=== PATIENT | male | born 1960 | race Caucasian/White ===

== ENCOUNTER 2020-01-18 20:30 | Emergency (ER) | payer OTHER, SELFPAY ==
[2020-01-18 20:31] VITALS: BP 186/126; PULSE 82; RESP 18; TEMP 36; O2SAT 97; BMI 47.9
[2020-01-18 20:56] VITALS: BP 196/94
--- NOTE | 2020-01-18 21:00 | EKG12_ITS ---
Test Reason : HTN Blood Pressure : / mmHG Vent. Rate : 091 BPM Atrial Rate : 091 BPM P-R Int : 162 ms QRS Dur : 096 ms QT Int : 368 ms P-R-T Axes : 045 005 029 degrees QTc Int : 452 ms Poor data quality, interpretation may be adversely affected Normal sinus rhythm Normal ECG Confirmed by MAXIMILIAN BURNS, SHADI ([id number]), editor managing director CHRIS OH ([id number]) on 01/24/2020 11:53:31 AM Referred By: Confirmed By:SHADI YAO MD
--- NOTE | 2020-01-18 21:01 | ED.VIS.GEN ---
History of Present Illness Chief Complaint: Hypertension Informant: Patient Narrative: Patient presents the emergency department for evaluation of hypertension left leg swelling. Patient moved from [place] about 2 years ago and due to a lack of health insurance he was not following up with anybody. He is now since got health insurance and was wanting to reestablish with a new primary care physician so he went tonight to see a new doctor. He was noted to have hypertension and left leg swelling. He tells me he has a history of hypertension and was treated for it 3 years ago in [place] but decided that he could watch his salt intake and do without the medication. About 3 years ago was the last time he took his blood pressure but he maintains that his systolic blood pressure normally runs around 140. He was noted at the office to have systolic pressures of 204. Patient also states that in the past he was diagnosed with a extensive DVT in the left leg. Since that time he was taking Eliquis but not for the past year. He does not know why he was on the Eliquis but was basically supposed to be taking it lifelong. Financial burden relieved him of having to take it. He states that the swelling comes and goes. He notes a family history of polycythemia. Past Medical History - Allergies and Home Meds Allergies/Adverse Reactions: Allergies No Known Allergies Allergy (Verified 01/18/20 20:33) Primary Care Physician: David Laurent MD [Primary Care Provider] - As soon as possible Past Medical History: - - DVT and hypertension Surgical History: noncontributory Lives: With Family Smoking Status: Never smoker Drugs: None Review of Systems General: Denies: Chills, Fever, Sweats Eyes: Denies: Visual changes - bilaterally, Diplopia ENT: Denies: Rhinorrhea, Sore throat Cardiovascular: Denies: Chest pain, Palpitations Respiratory: Denies: Dyspnea, Cough, 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 Gastrointestinal: Denies: Abdominal pain, Nausea, Vomiting, Diarrhea, Melena, Hematochezia Genitourinary: Denies: Dysuria, Hematuria, Frequency Musculoskeletal: Reports: Swelling. Denies: Back pain, Extremity Pain Skin: Denies: Rash, Wounds Neurological: Denies: Headache, Weakness, Numbness Physical Exam Vital Signs/Narrative: Vital Signs Temp Pulse Resp BP Pulse Ox 01/18/20 20:56 196/94 H 01/18/20 20:31 96.8 F L 82 18 186/126 H 97 Inital Vital Signs reviewed: Yes General: Well nourished, Well developed, Obese, No Acute Distress Head: Normocephalic, Atraumatic Eyes: Perrl, EOMI ENT: Moist mucous membranes, No rhinorrhea Neck: Supple, Nontender Cardiovascular: Regular rate, Regular rhythm, No murmurs Respiratory: No distress, CTA bilaterally, Chest nontender Abdomen: Soft, Nontender, Nondistended, Normal bowel sounds Back: Nontender, Normal Inspection Extremities: Nontender, Edema - Left leg is swollen when compared to the right. Skin: Normal color, No rash Neurological: Alert, Oriented x3, Cranial nerves II-XII grossly intact, Normal Strength, Normal Sensation Psychological: Normal affect, Normal Mood Diagnostic/Tx/Re-eval Clinical Impression(s) from Imaging Studies Venous Duplex 01/18/20 21:09 IMPRESSION: Deep venous thrombosis of left superficial femoral and popliteal veins. Electronically Signed: Dario Keenan MD at 21:55 EDT , Service support , ADDENDUM: 01/18/201 IMPRESSION: Deep venous thrombosis of left superficial femoral and popliteal veins. N.B. : The above information has been verbally conveyed by Dario Keenan MD to César Reed MD, on 01/18/2020 22:04:30 (ET). Electronically Signed: Dario Keenan MD at 21:55 EDT , Service support , Laboratory Last Values WBC 7.6 K/mm3 (4.4-11.0) 01/18/20 20:47 RBC 4.58 M/mm3 (4.6-6.2) L 01/18/20 20:47 Hgb 16.5 g/dL (13.0-16.5) 01/18/20 20:47 Hct 45.9 % (40-54) 01/18/20 20:47 MCV 100.2 fL (80-94) H 01/18/20 20:47 MCH 36.0 pg (27.0-32.0) H 01/18/20 20:47 MCHC 35.9 g/dL (32-36) 01/18/20 20:47 RDW Std Deviation 46.2 fl (35.1-43.9) H 01/18/20 20:47 RDW Coeff of Ryan 12.5 % (11.6-14.6) 01/18/20 20:47 Plt Count 252 K/mm3 (150-450) 01/18/20 20:47 MPV 10.6 fl (6.2-12.0) 01/18/20 20:47 Immature Gran % (Auto) 0.100 % (0.0-0.9) 01/18/20 20:47 Neut % (Auto) 58.2 % (47-70) 01/18/20 20:47 Lymph % (Auto) 32.8 % (19-41) 01/18/20 20:47 [place] % (Auto) 7.2 % (0-10) 01/18/20 20:47 Eos % (Auto) 1.4 % (0-5) 01/18/20 20:47 Baso % (Auto) 0.3 % (0-1) 01/18/20 20:47 Absolute Neuts (auto) 4.4 X10^3/uL (2.0-7.7) 01/18/20 20:47 Absolute Lymphs (auto) 2.49 X10^3/uL (0.83-4.51) 01/18/20 20:47 Nucleated RBC % 0 % (0-5) 01/18/20 20:47 Sodium 141 mmol/L (136-145) 01/18/20 20:47 Potassium 3.6 mmol/L (3.5-5.1) 01/18/20 20:47 Chloride 107 mmol/L (98-107) 01/18/20 20:47 Carbon Dioxide 28.0 mmol/L (21.0-32.0) 01/18/20 20:47 Anion Gap 6 (5-15) 01/18/20 20:47 BUN 13 mg/dL (7-18) 01/18/20 20:47 Creatinine 1.01 mg/dL (0.70-1.30) 01/18/20 20:47 Estim Creat Clear Calc 76.19 ml/min 01/18/20 20:47 Est GFR (MDRD) Af Amer 97 mL/min (>60) 01/18/20 20:47 Est GFR (MDRD) Non-Af 80 mL/min (>60) 01/18/20 20:47 BUN/Creatinine Ratio 12.9 RATIO (-20) 01/18/20 20:47 Glucose 219 mg/dL (74-106) H 01/18/20 20:47 Hemoglobin A1c 8.8 % (3.8-5.6) H 01/18/20 Unknown Calcium 8.7 mg/dL (8.5-10.1) 01/18/20 20: Total Bilirubin 0.40 mg/dL (0.20-1.00) 01/18/20 20:47 AST 33 U/L (15-37) 01/18/20 20:47 ALT 53 U/L (16-61) 01/18/20 20:47 Alkaline Phosphatase 126 U/L (45-117) H 01/18/20 20:47 Troponin I < 0.015 ng/mL (<0.045) 01/18/20 20:47 Total Protein 7.5 g/dL (6.4-8.2) 01/18/20 20:47 Albumin 3.8 g/dL (3.2-5.0) 01/18/20 20:47 Globulin 3.7 g/dL (2.2-4.2) 01/18/20 20:47 Albumin/Globulin Ratio 1.0 RATIO (0.9-2.4) 01/18/20 20:47 Urine Color Yellow (Yellow) 01/18/20 22:00 Urine Clarity Clear (Clear) 01/18/20 22:00 Urine pH 6.0 (5.0 - 8.0) 01/18/20 22:00 Ur Specific [place] 1.020 (1.002-1.030) 01/18/20 22:00 Urine Protein 15 mg/dl (Negative) H 01/18/20 22:00 Urine Glucose (UA) 1000 mg/dl (Normal) H 01/18/20 22:00 Urine Ketones 5 mg/dl (Negative) H 01/18/20 22:00 Urine Occult Blood Negative /ul (Negative) 01/18/20 22:00 Urine Nitrite Negative (Negative) 01/18/20 22:00 Urine Bilirubin Negative mg/dL (Negative) 01/18/20 22:00 Urine Urobilinogen 4 mg/dl (Normal) H 01/18/20 22:00 Ur Leukocyte Esterase Negative /ul (Negative) 01/18/20 22:00 Urine RBC 0 SEEN /hpf (0-5) 01/18/20 22:00 Urine WBC 0 SEEN /hpf (0-5) 01/18/20 22:00 Ur Squamous Epith Cells 0 SEEN /hpf (0-5) 01/18/20 22:00 Urine Bacteria 0 SEEN /hpf (None Seen) 01/18/20 22:00 Urine Mucus 0 SEEN /hpf (<or=2+) 01/18/20 22:00 - EKG Initial EKG Interpretation: Sinus Rhythm - EKG demonstrates a normal sinus rhythm at a rate of 91 without ectopy or concerning features of ACS - Medical Decision Making A hemoglobin A1c was added on. Start the gentleman back on his Eliquis. Without treating his blood pressure his blood pressure is 175/96. He is to start lisinopril hydrochlorothiazide. Patient is advised to follow-up with primary care. ED Disposition - Plan for ED Patient: Disposition: Home or Assisted Living Diagnosis: Left leg DVT, Hypertension, Elevated blood sugar Instructions: ED DVT, ED Hypertension Established, ED Hyperglycemia New Susp Diabetes Prescriptions: Apixaban [Eliquis] 5 mg PO BID #74 tab Prescription Printed Lisinopril/Hydrochlorothiazide [Lisinopril-Hctz 10-12.5 mg Tab] 1 ea PO DAILY #30 tab Prescription Printed Referrals: David Laurent MD [Primary Care Provider] - As soon as possible Additional Instructions: You need to have your doctor check your hemoglobin A1c level You should talk to your doctor a bout genetic testing for DVT. As discussed should he develop cough, swelling of lips or tongue please talk to your doctor or come to the emergency room
--- NOTE | 2020-01-18 21:09 | US_ITS ---
We are attempting to reach an attending provider to discuss findings. An addendum with communication details will be sent when the communication is complete. STUDY: VENOUS DOPPLER ULTRASOUND - LEFT LOWER EXTREMITY REASON FOR EXAM: Male, 59 years old. LEFT LEG SWELLING TECHNIQUE: Ultrasound evaluation of the deep vein system to include lucio-scale imaging and compression was performed. Lucio-scale imaging and Doppler sonographic evaluation, including duplex spectral analysis and qualitative color flow sonography, was performed. COMPARISON: None. FINDINGS: Common Femoral Vein: Normal compression, spontaneity and augmentation. Normal color Doppler. Common Femoral Vein/Greater Saphenous Junction: Normal compression, spontaneity and augmentation. Normal color Doppler. Deep Femoral Vein: Normal compression, spontaneity and augmentation. Normal color Doppler. There is incomplete compressibility of the left superficial femoral and popliteal veins with internal echoes consistent with deep venous thrombosis. Posterior Tibial Vein: Normal compression, spontaneity and augmentation. Normal color Doppler. Peroneal Vein: Normal compression, spontaneity and augmentation. Normal color Doppler. US/Venous Duplex Imag/Limited/Uni IMPRESSION: Deep venous thrombosis of left superficial femoral and popliteal veins. Electronically Signed: Dario Keenan MD at 21:55 EDT , Service support ,
[2020-01-18 21:27] LABS: AST(SGOT) 33 U/L (15-37); Alanine Aminotransfer ALT/SGPT 53 U/L (16-61); Albumin, Serum 3.8 g/dL (3.2-5.0); Alkaline Phosphatase 126 U/L (45-117); Anion Gap 6 (5-15); BUN 13 mg/dL (7-18); BUN/Creat Ratio 12.9 RATIO (10-20); Calcium,Total 8.7 mg/dL (8.5-10.1); Chloride 107 mmol/L (98-107); Creatinine, Serum 1.01 mg/dL (0.70-1.30); EST Glomerular Filtration Rate 80 mL/min (>60); Est Glom Filt Rate - Afr Amer 97 mL/min (>60); Estimated Creatinine Clearance 76.19 ml/min; Globulin 3.7 g/dL (2.2-4.2); Glucose 219 mg/dL (74-106); Potassium 3.6 mmol/L (3.5-5.1); Protein, Total 7.5 g/dL (6.4-8.2); Sodium Level 141 mmol/L (136-145)
[2020-01-18 21:40] LABS: Absolute Lymphocyte Count 2.49 X10^3/uL (0.83-4.51); Absolute Neutrophil Count 4.4 X10^3/uL (2.0-7.7); Basophil# 0.02 X10^3/uL; Basophil% 0.3 % (0-1); Eosinophil# 0.11 X10^3/uL; Eosinophils% 1.4 % (0-5); Hematocrit 45.9 % (40-54); Hemoglobin 16.5 g/dL (13.0-16.5); Lymphocyte # 2.49 X10^3/ul (4.0); Lymphocyte % 32.8 % (19-41); Mean Corp Hgb Conc 35.9 g/dL (32-36); Mean Corpuscular Volume 100.2 fL (80-94); Mean Platelet Vol. 10.6 fl (6.2-12.0); Monocyte# 0.55 X10^3/uL; Monocyte% 7.2 % (0-10); NRBC Flagged by Analyzer 0 % (0-5); Neutrophil # 4.42 X10^3/uL (2.7-7.7); Neutrophil % 58.2 % (47-70); Platelet Count 252 K/mm3 (150-450); RBC Distribution Width CV 12.5 % (11.6-14.6); RBC Distribution Width SD 46.2 fl (35.1-43.9); Red Blood Count 4.58 M/mm3 (4.6-6.2); White Blood Count 7.6 K/mm3 (4.4-11.0)
[2020-01-18 22:00] VITALS: BP 175/96
[2020-01-18 22:06] LABS: Bacteria 0 SEEN /hpf (None Seen); Mucous, Urine 0 SEEN /hpf (<or=2+); Red Blood Cells-Urine 0 SEEN /hpf (0-5); Squamous Epithelial Cells - UA 0 SEEN /hpf (0-5); White Blood Cells 0 SEEN /hpf (0-5)
[2020-01-18 22:09] LABS: Color, Urine Yellow (Yellow); Glucose, Dipstick 1000 mg/dl (Normal); Ketone-Dipstick 5 mg/dl (Negative); Leukocyte Esterase-Dipstick Negative /ul (Negative); Nitrite-Dipstick Negative (Negative); Occult Blood-Urine Negative /ul (Negative); Protein-Dipstick 15 mg/dl (Negative); Urine Bilirubin Dipstick Negative (Negative); Urine Clarity Clear (Clear); Urine Urobilinogen 4 mg/dl (Normal)
[2020-01-18 22:32] LABS: Hemoglobin A1c 8.8 % (3.8-5.6)
--- NOTE | 2020-01-18 22:43 | ED.RN ---
CALLED LAB FOR URINE RESULTS, THEY WILL INVESTIGATE.
[2020-01-18 23:30] VITALS: BP 186/97; RESP 20; O2SAT 96
[2020-01-18] MEDS: APIXABAN 5 MG TABLET 10 MG PO (23:30)
== END 2020-01-18 23:30 | disposition home or self-care (01) ==
PROVIDERS: Emergency Provider Emergency Medicine; PCP Family Medicine
DX: I82.4Z2 Acute embolism and thrombosis of unspecified deep veins of left distal lower extremity (principal); I10 Essential (primary) hypertension; R73.9 Hyperglycemia, unspecified; E66.9 Obesity, unspecified; Z79.82 Long term (current) use of aspirin
CPT/HCPCS: 80053; 81001; 83036; 84484; 85025; 93005; 93971; 99285; A4216

== ENCOUNTER 2021-03-04 23:02 | Emergency (ER) | payer OTHER, SELFPAY ==
[2021-03-04 23:02] VITALS: BP 160/93; PULSE 100; RESP 28; TEMP 37.2; O2SAT 100; BMI 47.9
--- NOTE | 2021-03-04 23:46 | CT_ITS ---
STUDY: CT ABDOMEN AND PELVIS WITH CONTRAST REASON FOR EXAM: Male, 60 years old. epigastric abd pain RADIATION DOSAGE (If Supplied By Facility): CTDIvol = ( 19.45 ) mGy, DLP = ( 2764.16 ) mGycm TECHNIQUE: Transaxial images were obtained from the dome of the diaphragm to the symphysis pubis without oral contrast. IV 100mL Isovue-300 was administered. Sagittal and coronal images were reconstructed. Individualized dose optimization techniques were used for this CT. COMPARISON: None. FINDINGS: The visualized lung bases are unremarkable. The visualized portions of the heart are within normal limits. There is decreased attenuation of the liver consistent with steatosis. There are multiple gallstones. Normal spleen. There is diffuse atrophy of the pancreas. Normal bilateral adrenal glands. Normal right kidney. Normal left kidney. There is a small hiatal hernia. Normal small intestine. Normal colon. There is non-visualization of the appendix. Normal abdominal aorta. Normal inferior vena cava. Normal retroperitoneum. Normal urinary bladder. Normal visualized prostate gland. Normal abdominal wall. Normal osseous structures. CT/Abdomen/Pelvis W IV Cont ONLY IMPRESSION: Significant fatty steatosis of the liver. Multiple gallstones without evidence of acute cholecystitis. Remainder is within normal limits Electronically Signed: Rojas Mejia DO at 1:51 EST Tel , Service support ,
--- NOTE | 2021-03-04 23:47 | ED.VIS.GI ---
HPI HPI - GI History of Present Illness Chief Complaint: Nausea/Vomiting Detail of Chief Complaint: Epigastric abdominal pain Informant: patient Abdominal Pain/Flank Pain Onset: Today and Hours Context: Gradual Onset Timing: Continuous Quality: Aching Location: Epigastric Current Severity: Moderate Maximum Severity: Moderate Nausea/Vomiting/Emesis GI Symptom: Positive for Nausea and Vomiting Onset: Today Severity: Mild Diarrhea/Melena/Hematochezia GI Symptom: Positive for Diarrhea; Negative for Melena and Hematochezia Onset: Today Stool Quality: Positive for Loose Severity: Mild Associated Symptoms Associated Symptoms: Negative for Dysuria, Frequency, Hematuria and Urgency Narrative Narrative: 60-year-old male past medical history [id number] diabetic. Said around 9 PM the night he had epigastric abdominal pain associated with nausea, vomiting and diarrhea. He thinks it may be associated with the spaghetti ate tonight for dinner but he is unsure. He says never had an episode like this before. He denies any prior gallbladder or appendix surgeries. He denies any back pain. No fever but positive chills. No dysuria. No melena or hematemesis. Prior similar symptoms: No Recent Illness/Hospitalization: No PFSH PFS Medical History DVT (deep venous thrombosis) Hypertension Home Medications apixaban 5 mg PO BID #74 tab 01/18/20 [Rx Last Taken Unknown] aspirin 81 mg PO DAILY@0800 01/18/20 [History Last Taken Unknown] lisinopril-hydrochlorothiazide 1 ea PO DAILY #30 tab 01/18/20 [Rx Last Taken Unknown] Allergy/AdvReac Type Severity Reaction Status Date / Time No Known Allergies Allergy Verified 03/05/21 01:25 Social History Smoking Status: Never smoker ROS ROS ED ROS Narrative Epigastric abdominal pain with nausea, vomiting and diarrhea. Review of Systems ROS Unobtainable: Denies due to encephalopathy Constitutional Constitutional ED: Reports chills; Denies fever(s) ENT ENT ED: Denies ear pain Cardiovascular Cardiovascular: Denies chest pain or palpitations Respiratory/Chest Respiratory/Chest: Denies cough or dyspnea Gastrointestinal Gastrointestinal: Reports abdominal pain, diarrhea, nausea and vomiting; Denies constipation or melena Genitourinary Genitourinary ED: Denies dysuria Musculoskeletal Musculoskeletal: Denies myalgias Integumentary Denies rash Neurologic Neurologic: Denies headache(s) Psychiatric Psychiatric: Denies depression Endocrine Endocrinology: Denies polyuria Hematologic/Lymphatic Hematologic/Lymphatic: Denies easy bruising Allergic/Immunologic Allergic/Immunologic ED: Denies urticaria EXAM Physical Exam Narrative Exam Narrative: 60-year-old male vital signs stable afebrile does not look septic or toxic. HEENT exam unremarkable. Neck nontender. Lungs clear to auscultation bilaterally. Heart regular rhythm no murmur. Abdomen soft nondistended normal bowel sounds no peritoneal signs but tender in both the epigastric region and right upper quadrant. No hernia or mass no obvious obstruction. Right lower quadrant nontender. Moving all 4 extremities no edema. Neurologically is awake and alert with no focal motor deficits. Const Vital Signs: 03/04/21 23:02 03/04/21 23:53 03/05/21 01:55 Temperature 98.9 F Temperature Source Temporal Pulse Rate 100 96 123 H Respiratory Rate 28 H 32 H 20 H Blood Pressure 160/93 H 159/88 H 158/86 H Blood Pressure Mean 115 111 110 Pulse Ox 100 98 96 Oxygen Delivery Method Room Air Positive well nourished, well developed and obese; Negative for cachectic, contractures or unkempt General Appearance ED: well developed and NAD; Negative for unkempt, cachectic, contractures or pallor Nutritional Appearance: obese; Negative for cachectic HEENT Reports dry mucous membranes normocephalic and atraumatic; Negative for trauma or tenderness Mouth ED: Yes dry mucous membranes Mouth: dry mucous membranes Eyes PERRL and EOMs intact bilaterally Neck no lymphadenopathy, supple and no JVD General: Negative for tenderness Resp normal respiratory effort and clear to auscultation bilaterally Auscultation: Negative for rales, rhonchi or wheezes Cardio regular rate, regular rhythm, S1 normal heart sound, S2 normal heart sound and no murmurs GI non-tender, non-distended and no masses Inspection: Negative for abdominal distention Auscultation: normoactive bowel sounds; Negative for hyperactive bowel sounds or hypoactive bowel sounds Palpation: soft and tender; Negative for guarding, rigid, hepatomegaly, splenomegaly or rebound tenderness present Back/Spine no CVA tenderness General Back: Negative for CVA tenderness Extremity full ROM General Extremety ED: Negative for edema or tenderness General Extremity: Negative for edema Neuro moves all extremities Sensorium / Orientation: alert, oriented to person, oriented to place and oriented to time; Negative for orientation impaired, confused, lethargic or stuporous Motor Exam: strength 5/5 throughout Psych mental status grossly normal and thought process normal Appearance: Negative for unkempt Skin no wounds General Skin Exam: Negative for jaundice or pallor Lesions: no lesions Rashes: no rashes MDM MDM MDM Narrative Medical decision making narrative: 60-year-old male with epigastric and right upper quadrant abdominal pain with nausea, vomiting and diarrhea. Be treated with IV fluids morphine and Zofran. Labs and CAT scan are being obtained. Repeat exam patient is doing well at 2:10 AM. Abdomen is completely nontender. No peritoneal signs. Clinically looks and feels well. I discussed with a general surgeon on-call Dr. Micheline Monet at the [facility]. Given the patient has a normal white count, no fever and is pain-free she is comfortable seeing him in her office later today and possibly scheduling him for surgery soon as possible. I discussed all this with the patient he preferred to go home also. Lab Data Attestation: I reviewed the patient's lab results. Lab results narrative: CBC shows a white count 8. Hemoglobin is 16.8. Electrolytes sodium 133 gap 11 normal BUN and creatinine. Liver enzymes are elevated with a total bilirubin 3.2 AST of 388 ALT of 503 and alk phos of 192. Lipase is normal. Abdominal CAT scan shows gallstones but no cholecystitis is read by the radiologist and reviewed by me. Labs: Laboratory Results - last 24 hr 03/04/21 03/04/21 23:30 23:30 WBC 8.0 RBC 4.85 Hgb 16.8 H Hct 47.1 MCV 97.1 H MCH 34.6 H MCHC 35.7 RDW Std Deviation 43.3 RDW Coeff of Ryan 12.0 Plt Count 214 MPV 10.9 Immature Gran % (Auto) 0.300 Neut % (Auto) 64.1 Lymph % (Auto) 28.1 [place] % (Auto) 6.3 Eos % (Auto) 0.9 Baso % (Auto) 0.3 Absolute Neuts (auto) 5.1 Absolute Lymphs (auto) 2.24 Nucleated RBC % 0 Sodium 133 L Potassium 3.5 Chloride 99 Carbon Dioxide 23.0 Anion Gap 11 BUN 17 Creatinine 1.25 Estim Creat Clear Calc 60.80 Est GFR (MDRD) Af Amer 76 Est GFR (MDRD) Non-Af 63 BUN/Creatinine Ratio 13.6 Glucose 307 H Calcium 9.4 Total Bilirubin 3.20 H AST 388 H ALT 503 H Alkaline Phosphatase 192 H Total Protein 7.8 Albumin 3.5 Globulin 4.3 H Albumin/Globulin Ratio 0.8 L Lipase 388 Radiography Diagnostic Testing: Clinical Impression(s) from Imaging Studies Abdomen/Pelvis CT 03/04/21 23:46 IMPRESSION: Significant fatty steatosis of the liver. Multiple gallstones without evidence of acute cholecystitis. Remainder is within normal limits Electronically Signed: Rojas Mejia DO at 1:51 EST Tel , Service support , Discharge Plan Triage Chief Complaint: Nausea/Vomiting ED Provider: Pal Ribera Dx/Rx/DC Orders Clinical Impression: Biliary colic, Multiple gallstones Instructions: ED Gallstones with Biliary Colic Prescriptions: No Action aspirin 81 MG tablet,chewable 81 mg PO DAILY@0800 RF: 0 apixaban 5 MG tablet 5 mg PO BID Qty: 74 RF: 0 lisinopril-hydrochlorothiazide 1 EACH tablet 1 ea PO DAILY Qty: 30 RF: 0 Primary Care Provider: Priyank Quinones Referrals: Micheline Monet MD [STAFF PHYSICIAN] - As soon as possible (Call her office and be seen later today.) Priyank Quinones MD [Primary Care Provider] - Activity Restrictions/Additional Instructions: You have multiple gallstones and most likely will need your gallbladder taken out. I believe that is what caused your pain tonight. Call and follow-up with Dr. Micheline Monet at the [facility] here in [place] later today. Call their office in the morning to get an appointment. I spoke with her tonight. Return emergency department if you are feeling worse, increasing pain, intractable vomiting or fever. Fluids and rest. Tylenol for any discomfort. Ball diet and increase slowly as tolerated. Avoid greasy and fatty foods because that may make this feel a lot worse. Disposition Disposition: Home, Self Care
[2021-03-04 23:53] VITALS: BP 159/88; PULSE 96; RESP 32; O2SAT 98
[2021-03-04] MEDS: 0.9% Normal Saline 1,000 ML 1000 ML IV (23:57)
[2021-03-04] MEDS: Ondansetron 4 MG/2 ML Vial IV (23:59)
[2021-03-04] MEDS: morphine 8 MG/ML Syringe IV (23:59)
[2021-03-05 00:37] LABS: ALB/GLOB Ratio 0.8 RATIO (0.9-2.4); AST(SGOT) 388 U/L (15-37); Alanine Aminotransfer ALT/SGPT 503 U/L (16-61); Albumin, Serum 3.5 g/dL (3.2-5.0); Alkaline Phosphatase 192 U/L (45-117); Anion Gap 11 (5-15); BUN 17 mg/dL (7-18); BUN/Creat Ratio 13.6 RATIO (10-20); Calcium,Total 9.4 mg/dL (8.5-10.1); Chloride 99 mmol/L (98-107); Creatinine, Serum 1.25 mg/dL (0.70-1.30); EST Glomerular Filtration Rate 63 mL/min (>60); Est Glom Filt Rate - Afr Amer 76 mL/min (>60); Globulin 4.3 g/dL (2.2-4.2); Glucose 307 mg/dL (74-106); Lipase 388 U/L (73-393); Potassium 3.5 mmol/L (3.5-5.1); Protein, Total 7.8 g/dL (6.4-8.2); Sodium Level 133 mmol/L (136-145)
[2021-03-05 00:49] LABS: Absolute Lymphocyte Count 2.24 X10^3/uL (0.83-4.51); Absolute Neutrophil Count 5.1 X10^3/uL (2.0-7.7); Basophil# 0.02 X10^3/uL; Basophil% 0.3 % (0-1); Eosinophil# 0.07 X10^3/uL; Eosinophils% 0.9 % (0-5); Hematocrit 47.1 % (40-54); Hemoglobin 16.8 g/dL (13.0-16.5); Lymphocyte # 2.24 X10^3/ul (0.83-4.51); Lymphocyte % 28.1 % (19-41); Mean Corp Hgb Conc 35.7 g/dL (32-36); Mean Corpuscular Hgb 34.6 pg (27.0-32.0); Mean Corpuscular Volume 97.1 fL (80-94); Mean Platelet Vol. 10.9 fl (6.2-12.0); Monocyte% 6.3 % (0-10); NRBC Flagged by Analyzer 0 % (0-5); Neutrophil # 5.11 X10^3/uL (2.7-7.7); Neutrophil % 64.1 % (47-70); Platelet Count 214 K/mm3 (150-450); RBC Distribution Width SD 43.3 fl (35.1-43.9); Red Blood Count 4.85 M/mm3 (4.6-6.2)
[2021-03-05 01:55] VITALS: BP 158/86; PULSE 123; RESP 20; O2SAT 96
[2021-03-05 02:12] VITALS: BP 160/88; PULSE 126; RESP 18; TEMP 36.6; O2SAT 96
== END 2021-03-05 02:29 | disposition home or self-care (01) ==
PROVIDERS: Emergency Provider Emergency Medicine; PCP Family Medicine
DX: K80.62 Calculus of gallbladder and bile duct with acute cholecystitis without obstruction (principal); K76.0 Fatty (change of) liver, not elsewhere classified; E66.9 Obesity, unspecified; I10 Essential (primary) hypertension; E11.9 Type 2 diabetes mellitus without complications; Z86.718 Personal history of other venous thrombosis and embolism; Z79.01 Long term (current) use of anticoagulants; Z79.82 Long term (current) use of aspirin
CPT/HCPCS: 74177; 80053; 83690; 85025; 96361; 96374; 96375; 99285; J7030; Q9967; A4216; J2405

== ENCOUNTER 2025-02-27 14:18 | Inpatient (IN) | payer SELFPAY ==
[2025-02-27] VITALS (35 sets, daily range): BP systolic 140–200; BP diastolic 62–85; PULSE 104–132; RESP 17–53; TEMP 36.9–39.4; O2SAT 88–99; BMI 47.2; BMI 20.9; BMI 46.3
--- NOTE | 2025-02-27 14:57 | RAD_ITS ---
PROCEDURE: CHEST 1 VIEW (PORTABLE) 02/27/2025 REASON FOR EXAM: FEVER COUGH TECHNIQUE: Frontal view of the chest. COMPARISON: None FINDINGS: Diffuse reticular opacities may reflect moderate pulmonary edema versus atypical pneumonia. Right lower lobe opacity may reflect atelectasis and/or pneumonia. No pleural effusion or pneumothorax. Cardiac silhouette is within normal limits. No acute fractures. RAD/Chest 1 View (Portable) IMPRESSION: Diffuse reticular opacities may reflect moderate pulmonary edema versus atypica l pneumonia. Right lower lobe opacity may reflect atelectasis and/or pneumonia. Reading Location: [id number]
--- NOTE | 2025-02-27 14:57 | EKG12_ITS ---
Test Reason : Blood Pressure : */* mmHG Vent. Rate : 112 BPM Atrial Rate : 112 BPM P-R Int : 152 ms QRS Dur : 88 ms QT Int : 370 ms P-R-T Axes : 38 7 117 degrees QTcB Int : 505 ms Sinus tachycardia T wave abnormality, consider lateral ischemia Abnormal ECG Confirmed by Wilfrido Verdin ([id number]), greeting card editor CHRIS OH ([id number]) on 02/28/2025 8:29:11 AM Referred By: Confirmed By: Wilfrido Verdin
[2025-02-27] MEDS: 0.9% Normal Saline (1000mL) 1,000 ML 999 ML IV ×2 (15:08→17:04)
--- OUTSIDE RECORDS SUMMARY | 2025-02-27 15:09 | XMS RPT_ITS | CCD ---
Author Organization [facility] Care Team Providers Care Inspector [employer] Name Role Phone Dashawn Eid MD Primary Care Provider Dashawn Eid MD Primary Care Provider Tannhof FLARER.Chelo CALLAHAN Unavailable Malcom FLARER.Go CALLAHAN Unavailable [phone] Medications Current Medications Medication Drug Class(es) Dates Sig (Normalized) Sig (Original) acetaminophen 325 mg / oxyCODONE hydrochloride 5 mg oral tablet (1 source) Opioid Agonist Start: 07-18-2021 End: 07-23-2021 take 1 tablet by mouth every six hours as needed oxyCODONE-acetamino phen (PERCOCET) 5-325 mg tablet Indications: Calculus of gallbladder and bile duct without cholecystitis, with obstruction Take 1 tablet by mouth every 6 hours as needed for up to 5 days. 20 tablet 0 07/18/2021 07/23/2021 Active Comment on above: Take 1 tablet by chalino th every 6 hours as needed for up to 5 days. amoxicillin 875 mg / clavulanate 125 mg oral tablet (4 sources) Penicillin-class Antibacterial Start: 08-08-2021 End: 08-18-2021 take 1 tablet by mouth twice daily amoxicillin-clavula cindy acid (AUGMENTIN) 875-125 mg per tablet Indications: Acute non-recurrent sinusitis, unspecified location Take 1 tablet by mouth twice daily for 10 days. 20 tablet 0 08/08/2021 08/18/2021 Active Comment on above: Take 1 tablet by chalino th twice daily for 10 days. apixaban 5 mg oral tablet (20 sources) Factor Xa Inhibitor Start: 11-28-2020 End: 10-10-2022 take 1 tablet by mouth twice daily apixaban (ELIQUIS) 5 mg tab(s) Take 1 tablet by mouth twice daily. 180 tablet 3 10/10/2022 Active Comment on above: Take 1 tablet by chalino th twice daily. Take by mouth twice daily. Take 1 tablet by chalino th twice daily. restart med in two days atorvastatin 40 mg oral tablet (20 sources) HMG-CoA Reductase Inhibitor Start: 04-29-2023 End: 04-23-2024 take 1 tablet by mouth once daily at bedtime for hyperlipidemia atorvastatin (LIPITOR) 40 mg tablet Indications: Hyperlipidemia, unspecified hyperlipidemia type Take 1 tablet by mouth daily at bedtime. For cholesterol. 90 tablet 3 04/29/2023 04/23/2024 Active Start: 03-08-2021 End: 03-03-2022 take 1 tablet by mouth once daily at bedtime for hyperlipidemia atorvastatin (LIPITOR) 40 mg tablet Indications: Hyperlipidemia, unspecified hyperlipidemia type Take 1 tablet by mouth daily at bedtime. For cholesterol. 90 tablet 3 03/08/2021 Active Comment on above: Take 1 tablet by chalino th daily at bedtime. For cholesterol. benoxinate hydrochloride 4 mg/ml / fluorescein sodium 3 mg/ml ophthalmic solution (1 source) Diagnostic Dye Start: End: fluorescein-benox inate 0.3-0.4 % 1 Drop (FLURESS) hydroCHLOROthiazide 25 mg / lisinopril 20 mg oral tablet (20 sources) Thiazide Diuretic, Angiotensin Converting Enzyme Inhibitor Start: End: take 1 tablet by mouth once daily in the morning lisinopril-hydroC HLOROthiazide (ZESTORETIC) 20-25 mg per tablet Indications: Hypertension, essential Take 1 tablet by mouth every morning. 90 tablet 3 10/17/2023 Active Comment on above: Take 1 tablet by chalino th every morning. 24 hr metFORMIN hydrochloride 500 mg extended release oral tablet (20 sources) Biguanide Start: take 2 tablets by mouth twice daily at mealtime metFORMIN ER (GLUCOPHAGE XR) 500 mg 24 hr tablet Indications: Controlled type 2 diabetes mellitus without complication, without long-term current use of insulin (HCC) Take 2 tablets by mouth two times a day with meals. 120 tablet 2 04/29/2023 Active Start: 08-08-2020 take 2 tablets by mo [facility] twice daily at mealtime metFORMIN ER (GLUCOPHAGE XR) 500 mg 24 hr tablet Indications: Controlled type 2 diabetes mellitus without complication, without long-term current use of insulin (HCC) Take 2 tablets by mouth twice daily with meals. 120 tablet 2 08/08/2020 Active Comment on above: Take 2 tablets by [facility] twice daily with meals. Take 2 tablets by mo [facility] two times a day with meals. Completed/Discontinued Medications Medication Drug Class(es) Dates Sig (Normalized) Sig (Original) fluticasone propionate 0.05 mg/actuat metered dose nasal spray (13 sources) Corticosteroid Start: 06-23-2020 take 2 spray(s) by mouth once daily fluticasone (FLONASE) 50 mcg/actuation nasal spray Indications: Acute non-recurrent maxillary sinusitis Use 2 Sprays in each nostril once daily. Rinse mouth after use. 1 Bottle 11 06/23/2020 Active Comment on above: Use 2 Sprays in each nostril once daily. Rinse mouth after use. phenylephrine hydrochloride 25 mg/ml ophthalmic solution (1 source) alpha-1 Adrenergic Agonist Start: 05-08-2023 End: 05-08-2023 PHENYLephrine 2.5 % 1 Drop (AK-DILATE, SILVESTRE-SYNEPHRINE) proparacaine hydrochloride 5 mg/ml ophthalmic solution (1 source) Local Anesthetic Start: 05-08-2023 End: 05-08-2023 proparacaine 0.5 % 1 Drop (ALCAINE) tropicamide 10 mg/ml ophthalmic solution (1 source) Anticholinergic Start: 05-08-2023 End: 05-08-2023 tropicamide 1 % 1 Drop (MYDRIACYL) Problems Active Problems Problem Classification Problem Date Documented Da te Episodic/Chronic Blindness and vision defects (4 sources) Refractive amblyopia of right eye; Translations: [Refractive amblyopia, right eye] 05-08-2023 Episodic Cataract (2 sources) Bilateral senile combined form cataracts of eyes; Translations: [Combined forms of age-related cataract, bilateral] 05-08-2023 Chronic Diabetes mellitus without complication (20 sources) Type 2 diabetes mellitus; Translations: [Type 2 diabetes mellitus without complications] Onset: 02-08-2020 02-08-2020 Chronic Disorders of lipid metabolism (20 sources) Hyperlipidemia; Translations: [Hyperlipidemia, unspecified] Onset: 11-28-2020 11-28-2020 Chronic Essential hypertension (20 sources) Essential hypertension; Translations: [Essential (primary) hypertension] Onset: 02-08-2020 02-08-2020 Chronic Glaucoma (2 sources) Preglaucoma, unspecified, bilateral; Translations: [Preglaucoma, unspecified] 05-08-2023 Chronic Inflammation; infection of eye (except that caused by tuberculosis or sexually transmitteddisease) (2 sources) Blepharitis; Translations: [Squamous blepharitis right eye, upper and lower eyelids] 05-08-2023 Episodic Other aftercare (2 sources) Patient encounter status; Translations: [FPC (current) use of antithrombotics/an tiplatelets] Episodic Other hereditary and degenerative nervous system conditions (20 sources) Essential tremor; Translations: [Essential tremor] Onset: 11-28-2020 11-28-2020 Chronic Other liver diseases (4 sources) Increased bilirubin level; Translations: [Unspecified jaundice] Episodic Other lower respiratory disease (1 source) 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; Translations: [Dyspnea, unspecified] Episodic Other nutritional; endocrine; and metabolic disorders (20 sources) Body mass index 40+ - severely obese; Translations: [Morbid (severe) obesity due to excess calories] Onset: 02-08-2020 02-08-2020 Chronic Other screening for suspected conditions (not mental disorders or infectious disease) (4 sources) Other specified abnormal findings of blood chemistry; Translations: [Other abnormal blood chemistry] Episodic Other upper respiratory infections (1 source) Acute sinusitis; Translations: [Acute sinusitis, unspecified] Episodic Phlebitis; thrombophlebitis and thromboembolism (20 sources) Chronic deep venous thrombosis of femoral vein of left lower extremity; Translations: [Chronic embolism and thrombosis of left femoral vein] Onset: 02-08-2020 02-08-2020 Chronic Pulmonary heart disease (20 sources) Saddle embolus of pulmonary artery; Translations: [Saddle embolus of pulmonary artery without acute cor pulmonale] Onset: 03-01-2020 03-01-2020 Chronic Residual codes; unclassified (4 sources) H/O: jaundice; Translations: [Personal history of other specified conditions] Episodic Past or Other Problems Problem Classification Problem Date Documented Date Episodic/Chronic Biliary tract disease (6 sources) Cholelithiasis without obstruction; Translations: [Calculus of gallbladder without cholecystitis without obstruction] Onset: 07-18-2021 Resolved: 07-18-2021 Episodic Other aftercare (20 sources) Long-term current use of anticoagulant; Translations: [FPC (current) use of anticoagulants] Onset: 05-26-2020 05-29-2020 Episodic Results Test Name Value Interpretation Reference Range Facil itute Higginbotham 04-22-2024 CNPN Telephone (4CQ) MITCH IRVIN ([id number]) 1960 M Date Time Provider Department 04/22/24 DASHAWN EID 4CQ During your visit today, we recorded the following information about you: Helen Randle 04/22/2024 11:04 AM Signed Pt called back regarding letter he received in mail. Patient stated that he can not make an appt at this time as he does not have medical insurance. Once he figures this out he will call to schedule . Allergies As of Date: 04/22/2024 (No Known Allergies) Date Reviewed: 05/29/2023 Reviewed by: Saumya Rodney OD - Fully Assessed Reason for Visit: Patient Update [1234] Prescriptions as of 04/22/2024 - lisinopril-hydroCHLORO thiazide (ZESTORETIC) 20-25 mg per tablet Take 1 tablet by mouth every morning. - atorvastatin (LIPITOR) 40 mg tablet Take 1 tablet by mouth daily at bedtime. For cholesterol. - metFORMIN ER (GLUCOPHAGE XR) 500 mg 24 hr tablet Take 2 tablets by mouth two times a day with meals. - apixaban (ELIQUIS) 5 mg tab(s) Take 1 tablet by mouth twice daily. Meds Comments as of 03/08/2021: Will use Advil/Tylenol prn Problem List As Of Date 04/22/2024 Noted Resolved Hypertension, essential [I10] 02/08/2020 Type 2 diabetes (HCC) [E11.9] 02/08/2020 Chronic deep vein thrombosis (DVT) of femoral v*02/08/2020 Obesity, Class III, BMI 40-49.9 (morbid obesity*02/08/2020 Acute saddle pulmonary embolism without acute c*03/01/2020 Anticoagulant long-term use [Z79.01] 05/26/2020 Hyperlipidemia [E78.5] 11/28/2020 Essential tremor [G25.0] 11/28/2020 Calculus of gallbladder and bile duct without c*07/18/2021 07/18/2021 Encounter Status:[facility] (BECKIE) MITCH IRVIN ([id number]) 1960 M Date Time Provider Department 04/13/24 GO COWART During your visit today, we recorded the following information about you: Go Cowart APRN.CNP 04/13/2024 10:12 AM Signed STAMP Please reach out to patient for overdue appointment for chronic disease management with myself. This patient is due for a yearly exam Go Cowart APRN.Katerine Angeles LPN 04/13/2024 10:45 AM Signed Left message to return call Lliliam Chávez MA 04/16/2024 12:54 PM Signed POP[employer] NAVIGATION OUTREACH Action/FYI Message left for pt to call back. Due for appt. Reason for Outreach Care Gap/HCC or Scheduling Wellness Visits Care Gaps due: Follow-up Appointment Patient Contacted: Unable or unnecessary to reach patient: Left message Navigation Signature: Lilliam Chávez MA April 16, 2024 12:52 PM Lilliam Chávez MA 04/19/2024 1:27 PM Signed Letter mailed to pt home to call office to schedule appt. Lilliam Chávez MA Allergies As of Date: 04/13/2024 (No Known Allergies) Date Reviewed: 05/29/2023 Reviewed by: Saumya Rodney OD - Fully Assessed Reason for Visit: Appointment [186] Prescriptions as of 04/19/2024 - lisinopril-hydroCHLORO thiazide (ZESTORETIC) 20-25 mg per tablet Take 1 tablet by mouth every morning. - atorvastatin (LIPITOR) 40 mg tablet Take 1 tablet by mouth daily at bedtime. For cholesterol. - metFORMIN ER (GLUCOPHAGE XR) 500 mg 24 hr tablet Take 2 tablets by mouth two times a day with meals. - apixaban (ELIQUIS) 5 mg tab(s) Take 1 tablet by mouth twice daily. Meds Comments as of 03/08/2021: Will use Advil/Tylenol prn Problem List As Of Date 04/13/2024 Noted Resolved Hypertension, essential [I10] 02/08/2020 Type 2 diabetes (HCC) [E11.9] 02/08/2020 Chronic deep vein thrombosis (DVT) of femoral v*02/08/2020 Obesity, Class III, BMI 40-49.9 (morbid obesity*02/08/2020 Acute saddle pulmonary embolism without acute c*03/01/2020 Anticoagulant long-term use [Z79.01] 05/26/2020 Hyperlipidemia [E78.5] 11/28/2020 Essential tremor [G25.0] 11/28/2020 Calculus of gallbladder and bile duct without c*07/18/2021 07/18/2021 Letter Text Encounter Status:Closed by LILLIAM CHÁVEZ on 04/19/24 Normal [facility] ERCPon 08-30-2021 [facility] GLUCOSE, BLOOD (POC)on 08-30 Glucose [Mass/Vol] 123 mg/dL Abnormal 74 - 99 mg/dL [facility] No Panel Informationon 08-16 [facility] ANES POSTPROC EVALon 022 ANES POSTPROC EVAL HNO ID: [id number] Author: Olamide Amaro MD Service: Anesthesiology Author Type: Anesthesiologist Type: Anesthesia Postprocedure Evaluation Filed: 07/18/2021 11:13 AM Note Text: POST ANESTHESIA EVALUATION NOTE : 1960 Procedure Summary Date: 07/18/21 Room / Location: [place] [address] / [place] Anesthesia Start: 822 Anesthesia Stop: 951 Procedure: LAPAROSCOPIC CHOLECYSTECTOMY (N/A ) Diagnosis: Calculus of gallbladder and bile duct without cholecystitis, with obstruction 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 Encounter for long-term (current) use of antiplatelets/antithro mbotics Surgeons: César Sal MD Responsible Provider: Olamide Amaro MD Anesthesia Type: general ASA Status: 3 Anesthesia Type: general Airway Type: ETT Last Vitals Vitals Value Taken Time BP 165/88 07/18/21 1045 Temp 36.2 ?C (97.2 ?F) 07/18/21 0950 Pulse 73 07/18/21 1052 Resp 18 07/18/21 1052 SpO2 96 % 07/18/21 1052 Vitals shown include unvalidated device data. Post Anesthesia Patient Status Patient Evaluation: PACU. PACU/ICU Patient Condition: stable. Anticipated Disposition: phase 2 then home. Neurological Status: aware and responsive. Pulmonary Status: breathing comfortably on room air Airway Control: returned to baseline unsupported. Cardiovascular Status: stable. Pain Management: clinically adequate - multimodal analgesia pain management approach Postoperative Hydration: acceptable. Intraoperative Events: no significant anesthesia events Post Operative Nausea/Vomiting Status: no significant post operative nausea or vomiting Anesthetic Observations: Recommendation: continue current plan of care. Anesthesia Observations No Documentation SIGNATURE: Olamide Amaro MD PATIENT NAME: Mitch Irvin DATE: July 18, 2021 TIME: 11:13 AM CSN: [id number] [facility] ANES PRE-OPon 07-18-2021 ANES PRE-OP HNO ID: [id number] Author: Olamide Amaro MD Service: Anesthesiology Author Type: Anesthesiologist Type: Anesthesia Preprocedure Evaluation Filed: 07/18/2021 8:00 AM Note Text: ANESTHESIOLOGY DAY OF SURGERY NOTE : 1960 Procedure Information Date/Time: 07/18/2130 Procedure: LAPAROSCOPIC CHOLECYSTECTOMY (N/A ) Location: [address] OR Surgeons: César Sal MD Estimated body mass index is 43.43 kg/m? as calculated from the following: Height as of 07/10/21: 172.7 cm (5' 8). Weight as of 07/10/21: 129.5 kg (285 lb 9.6 oz). Most recent hematocrit and potassium results: Potassium 4.4 11/28/2020 Relevant Problems CARDIO (+) 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) (+) Chronic deep vein thrombosis (DVT) of femoral vein of left lower extremity (HCC) (+) Hypertension, essential ENDO (+) Type 2 diabetes (HCC) I - PHYSICAL EVALUATION AIRWAY Patient intubated: No. Tracheostomy tube not present Mallampati: III. TM distance: >3 FB. Neck ROM: full ROM without neurological symptoms. Mouth opening: adequate. Short neck: no. Thick neck: no Additional comments: Batista present . DENTAL Dental findings: poor dentition and missing tooth/teeth. Additional exam findings: yes. CARDIOVASCULAR Rhythm: regular PULMONARY Breath sounds clear to auscultation. II - ANESTHESIA PLAN ASA Score: 3 Anesthetic Plan: general Airway type: ETT NPO Status: adequate Monitoring plan: Standard ASA. Anesthetic plan additional comments: Elective video laryngoscopy . Postoperative analgesic plan: parenteral or oral opioids and multimodal analgesia. Patient / Surrogate agrees to blood products: yes DNR status not reviewed with patient and/or family prior to surgery. Significant changes in the patient condition since the History and Physical, not otherwise documented in primary service progress note: no. Potential Anesthesia issues that may suggest increased risk of complications or contraindication to planned procedure: none. Vitals Value Taken Time BP 175/96 07/18/21 0752 Pulse Resp 16 07/18/21 0752 Temp 36.5 ?C (97.7 ?F) 07/18/21 0752 SpO2 97 % 07/18/21 0752 Facility-Administered Medications as of 07/18/2021 Medication Dose Route Frequency - lactated ringers iv infusion 5-30 mL/hr INTRAVENOUS CONTINUOUS - ceFAZolin 3 g in D5W 100 mL (ANCEF) 3 g INTRAVENOUS Pre-Op Once - promethazine 12.5 mg tab(s) (PHENERGAN) 12.5 mg ORAL Pre-Op Once - lactated ringers iv infusion 30 mL/hr INTRAVENOUS CONTINUOUS - acetaminophen 1,000 mg tab(s) (TYLENOL) 1,000 mg ORAL Pre-Op Once Outpatient Medications as of 07/18/2021 Medication Sig - atorvastatin (LIPITOR) 40 mg tablet Take 1 tablet by mouth daily at bedtime. For cholesterol. - apixaban (ELIQUIS) 5 mg tab(s) Take by mouth twice daily. (Patient not taking: Reported on 07/10/2021 ) - apixaban (ELIQUIS) 5 mg tab(s) Take 1 tablet by mouth twice daily. - lisinopril-hydroCHLORO thiazide (PRINZIDE, ZESTORETIC) 20-25 mg per tablet Take 1 tablet by mouth every morning. - metFORMIN ER (GLUCOPHAGE XR) 500 mg 24 hr tablet Take 2 tablets by mouth twice daily with meals. - fluticasone (FLONASE) 50 mcg/actuation nasal spray Use 2 Sprays in each nostril once daily. Rinse mouth after use. (Patient taking differently: Use 2 Sprays in each nostril as needed. Rinse mouth after use. ) - Lancets lancets Test blood sugar(s) 1 times daily. Dx: Type 2 DM - Controlled E11.9 Insulin: Yes - blood sugar diagnostic (BLOOD GLUCOSE TEST) test strip Test blood sugar(s) 1 times daily. Dx: Type 2 DM - Controlled E11.9 Insulin: Yes I have interviewed and examined the patient. I have reviewed the medical record and/or the pre-anesthesia evaluation, pertinent labs, and test results. This contains updated information obtained within 48 hours of Surgery/Procedure. SIGNATURE: Olamide Amaro MD PATIENT NAME: Mitch Irvin DATE: July 18, 2021 TIME: 8:00 AM CSN: [id number] Normal [facility] HISTORY PHYSICALon 2 HISTORY PHYSICAL HNO ID: [id number] Author: César Sal MD Service: General Surgery Author Type: Physician Type: HANDP Filed: 07/18/2021 8:05 AM Note Text: HISTORY AND PHYSICAL ? Mitch Irvin 1960 ? REFERRING PHYSICIAN: Micheline Monet MD ? CHIEF COMPLAINT: Consult (eval for cholecystectomy) ? HPI: The patient is a 60 year old male?presents with episodic - RUQ and epigastric abdominal pain. He had nausea/emesis and sharp pain of the epigastric area. He states that the pain is severe and sharp and radiates to the back. He had another episode a few days later. He presented to [facility] ED (03/04/2021) - he was found to have normal WBC with normal left shift of differential, CT revealed multiple gallstones. He denies fevers, he denies jaundice, he denies weight loss. He does have dyspnea on exertion for which he underwent PFTs - which revealed fixed central airway obstruction. ?He had a home sleep apnea test which revealed severe obstructive sleep apnea. He also has a history of PE for which he is on eliquis. ? Mitch underwent an ultrasound. These tests demonstrated ? SIGNIFICANT MEDICAL PROBLEMS: PAST MEDICAL HISTORY PAST MEDICAL HISTORY Diagnosis Date - Anticoagulant long-term use 05/26/2020 - Diabetes mellitus (HCC) ? - DVT (deep venous thrombosis) (HCC) ? ? x2 - Essential hypertension ? - Kidney stones ? - Mixed hyperlipidemia ? - RAHEEM (obstructive sleep apnea) ? - Pulmonary embolism (HCC) ? ? ? OPERATIONS: PAST SURGICAL HISTORY PAST SURGICAL HISTORY Procedure Laterality Date - BACK SURGERY HX ? ? - LITHOTRIPSY / 1 SIDE ? ? - TONSILLECTOMY AND ADENOIDECTOMY ? ? ? CURRENT MEDICATIONS: CURRENT MEDICATIONS Current Outpatient Medications Medication Sig Dispense Refill - atorvastatin (LIPITOR) 40 mg tablet Take 1 tablet by mouth daily at bedtime. For cholesterol. 90 tablet 3 - apixaban (ELIQUIS) 5 mg tab(s) Take 1 tablet by mouth twice daily. 180 tablet 3 - lisinopril-hydroCHLORO thiazide (PRINZIDE, ZESTORETIC) 20-25 mg per tablet Take 1 tablet by mouth every morning. 90 tablet 3 - metFORMIN ER (GLUCOPHAGE XR) 500 mg 24 hr tablet Take 2 tablets by mouth twice daily with meals. 120 tablet 2 - fluticasone (FLONASE) 50 mcg/actuation nasal spray Use 2 Sprays in each nostril once daily. Rinse mouth after use. (Patient taking differently: Use 2 Sprays in each nostril as needed. Rinse mouth after use. ) 1 Bottle 11 - Lancets lancets Test blood sugar(s) 1 times daily. Dx: Type 2 DM - Controlled E11.9 Insulin: Yes 100 Each 11 - blood sugar diagnostic (BLOOD GLUCOSE TEST) test strip Test blood sugar(s) 1 times daily. Dx: Type 2 DM - Controlled E11.9 Insulin: Yes 50 Strip 11 - apixaban (ELIQUIS) 5 mg tab(s) Take by mouth twice daily. (Patient not taking: Reported on 07/10/2021 ) ? ? ? No current facility-administered medications for this visit. ? ? ALLERGIES: Patient has no known allergies. ? PERSONAL HISTORY: SOCIAL HISTORY Social History ? Tobacco Use - Smoking status: Never Smoker - Smokeless tobacco: Never Used Vaping Use - Vaping Use: Never used Substance Use Topics - Alcohol use: Not Currently - Drug use: Not Currently ? FAMILY HISTORY: FAMILY HISTORY FAMILY HISTORY Problem Relation Age of Onset - other ( when patient very young) Mother ? - other (not known) Father ? - other (sepsis) Brother ? ? ? REVIEW OF SYSTEMS: ?General:???The patient denies fatigue, denies weight loss, denies weight gain, denies feeling hot, and denies feelings of cold. ?Eyes: ?The patient denies glaucoma, denies eye injury/surgery, does not wear glasses or contacts. ?Ear/Nose/Throat: ?The patient denies allergies, denies hayfever, denies ear infections, and denies bloody noses. ?Cardiovascular: ?The patient denies chest pain, denies heart disease, NOTES high blood pressure,denies cardiac stent, denies prior heart attack, denies irregular heart beat, NOTES high cholesterol, ?denies poor circulation, denies heart failure, other cardiac issues, denies claudication, denies cold feet, denies peripheral arterial stent. ?Respiratory: ?The patient denies tuberculosis, denies pneumonia, denies frequent cough, NOTES pulmonary embolism, NOTES?shortness of breath, and denies coughing up blood. ?Gastrointestinal: ?The patient denies difficulty swallowing, denies acid reflux, denies ulcers, denies vomiting, denies jaundice/hepatitis, NOTES gallbladder problems, denies black or tarry stools, denies hemorrhoids, denies bleeding from rectum, denies diverticulitis, denies constipation, denies diarrhea, denies loss of stool control, and denies hernias. ?Kidney/Bladder: ?The patient NOTES kidney stones, denies urine infections, and denies bloody urine. ?Skin: ?The patient denies a history of skin cancer, denies bleeding/changing moles, and denies a history of skin caleb (more content not included)... Normal [facility] OPERATIVE NOon 07-18-2021 OPERATIVE NO HNO ID: [id number] Author: César Sal MD Service: General Surgery Author Type: Physician Type: Operative Report Filed: 07/18/2021 9:41 AM Note Text: OPERATIVE/PROCEDURE REPORT LOG ID: [id number] SURGERY/PROCEDURE DATE: 07/18/2021 INCISION/PROCEDURE START TIME: 8:48 AM INCISION CLOSE/PROCEDURE END TIME: SURGEON(S)/PROCEDURALI ST(S) AND FINANCE INSURANCE MANAGER(S): Surgeon(s) and Role: * César Sal MD - Primary Nurse Practitioner: Marcie Owens APRN.[employer] SURGERY/PROCEDURE(S): Laparoscopic cholecystectomy ANESTHESIA: General SURGERY/PROCEDURE DETAILS: Patient brought the operating room. Placed in the supine position. Under excellent general endotracheal intubation the abdomen was sterilely prepped and draped in usual fashion. Local was injected infraumbilically. Dissection was carried down to the fascia. The fascia was grasped with a Yahir. Varies needle was placed inside the abdomen. The abdomen was insufflated to 15 torr. A 10/12 trocar was placed without difficulty. Patient was placed in the head up and rotated to the left position. A subxiphoid #5 trochars placed, inferior to this another #5 trocar was placed, laterally a #5 trocar was placed. All these were placed under direct visualization without injury to underlying structures. I aspirated out yellow bile from the gallbladder and grasped the fundus and retracted in a cephalad direction I dissected out the cystic artery placed hemoclips proximally and distally and ligated the artery identified the cystic duct placed hemoclips proximally and distally and ligated the duct. I deliver the gallbladder from the gallbladder bed. Placed in a specimen bag and delivered through the umbilical port. I placed a Ray-Bruno into the liver bed and held pressure. I used electrocautery for good pneumostasis. I did spray 5 g of Angel into the liver bed excellent hemostasis was noted. All the trochars were removed under direct visualization good pneumostasis was noted. Fascia the umbilical port was closed with a kmbzlx-ag-qxeyp stitch of 0 Vicryl. Skin incisions were closed with a combination of 3-0 Vicryl in the subcu and then deep dermal stitches of 4-0 Monocryl. Steri-Strips were applied sterile dressings were applied and the patient tolerated the procedure well. Marcie Owens was my topographical field assistant. She assisted with retraction, visualization and performed skin closure. No additional surgeons or qualified residents were available. PRE-OP/PRE-PROCEDURE DIAGNOSIS: Symptomatic cholelithiasis POST-OP/POST-PROCEDURE DIAGNOSIS: Same as Preop ESTIMATED BLOOD LOSS: < 25 mls SPECIMENS: Gallbladder IMPLANTABLE DEVICES: None DRAINS: None COMPLICATIONS: None PARTICIPATION IN SURGERY/PROCEDURE: I/primary surgeon/proceduralist performed the procedure with assistance. SIGNATURE: César Sal III, MD PATIENT NAME: Mitch Irvin DATE: July 18, 2021 TIME: 9:37 AM [facility] SURGICAL PATHOLOGYon 022 CASE REPORT [facility] Comment on above: Order Comment: Hao stephens Type: TISSUE SPECIMEN Ordering Facility: [facility] Address: [address] [place], [place] [id number] Result Comment: Surg ica Pathology Report Case: [id number] Authorizing Provider: César Sal MD Collected: 07/18/2021 08:56 AM Ordering Location: [facility] Surgery Received: 07/18/2021 12:15 PM Pathologist: Len Barclay MD Specimen: GALLBLADDER Performed By: #### S #### [facility] CLIA [id number] [address] [place] [address] [facility] FINAL DIAGNOSIS [facility] Comment on above: Order Comment: Speci kat Type: TISSUE SPECIMEN Ordering Facility: [facility] Address: [address] [place], [place] [id number] Result Comment: A. G allbladder, cholecystectomy: -Cholelithiasis with chronic cholecystitis. Performed By: #### S #### [facility] CLIA [id number] [address] [place] [address] [place] FINAL PERFORMING LAB Normal [facility] Comment on above: Order Comment: Speci men Type: TISSUE SPECIMEN Ordering Facility: [facility] Address: [address] [place] [address] Result Comment: Diag nostic interpretation performed at [facility], [address] [place] [address] CLIA# [id number] Python Django Developer: El Pedro M.D. Performed By: #### S #### [facility] CLIA [id number] [address] [place] [address] [place] GROSS DESCRIPTION A. GALLBLADDER. Normal [facility] Comment on above: Order Comment: Speci men Type: TISSUE SPECIMEN Ordering Facility: [facility] Address: [address] [place] [address] Result Comment: Rece ived in formalin labeled gallbladder is an intact gallbladder that measures 6.3 x 3.7 x 2.0 cm. The serosa is pink-dsouza, smooth and glistening with slightly roughened hepatic bed line of resection. The gallbladder wall ranges from 0.2 to 0.3 cm in thickness. The lumen contains a moderate amount of yellow-beebe viscid bile and multiple brown-black multifaceted calculi that aggregates to 4.2 x 3.1 x 0.6 cm. The calculi do not obstruct the cystic bile duct. The mucosa is pink-dsouza, smooth, velvety with a slightly grranular texture. There are no areas of bright yellow stippling grossly present. School Community Relations Coordinator sections of the body, neck, and fundus to include the cystic bile duct resection margin are submitted in formalin in cassette A1. JLEONOR/jackie 07/18/2021 Gross examination performed at [facility], [address] [place] [address] Performed By: #### S #### [facility] CLIA [id number] [address] [place] [address] [place] Abdomen/Pelvis W IV Cont ONL Yon 03-05-2021 Abdomen/Pelvis W IV Cont ONLY [facility] Imaging Services [address] [place] [address] Abdomen/Pelvis W IV Cont ONLY MR#: [id number] Acct: [id number] Name: MITCH IRVIN Rep #: [id number] : 1960 M 60 From: Rojas Mejia DO PCP: Dashawn Eid MD Status: REG ER Study: Abdomen/Pelvis W IV Cont ONLY Date of Exam: Exam# [id number] Ordering Dr: Pal Ribera MD STUDY: CT ABDOMEN AND PELVIS WITH CONTRAST REASON FOR EXAM: Male, 60 years old. epigastric abd pain RADIATION DOSAGE (If Supplied By Facility): CTDIvol = ( 19.45 ) mGy, DLP = ( 2764.16 ) mGycm TECHNIQUE: Transaxial images were obtained from the dome of the diaphragm to the symphysis pubis without oral contrast. IV 100mL Isovue-300 was administered. Sagittal and coronal images were reconstructed. Individualized dose optimization techniques were used for this CT. COMPARISON: None. FINDINGS: The visualized lung bases are unremarkable. The visualized portions of the heart are within normal limits. There is decreased attenuation of the liver consistent with steatosis. There are multiple gallstones. Normal spleen. There is diffuse atrophy of the pancreas. Normal bilateral adrenal glands. Normal right kidney. Normal left kidney. There is a small hiatal hernia. Normal small intestine. Normal colon. There is non-visualization of the appendix. Normal abdominal aorta. Normal inferior vena cava. Normal retroperitoneum. Normal urinary bladder. Normal visualized prostate gland. Normal abdominal wall. Normal osseous structures. CT/Abdomen/Pelvis W IV Cont ONLY IMPRESSION: Significant fatty steatosis of the liver. Multiple gallstones without evidence of acute cholecystitis. Remainder is within normal limits Electronically Signed: Rojas Mejia DO at 1:51 EST Tel , Service support , CC: Dr. Pal Ribera MD; Dashawn Eid MD Intensive Care Unit Registered Nurse: Signed Normal [facility] CBC W/Diff, Automatedon 12-0 -2020 Absolute Lymph 2.24 X10 3/uL Normal 0.83-4.51 [facility] Comment on above: Performed By: #### L 501.2450, L500.4050, L100.0100 #### [facility] Laboratory [address] [place], [address] Absolute Neut 5.1 X10 3/uL Normal 2.0-7.7 [facility] Comment on above: Performed By: #### L 501.2450, L500.4050, L100.0100 #### [facility] [address] [place], [address] Basophils/100 WBC (Bld) 0.3 % Normal 0-1 [facility] Comment on above: Performed By: #### L 501.2450, L500.4050, L100.0100 #### [facility] [address] [place], [address] Eosinophils/100 WBC (Bld) 0.9 % Normal 0-5 [facility] Comment on above: Performed By: #### L 501.2450, L500.4050, L100.0100 #### [facility] [address] [place], [address] Erythrocyte distribution width (RBC) [Ratio] 12.0 % Normal 11.6-14.6 [facility] Comment on above: Performed By: #### L 501.2450, L500.4050, L100.0100 #### [facility] [address] [place], [address] Hematocrit (Bld) [Volume fraction] 47.1 % Normal 40-54 [facility] Comment on above: Performed By: #### L 501.2450, L500.4050, L100.0100 #### [facility] [address] [place], [address] Hemoglobin (Bld) [Mass/Vol] 16.8 g/dL High 13.0-16.5 [facility] Comment on above: Performed By: #### L 501.2450, L500.4050, L100.0100 #### [facility] [address] [place], [address] IG% 0.300 Normal 0.0-0.9 [facility] Comment on above: Result Comment: IG% - Immature Granulocytes (promyelocytes, myelocytes and metamyelocytes) > 1% indicates that a LEFT SHIFT is Present. Performed By: #### L 501.2450, L500.4050, L100.0100 #### [facility] [address] [place], [address] Lymphocytes/100 WBC (Bld) 28.1 % Normal 19-41 [facility] Comment on above: Performed By: #### L 501.2450, L500.4050, L100.0100 #### [facility] [address] [place], [address] MCH (RBC) [Entitic mass] 34.6 pg High 27.0-32.0 [facility] Comment on above: Performed By: #### L 501.2450, L500.4050, L100.0100 #### [facility] [address] [place], [address] MCHC (RBC) [Mass/Vol] 35.7 g/dL Normal 32-36 [facility] Comment on above: Performed By: #### L 501.2450, L500.4050, L100.0100 #### [facility] [address] [place], [address] MCV (RBC) [Entitic vol] 97.1 fL High 80-94 [facility] Comment on above: Performed By: #### L 501.2450, L500.4050, L100.0100 #### [facility] [address] [place], [address] Monocytes/100 WBC (Bld) 6.3 % Normal 0-10 [facility] Comment on above: Performed By: #### L 501.2450, L500.4050, L100.0100 #### [facility] [address] [place], [address] Neutrophils/100 WBC (Bld) 64.1 % Normal 47-70 [facility] Comment on above: Performed By: #### L 501.2450, L500.4050, L100.0100 #### [facility] [address] [place], [address] Nucleated RBC (Bld) [#/Vol] 0 10*3/uL Normal 0-5 [facility] Comment on above: Performed By: #### L 501.2450, L500.4050, L100.0100 #### [facility] [address] [place], [address] Platelet mean volume (Bld) [Entitic vol] 10.9 fL Normal 6.2-12.0 [facility] Comment on above: Performed By: #### L 501.2450, L500.4050, L100.0100 #### [facility] [address] [place], [address] Platelets (Bld) [#/Vol] 214 10*3/uL Normal 150-450 [facility] Comment on above: Performed By: #### L 501.2450, L500.4050, L100.0100 #### [facility] [address] [place], [address] RBC (Bld) [#/Vol] 4.85 10*6/uL Normal 4.6-6.2 [facility] Comment on above: Performed By: #### L 501.2450, L500.4050, L100.0100 #### [facility] [address] [place], [address] RDW SD 43.3 fl Normal 35.1-43.9 [facility] Comment on above: Performed By: #### L 501.2450, L500.4050, L100.0100 #### [facility] [address] [place], [address] WBC (Bld) [#/Vol] 8.0 10*3/uL Normal 4.4-11.0 [facility] Comment on above: Performed By: #### L 501.2450, L500.4050, L100.0100 #### [facility] [address] [place], [address] Comprehensive Metabolic Prof ilon 03-05-2021 Albumin [Mass/Vol] 3.5 g/dL Normal 3.2-5.0 [facility] Comment on above: Performed By: #### L 501.2450, L500.4050, L100.0100 #### [facility] [address] [place], [address] Albumin/Globulin [Mass ratio] 0.8 {ratio} Low 0.9-2.4 [facility] Comment on above: Performed By: #### L 501.2450, L500.4050, L100.0100 #### [facility] [address] [place], [address] ALK P 192 U/L High 45-117 [facility] Comment on above: Performed By: #### L 501.2450, L500.4050, L100.0100 #### [facility] [address] [place], [address] ALT [Catalytic activity/Vol] 503 U/L High 16-61 [facility] Comment on above: Performed By: #### L 501.2450, L500.4050, L100.0100 #### [facility] [address] [place], [address] AST [Catalytic activity/Vol] 388 U/L High 15-37 [facility] Comment on above: Performed By: #### L 501.2450, L500.4050, L100.0100 #### [facility] [address] [place], [address] Bilirubin [Mass/Vol] 3.20 mg/dL High 0.20-1.00 [facility] Comment on above: Result Comment: For patients on eltrombopag therapy, use of Dimension [place] TBIL is not recommended. Performed By: #### L 501.2450, L500.4050, L100.0100 #### [facility] [address] [place], [address] BUN/CRE 13.6 RATIO Normal 10-20 [facility] Comment on above: Performed By: #### L 501.2450, L500.4050, L100.0100 #### [facility] [address] [place], [address] CA,Total 9.4 mg/dL Normal 8.5-10.1 [facility] Comment on above: Performed By: #### L 501.2450, L500.4050, L100.0100 #### [facility] [address] [place], [address] Chloride [Moles/Vol] 99 mmol/L Normal 98-107 [facility] Comment on above: Performed By: #### L 501.2450, L500.4050, L100.0100 #### [facility] [address] [place], [address] CO2 [Moles/Vol] 23.0 mmol/L Normal 21.0-32.0 [facility] Comment on above: Performed By: #### L 501.2450, L500.4050, L100.0100 #### [facility] [address] [place], [address] Creatinine [Mass/Vol] 1.25 mg/dL Normal 0.70-1.30 [facility] Comment on above: Result Comment: The validity of the calculated GFR GFRAA in patients over 70 years has not been determined. Clinical correlation is essential. Performed By: #### L 501.2450, L500.4050, L100.0100 #### [facility] [address] [place], [address] ECRCL 60.80 ml/min Normal [facility] Comment on above: Performed By: #### L 501.2450, L500.4050, L100.0100 #### [facility] [address] [place], [address] EST GFR - AA 76 mL/min Normal >60 [facility] Comment on above: Result Comment: Afri can Sudanese GFR Calc Performed By: #### L 501.2450, L500.4050, L100.0100 #### [facility] [address] [place], [address] GAP 11 Normal 5-15 [facility] Comment on above: Performed By: #### L 501.2450, L500.4050, L100.0100 #### [facility] [address] [place], [address] GFR/1.73 sq M.predicted among non-blacks MDRD (S/P/Bld) [Vol rate/Area] 63 mL/min/{1.73_m2} Normal >60 [facility] Comment on above: Result Comment: Non- GFR Calc Performed By: #### L 501.2450, L500.4050, L100.0100 #### [facility] [address] [place], [address] Globulin (S) [Mass/Vol] 4.3 g/dL High 2.2-4.2 [facility] Comment on above: Performed By: #### L 501.2450, L500.4050, L100.0100 #### [facility] [address] [place], [address] Glucose [Mass/Vol] 307 mg/dL High 74-106 [facility] Comment on above: Result Comment: Gluc ose result greater than or equal to 200 mg/dL suggests DIABETES MELLITUS per A.D.A. criteria. Please note revised GLUCOSE reference range effective 2017. Performed By: #### L 501.2450, L500.4050, L100.0100 #### [facility] [address] [place], [address] Potassium [Moles/Vol] 3.5 mmol/L Normal 3.5-5.1 [facility] Comment on above: Performed By: #### L 501.2450, L500.4050, L100.0100 #### [facility] [address] [place], [address] Sodium [Moles/Vol] 133 mmol/L Low 136-145 [facility] Comment on above: Performed By: #### L 501.2450, L500.4050, L100.0100 #### [facility] [address] [place], [address] T PROT 7.8 g/dL Normal 6.4-8.2 [facility] Comment on above: Performed By: #### L 501.2450, L500.4050, L100.0100 #### [facility] [address] [place], [address] Urea nitrogen [Mass/Vol] 17 mg/dL Normal 7-18 [facility] Comment on above: Performed By: #### L 501.2450, L500.4050, L100.0100 #### [facility] [address] [place], [address] Emergency Department Summary on 03-05-2021 Emergency Department Summary [facility] Records Department [address] [place] [address] Emergency Department Summary 03/04/21 MR#: [id number] Acct: [id number] Name: MITCH IRVIN Rep #: [id number] : 1960 60 From: Pal Ribera MD PCP: Dashawn Eid MD Status:REG ER Location: ED HPI HPI - GI History of Present Illness Chief Complaint: Nausea/Vomiting Detail of Chief Complaint: Epigastric abdominal pain Informant: patient Abdominal Pain/Flank Pain Onset: Today and Hours Context: Gradual Onset Timing: Continuous Quality: Aching Location: Epigastric Current Severity: Moderate Maximum Severity: Moderate Nausea/Vomiting/Emesis GI Symptom: Positive for Nausea and Vomiting Onset: Today Severity: Mild Diarrhea/Melena/Hemato chezia GI Symptom: Positive for Diarrhea; Negative for Melena and Hematochezia Onset: Today Stool Quality: Positive for Loose Severity: Mild Associated Symptoms Associated Symptoms: Negative for Dysuria, Frequency, Hematuria and Urgency Narrative Narrative: 60-year-old male past medical history svd-yfbohve-suuboknxo diabetic. Said around 9 PM the night he had epigastric abdominal pain associated with nausea, vomiting and diarrhea. He thinks it may be associated with the spaghetti ate tonight for dinner but he is unsure. He says never had an episode like this before. He denies any prior gallbladder or appendix surgeries. He denies any back pain. No fever but positive chills. No dysuria. No melena or hematemesis. Prior similar symptoms: No Recent Illness/Hospitalizatio n: No PFSH PFSH Medical History DVT (deep venous thrombosis) Hypertension Home Medications apixaban 5 mg PO BID #74 tab 01/18/20 [Rx Last Taken Unknown] aspirin 81 mg PO DAILY@0800 01/18/20 [History Last Taken Unknown] lisinopril-hydrochloro thiazide 1 ea PO DAILY #30 tab 01/18/20 [Rx Last Taken Unknown] Allergy/AdvReac Type Severity Reaction Status Date / Time No Known Allergies Allergy Verified 03/05/21 01:25 Social History Smoking Status: Never smoker ROS ROS ED ROS Narrative Epigastric abdominal pain with nausea, vomiting and diarrhea. Review of Systems ROS Unobtainable: Denies due to encephalopathy Constitutional Constitutional ED: Reports chills; Denies fever(s) ENT ENT ED: Denies ear pain Cardiovascular Cardiovascular: Denies chest pain or palpitations Respiratory/Chest Respiratory/Chest: Denies cough or dyspnea Gastrointestinal Gastrointestinal: Reports abdominal pain, diarrhea, nausea and vomiting; Denies constipation or melena Genitourinary Genitourinary ED: Denies dysuria Musculoskeletal Musculoskeletal: Denies myalgias Integumentary Denies rash Neurologic Neurologic: Denies headache(s) Psychiatric Psychiatric: Denies depression Endocrine Endocrinology: Denies polyuria Hematologic/Lymphatic Hematologic/Lymphatic: Denies easy bruising Allergic/Immunologic Allergic/Immunologic ED: Denies urticaria EXAM Physical Exam Narrative Exam Narrative: 60-year-old male vital signs stable afebrile does not look septic or toxic. HEENT exam unremarkable. Neck nontender. Lungs clear to auscultation bilaterally. Heart regular rhythm no murmur. Abdomen soft nondistended normal bowel sounds no peritoneal signs but tender in both the epigastric region and right upper quadrant. No hernia or mass no obvious obstruction. Right lower quadrant nontender. Moving all 4 extremities no edema. Neurologically is awake and alert with no focal motor deficits. Const Vital Signs: 03/04/21 23:02 03/04/21 23:53 03/05/21 01:55 Temperature 98.9 F Temperature Source Temporal Pulse Rate 100 96 123 H Respiratory Rate 28 H 32 H 20 H Blood Pressure 160/93 H 159/88 H 158/86 H Blood Pressure Mean 115 111 110 Pulse Ox 100 98 96 Oxygen Delivery Method Room Air Positive well nourished, well developed and obese; Negative for cachectic, contractures or unkempt General Appearance ED: well developed and NAD; Negative for unkempt, cachectic, contractures or pallor Nutritional Appearance: obese; Negative for cachectic HEENT Reports dry mucous membranes normocephalic and atraumatic; Negative for trauma or tenderness Mouth ED: Yes dry mucous membranes Mouth: dry mucous membranes Eyes PERRL and EOMs intact bilaterally Neck no lymphadenopathy, supple and no JVD General: Negative for tenderness Resp normal respiratory effort and clear to auscultation bilaterally Auscultation: Negative for rales, rhonchi or wheezes Cardio regular rate, regular rhythm, S1 normal heart sound, S2 normal heart sound and no murmurs GI non-tender, non-distended and no masses Inspection: Negative for abdominal distention Auscultation: normoa (more content not included)... Normal [facility] Lipaseon 03-05-2021 Lipase [Catalytic activity/Vol] 388 U/L Normal 73-393 [facility] Comment on above: Performed By: #### L 501.2450, L500.4050, L100.0100 #### [facility] [address] [place], [address] No Panel Information [facility] Vital Signs Date Time Vital Sign Value Performing Clinician Jayi ludy 10-21-2022 07:12-0400 Body temperature 98.1 [degF] Go Cowart APRN.CNP Work Phone: [facility] 10-21-2022 07:12-0400 Body weight 135.19 kg Go Cowart APRN.OYSTER BED WORKER Work Phone: [facility] 10-21-2022 07:12-0400 Diastolic blood pressure 108 mm[Hg] Go Cowart APRN.OYSTER BED WORKER Work Phone: [facility] 10-21-2022 07:12-0400 Heart rate 68 /min Go Cowart APRN.OYSTER BED WORKER Work Phone: [facility] 10-21-2022 07:12-0400 Respiratory rate 16 /min Go Cowart APRN.OYSTER BED WORKER Work Phone: [facility] 10-21-2022 07:12-0400 SaO2% (BldA) [Mass fraction] 98 % Go Cowart APRN.OYSTER BED WORKER Work Phone: [facility] 10-21-2022 07:12-0400 Systolic blood pressure 172 mm[Hg] Go Cowart APRN.OYSTER BED WORKER Work Phone: [facility] 08-30-2021 15:10-0400 Diastolic blood pressure 70 mm[Hg] Giacomo Gonzales MD Work Phone: [facility] 08-30-2021 15:10-0400 Heart rate 64 /min Giacomo Gonzales M D Work Phone: [facility] 08-30-2021 15:10-0400 Respiratory rate 16 /min Giacomo Gonzales M D Work Phone: [facility] 08-30-2021 15:10-0400 SaO2% (BldA) [Mass fraction] 98 % Giacomo Gonzales MD Work Phone: [facility] 08-30-2021 15:10-0400 Systolic blood pressure 137 mm[Hg] Giacomo Gonzales MD Work Phone: [facility] 08-30-2021 15:00-0400 Body temperature 96.8 [degF] Giacomo Chapinaka M D Work Phone: [facility] 08-30-2021 13:34-0400 Body height 172.7 cm Giacomo Gonzales M D Work Phone: [facility] 08-30-2021 13:34-0400 Body weight 124.74 kg Giacomo Gonzales M D Work Phone: [facility] 08-15-2021 09:05-0400 Body height 172.7 cm Giacomo Gonzales M D Work Phone: [facility] 08-15-2021 09:05-0400 Body temperature 97.5 [degF] Giacomo Chapinaka M D Work Phone: [facility] 08-15-2021 09:05-0400 Body weight 125.01 kg Giacomo Gonzales M D Work Phone: [facility] 08-15-2021 09:05-0400 Diastolic blood pressure 86 mm[Hg] Giacomo Gonzales MD Work Phone: [facility] 08-15-2021 09:05-0400 Heart rate 83 /min Giacomo Del Angel Work Phone: [facility] 08-15-2021 09:05-0400 SaO2% (BldA) [Mass fraction] 98 % Giacomo Gonzales MD Work Phone: [facility] 08-15-2021 09:05-0400 Systolic blood pressure 146 mm[Hg] Giacomo Gonzales MD Work Phone: [facility] 08-08-2021 11:07-0400 Body temperature 98.4 [degF] Annelise Haagen FLARER.OYSTER BED WORKER Work Phone: [facility] 08-08-2021 11:07-0400 Diastolic blood pressure 88 mm[Hg] Annelise Haagen FLARER.OYSTER BED WORKER Work Phone: [facility] 08-08-2021 11:07-0400 Heart rate 81 /min Annelise Haagen FLARER.OYSTER BED WORKER Work Phone: [facility] 08-08-2021 11:07-0400 Respiratory rate 18 /min Annelise Haagen FLARER.OYSTER BED WORKER Work Phone: [facility] 08-08-2021 11:07-0400 SaO2% (BldA) [Mass fraction] 97 % Annelise Haagen FLARER.OYSTER BED WORKER Work Phone: [facility] 08-08-2021 11:07-0400 Systolic blood pressure 132 mm[Hg] Annelise Haagen FLARER.OYSTER BED WORKER Work Phone: [facility] 07-10-2021 08:02-0400 Body height 172.7 cm César Sal MD Work Phone: [facility] 07-10-2021 08:02-0400 Body temperature 98.1 [degF] César Sal MD Work Phone: [facility] 07-10-2021 08:02-0400 Body weight 129.55 kg César Sal MD Work Phone: [facility] 07-10-2021 08:02-0400 Diastolic blood pressure 82 mm[Hg] César Sal MD Work Phone: [facility] 07-10-2021 08:02-0400 Heart rate 100 /min César Sal MD Work Phone: [facility] 07-10-2021 08:02-0400 SaO2% (BldA) [Mass fraction] 98 % César Sal MD Work Phone: [facility] 07-10-2021 08:02-0400 Systolic blood pressure 144 mm[Hg] César Sal MD Work Phone: [facility] Encounters Encounter Date Encounter Type Care Provider Facility Start: 08-25-2024 End: 09-16-2024 ambulatory Dashawn Eid MD Work Phone: [address] [place] [address] Comment on above: Diabetes Start: 04-22-2024 End: 04-22-2024 Telephone encounter Dashawn Eid MD Work Phone: [address] [place] [address] Comment on above: Patient Update Start: 04-13-2024 End: 04-19-2024 Telephone encounter Go Cowart APRN.OYSTER BED WORKER Work Phone: [facility] Comment on above: Appointment Start: 10-17-2023 Refill Dashawn rfy MD Work Phone: [facility] [place] Comment on above: Refill Request Start: 09-26-2023 Refill Go Cowart APRN.OYSTER BED WORKER Work Phone: [facility] Comment on above: Refill Request Start: 07-11-2023 Telephone encounter Go gonzalez FLARER.OYSTER BED WORKER Work Phone: [facility] Comment on above: Results Start: 05-29-2023 End: 05-29-2023 Patient encounter procedure Saumya Rodney OD Work Phone: Ophthalmology Comment on above: Glaucoma suspect of both eyes (Primary Dx); Type 2 diabetes mellitus without retinopathy (HCC); Refractive amblyopia of right eye; Presbyopia; Combined forms of age-related cataract of both eyes; Squamous blepharitis 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 Start: 05-08-2023 End: 05-08-2023 Patient encounter procedure Saumya Pedro Jenningsr OD Work Phone: Ophthalmology Comment on above: Type 2 diabetes joseline itus without retinopathy (HCC) (Primary Dx); Glaucoma suspect of both eyes; Refractive amblyopia of right eye; Presbyopia; Combined forms of age-related cataract of both eyes; Squamous blepharitis 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 Start: 10-21-2022 End: 10-21-2022 Office outpatient visit 25 minutes Go Cowart APRN.CNP Work Phone: [facility] [place] Comment on above: Hypertension, essent ial (Primary Dx); Type 2 diabetes (HCC); Anticoagulant long-term use; Hyperlipidemia, unspecified hyperlipidemia type; 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); Screening for diabetic retinopathy Start: 10-10-2022 Refill Dashawn fry MD Work Phone: [facility] Comment on above: Refill Request Start: 04-12-2022 Refill Dashawn fry MD Work Phone: [facility] Comment on above: Refill Request Start: 08-30-2021 End: 08-30-2021 Subsequent hospital visit by physician Giacomo Gonzales MD Work Phone: Gastroenterology Comment on above: S/P cholecystectomy [Z90.49] Start: 08-23-2021 Telephone encounter Deepa Florence RNpanel wirer Comment on above: Appointment Confirma tion Start: 08-16-2021 End: 08-16-2021 Subsequent hospital visit by physician [facility] Work Phone: Radiology Comment on above: S/P cholecystectomy [Z90.49] Start: 08-15-2021 End: 08-15-2021 Patient encounter procedure Giacomo Gonzales MD Work Phone: Gastroenterology Comment on above: Elevated LFTs (Prima ry Dx); S/P cholecystectomy; History of jaundice; Elevated bilirubin Start: 08-08-2021 End: 08-08-2021 Office outpatient visit 15 minutes Annelise Robert APRN.OYSTER BED WORKER Work Phone: [facility] [place] Comment on above: Acute non-recurrent sinusitis, unspecified location (Primary Dx) Start: 07-16-2021 ambulatory Go Cowart APRN.OYSTER BED WORKER Work Phone: [facility] [place] Start: 07-12-2021 Telephone encounter César chan MD Work Phone: Pre Anesthesia Comment on above: Pre-op Instructions Start: 07-10-2021 Telephone encounter Brandon (Investment Sales Assistant rd) [facility] Comment on above: Medical Clearance Start: 07-10-2021 End: 07-10-2021 Patient encounter procedure César Sal MD Work Phone: General Surgery Comment on above: Calculus of gallblad beverly without cholecystitis without obstruction (Primary Dx); 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; intermediate designer (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) use of antithrombotics/antiplatelets Procedures Date Procedure Procedure Detail Performing Clinician Start: 05-29-2023 End: 05-29-2023 Cmptr ophthalmic dx img ant segmt w/i&r uni/bi Saumya Rodney OD Work Phone: Start: 05-08-2023 Computerized ophthalmic imaging optic nerve Saumya Rodney OD Work Phone: Start: 04-28-2023 Adult depression screening assessment Go Cowart APRN.OYSTER BED WORKER Work Phone: Start: 08-30-2021 Ercp dx collection specimen brushing/washing Giacomo Gonzales MD Work Phone: Start: 08-30-2021 Gluc bld gluc mntr dev cleared fda spec home use Nano Brooke APRN.CHANNEL DEVELOPMENT MANAGER Work Phone: Start: 08-16-2021 Us abdominal real time w/image limited Giacomo Gonzales MD Work Phone: Start: 11-27-2020 Adult depression screening assessment César Sal MD Work Phone: History of cholecystectomy S/P cholecyste ctomy Giacomo Gonzales MD Work Phone: History of cholecystectomy S/P cholecyste ctomy Us 2 Work Phone: History of cholecystectomy S/P cholecyste ctomy Giacomo Gonzales MD Work Phone: Plan of Treatment Date Care Activity Detail Author Start: 07-02-2026 Screening for malignant neoplasm of colon [facility] Start: 05-26-2025 PROSTATE CANCER SCREENING DISCUSSION PROSTATE CANCER SCREENING DISCUSSION [facility] Start: 05-26-2025 Prostate specific antigen measurement Prostate Cancer Screening Discussion [facility] Start: 11-29-2024 Influenza vaccination Influenz a Vaccine (Season Ended) [facility] Start: 05-31-2024 End: 05-31-2024 Patient encounter procedure 05/31/2024 8:00 AM EST Office Visit [facility] [address] [place], [place] [id number] Saumya Rodney, OD [address] [place], [place] [id number] 1 yr for diabetic eye exam with OCT nerve Ophthalmology Comment on above: 1 yr for diabetic ey e exam with OCT nerve Start: 05-08-2024 Glaucoma screening Dilated Retinal E xam [facility] Start: 04-28-2024 Annual PCP Team Chronic Disease Visit Annual PCP Team Chronic Disease Visit [facility] Start: 04-28-2024 Anxiety Screening Anxiety Screening [facility] Start: 04-28-2024 Covid-19 Vaccine ( season) Covid-19 Vaccine () [facility] Comment on above: Postponed from 11/29 (Declined at this time) Start: 04-28-2024 Depression Screening Depression Scre ening [facility] Start: 04-28-2024 Hepatitis B screening Urine Al bumin:Creatinine Ratio [facility] Start: 04-28-2024 Hepatitis B surface antibody level LDL Cholesterol [facility] Start: 11-30-2023 Covid-19 Vaccine ( season) Covid-19 Vaccine () [facility] Start: 11-30-2023 Influenza vaccination C [facility] Start: 10-22-2023 ANNUAL PCP TEAM CHRONIC DISEASE VISIT ANNUAL PCP TEAM CHRONIC DISEASE VISIT [facility] Start: 10-20-2023 End: 10-20-2023 Patient encounter procedure 10/20/2023 8:20 AM EDT Office Visit [facility] [place] [address] [place] [address] Go Cowart APRN.OYSTER BED WORKER [address] [place] [id number] 6 month follow up [facility] [place] Comment on above: 6 month follow up Start: 09-28-2023 Influenza vaccination Influenza Vacc ine (#1) [facility] Comment on above: Postponed from 11/29 (Declined at this time) Start: 07-28-2023 Hemoglobin A1c measurement HbA1C [facility] Start: 06-26-2023 COLOGUARD (FIT-DNA) COLOGUARD (FIT-D NA) [facility] Start: 06-26-2023 COLORECTAL CANCER SCREENING COLORECTAL CANCER SCREENING [facility] Start: 06-26-2023 Screening for malignant neoplasm of colon [facility] Start: 03-31-2023 Behavioral Health Screening Behavioral Health Screening [facility] Start: 11-29-2022 Influenza vaccination INFLUENZA (#1) [facility] Start: 10-10-2022 End: 12-10-2022 ALBUMIN/CREAT RATIO RND UR ALBUMIN/CREAT RATIO RND UR Lab Routine Hypertension, essential Type 2 diabetes (HCC) Expected: 10/10/2022 (Approximate), Expires: 12/10/2022 [facility] Work Phone: Comment on above: Expected: 10/10/2022 (Approximate), Expires: 12/10/2022 Start: 10-10-2022 End: 12-10-2022 CBC panel - Blood by Automated count CBC Lab Routine Anticoagulant long-term use Hypertension, essential Expected: 10/10/2022 (Approximate), Expires: 12/10/2022 [facility] Work Phone: Comment on above: Expected: 10/10/2022 (Approximate), Expires: 12/10/2022 Start: 10-10-2022 End: 12-10-2022 Comprehensive metabolic 2000 panel - Serum or Plasma COMP METABOLIC PANEL Lab Routine Type 2 diabetes (HCC) Hyperlipidemia, unspecified hyperlipidemia type Expected: 10/10/2022 (Approximate), Expires: 12/10/2022 [facility] Work Phone: Comment on above: Expected: 10/10/2022 (Approximate), Expires: 12/10/2022 Start: 10-10-2022 End: 12-10-2022 Hemoglobin A1c in Blood HGB A1C Lab Routine Type 2 diabetes (HCC) Expected: 10/10/2022 (Approximate), Expires: 12/10/2022 [facility] Work Phone: Comment on above: Expected: 10/10/2022 (Approximate), Expires: 12/10/2022 Start: 10-10-2022 End: 12-10-2022 Lipid 1996 panel - Serum or Plasma LIPID PANEL BASIC Lab Routine Type 2 diabetes (HCC) Hyperlipidemia, unspecified hyperlipidemia type Expected: 10/10/2022 (Approximate), Expires: 12/10/2022 [facility] Work Phone: Comment on above: Expected: 10/10/2022 (Approximate), Expires: 12/10/2022 Start: 08-08-2022 ANNUAL PCP TEAM CHRONIC DISEASE VISIT ANNUAL PCP TEAM CHRONIC DISEASE VISIT [facility] Start: 03-31-2022 DEPRESSION ASSESSMENT DEPRESSION ASS ESSMENT [facility] Start: 03-08-2022 ANNUAL PCP TEAM CHRONIC DISEASE VISIT ANNUAL PCP TEAM CHRONIC DISEASE VISIT [facility] Start: 11-29-2021 Influenza vaccination C [facility] Start: 11-28-2021 Hepatitis B surface antibody level LDL CHOLESTEROL [facility] Start: 11-27-2021 Adult depression screening assessment DEPRESSION SCREENING [facility] Start: 08-15-2021 End: 10-15-2021 HEPATIC FUNCTION PNL [facility] Work Phone: Comment on above: Expected: 08/15/2021 , Expires: 10/15/2021 Start: 07-16-2021 End: 09-15-2021 ALBUMIN/CREAT RATIO RND UR ALBUMIN/CREAT RATIO RND UR Lab Routine Controlled type 2 diabetes mellitus without complication, without long-term current use of insulin (HCC) Expected: 07/16/2021, Expires: 09/15/2021 [facility] Work Phone: Comment on above: Expected: 07/16/2021 , Expires: 09/15/2021 Start: 05-29-2021 3 comp foot exam completed DIABETIC FOOT EXAM [facility] Start: 05-29-2021 Diabetic foot examination Diabetic Foot Exam [facility] Start: 05-26-2021 Hepatitis B screening URINE AL BUMIN:CREATININE RATIO [facility] Start: 04-30-2021 COVID-19 VACCINE (3 - Booster for Pfizer series) COVID-19 VACCINE (3 - Booster for Pfizer series) [facility] Start: 02-27-2021 Hemoglobin A1c/Hemoglobin.total in Blood HBA1C [facility] Start: 01-23-2021 COVID-19 VACCINE (3 - Booster for Pfizer series) COVID-19 VACCINE (3 - Booster for Pfizer series) [facility] Start: 01-23-2021 COVID-19 VACCINE (3 - Pfizer series) COVID-19 VACCINE (3 - Pfizer series) [facility] Start: 2020 RSV Vaccine (1 - 1-dose 60+ series) RSV Vaccine (1 - 1-dose 60+ series) [facility] Start: 2020 RSV Vaccine (1 - Ris k 60-74 years 1-dose series) RSV Vaccine (1 - Risk 60-74 years 1-dose series) [facility] Start: 2010 SHINGRIX VACCINE (1 of 2) SHINGRIX VACCINE (1 of 2) [facility] Start: 2005 Colonoscopy COLONOSCOPY [facility] Start: [address] COLONOGRAPHY [facility] Start: 2005 FECAL OCCULT BLOOD FECAL OCCULT BLOO D [facility] Start: 2005 Screening for malignant neoplasm of colon [facility] Start: 2005 SIGMOIDOSCOPY SIGMOIDOSCOPY [facility] Start: 12-13-1979 Pneumococcal Vaccine : 50+ (1 of 2 - PCV) Pneumococcal Vaccine: 50+ (1 of 2 - PCV) [facility] Start: 12-13-1979 Urine microalbumin profile [facility] Start: 1978 Anxiety Screening Anxiety Screening [facility] Start: 1978 BP CONTROLLED (<130/80) BP CONTROLLED (<130/80) [facility] Start: 1978 Depression Screening Depression Scre ening [facility] Start: 1976 ONE PNEUMOVAX PRIOR TO AGE 65 ONE PNEUMOVAX PRIOR TO AGE 65 [facility] Start: 1970 Hepatitis C antibody , confirmatory test DILATED RETINAL EXAM [facility] Start: 1966 PNEUMOCOCCAL (1 - PCV) PNEUMOCOCCAL (1 - PCV) [facility] Start: 1966 Pneumococcal vaccination Pneumococcal Vaccine (1 of 2 - PCV) [facility] End: 08-15-2022 ERCP ERCP Endoscopy Routine S/P cholecystectomy History of jaundice Elevated bilirubin Elevated LFTs 1 Occurrences starting 08/15/2021 until 08/15/2022 [facility] Work Phone: Comment on above: 1 Occurrences starti ng 08/15/2021 until 08/15/2022 End: 09-14-2022 Us abdominal real time w/image limited US ABD RT UPPER QUADRANT Radiology Routine S/P cholecystectomy History of jaundice Elevated bilirubin Elevated LFTs 1 Occurrences starting 08/15/2021 until 09/14/2022 [facility] Work Phone: Comment on above: 1 Occurrences starti ng 08/15/2021 until 09/14/2022 [facility] Immunizations Immunization Date Immunization Notes [facility] COVID-19 vaccine, ag e 12+ yr ([employer] - PURPLE TOP) César aSl MD Work Phone: [facility] Payers Date Payer Category Payer Medicaid [employer] Member [place] bscriber Plan / Payer (Effective 2022-2024) Name: Mitch Irvin Relation to Subscriber: Self Name: Mitch Irvin Payer ID: [id number] (NAIC) Group ID: Not on file Type: Medicaid Address: [place] [address] [id number] 2019 Private Health Insurance [employer] PPO [id number] 2019-Present [phone] [address] [address] [place] [address] PPO [id number] 2019 Private Health Insurance [id number] Social History Date Type Detail Facility Start: 01-18-2020 End: 10-21-2022 Tobacco smoking status NHIS Never smoked tobacco [facility] Start: 01-18-2020 End: 10-21-2022 Tobacco use and exposure Smokeless tobacco non-user [facility] Start: 07-10-2021 End: 05-29-2023 Alcohol intake Ex-drinker (finding) [facility] Start: 11-27-2020 History SDOH Physica l Activity DPW 0 [facility] Start: 11-27-2020 History SDOH Stress 1 [facility] Start: 03-08-2021 History SDOH Housing Unable to Pay 3 [facility] Start: 1960 Sex Assigned At Not on file [facility] Start: 06-29-2021 End: 08-15-2021 Exposure to SARS-CoV-2 (event) Not sure [facility] Work Phone: Start: 11-27-2020 End: 10-21-2022 Gender identity Not on file [facility] Start: 11-27-2020 End: 10-21-2022 History of Social function [facility] In a typical week, h ow many times do you talk on the telephone with family, friends, or neighbors? Patient refused [facility] Are you now , , , , never or living with a partner? Refused [facility] Do you feel stress - tense, restless, nervous, or anxious, or unable to sleep at night because your mind is troubled all the time - these days [OSQ] Not at all [facility] (I/We) worried willie er (my/our) food would run out before (I/we) got money to buy more. DK or Refused [facility] Medical Equipment Procedure Code Equipment Code Equipment Origin al Text Equipment Identifier Dates Test blood sugar(s) 1 times daily. Dx: Type 2 DM - Controlled E11.9 Insulin: Yes Start: 05-29-2020 Comment on above: Test blood sugar(s) 1 times daily. Dx: Type 2 DM - Controlled E11.9 Insulin: Yes Clinical Notes 07-10-2021 to 08-25-2024 Harinder Clemente Rsoalva - 08/25/2024 8:46 AM EDTTelephone Encounter - [facility] - 04/22/2024 11:03 AM ESTTelephone Encounter - [facility] - 04/22/2024 11:03 AM ESTPatient Instructions Note Date & Type Note Facility 08-25-2024 Note HNO ID: [id number] Author: ?, ?, ? Service: ? Author Type: ? Type: Progress Notes Filed: 09/16/2024 13:13 Note Text: Diabetes Outreach Mitch Irvin has been identified for clinical review due to having diabetes without a Hemoglobin A1c in the past 1 year. PSS Team - Please contact the patient with the following script: Dashawn Eid MD has identified that you are in need of ongoing care of your diabetes and have not had blood work for your diabetes (hemoglobin A1c) in the past year. We would like to assist you in making an appointment to ensure that we control your diabetes and keep you as healthy as possible. Outreach Outcome/Action: Unable to reach patient: Left message Note - if they see another provider, please update their chart. [facility] 08-25-2024 History of Presen t illness Narrative Diabetes Outreach Mitch Irvin has been identified for clinical review due to having diabetes without a Hemoglobin A1c in the past 1 year. PSS Team - Please contact the patient with the following script: Dashawn Eid MD has identified that you are in need of ongoing care of your diabetes and have not had blood work for your diabetes (hemoglobin A1c) in the past year. We would like to assist you in making an appointment to ensure that we control your diabetes and keep you as healthy as possible. Outreach Outcome/Action: Unable to reach patient: Left message Note - if they see another provider, please update their chart. documented in this encounter [facility] 08-25-2024 Note Patient Outreach (4C Q) MITCH IRVIN ([id number]) 1960 M Date Time Provider Department 08/25/24 DASHAWN EID 4CQ During your visit today, we recorded the following information about you: Rosalva Cameron 09/16/2024 1:13 PM Signed Diabetes Outreach Mitch Irvin has been identified for clinical review due to having diabetes without a Hemoglobin A1c in the past 1 year. PSS Team - Please contact the patient with the following script: Dashawn Eid MD has identified that you are in need of ongoing care of your diabetes and have not had blood work for your diabetes (hemoglobin A1c) in the past year. We would like to assist you in making an appointment to ensure that we control your diabetes and keep you as healthy as possible. Outreach Outcome/Action: Unable to reach patient: Left message Note - if they see another provider, please update their chart. Allergies As of Date: 08/25/2024 (No Known Allergies) Date Reviewed: 05/29/2023 Reviewed by: Saumya Rodney OD - Fully Assessed Reason for Visit: Diabetes [34] Prescriptions as of 09/16/2024 - lisinopril-hydroCHLOROthiazide (ZESTORETIC) 20-25 mg per tablet Take 1 tablet by mouth every morning. - atorvastatin (LIPITOR) 40 mg tablet Take 1 tablet by mouth daily at bedtime. For cholesterol. - metFORMIN ER (GLUCOPHAGE XR) 500 mg 24 hr tablet Take 2 tablets by mouth two times a day with meals. - apixaban (ELIQUIS) 5 mg tab(s) Take 1 tablet by mouth twice daily. Meds Comments as of 03/08/2021: Will use Advil/Tylenol prn Problem List As Of Date 08/25/2024 Noted Resolved Hypertension, essential [I10] 02/08/2020 Type 2 diabetes (HCC) [E11.9] 02/08/2020 Chronic deep vein thrombosis (DVT) of femoral v*02/08/2020 Obesity, Class III, BMI 40-49.9 (morbid obesity*02/08/2020 Acute saddle pulmonary embolism without acute c*03/01/2020 Anticoagulant long-term use [Z79.01] 05/26/2020 Hyperlipidemia [E78.5] 11/28/2020 Essential tremor [G25.0] 11/28/2020 Calculus of gallbladder and bile duct without c*07/18/2021 07/18/2021 Encounter Status:Closed by ROSALVA CAMERON on 09/16/24 [facility] 04-22-2024 Telephone encounter Note Pt called back regarding letter he received in mail. Patient stated that he can not make an appt at this time as he does not have medical insurance. Once he figures this out he will call to schedule . [facility] 04-22-2024 Miscellaneous Notes Pt called back regarding letter he received in mail. Patient stated that he can not make an appt at this time as he does not have medical insurance. Once he figures this out he will call to schedule . documented in this encounter [facility] 04-19-2024 Telephone encounter Note Letter mailed to pt home to call office to schedule appt. Lilliam Chávez MA [facility] 04-19-2024 Miscellaneous Notes Letter mailed to pt home to call office to schedule appt. Lilliam Chávez MA POPULATION HEALTH NAVIGATION OUTREACH Action/FYI Message left for pt to call back. Due for appt. Reason for Outreach Care Gap/HCC or Scheduling Wellness Visits Care Gaps due: Follow-up Appointment Patient Contacted: Unable or unnecessary to reach patient: Left message Navigation Signature: Lilliam Chávez MA April 16, 2024 12:52 PM Left message to return call STAMP Please reach out to patient for overdue appointment for chronic disease management with myself. This patient is due for a yearly exam Go Cowart APRN.CNP documented in this encounter [facility] 04-16-2024 Telephone encounter Note POPULATION HEALTH NAVIGATION OUTREACH Action/FYI Message left for pt to call back. Due for appt. Reason for Outreach Care Gap/HCC or Scheduling Wellness Visits Care Gaps due: Follow-up Appointment Patient Contacted: Unable or unnecessary to reach patient: Left message Navigation Signature: Lilliam Chávez MA April 16, 2024 12:52 PM [facility] 04-13-2024 Telephone encounter Note Left message to return call [facility] 04-13-2024 Telephone encounter Note STAMP Please reach out to patient for overdue appointment for chronic disease management with myself. This patient is due for a yearly exam Go Cowart APRN.OYSTER BED WORKER [facility] 10-17-2023 Telephone encounter Note The following approved medication requests have been transmitted electronically. Requested Prescriptions Pending Prescriptions Disp Refills lisinopril-hydroCHLOROthiazide (ZESTORETIC) 20-25 mg per tablet 90 tablet 3 Sig: Take 1 tablet by mouth every morning. Go Cowart APRN.CNP [facility] 10-17-2023 Miscellaneous Notes The following approved medication requests have been transmitted electronically. Requested Prescriptions Pending Prescriptions Disp Refills lisinopril-hydroCHLOROthiazide (ZESTORETIC) 20-25 mg per tablet 90 tablet 3 Sig: Take 1 tablet by mouth every morning. Go Cowart APRN.CNP Prescription Refill Information The patient has been identified by name and date of : Yes Caregiver verified no other encounters exist for this prescription request: Yes Caregiver confirmed with patient/requestor that no other refills are due, in the near future, with this provider at this time: Yes The last office visit in the department: 04/28/23 Does the patient have a future office visit with this provider/department: No Requested Prescriptions Pending Prescriptions Disp Refills lisinopril-hydroCHLOROthiazide (ZESTORETIC) 20-25 mg per tablet 90 tablet 3 Sig: Take 1 tablet by mouth every morning. Sherie Clemente October 17, 2023 2:07 PM documented in this encounter [facility] 10-17-2023 Telephone encounter Note Prescription Refill Information The patient has been identified by name and date of : Yes Caregiver verified no other encounters exist for this prescription request: Yes Caregiver confirmed with patient/requestor that no other refills are due, in the near future, with this provider at this time: Yes The last office visit in the department: 04/28/23 Does the patient have a future office visit with this provider/department: No Requested Prescriptions Pending Prescriptions Disp Refills lisinopril-hydroCHLOROthiazide (ZESTORETIC) 20-25 mg per tablet 90 tablet 3 Sig: Take 1 tablet by mouth every morning. Sherie Clemente October 17, 2023 2:07 PM [facility] 07-11-2023 Miscellaneous Notes Letter mailed to pt home of results. Lilliam Chávez MA Please let the patient know that his cologuard was normal. It does not appear that he uses or checks his mychart. Go Cowart APRN.SINDY documented in this encounter [facility] 05-29-2023 History of Presen t illness Narrative 1. Glaucoma suspect of both eyes IOP: 19/17 Optic cupping both eyes OCT nerve 05/08/23: sup loss both eyes, inferior loss right eye GCA loss borderline 24-2 left eye 05/29/23: normal (-) fam hx +low risk- will monitor 2. Type 2 diabetes mellitus without retinopathy (HCC) Monitor 3. Refractive amblyopia of right eye 4. Presbyopia Spec rx finalized at last visit 5. Combined forms of age-related cataract of both eyes Mild- monitor 6. Squamous blepharitis 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 Use warm compresses as needed Follow-up in 1 year for SHANICE and OCT nerve Saumya Rodney, OD May 29, 2023 9:47 AM documented in this encounter [facility] 05-08-2023 History of Presen t illness Narrative 1. Type 2 diabetes mellitus without retinopathy (HCC) Risk of diabetic changes and vision loss can be minimized by tight control of blood sugar, blood pressure, and cholesterol levels. Educated patient to continue care with primary care doctor and/or farm supervisor to maintain optimum levels as they are important to avoid ocular complications. Encouraged patient to call the office immediately with any changes to vision or visual concerns. Advised to not wait until the next scheduled exam. 2. Glaucoma suspect of both eyes IOP: 21/21 Optic cupping both eyes OCT nerve 05/08/23: sup loss both eyes, inferior loss right eye GCA loss borderline (-) fam hx 3. Refractive amblyopia of right eye 4. Presbyopia Finalized spec rx with balance right eye 5. Combined forms of age-related cataract of both eyes Mild- Monitor 6. Squamous blepharitis 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 Recommend daily warm compresses Follow-up in 3 weeks for 24-2/iop/pachs/gonio (30 Min) Saumya Rodney, OD May 08, 2023 9:51 AM documented in this encounter [facility] 10-21-2022 Instructions Go Cowart APRN.SINDY - 10/21/2022 7:42 AM EDT Get blood work Schedule eye appointment Take meds routinely and follow up in 1 month. Go Cowart APRN.OYSTER BED WORKER documented in this encounter [facility] 10-21-2022 History of Presen t illness Narrative Chief Complaint Patient presents with: Medication Follow-up: & need routine labs HPI Mitch Irvin is a 61 year old male who presents here today for Chronic Medical Conditions. follow up for DM, HLD, HTN. Admits to not taking his medications routinely for the past few days due to moving son and being busy. DM: Reports overall feeling well. Medication side effects: No. Home sugar checks: Not routinely Hypoglycemic spells: No. Watching diet: Yes. Trying to turn around diet. Unexpected weight loss: No. Polyuria, polydipsia: No. Vision Changes: No. Foot lesions or numbness or pain: No. HTN: Patient is compliant with meds somewhat, has not taken his lisinopril for a few days Monitors bp at home: No. Denies side effects: Yes. Chest pain: No. Dyspnea: No. Edema: No. Palpitations: No. Syncope: No. Headache: No. Dizziness: No. HYPERLIPIDEMIA: Patient is taking medications: Yes. Patient is watching diet: No. Patient denies myalgias: No. Patient denies gi upset: No He is on penitentiary anti-coag for history of PE. Depression Screening 11/27/2020 10/21/2022 PHQ-2 Score 0 0 Depression screening tool completed and reviewed. Based on score and interview, patient is not at risk for depression. Screening tool discussed with patient, and I recommended no further intervention at this time. Past medical history, appointments, medications, allergies reviewed. EXAM: BP 172/108 Pulse 68 Temp 36.7 C (98.1 F) (Oral) Resp 16 Wt 135.2 kg (298 lb 0.6 oz) SpO2 98% BMI 45.32 kg/m General Appearance: Well appearing, alert, in no acute distress, well-hydrated, well nourished.. Lungs: Lungs clear to auscultation. No wheezing, rhonchi, rales.. Heart: RRR without murmur, gallop, or rubs. No ectopy. Abdomen: Normal abdominal exam, Abdomen soft, non-tender. Bowel sounds normal. No masses, organomegaly. ASSESSMENT/PLAN: 1. Hypertension, essential - ICD9: 401.9, ICD10: I10 (primary diagnosis) - Factors affecting control: not taking medications recently. Recheck in 1 month. 2. Type 2 diabetes (HCC) - ICD9: 250.00, ICD10: E11.9 - Control undetermined, due for labs - Continue current medications - CONSULT TO OPHTHALMOLOGY 3. Anticoagulant long-term use - ICD9: V58.61, ICD10: Z79.01 - continue with Eliquis 4. Hyperlipidemia, unspecified hyperlipidemia type - ICD9: 272.4, ICD10: E78.5 - Control undetermined, due for labs - Continue current medications - Counseled on healthy diet and regular exercise 5. 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) - ICD9: 415.13, ICD10: I26.92 - Continue with Elquis 6. Screening for diabetic retinopathy - ICD9: V80.2, ICD10: Z13.5 - CONSULT TO OPHTHALMOLOGY Go Cowart APRN.CNP RTO in 1 months, sooner if needed. This note was partly generated using [employer] voice recognition dictation and may contain some misspelled or inaccurate words missed on review. documented in this encounter [facility] 10-10-2022 Miscellaneous Notes Pt notified. He is scheduled with Go Cowart on 10/21/22 at 7:20 AM. Will get fasting labs and urine test done before. Lilliam Chávez Ma OK to refill as ordered Needs labs done as ordered, and follow up appt Dashawn Eid MD Last office visit: 08/08/21 F/u scheduled: none Lilliam Chávez Ma Patient has been identified by name and date of : Yes Last office visit in this department: 08/08/2021 RX INSTRUCTIONS: Patient aware RX will be sent to pharmacy. No need to notify patient. Patient phones requesting refills as follows: Requested Prescriptions Pending Prescriptions Disp Refills apixaban (ELIQUIS) 5 mg tab(s) 180 tablet 3 Sig: Take 1 tablet by mouth twice daily. Please review and advise. Barby Spicer documented in this encounter [facility] 04-12-2022 Miscellaneous Notes The following approved medication requests have been transmitted electronically. Requested Prescriptions Pending Prescriptions Disp Refills lisinopril-hydroCHLOROthiazide (PRINZIDE, ZESTORETIC) 20-25 mg per tablet 90 tablet 3 Sig: Take 1 tablet by mouth every morning. apixaban (ELIQUIS) 5 mg tab(s) 180 tablet 3 Sig: Take 1 tablet by mouth twice daily. Go Cowart APRN.SINDY Mitch is asking for a 90 day script for all meds. Pharmacy verified in Epic Patient has been identified by name and date of : Yes Patient aware RX will be sent to pharmacy. No need to notify patient. Patient phones for refill(s): Requested Prescriptions Pending Prescriptions Disp Refills lisinopril-hydroCHLOROthiazide (PRINZIDE, ZESTORETIC) 20-25 mg per tablet 90 tablet 3 Sig: Take 1 tablet by mouth every morning. apixaban (ELIQUIS) 5 mg tab(s) 2 tablet 0 Sig: Take 1 tablet by mouth twice daily. restart med in two days Date of last office visit : 03/08/21 Labs-08/03/21 Date of next office visit : Visit date not found Last 2 Encounter Wt Readings: Date: Wt: 08/30/2021 124.7 kg (275 lb) 08/15/2021 125 kg (275 lb 9.6 oz) Please advise. Blanka Ramirez Pss documented in this encounter [facility] 08-30-2021 Nurse Note AMBULATORY PATIENT EDUCATION NOTE TOPIC: GI PROCEDURES: Endoscopic Retrograde CholangioPancreatography(ERCP) with or without biopsy,stenting,dilation and/or treatment READINESS TO LEARN INSTRUCTION PROVIDED TO: Patient, readness to learn accessed prior to procedure COGNITIVE ABILITY: Alert and oriented PTED MOTIVATION TO LEARN: Eager FAMILY SUPPORT: High - Very involved in pt care IPATIENT LEARNS BEST BY: Individual Instruction FACTORS AFFECTING LEARNING: None PHYSICAL LIMITATIONS AFFECTING LEARNING: None LEARNING RESPONSE METHOD OF INSTRUCTION: Individual instruction PATIENT / FAMILY RESPONSE: Verbalizes understanding of: WORSENING CONDITION-Signs and symptoms of a worsening condition that warrant a call to the physician FOLLOW-UP PLAN: Complete - No need for follow-up SUPPLEMENTAL MATERIAL: Procedure Discharge Instructions REFERRAL (RECOMMENDATION): None documented in this encounter [facility] 08-23-2021 Miscellaneous Notes GI Pre-Procedure Spoke with patient: Yes Confirmed date scheduled and patient report time: Yes Procedure Planned:Endoscopic Retrograde CholangioPancreatography(ERCP) with or without biopsy,stenting,dilation and/or treatment Is the patient on blood thinners?no Procedure Instructions given to patient: Yes, and they verbalized their understanding of instructions given Patient instructed to take prescribed preparation prior to procedure:Yes, and they verbalized their understanding of instructions given Patient instructed to have family/friend present for procedure transport home:Patient/patient inventory representative was told that if they do not have a responsible adult accompany them to their procedure; and remain in the endoscopy area until they are discharged; that their procedure cannot be done with sedation or anesthesia and may be cancelled. and They verbalized their understanding and agree to have a responsible adult accompany the patient to their procedure and remain in the endoscopy area. Any barriers to Patient learning: Patient/Patient School Community Relations Coordinator responded appropriately on phone. Type of instruction given: Verbal by telephone contact. Deepa Florence RN documented in this encounter [facility] 08-16-2021 History of Presen t illness Narrative Radiology Service Progress Note PATIENT NAME: Mitch Irvin DATE OF SERVICE: August 16, 2021 TIME: 10:25 AM PATIENT IDENTITY VERIFICATION COMPLETED USING TWO (2) IDENTIFIERS: Name and Date of confirmed by patient verbally. FALL SCREENING: Has the patient had 2 falls in the last year or 1 fall with injury or currently using an Ambulatory Assistive Device (Walker, Cane, Wheelchair, Crutches, etc.)? No PATIENT GENDER DATA: Male PATIENT RELEVANT IMPLANT DATA REVIEWED: Not Applicable RADIOLOGY DEPARTMENT: Ultrasound PERIPHERAL IV DATA: Not applicable SIGNED BY: Nichol Pemberton RDMS RVT August 16, 2021 10:25 AM documented in this encounter [facility] 08-15-2021 History of Presen t illness Narrative New Patient/Consult REASON FOR VISIT Mitch Irvin is a 60 year old male who is scheduled for a consult at the request of Starr Hernandez pa-c. CHIEF COMPLAINT Patient presents with: Cholecystectomy-3 My final recommendations will be communicated back to the requesting physician by the way of the shared medical record, fax, or via US Mail. HISTORY OF PRESENT ILLNESS referral from General Surgery --- Starr Hernandez-- S/P Cholecystectomy The patient was then referred to Dr. Sal to have the laparoscopic cholecystectomy performed at [facility]. IMPRESSION: status post laparoscopic cholecystectomy. Cholecystitis with cholelithiasis. History of jaundice, concern for CBD obstruction Symptoms started in February - Friday evening had in the evening upper right abdomen Intense - drove to ED. He had been throwing up, denies any fevers or chills during this time. Had not had attack like this prior to February. Pain would last for about an hour. Did note some jaundice March2021 Weight - dropped -324 to 275 since February Maintaining - 275 Appetite- is ok - two meal a day - a lot of soup chicken, - has had meat loaf Denies any pain with eating Large pills -- will get stuck Denies any GERD or heartburn currently--- years ago he did have issues Bowels - smaller movements- some occasional diarrhea - Denies any blood in stones Denies any ETOH or tobacco LFTS have been elevated 5/6 Labs---- Alk phos 414 alt 167 ast 189 MEDICATIONS Current Outpatient Medications Medication Sig Dispense Refill amoxicillin-clavulanic acid (AUGMENTIN) 875-125 mg per tablet Take 1 tablet by mouth twice daily for 10 days. 20 tablet 0 apixaban (ELIQUIS) 5 mg tab(s) Take 1 tablet by mouth twice daily. restart med in two days 2 tablet 0 atorvastatin (LIPITOR) 40 mg tablet Take 1 tablet by mouth daily at bedtime. For cholesterol. 90 tablet 3 lisinopril-hydroCHLOROthiazide (PRINZIDE, ZESTORETIC) 20-25 mg per tablet Take 1 tablet by mouth every morning. 90 tablet 3 metFORMIN ER (GLUCOPHAGE XR) 500 mg 24 hr tablet Take 2 tablets by mouth twice daily with meals. 120 tablet 2 fluticasone (FLONASE) 50 mcg/actuation nasal spray Use 2 Sprays in each nostril once daily. Rinse mouth after use. (Patient taking differently: Use 2 Sprays in each nostril as needed. Rinse mouth after use. ) 1 Bottle 11 Lancets lancets Test blood sugar(s) 1 times daily. Dx: Type 2 DM - Controlled E11.9 Insulin: Yes 100 Each 11 blood sugar diagnostic (BLOOD GLUCOSE TEST) test strip Test blood sugar(s) 1 times daily. Dx: Type 2 DM - Controlled E11.9 Insulin: Yes 50 Strip 11 No current facility-administered medications for this visit. ALLERGIES ALLERGIES No Known Allergies PAST MEDICAL HISTORY PAST MEDICAL HISTORY Diagnosis Date Anticoagulant long-term use 05/26/2020 Diabetes mellitus (HCC) DVT (deep venous thrombosis) (HCC) x2 Essential hypertension Kidney stones Mixed hyperlipidemia RAHEEM (obstructive sleep apnea) Pulmonary embolism (HCC) PAST SURGICAL HISTORY PAST SURGICAL HISTORY Procedure Laterality Date BACK SURGERY HX L'SCOPE CHOLECYSTECTOMY 07/18/2021 LITHOTRIPSY / 1 SIDE TONSILLECTOMY & ADENOIDECTOMY <AGE 12 SOCIAL HISTORY Social History Tobacco Use Smoking status: Never Smoker Smokeless tobacco: Never Used Vaping Use Vaping Use: Never used Substance Use Topics Alcohol use: Not Currently Drug use: Not Currently FAMILY HISTORY FAMILY HISTORY Problem Relation Age of Onset other ( when patient very young) Mother other (not known) Father other (sepsis) Brother GASTROINTESTINAL REVIEW OF SYSTEMS Difficulty swallowing / foods sticking in throat: No Heartburn: No Chest Pain: No Filling up quickly at meals: Yes Loss of appetite: Yes Nausea: No Vomiting: No Abdominal pain: Yes Bloody or black, bowel movements: No Constipation: No Diarrhea: Yes Vomiting blood: No Recent change in weight: No REVIEW OF OTHER SYSTEMS GENERAL: Weight loss RESPIRATORY: Negative for cough, hemoptysis, wheezing, COPD, dyspnea or shortness of breath CARDIOVASCULAR: Negative for chest pain, leg swelling, hypertension, CHF or palpitations MUSCULOSKELETAL: Negative for joint pain or swelling, back pain or muscle pain SKIN: JAUNDICE HX PSYCH: Negative for sleep disturbance, mood disorder and recent psychosocial stressors NEURO: No history of headaches, syncope, paralysis, seizures or tremors PHYSICAL EXAMINATION There were no vitals taken for this visit. General appearance: cooperative, in no acute distress Neurological: alert and oriented x3, exam grossly non-focal, No Asterixis Eyes: conjunctivae/corneas clear Oropharynx: Lips, tongue and oral mucosa normal Lungs: Lungs clear to auscultation. No wheezing or ronchi. Heart: S1, S2 Normal Abdomen: Abdomen soft, non-tender, Bowel sounds normal, No masses, No organomegaly and no tenderness on palpation or percussion. Extremities: Extremities normal. No deformities, edema, or skin discoloration Skin:no rashes, lesions, or jaundice Lymph:No abnormal adenopathy Assessment IMPRESSION AND PLAN February of last year C/O right upper quadrant pain Nausea and vomiting S/P Lap Choley 06/2021 WITH RESOLUTION OF SYMPTOMS -Alk phos, - ALT, ASTelevated. LIKELY CHOLEDOCHOLITHIASIS, asymptomatic. Will get LFT, RUQ ULTRASOUND, - Schedule ERCP after above - HOLD ELIQIUS 2-3 DAYS PRIOR TO PROCEDURE RTC in 3 months I agree with the Chief Complaint, ROS, and Past Histories independently gathered by the clinical web support engineer and the remaining scribed note accurately describes my personal service to the patient. Giacomo Gonzales MD August 15, 2021 8:37 AM documented in this encounter [facility] 08-08-2021 Instructions Annelise Robert APRN.CNP - 08/08/2021 11:36 AM EDT 1. Start the augmentin 2. Hold the lipitor (atorvastatin) until liver enzymes improved. 3. Start mucinex. 4. Get us a status update after the ERCP. documented in this encounter [facility] 08-08-2021 History of Presen t illness Narrative 60 year old male with c/o URI sx over the last 1 1/2 weeks - 2 weeks. Sore throat: Yes. Runny/stuffy nose: Yes. Postnasal drip: No. Throat clearing: Yes. Sinus pain/ pressure: No. Teeth pain: No. Headache No. Body aches Yes -- body feeling tired/fatigue. Ear pain: No. Cough: Yes. Expectorated some yellow-green mucus this morning. Production: Not often. Fever: 98.4 -- refers that he normally runs in the 97s. Hx asthma No. Hx pneumonia No. Smoker: No. OTC meds tried: none ACTIVE PROBLEM LIST Hypertension, Essential Type 2 Diabetes (Hcc) Chronic Deep Vein Thrombosis (Dvt) of Femoral Vein of Left Lower Extremity (Hcc) Obesity, Class Iii, Bmi 40-49.9 (Morbid Obesity) (Hcc) Acute Saddle Pulmonary Embolism Without Acute Cor Pulmonale (Hcc) Anticoagulant Long-Term Use Hyperlipidemia Essential Tremor Current Outpatient Medications Medication Sig Dispense Refill apixaban (ELIQUIS) 5 mg tab(s) Take 1 tablet by mouth twice daily. restart med in two days 2 tablet 0 atorvastatin (LIPITOR) 40 mg tablet Take 1 tablet by mouth daily at bedtime. For cholesterol. 90 tablet 3 lisinopril-hydroCHLOROthiazide (PRINZIDE, ZESTORETIC) 20-25 mg per tablet Take 1 tablet by mouth every morning. 90 tablet 3 metFORMIN ER (GLUCOPHAGE XR) 500 mg 24 hr tablet Take 2 tablets by mouth twice daily with meals. 120 tablet 2 fluticasone (FLONASE) 50 mcg/actuation nasal spray Use 2 Sprays in each nostril once daily. Rinse mouth after use. (Patient taking differently: Use 2 Sprays in each nostril as needed. Rinse mouth after use. ) 1 Bottle 11 Lancets lancets Test blood sugar(s) 1 times daily. Dx: Type 2 DM - Controlled E11.9 Insulin: Yes 100 Each 11 blood sugar diagnostic (BLOOD GLUCOSE TEST) test strip Test blood sugar(s) 1 times daily. Dx: Type 2 DM - Controlled E11.9 Insulin: Yes 50 Strip 11 No current facility-administered medications for this visit. OBJECTIVE: BP 132/88 Pulse 81 Temp 36.9 C (98.4 F) Resp 18 SpO2 97% General Appearance: Well appearing, alert, in no acute distress, well-hydrated, well nourished.. Skin: Skin color, texture, turgor normal, no suspicious rashes or lesions. Head: Normocephalic, no masses, lesions, tenderness or abnormalities. Eyes: Anicteric sclera. Pupils are equally round and reactive to light. Extraocular movements are intact. . Ears: External ears normal, canals clear. Nose/Sinuses: Nares normal, septum midline, mucosa normal, no drainage or sinus tenderness. Oropharynx: Lips, mucosa, and tongue normal, teeth and gums normal, oropharynx normal. Neck: Supple, no adenopathy Lungs: Lungs clear to auscultation. No wheezing, rhonchi, rales.. Heart: RRR without murmur, gallop, or rubs. No ectopy. Neurologic: Gait normal. ASSESSMENT/PLAN: 1. Acute non-recurrent sinusitis, unspecified location - ICD9: 461.9, ICD10: J01.90 - Will begin treatment with Augmentin 875 mg PO BID for 10 days - The patient should also be given OTC decongestants prn, OTC cough and cold meds as needed and warm salt water gargles, throat lozenges and/or OTC throat spray as needed for the first 5-7 days of treatment. - Supportive care with plenty of fluids, rest, and analgesia prn. - Follow up in one week if symptoms persist or worsen. - AMOXICILLIN 875 MG-POTASSIUM CLAVULANATE 125 MG TABLET Discussed treatment plan and patient voices understanding. Patient's questions answered appropriately. Medications and potential side effects were discussed and patient voices understanding. Return to the office as scheduled or as needed for worsening/no improvement. Annelise Robert APRN.SINDY This note was partially generated using [employer] voice recognition system. Note was reviewed for accuracy. There may be minor misspellings or grammar miscues with [employer] voice recognition. documented in this encounter [facility] 07-18-2021 History of Past i llness Narrative Problem Noted Date Resolved Date Calculus of gallbladder and bile duct without cholecystitis, with obstruction 07/18/2021 07/18/2021 documented as of this encounter (statuses as of 07/20/2021) [facility]04-20-2022 History of Past illness Narrative* Problem Noted Date Resolved Date Calculus of gallbladder and bile duct without cholecystitis, with obstruction 07/18/2021 07/18/2021 documented as of this encounter (statuses as of 08/08/2021) [address]20-2022 History of Past illness Narrative* Problem Noted Date Resolved Date Calculus of gallbladder and bile duct without cholecystitis, with obstruction 07/18/2021 07/18/2021 documented as of this encounter (statuses as of 08/15/2021) [address]20-2022 History of Past illness Narrative* Problem Noted Date Resolved Date Calculus of gallbladder and bile duct without cholecystitis, with obstruction 07/18/2021 07/18/2021 documented as of this encounter (statuses as of 08/17/2021) [address]20-2022 History of Past illness Narrative* Problem Noted Date Resolved Date Calculus of gallbladder and bile duct without cholecystitis, with obstruction 07/18/2021 07/18/2021 documented as of this encounter (statuses as of 08/23/2021) [address]20-2022 History of Past illness Narrative* Problem Noted Date Resolved Date Calculus of gallbladder and bile duct without cholecystitis, with obstruction 07/18/2021 07/18/2021 documented as of this encounter (statuses as of 08/31/2021) [facility]04-20-2022 History of Past illness Narrative* Problem Noted Date Resolved Date Calculus of gallbladder and bile duct without cholecystitis, with obstruction 07/18/2021 07/18/2021 documented as of this encounter (statuses as of 04/12/2022) [address]20-2022 History of Past illness Narrative* Problem Noted Date Diagnosed Date Resolved Date Calculus of gallbladder and bile duct without cholecystitis, with obstruction 07/18/2021 07/19/19 documented as of this encounter (statuses as of 10/11/2022) [address]20-2022 History of Past illness Narrative* Problem Noted Date Diagnosed Date Resolved Date Calculus of gallbladder and bile duct without cholecystitis, with obstruction 07/18/2021 07/19/19 documented as of this encounter (statuses as of 10/21/2022) [address]20-2022 History of Past illness Narrative* Problem Noted Date Diagnosed Date Resolved Date Calculus of gallbladder and bile duct without cholecystitis, with obstruction 07/18/2021 07/19/19 documented as of this encounter (statuses as of 05/08/2023) [facility]-20-2022 History of Past illness Narrative* Problem Noted Date Diagnosed Date Resolved Date Calculus of gallbladder and bile duct without cholecystitis, with obstruction 07/18/2021 07/19/19 documented as of this encounter (statuses as of 05/29/2023) [facility]20[facility] History of Past illness Narrative* Problem Noted Date Diagnosed Date Resolved Date Calculus of gallbladder and bile duct without cholecystitis, with obstruction 07/18/2021 07/19/19 documented as of this encounter (statuses as of 07/11/2023) [facility]04-20-2022 NoteHNO ID: [id number] Author: Jacqueline Garza APRN.CRNA Service: Anesthesiology Author Type: Nurse Rides Attendant Type: Anesthesia Procedure Notes Filed: 07/18/2021 8:47 AM Note Text: ANESTHESIOLOGY PROCEDURE NOTE Airway General Information Procedure Start Time/Medication Administration: 07/18/2021 8:31 AM Patient location during procedure: OR Timeout Performed Pre-procedure: timeout performed Consent Obtained: Yes 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 Staffing CHANNEL DEVELOPMENT MANAGER: Jacqueline Garza APRN.CHANNEL DEVELOPMENT MANAGER Performed by: MILAN Indications and Patient Condition Preoxygenated: yes Patient position: sniffing Indications for airway management: anesthesia anesthesia circuit Method: asleep Final Airway Details Final airway type: endotracheal airway Final Endotracheal Airway: ETT Cuffed: yes Successful intubation technique: direct laryngoscopy Devices used: intubating stylet Endotracheal tube insertion site: oral Blade: Key Blade size: #4 ETT size (mm): 8.0 Measured from: lips Measurement (cm): 23 Placement verified by: chest auscultation Cormack-Lehane Classification: grade I - full view of glottis Number of attempts at approach: 1 SIGNATURE: Jacqueline Garza APRN.CHANNEL DEVELOPMENT MANAGER PATIENT NAME: Mitch Irvin DATE: July 18, 2021 TIME: 8:46 AM CSN: [id number] History of Present illness Narrative* Yamileth Leavitt LPN - 07/16/2021 1:53 PM EDT TC to Pt. Pt has a gallbladder surgery set for this month. Scheduled a yearly in September. Yamileth Leavitt LPN * Go Cowart APRN.CNP - 07/16/2021 11:42 AM EDT STAMP Please reach out to patient for overdue appointment for chronic disease management with myself, , or Chelo Salazar. Labs are ordered. If he/she is no longer following with Dr. Eid, please remove name from PCP field. Go Cowart APRN.SINDY [facility] Miscellaneous Notes* Telephone Encounter - Radha Marx RN - 07/12/2021 12:34 PM EDT Pre-op instructions and Eliquis instructions were given to patient and sent in my chart. Radha Marx RN documented [facility] Miscellaneous Notes* Telephone Encounter - Radha Marx RN - 07/12/2021 12:33 PM EDT Patient was called and given pre-op instructions as well as his Eliquis instructions and sent in mychart as well. Radha Marx RN PACC Resource RN * Telephone Encounter - Brandon Aragon - 07/12/2021 11:56 AM EDT Images from the original note were not included. MD Brandon Santos John is medically cleared to have a Lap Alison as planned. Since he is on Eliquis he only needs to hold this for 2 days prior to his surgery, and restart it 2 days after surgery. Thanks. Dashawn Eid MD Previous Messages ----- Message ----- From: Brandon Aragon Sent: 07/10/2021 8:38 AM EDT To: Dashawn Eid MD Subject: Surgery -Lap Alison Good morning Dr Eid, Patient Mitch Irvin is scheduled to have a Lap Alison on Fri07-18-2021. Can you please confirm the patient is optimally cleared to have this procedure and that he can be off his anticoagulant 5 days prior to the procedure? Thank you, Stephany * Telephone Encounter - Brandon Aragon - 07/10/2021 8:38 AM EDT Medical clearance and permission to hold blood thinners sent to PCP Brandon Aragon documented [facility] History of Present illness Narrative* César Sal MD - 07/10/2021 8:24 AM EDT HISTORY AND PHYSICAL Mitch Irvin 1960 REFERRING PHYSICIAN: Micheline Monet MD CHIEF COMPLAINT: Consult (eval for cholecystectomy) HPI: The patient is a 60 year old male presents with episodic - RUQ and epigastric abdominal pain. He had nausea/emesis and sharp pain of the epigastric area. He states that the pain is severe and sharp and radiates to the back. He had another episode a few days later. He presented to [facility] ED (03/04/2021) - he was found to have normal WBC with normal left shift of differential, CT revealed multiple gallstones. He denies fevers, he denies jaundice, he denies weight loss. He does have dyspnea on exertion for which he underwent PFTs - which revealed fixed central airway obstruction. He had a home sleep apnea test which revealed severe obstructive sleep apnea. He also has a history of PE for which he is on eliquis. Mitch underwent an ultrasound. These tests demonstrated SIGNIFICANT MEDICAL PROBLEMS: PAST MEDICAL HISTORY Diagnosis Date Anticoagulant long-term use 05/26/2020 Diabetes mellitus (HCC) DVT (deep venous thrombosis) (HCC) x2 Essential hypertension Kidney stones Mixed hyperlipidemia RAHEEM (obstructive sleep apnea) Pulmonary embolism (HCC) OPERATIONS: PAST SURGICAL HISTORY Procedure Laterality Date BACK SURGERY HX LITHOTRIPSY / 1 SIDE TONSILLECTOMY & ADENOIDECTOMY <AGE 12 CURRENT MEDICATIONS: Current Outpatient Medications Medication Sig Dispense Refill atorvastatin (LIPITOR) 40 mg tablet Take 1 tablet by mouth daily at bedtime. For cholesterol. 90 tablet 3 apixaban (ELIQUIS) 5 mg tab(s) Take 1 tablet by mouth twice daily. 180 tablet 3 lisinopril-hydroCHLOROthiazide (PRINZIDE, ZESTORETIC) 20-25 mg per tablet Take 1 tablet by mouth every morning. 90 tablet 3 metFORMIN ER (GLUCOPHAGE XR) 500 mg 24 hr tablet Take 2 tablets by mouth twice daily with meals. 120 tablet 2 fluticasone (FLONASE) 50 mcg/actuation nasal spray Use 2 Sprays in each nostril once daily. Rinse mouth after use. (Patient taking differently: Use 2 Sprays in each nostril as needed. Rinse mouth after use. ) 1 Bottle 11 Lancets lancets Test blood sugar(s) 1 times daily. Dx: Type 2 DM - Controlled E11.9 Insulin: Yes 100 Each 11 blood sugar diagnostic (BLOOD GLUCOSE TEST) test strip Test blood sugar(s) 1 times daily. Dx: Type 2 DM - Controlled E11.9 Insulin: Yes 50 Strip 11 apixaban (ELIQUIS) 5 mg tab(s) Take by mouth twice daily. (Patient not taking: Reported on 07/10/2021 ) No current facility-administered medications for this visit. ALLERGIES: Patient has no known allergies. PERSONAL HISTORY: Social History Tobacco Use Smoking status: Never Smoker Smokeless tobacco: Never Used Vaping Use Vaping Use: Never used Substance Use Topics Alcohol use: Not Currently Drug use: Not Currently FAMILY HISTORY: FAMILY HISTORY Problem Relation Age of Onset other ( when patient very young) Mother other (not known) Father other (sepsis) Brother REVIEW OF SYSTEMS: General: The patient denies fatigue, denies weight loss, denies weight gain, denies feeling hot, and denies feelings of cold. Eyes: The patient denies glaucoma, denies eye injury/surgery, does not wear glasses or contacts. Ear/Nose/Throat: The patient denies allergies, denies hayfever, denies ear infections, and denies bloody noses. Cardiovascular: The patient denies chest pain, denies heart disease, NOTES high blood pressure,denies cardiac stent, denies prior heart attack, denies irregular heart beat, NOTES high cholesterol, denies poor circulation, denies heart failure, other cardiac issues, denies claudication, denies cold feet, denies peripheral arterial stent. Respiratory: The patient denies tuberculosis, denies pneumonia, denies frequent cough, NOTES pulmonary embolism, NOTES shortness of breath, and denies coughing up blood. Gastrointestinal: The patient denies difficulty swallowing, denies acid reflux, denies ulcers, denies vomiting, denies jaundice/hepatitis, NOTES gallbladder problems, denies black or tarry stools, denies hemorrhoids, denies bleeding from rectum, denies diverticulitis, denies constipation, denies diarrhea, denies loss of stool control, and denies hernias. Kidney/Bladder: The patient NOTES kidney stones, denies urine infections, and denies bloody urine. Skin: The patient denies a history of skin cancer, denies bleeding/changing moles, and denies a history of skin rash. Neurologic: The patient denies a history of epilepsy/convulsions, denies headaches, denies head/spinal injuries, and denies stroke/TIA. Psychiatric: The patient denies psychiatric medications, denies depression, and denies voices, denies substance abuse. Endocrine: The patient denies thyroid disorders, NOTES diabetes, and denies hormonal problems. Hematologic: The patient denies a history of bruising, denies bleeding, and denies anemia, NOTES blood clots. Infections: The patient denies a history of measles and mumps, denies rheumatic fever, and denies sexually transmitted diseases. Musculoskeletal: The patient denies back pain/injury, denies back problems, denies sciatica, deniesknee/foot trouble, denies arthritis, or denies gout. When was patient's last Mammogram screening? None Last Colonoscopy: Unknown PHYSICAL EXAMINATION: General: The patient is 60 year old male, well nourished, well hydrated in no acute distress. The patient is oriented to time, place, and person. VITALS: Blood pressure 144/82, pulse 100, temperature 36.7 C (98.1 F), height 172.7 cm (5' 8), weight 129.5 kg (285 lb 9.6 oz), SpO2 98 %. Body mass index is 43.43 kg/m . HEENT: Normal cephalic, ataumatic, pupils are equally round, sclera are anicteric, mucous membranesare moist, oropharynx is clear. Neck has no masses, asymmetry or lymphadenopathy. Thyroid is unremarkable. Respiratory: Clear to auscultation and percussion. Normal respiratory excursion and pattern. Cardiac: Examination is regular rate and rhythm. Abdominal exam: Normoactive bowel sounds, Soft, non tender in the right upper quadrant negative Whitley's sign, with no palpable masses. No hepatosplenomegaly. No palpable hernias. Rectal exam: exam deferred Extremities: no clubbing, cyanosis or edema. No adenopathy. 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 The planned surgical procedure was discussed extensively with the patient. The risks, benefits, anticipated outcomes and possible complications were mentioned. My staff has also explained the procedure in understandable terms and the patient was given the option to take printed material concerning the planned procedure. The patient had the opportunity to ask questions concerning the planned procedure.The patient freely consents to the planned procedure. Planned Procedure: LAPAROSCOPIC CHOLECYSTECTOMY WITHOUT INTRAOPERATIVE CHOLEANGIOGRAM - [id number] Planned antibiotic: Ancef 3gm IVPB needle control cheniller to OR SCDs needed - Yes Assistant Warehouse Manager Needed - Yes Diagnoses: (K80.20) Calculus of gallbladder without cholecystitis without obstruction (primary encounter diagnosis) (R06.00) 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 (Z79.02) FPC (current) use of antithrombotics/antiplatelets COVID (Procedure Consent) Procedure Criteria Procedure Criteria: Yes Elective The surgeon/proceduralist and patient have discussed in detail therisk of exposure to and/or potential harm posed by the COVID-19 virus with having a surgery/procedure at this time versus the risk of delaying the surgery/procedure. It is not possible to know eitherthe risk of delaying the surgery or procedure or chance of getting an infection with perfect accuracy, but a joint decision was made between the patient and the surgeon/proceduralist to proceed at this time with the scheduled surgery/procedure as indicated on the consent form. César Sal III, MD documented in [facility] Nurse Note* Adriana Casanova RN - 07/10/2021 8:05 AM EDT REVIEW OF SYSTEMS: General: The patient denies fatigue, denies weight loss, denies weight gain, denies feeling hot, and denies feelings of cold. Eyes: The patient denies glaucoma, denies eye injury/surgery, does not wear glasses or contacts. Ear/Nose/Throat: The patient denies allergies, denies hayfever, denies ear infections, and denies bloody noses. Cardiovascular: The patient denies chest pain, denies heart disease, NOTES high blood pressure, denies cardiac stent, denies prior heart attack, denies irregular heart beat, NOTES high cholesterol, denies poor circulation, denies heart failure, other cardiac issues, denies claudication, denies coldfeet, denies peripheral arterial stent. Respiratory: The patient denies tuberculosis, denies pneumonia, denies frequent cough, NOTES pulmonary embolism, NOTES shortness of breath, and denies coughing up blood. Gastrointestinal: The patient denies difficulty swallowing, denies acid reflux, denies ulcers, denies vomiting, denies jaundice/hepatitis, NOTES gallbladder problems, denies black or tarry stools, denies hemorrhoids, denies bleeding from rectum, denies diverticulitis, denies constipation, denies diarrhea, denies loss of stool control, and denies hernias. Kidney/Bladder: The patient NOTES kidney stones, denies urine infections, and denies bloody urine. Skin: The patient denies a history of skin cancer, denies bleeding/changing moles, and denies a history of skin rash. Neurologic: The patient denies a history of epilepsy/convulsions, denies headaches, denies head/spinal injuries, and denies stroke/TIA. Psychiatric: The patient denies psychiatric medications, denies depression, and denies voices, denies substance abuse. Endocrine: The patient denies thyroid disorders, NOTES diabetes, and denies hormonal problems. Hematologic: The patient denies a history of bruising, denies bleeding, and denies anemia, NOTES blood clots. Infections: The patient denies a history of measles and mumps, denies rheumatic fever, and denies sexually transmitted diseases. Musculoskeletal: The patient denies back pain/injury, denies back problems, denies sciatica, deniesknee/foot trouble, denies arthritis, or denies gout. When was patient's last Mammogram screening? None Last Colonoscopy: Unknown Adriana Casanova RN [facility] Diagnosis Calculus of gallbladder without cholecystitis without obstruction- Primary Calculus of gallbladder without mention of cholecystitis or obstruction 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 Other dyspnea and respiratory abnormality FPC (current) use of antithrombotics/antiplatelets Calculus of gallbladder and bile duct without cholecystitis, with obstruction 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 Other dyspnea and respiratory abnormality Encounter for long-term (current) use of antiplatelets/antithrombotics [facility]* Diagnosis Controlled type 2 diabetes mellitus without complication, without long-term current use of insulin (HCC)- Primary [facility]* Diagnosis Acute non-recurrent sinusitis, unspecified location- Primary documented in this encounter [facility]* Diagnosis Elevated LFTs- Primary Other abnormal blood chemistry S/P cholecystectomy Other acquired absence of organ History of jaundice Personal history of other endocrine, metabolic, and immunity disorders Elevated bilirubin Jaundice, unspecified, not of documented in this encounter [facility]* Diagnosis S/P cholecystectomy Other acquired absence of organ History of jaundice Personal history of other endocrine, metabolic, and immunity disorders Elevated bilirubin Jaundice, unspecified, not of Elevated LFTs Other abnormal blood chemistry documented [facility] this encounter [facility]* Diagnosis S/P cholecystectomy Other acquired absence of organ History of jaundice Personal history of other endocrine, metabolic, and immunity disorders Elevated bilirubin Jaundice, unspecified, not of Elevated LFTs Other abnormal blood chemistry documented in this [facility]* Diagnosis Hypertension, essential Unspecified essential hypertension documented in this encounter [facility]* Diagnosis Anticoagulant long-term use- Primary Long-term (current) use of anticoagulants Hypertension, essential Unspecified essential hypertension Type 2 diabetes (HCC) Hyperlipidemia, unspecified hyperlipidemia type documented in this encounter [facility]* Diagnosis Hypertension, essential- Primary Unspecified essential hypertension Type 2 diabetes (HCC) Anticoagulant long-term use Long-term (current) use of anticoagulants Hyperlipidemia, unspecified hyperlipidemia type 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) Screening for diabetic retinopathy Screening for other eye conditions documented in this encounter [facility]* Diagnosis Type 2 diabetes mellitus without retinopathy (HCC)- Primary Type II or unspecified type diabetes mellitus without mention of complication, not stated as uncontrolled Glaucoma suspect of both eyes Preglaucoma, unspecified Refractive amblyopia of right eye Refractive amblyopia Presbyopia Combined forms of age-related cataract of both eyes Other and combined forms of senile cataract Squamous blepharitis 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 documented in this encounter [facility]* Diagnosis Glaucoma suspect of both eyes- Primary Preglaucoma, unspecified Type 2 diabetes mellitus without retinopathy (HCC) Type II or unspecified type diabetes mellitus without mention of complication, not stated as uncontrolled Refractive amblyopia of right eye Refractive amblyopia Presbyopia Combined forms of age-related cataract of both eyes Other and combined forms of senile cataract Squamous blepharitis 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 documented in this [facility]* Diagnosis Hypertension, essential Unspecified essential hypertension documented in this encounter [facility]* Diagnosis Hypertension, essential Unspecified essential hypertension documented in this [facility] for [facility] (narrative)* Outpatient Procedure (Routine) - Authorized Specialty Diagnoses / Procedures Referred By Contac t Referred To Contact [facility] [place] Diagnoses S/P cholecystectomy History of jaundice Elevated bilirubin Elevated LFTs Procedures ERCP ERCP DX COLLECTION SPECIMEN BRUSHING/WASHING Giacomo Gonzales MD [address] [place] [address] [facility] Disease [place] [address] [place] [id number] Referral ID Status Reason Start Date Expiration Date Visits Requested Visits Authorized [id number] Authorized Auto-Generat ed Referral 08/15/2021 08/15/2022 1 1 * Diagnostic Procedure Only (Routine) - Authorized Specialty Diagnoses / Procedures Referred By Elda t Referred To Contact [facility] Diagnoses S/P cholecystectomy History of jaundice Elevated bilirubin Elevated LFTs Procedures US ABD RT UPPER QUADRANT US ABDOMINAL REAL TIME W/IMAGE LIMITED Giacomo Gonzales MD [address] [place] [address] Us Imaging Referral ID Status Reason Start Date Expiration Date Visits Requested Visits Authorized [id number] Authorized Auto-Generat ed Referral 08/15/2021 09/14/2022 1 1 [facility] for referral (narrative)* Diagnostic Procedure Only (Routine) - Closed Specialty Diagnoses / Procedures Referred By Elda duenas Referred To Contact [facility] IMAG[facility] Diagnoses S/P cholecystectomy History of jaundice Elevated bilirubin Elevated LFTs Procedures US ABD RT UPPER QUADRANT US ABDOMINAL REAL TIME W/IMAGE LIMITED Giacomo Gonzales MD [address] [place] [address] Us Imaging Referral ID Status Reason Start Date Expiration Date V isits Requested Visits Authorized [id number] Closed Auto-Generate d Referral 08/15/2021 09/14/2022 1 1 [facility] for referral (narrative)* Outpatient Procedure (Routine) - Closed Specialty Diagnoses / Procedures Referred By Contac t Referred To Contact [facility] Diagnoses S/P cholecystectomy History of jaundice Elevated bilirubin Elevated LFTs Procedures ERCP ERCP DX COLLECTION SPECIMEN BRUSHING/WASHING Giacomo Gonzales MD [address] [place] [address] [facility] [place] [address] [place] [address] Referral ID Status Reason Start Date Expiration Date V isits Requested Visits Authorized [id number] Closed Auto-Generate d Referral 08/15/2021 08/15/2022 1 1 [facility] for visit Narrative* Outpatient Procedure (Routine) - Closed Specialty Diagnoses / Procedures Referred By Elda duenas Referred To Contact [facility] [place] Diagnoses S/P cholecystectomy History of jaundice Elevated bilirubin Elevated LFTs Procedures ERCP ERCP DX COLLECTION SPECIMEN BRUSHING/WASHING Giacomo Gonzales MD [address] [place] [address] [facility] Disease [place] [address] [place] [address] Referral ID Status Reason Start Date Expiration Date V isits Requested Visits Authorized [id number] Closed Auto-Generate d Referral 08/15/2021 08/15/2022 1 1 [facility] Summary Purpose Family History No Family History Records FoundNo Family History Records FoundNo Family History Records Found Advance Directives No Advanced Directives Records FoundDocuments on File Type Date Recorded 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 Advance Directive(s) 07/18/2021 7:35 AM Advance Directive(s) 07/14/2021 5:14 PM Documents on File Type Date Recorded 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 Advance Directive(s) 07/18/2021 7:35 AM Advance Directive(s) 07/14/2021 5:14 PM Medications Administered Section Inactive Administered Medications - up to 3 most recent administrations Medication Order MAR Action Action Date Dose Rate Site lactated ringers iv infusion 30 mL/hr, INTRAVENOUS, CONTINUOUS, Starting on Fri08/30/21 at 1330, Until Fri08/31/21 at 0420, Preprocedure Restarted 08/30/2021 1:56 PM EDT New Bag/Syringe/Bottle 08/30/2021 1:43 PM EDT 30 mL/hr 3 0 mL/hr Reason for Referral Specialty Diagnoses / Procedures Referred By Elda duenas Referred To Contact Ophthalmology Diagnoses Type 2 diabetes (HCC) Screening for diabetic retinopathy Procedures CONSULT TO OPHTHALMOLOGY OFFICE/OUTPATIENT NEW HIGH MDM 60-74 MINUTES Go Cowart, FLARER.[employer] [address] [place] [address] Referral ID Status Reason Start Date Expiration Date Visits Requested Visits Authorized [id number] Authorized PCP Requested Referral 10/21/2022 10/21/2023 1 1 Additional Source Comments (unrecognized sect ion and content) No Status Records FoundNo Status Records FoundNo Status Records Found INFORMATION SOURCE (unrecogn ized section and content) DATE CREATED AUTHOR 05/15/2021 [facility] DATE CREATED AUTHOR AUTHOR'S ORGANIZ ATION 07/21/2021 [facility] DATE CREATED AUTHOR AUTHOR'S ORGANIZ ATION 09/19/2024 [facility] Source Comments (unrecognize d section and content) In the event this informatio n is protected by the Federal Confidentiality of Alcohol and Drug Abuse Patient Records regulations: The Federal rules restrict any use of the information to criminally investigate or prosecute any alcohol or drug abuse patient.[facility] the event this information is protected by the Federal Confidentiality of Alcohol and Drug Abuse Patient Records regulations: The Federal rules restrict any use of the information to criminally investigate or prosecute any alcohol or drug abuse patient.[facility] DaytonIn the event this information is protected by the Federal Confidentiality of Alcohol and Drug Abuse Patient Records regulations: The Federal rules restrict any use of the information to criminally investigate or prosecute any alcohol or drug abuse patient.[facility] DaytonIn the event this information is protected by the Federal Confidentiality of Alcohol and Drug Abuse Patient Records regulations: The Federal rules restrict any use of the information to criminally investigate or prosecute any alcohol or drug abuse patient.[facility] DaytonIn the event this information is protected by the Federal Confidentiality of Alcohol and Drug Abuse Patient Records regulations: The Federal rules restrict any use of the information to criminally investigate or prosecute any alcohol or drug abuse patient.[facility] DaytonIn the event this information is protected by the Federal Confidentiality of Alcohol and Drug Abuse Patient Records regulations: The Federal rules restrict any use of the information to criminally investigate or prosecute any alcohol or drug abuse patient.[facility] DaytonIn the event this information is protected by the Federal Confidentiality of Alcohol and Drug Abuse Patient Records regulations: The Federal rules restrict any use of the information to criminally investigate or prosecute any alcohol or drug abuse patient.[facility] DaytonIn the event this information is protected by the Federal Confidentiality of Alcohol and Drug Abuse Patient Records regulations: The Federal rules restrict any use of the information to criminally investigate or prosecute any alcohol or drug abuse patient.[facility] DaytonIn the event this information is protected by the Federal Confidentiality of Alcohol and Drug Abuse Patient Records regulations: The Federal rules restrict any use of the information to criminally investigate or prosecute any alcohol or drug abuse patient.[facility] DaytonIn the event this information is protected by the Federal Confidentiality of Alcohol and Drug Abuse Patient Records regulations: The Federal rules restrict any use of the information to criminally investigate or prosecute any alcohol or drug abuse patient.[facility] DaytonIn the event this information is protected by the Federal Confidentiality of Alcohol and Drug Abuse Patient Records regulations: The Federal rules restrict any use of the information to criminally investigate or prosecute any alcohol or drug abuse patient.[facility] DaytonIn the event this information is protected by the Federal Confidentiality of Alcohol and Drug Abuse Patient Records regulations: The Federal rules restrict any use of the information to criminally investigate or prosecute any alcohol or drug abuse patient.[facility] DaytonIn the event this information is protected by the Federal Confidentiality of Alcohol and Drug Abuse Patient Records regulations: The Federal rules restrict any use of the information to criminally investigate or prosecute any alcohol or drug abuse patient.[facility] DaytonIn the event this information is protected by the Federal Confidentiality of Alcohol and Drug Abuse Patient Records regulations: The Federal rules restrict any use of the information to criminally investigate or prosecute any alcohol or drug abuse patient.[facility] DaytonIn the event this information is protected by the Federal Confidentiality of Alcohol and Drug Abuse Patient Records regulations: The Federal rules restrict any use of the information to criminally investigate or prosecute any alcohol or drug abuse patient.[facility] DaytonIn the event this information is protected by the Federal Confidentiality of Alcohol and Drug Abuse Patient Records regulations: The Federal rules restrict any use of the information to criminally investigate or prosecute any alcohol or drug abuse patient.[facility] DaytonIn the event this information is protected by the Federal Confidentiality of Alcohol and Drug Abuse Patient Records regulations: The Federal rules restrict any use of the information to criminally investigate or prosecute any alcohol or drug abuse patient.[facility] DaytonIn the event this information is protected by the Federal Confidentiality of Alcohol and Drug Abuse Patient Records regulations: The Federal rules restrict any use of the information to criminally investigate or prosecute any alcohol or drug abuse patient.[facility] DaytonIn the event this information is protected by the Federal Confidentiality of Alcohol and Drug Abuse Patient Records regulations: The Federal rules restrict any use of the information to criminally investigate or prosecute any alcohol or drug abuse patient.[facility] DaytonIn the event this information is protected by the Federal Confidentiality of Alcohol and Drug Abuse Patient Records regulations: The Federal rules restrict any use of the information to criminally investigate or prosecute any alcohol or drug abuse patient.[facility] DaytonIn the event this information is protected by the Federal Confidentiality of Alcohol and Drug Abuse Patient Records regulations: The Federal rules restrict any use of the information to criminally investigate or prosecute any alcohol or drug abuse patient.[facility] Reason for Visit (unrecogniz ed section and content) Reason Comments Consult eval for cholecystec laurel Reason Comments Medical Clearance Reason Comments Pre-op Instructions Reason Comments Sore Throat x2 weeks Cough productive with yell owish/green sputum Reason Comments Cholecystectomy-3 Specialty Diagnoses / Procedures Referred By Conttawanna t Referred To Contact Gastroenterology Diagnoses S/P cholecystectomy History of jaundice Elevated bilirubin Procedures CONSULT TO GASTROENTEROLOGY OFFICE/OUTPATIENT NEW HIGH MDM 60-74 MINUTES Starr Hernandez PA-C [address] [place] [address] Referral ID Status Reason Start Date Expiration Date V isits Requested Visits Authorized [id number] Closed PCP Requested Referral 08/17/2021 08/03/2022 1 1 Reason Comments Radiology US Specialty Diagnoses / Procedures Referred By Contac t Referred To Contact US IMAGING Diagnoses S/P cholecystectomy History of jaundice Elevated bilirubin Elevated LFTs Procedures US ABD RT UPPER QUADRANT US ABDOMINAL REAL TIME W/IMAGE LIMITED Giacomo Gonzales MD [address] [place] [address] Us Imaging Referral ID Status Reason Start Date Expiration Date V isits Requested Visits Authorized [id number] Closed Auto-Generate d Referral 08/15/2021 09/14/2022 1 1 Reason Comments Appointment Confirmation Reason Onset Date Comments Refill Request 04/12/2022 Reason Onset Date Comments Refill Request 10/10/2022 Reason Comments Medication Follow-up & need routine labs Reason Comments Diabetic Eye Exam Type 2 NIDDM Specialty Diagnoses / Procedures Referred By Contac t Referred To Contact Ophthalmology Diagnoses Screening for diabetic retinopathy Procedures CONSULT TO OPHTHALMOLOGY OFFICE/OUTPATIENT [facility] [place] 60 MINUTES Go Cowart APRN.[employer] WORKER [address] [place] [address] Referral ID Status Reason Start Date Expiration Date V isits Requested Visits Authorized [id number] Closed PCP Requested Referral 04/28/2023 04/27/2024 1 1 Reason Comments Glaucoma Suspect Follow Up Reason Comments Results Reason Comments Refill Request Reason Onset Date Comments Refill Request 10/17/2023 Reason Comments Appointment Reason Comments Patient Update Reason Onset Date Comments Diabetes 08/25/2024 Care Teams (unrecognized sec tion and content) Inspector Agricultural Commodities Relationship Specialty Start Date End Date Dashawn Eid MD [address] [place] [address] PCP - General Family Practice 11/28/20 Inspector Agricultural Commodities Relationship Specialty Start Date End Date Dashawn Eid MD [address] [place] [address] PCP - General Family Practice 11/28/20 Inspector Agricultural Commodities Relationship Specialty Start Date End Date Dashawn Eid MD [address] [place] [address] PCP - General Family Practice 11/28/20 Inspector Agricultural Commodities Relationship Specialty Start Date End Date Dashawn Eid MD [address] [place] [address] PCP - General Family Practice 11/28/20 Inspector Agricultural Commodities Relationship Specialty Start Date End Date Dashawn Eid MD [address] [place] [address] PCP - General Family Practice 11/28/20 Inspector Agricultural Commodities Relationship Specialty Start Date End Date Dashawn Eid MD [address] [place] [address] PCP - General Family Practice 11/28/20 Inspector Agricultural Commodities Relationship Specialty Start Date End Date Dashawn Eid MD [address] [place] [address] PCP - General Family Practice 11/28/20 Inspector Agricultural Commodities Relationship Specialty Start Date End Date Dashawn Eid MD [address] [place] [address] PCP - General Family Practice 11/28/20 Inspector Agricultural Commodities Relationship Specialty Start Date End Date Dashawn Eid MD [address] [place] [address] PCP - General Family Medicine 11/28/20 Inspector Agricultural Commodities Relationship Specialty Start Date End Date Dashawn Eid MD [address] [place] [address] PCP - General Family Medicine 11/28/20 Inspector Agricultural Commodities Relationship Specialty Start Date End Date Dashawn Eid MD [address] [place] [address] PCP - General Family Medicine 11/28/20 Inspector Agricultural Commodities Relationship Specialty Start Date End Date Dashawn Eid MD [address] [place] [address] PCP - General Family Medicine 11/28/20 Inspector Agricultural Commodities Relationship Specialty Start Date End Date Dashawn Eid MD [address] [place] [address] PCP - General Family Medicine 11/28/20 Inspector Agricultural Commodities Relationship Specialty Start Date End Date Dashawn Eid MD [address] [place] [address] PCP - General Family Medicine 11/28/20 Inspector Agricultural Commodities Relationship Specialty Start Date End Date Dashawn Eid MD [address] [place] [address] PCP - General Family Medicine 11/28/20 Inspector Agricultural Commodities Relationship Specialty Start Date End Date Dashawn Eid MD [address] [place] [address] PCP - General Family Medicine 11/28/20 Chelo Salazar, FLARER.[employer] WORKER [address] [place] [address] Auto Det[employer]er Family Medicine 03/07/24 Go Cowart APRN.[employer] WORK[employer] [address] [place] [address] [employer] Family Medicine 03/16/24 Inspector Agricultural Commodities Relationship Specialty Start Date End Date Dashawn Eid MD [address] [place], [place] [address] PCP - General Family Medicine 11/28/20 Chelo Salazar APRN.[employer] WORK[employer] [address] [place], [place] [id number] Auto Detailer [facility] 03/07/24 Go Cowart APRN.[employer]STER B[employer] WORKER [address] [place], [place] [id number] [facility] Inspector Agricultural Commodities Relationship Specialty Start Date End Date Dashawn Eid MD [address] [place], [place] [id number] PCP - General Family Medicine 11/28/20 Go Cowart APRN.[employer] WORKER [address] [place], [place] [address] [facility] 03/16/24 Inactive Administered Medications - up to 3 most recent administrations Administered Medications (un recognized section and content) Medication Order MAR Action Action Date Dose Rate Site PHENYLephrine 2.5 % 1 Drop (AK-DILATE, SILVESTRE-SYNEPHRINE) 1 Drop, BOTH EYES, ONCE, 1 dose, On Ann Marie 05/08/23 at 0930, FOR OPHTHALMIC USE ONLY PROTECT FROM LIGHT Given 05/08/2023 9:30 AM EST 1 Drop proparacaine 0.5 % 1 Drop (ALCAINE) 1 Drop, BOTH EYES, ONCE, 1 dose, On Ann Marie 05/08/23 at 0930, FOR THE EYE Given 05/08/2023 9:30 AM EST 1 Drop tropicamide 1 % 1 Drop (MYDRIACYL) 1 Drop, BOTH EYES, ONCE, 1 dose, On Ann Marie 05/08/23 at 0930, FOR THE EYE Given 05/08/2023 9:30 AM EST 1 Drop FOR RECORDS PERTAINING TO PATIENTS WHO ARE OR HAVE BEEN ENROLLED IN A CHEMICAL DEPENDENCY/SUBSTANCEABUSE PROGRAM, SOME INFORMATION MAY BE OMITTED. This clinical summary was aggregated from multiple sources. Caution should be exercised in using it in the provision of clinical care. This summary normalizes information from multiple sources, and as a consequence, information in this document may materially change the coding, format and clinical context of patient data. In addition, data may be omitted in some cases. CLINICAL DECISIONS SHOULD BE BASED ON THE PRIMARY CLINICAL RECORDS. [facility] [employer] [facility]. provides no warranty or guarantee of the accuracy or completeness of information in this document.
--- NOTE | 2025-02-27 15:27 | EDS_ITS ---
HPI <Dr. César Reed DO - Last Filed: 02/28/25 09:22> History of Present Illness Chief Complaint: Dizziness Informant: patient, family and EMS Narrative Narrative: 64-year-old male presenting to the emergency room with vomiting confusion. Family states that he was diagnosed with DVT about 6 months ago started on Eliquis. Due to the cost of Eliquis he has been rationing it and not taking it daily. They note today he has been having yellow vomiting and having some diarrhea. They note worsening shortness of breath over the past 6 months. Patient notes a cough. They states he is seems extremely confused today and globally weak. They note that he has progressively been appearing more beebe/pale. He denies any black or bloody stools. Family reports that he is been told he is a diabetic but not currently on any medicines for it. [facility] <Dr. César Reed DO - Last Filed: 02/28/25 09:22> [facility] Medical History RAHEEM (obstructive sleep apnea) Morbid obesity Diabetes mellitus, type 2 DVT (deep venous thrombosis) Hypertension Home Medications ?Medication ?Instructions ?Recorded ?Last Taken ?Type apixaban 5 mg tablet 5 mg PO BID #74 tabs 2 0 02/26/25 15:00 Rx 10 mg aspirin 81 mg chewable tablet 81 mg PO DAILY@0800 bloo d thinner 01/18/20 Unknown History lisinopril 10 1 ea PO DAILY #30 tabs 01/17 Unknown Rx mg-hydrochlorothiazide 12.5 mg tablet Allergy/AdvReac Type Severity Reaction Status Date / Time No Known Allergies Allergy Verified 02/27/25 15:13 Family History (Updated 02/27/25 @ 18:[address] Noemy Griggs MD) Mother , in her 30s secondary to trauma/MVA. No medical history. MVA (motor vehicle accident) Surgical History (Updated 02/27/25 @ 18:[address] Noemy Griggs MD) Status post cholecystectomy History of tonsillectomy and adenoidectomy History of back surgery Social History (Updated 02/27/25 @ 18:[address] Noemy Griggs MD) household members: family Smoking Status: Never smoker alcohol intake: never substance use type: does not use ROS <Dr. César Reed, DO - Last Filed: 02/28/25 09:22> ROS ED Constitutional Constitutional ED: Reports chills; Denies weight loss Eyes Eyes: Denies change in vision or diplopia ENT ENT ED: Denies ear pain, rhinorrhea or sore throat Cardiovascular Cardiovascular: Denies chest pain, orthopnea, palpitations or racing heartbeat Respiratory/Chest Respiratory/Chest: Reports cough, dyspnea and dyspnea on exertion; Denies orthopnea Gastrointestinal Gastrointestinal: Reports diarrhea, nausea and vomiting; Denies abdominal pain Genitourinary Genitourinary ED: Denies dysuria, hematuria or urinary frequency Musculoskeletal Musculoskeletal: Reports other Details: Bilateral leg swelling ; Denies arthralgias or myalgias Integumentary Denies abscess or rash Neurologic Neurologic: Reports headache(s); Denies paresthesias or weakness Psychiatric Psychiatric: Denies anxiety, depression, suicidal ideation or suicidal thoughts Endocrine Endocrinology: Denies polydipsia, polyphagia or polyuria Allergic/Immunologic Allergic/Immunologic ED: Denies mouth swelling, tongue swelling or urticaria EXAM <Dr. César Reed, DO - Last Filed: 02/28/25 09:22> Physical Exam Const Vital Signs: 02/27/25 14:19 02/27/25 14:23 02/27/25 14:29 Temperature 100.3 F H 100.3 F H Temperature Source Oral Oral Pulse Rate 113 H 112 H Respiratory Rate 25 H 28 H Blood Pressure 197/83 H 197/83 H Blood Pressure Mean 121 121 Pulse Ox 88 94 Oxygen Delivery Method Room Air Room Air Nasal Cannula Oxygen Flow Rate (L/min) 2 02/27/25 14:31 02/27/25 14:45 02/27/25 15:00 Temperature Temperature Source Pulse Rate 112 H 121 H Respiratory Rate 17 19 H Blood Pressure 189/80 H Blood Pressure Mean 108 Pulse Ox 97 96 97 Oxygen Delivery Method Oxygen Flow Rate (L/min) 02/27/25 15:09 02/27/25 15:11 02/27/25 15:15 Temperature Temperature Source Pulse Rate Respiratory Rate Blood Pressure 200/85 H Blood Pressure Mean 117 Pulse Ox 98 98 96 Oxygen Delivery Method Nasal Cannula Oxygen Flow Rate (L/min) 2 02/27/25 15:30 02/27/25 15:30 02/27/25 15:45 Temperature 103 F H Temperature Source Oral Pulse Rate 122 H 125 H 132 H Respiratory Rate 26 H 26 H 19 H Blood Pressure 200/83 H Blood Pressure Mean 122 Pulse Ox 99 98 93 Oxygen Delivery Method Nasal Cannula Oxygen Flow Rate (L/min) 2 02/27/25 16:00 02/27/25 16:15 02/27/25 16:30 Temperature 102.2 F H Temperature Source Oral Pulse Rate 119 H 128 H Respiratory Rate 28 H 53 H Blood Pressure Blood Pressure Mean Pulse Ox 95 95 Oxygen Delivery Method Oxygen Flow Rate (L/min) 02/27/25 16:30 02/27/25 16:45 02/27/25 17:00 Temperature Temperature Source Pulse Rate 119 H 121 H Respiratory Rate 30 H 43 H Blood Pressure 169/76 H 169/76 H 170/76 H Blood Pressure Mean 100 102 102 Pulse Ox 97 95 Oxygen Delivery Method Oxygen Flow Rate (L/min) 02/27/25 17:15 02/27/25 17:30 02/27/25 17:39 Temperature 100.6 F H Temperature Source Oral Pulse Rate 120 H Respiratory Rate 38 H Blood Pressure 179/77 H 155/71 H Blood Pressure Mean 106 95 Pulse Ox 97 Oxygen Delivery Method Oxygen Flow Rate (L/min) 02/27/25 17:45 02/27/25 18:00 Temperature Temperature Source Pulse Rate 120 H Respiratory Rate 42 H Blood Pressure 160/84 H 155/78 H Blood Pressure Mean 101 97 Pulse Ox 95 Oxygen Delivery Method Oxygen Flow Rate (L/min) Positive well nourished, well developed and obese General Appearance ED: well developed, NAD and pallor Nutritional Appearance: obese HEENT Reports normocephalic, head/scalp atraumatic and moist mucous membranes HEENT Narrative: Bilious emesis on turner Eyes PERRL and EOMs intact bilaterally Neck no lymphadenopathy, supple and no JVD Resp clear to auscultation bilaterally Auscultation: rhonchi lower bilaterally Cardio regular rate, regular rhythm and no murmurs Rate: tachycardic GI normal to inspection, nondistended, normoactive bowel sounds and non-tender Palpation: soft Back/Spine no CVA tenderness and normal ROM Extremity General Extremety ED: Yes edema General Extremity: edema bilateral lower extremity (2+) Details: moderate Neuro oriented x3 and CN's II-XII intact bilaterally Neuro Narrative: Patient seems very slow to respond but is orientated x 3 he appears globally weak Sensorium / Orientation: alert Motor Exam: strength 5/5 throughout Psych mental status grossly normal Mood & Affect: Negative for depressed or tearful Skin no rashes or lesions noted and no wounds Skin Narrative: Pale palms and nailbeds General Skin Exam: pallor <Dr. Dm Gonzalez, DO - Last Filed: 02/27/25 18:28> Physical Exam Const Vital Signs: 02/27/25 14:19 02/27/25 14:23 02/27/25 14:29 Temperature 100.3 F H 100.3 F H Temperature Source Oral Oral Pulse Rate 113 H 112 H Respiratory Rate 25 H 28 H Blood Pressure 197/83 H 197/83 H Blood Pressure Mean 121 121 Pulse Ox 88 94 Oxygen Delivery Method Room Air Room Air Nasal Cannula Oxygen Flow Rate (L/min) 2 02/27/25 14:31 02/27/25 14:45 02/27/25 15:00 Temperature Temperature Source Pulse Rate 112 H 121 H Respiratory Rate 17 19 H Blood Pressure 189/80 H Blood Pressure Mean 108 Pulse Ox 97 96 97 Oxygen Delivery Method Oxygen Flow Rate (L/min) 02/27/25 15:09 02/27/25 15:11 02/27/25 15:15 Temperature Temperature Source Pulse Rate Respiratory Rate Blood Pressure 200/85 H Blood Pressure Mean 117 Pulse Ox 98 98 96 Oxygen Delivery Method Nasal Cannula Oxygen Flow Rate (L/min) 2 02/27/25 15:30 02/27/25 15:30 02/27/25 15:45 Temperature 103 F H Temperature Source Oral Pulse Rate 122 H 125 H 132 H Respiratory Rate 26 H 26 H 19 H Blood Pressure 200/83 H Blood Pressure Mean 122 Pulse Ox 99 98 93 Oxygen Delivery Method Nasal Cannula Oxygen Flow Rate (L/min) 2 02/27/25 16:00 02/27/25 16:15 02/27/25 16:30 Temperature 102.2 F H Temperature Source Oral Pulse Rate 119 H 128 H Respiratory Rate 28 H 53 H Blood Pressure Blood Pressure Mean Pulse Ox 95 95 Oxygen Delivery Method Oxygen Flow Rate (L/min) 02/27/25 16:30 02/27/25 16:45 02/27/25 17:00 Temperature Temperature Source Pulse Rate 119 H 121 H Respiratory Rate 30 H 43 H Blood Pressure 169/76 H 169/76 H 170/76 H Blood Pressure Mean 100 102 102 Pulse Ox 97 95 Oxygen Delivery Method Oxygen Flow Rate (L/min) 02/27/25 17:15 02/27/25 17:30 02/27/25 17:39 Temperature 100.6 F H Temperature Source Oral Pulse Rate 120 H Respiratory Rate 38 H Blood Pressure 179/77 H 155/71 H Blood Pressure Mean 106 95 Pulse Ox 97 Oxygen Delivery Method Oxygen Flow Rate (L/min) 02/27/25 17:45 02/27/25 18:00 Temperature Temperature Source Pulse Rate 120 H Respiratory Rate 42 H Blood Pressure 160/84 H 155/78 H Blood Pressure Mean 101 97 Pulse Ox 95 Oxygen Delivery Method Oxygen Flow Rate (L/min) [facility] <Dr. César Reed, DO - Last Filed: 02/28/25 09:22> [facility] Narrative Medical decision making narrative: Differential diagnosis includes but not limited to pneumonia hypoxia pulmonary embolism dehydration electrolyte abnormalities sepsis acute coronary syndrome UTI gastroenteritis aspiration Blood cultures were obtained. Normal coags. Lactic acid is elevated 3.2. He is not hypotensive he does not appear volume depleted. This may be in part due to hypoxia but is undifferentiated at this point. Urinalysis does demonstrate ketones glucose protein but no overt infection there is noted 3+ bacteria and culture was sent. Blood cultures obtained. Troponin is 8. AST of 151 ALT of 51 total bilirubin of 2.18 glucose 281 alk phos 78. The elevated LFTs were not ed in 2020. EKG sinus tachycardia at 112. My independent interpretation the single view chest x-ray is no any obvious infiltrate/consolidation or pneumothorax. COVID influenza RSV swab was negative. Viral panel will be added. Patient's white count was 5.5 with 86.5 neutrophils hemoglobin of 7.2 platelet count is 86. On rectal exam there is yellow diarrhea. No gross blood. No formed stool. Patient received IV fluids. I did not order 30 cc per cubic gram bolus according to the sepsis protocol at this would be over 4 L of IV fluids. Given that his legs already 2+ pitting edema and not knowing his cardiac status I did not wish to volume overload him. He is not hypotensive. He is possible that the elevated lactic acid is related to the hypoxia and not sepsis. I do not have a clear bacterial source for his infection and this may be viral in nature. There is delay in getting his CBC back and had to be redrawn. CTA of the chest and CT with IV contrast of the abdomen/pelvis was obtained. CT of the abdomen pelvis did not show acute findings. CTA chest demonstrates right pulmonary embolism. I will speak with the hospitalist regarding admission and choice of anticoagulant. History & Record Review Discussion w/independent historian: Patient and Family Lab Data Attestation: I reviewed the patient's lab results. Labs: Laboratory Results - last 24 hr 02/27/25 02/27/25 02/27/25 15:16 15:55 17:22 WBC 5.5 RBC 1.59 L Hgb 7.2 L Hct 19.3 L MCV 121.4 H MCH 45.3 H MCHC 37.3 H RDW Std Deviation 70.1 H RDW Coeff of Ryan 18.2 H Plt Count 86 L MPV 9.7 Immature Gran % (Auto) 1.300 H Neut % (Auto) 86.5 H Lymph % (Auto) 9.2 L [place] % (Auto) 2.4 Eos % (Auto) 0.4 Baso % (Auto) 0.2 Absolute Neuts (auto) 4.7 Absolute Lymphs (auto) 0.50 L Nucleated RBC % 0.4 Platelet Estimate MOD DEC Hypochromasia 1+ Anisocytosis 1+ Schistocytes 1+ PT 14.5 INR 1.1 APTT < 24.0 L Sodium 137 Potassium 4.1 Chloride 102 Carbon Dioxide 19.5 L Anion Gap 16 H BUN 19 Creatinine 0.86 Estim Creat Clear Calc 119.65 Est GFR (MDRD) Non-Af 97 BUN/Creatinine Ratio 22.3 H Glucose 281 H Lactic Acid 3.2 H* Calcium 8.9 Phosphorus 2.0 L Magnesium 1.7 Iron 21 L TIBC 207 L Iron Saturation 10.1 Unsaturated IBC 186 L Ferritin 1124 H Total Bilirubin 2.18 H AST 151 H ALT 51 H Alkaline Phosphatase 78 Troponin T High Sens 8 Troponin T Hi Sens 2 Hr 14 NT pro BNP II 245 Total Protein 7.2 Albumin 4.3 Globulin 2.9 Albumin/Globulin Ratio 1.5 b-Hydroxybutyric mmol/L 0.3 Urine Color Yellow Urine Clarity Clear Urine pH 6.0 Ur Specific [place] 1.020 Urine Protein 30 H Urine Glucose (UA) 1000 H Urine Ketones 15 H Urine Occult Blood 50 H Urine Nitrite Negative Urine Bilirubin Negative Urine Urobilinogen 4 H Ur Leukocyte Esterase Negative Urine RBC 0-5 SEEN Urine WBC 0-5 SEEN Ur Squamous Epith Cells 0-5 SEEN Urine Bacteria 3+ Coarse Granular Casts 0-5 SEEN Urine Mucus 0 SEEN Blood Type B POSITIVE Antibody Screen NEGATIVE Crossmatch See Detail Radiography Diagnostic Testing: Clinical Impression(s) from Imaging Studies Chest X-Ray 02/27/25 14:57 IMPRESSION: Diffuse reticular opacities may reflect moderate pulmonary edema versus atypical pneumonia. Right lower lobe opacity may reflect atelectasis and/or pneumonia. Reading Location: [facility] Abdomen/Pelvis CT 02/27/25 16:05 IMPRESSION: No acute abnormality Reading Location: [facility] Chest CTA 02/27/25 16:05 IMPRESSION: Pulmonary embolus on the right without elevation of the RV to LV ratio. A reading will be called. Reading Location: [facility] EKG Initial EKG: Attestation: I personally reviewed and interpreted this EKG as follows: Comments: Sinus tachycardia ventricular rate of 112 bpm Management Discussion w/another healthcare provider: Hospitalist <Dr. mD Gonzalez, DO - Last Filed: 02/27/25 18:28> [facility] Lab Data Labs: Laboratory Results - last 24 hr 02/27/25 02/27/25 02/27/25 15:16 15:55 17:22 WBC 5.5 RBC 1.59 L Hgb 7.2 L Hct 19.3 L MCV 121.4 H MCH 45.3 H MCHC 37.3 H RDW Std Deviation 70.1 H RDW Coeff of [place] 18.2 H Plt Count 86 L MPV 9.7 Immature Gran % (Auto) 1.300 H Neut % (Auto) 86.5 H Lymph % (Auto) 9.2 L [place] % (Auto) 2.4 Eos % (Auto) 0.4 Baso % (Auto) 0.2 Absolute Neuts (auto) 4.7 Absolute Lymphs (auto) 0.50 L Nucleated RBC % 0.4 Platelet Estimate MOD DEC Hypochromasia 1+ Anisocytosis 1+ Schistocytes 1+ PT 14.5 INR 1.1 APTT < 24.0 L Sodium 137 Potassium 4.1 Chloride 102 Carbon Dioxide 19.5 L Anion Gap 16 H BUN 19 Creatinine 0.86 Estim Creat Clear Calc 119.65 Est GFR (MDRD) Non-Af 97 BUN/Creatinine Ratio 22.3 H Glucose 281 H Lactic Acid 3.2 H* Calcium 8.9 Phosphorus 2.0 L Magnesium 1.7 Iron 21 L TIBC 207 L Iron Saturation 10.1 Unsaturated IBC 186 L Ferritin 1124 H Total Bilirubin 2.18 H AST 151 H ALT 51 H Alkaline Phosphatase 78 Troponin T High Sens 8 Troponin T Hi Sens 2 Hr 14 NT pro BNP II 245 Total Protein 7.2 Albumin 4.3 Globulin 2.9 Albumin/Globulin Ratio 1.5 b-Hydroxybutyric mmol/L 0.3 Urine Color Yellow Urine Clarity Clear Urine pH 6.0 Ur Specific [place] 1.020 Urine Protein 30 H Urine Glucose (UA) 1000 H Urine Ketones 15 H Urine Occult Blood 50 H Urine Nitrite Negative Urine Bilirubin Negative Urine Urobilinogen 4 H Ur Leukocyte Esterase Negative Urine RBC 0-5 SEEN Urine WBC 0-5 SEEN Ur Squamous Epith Cells 0-5 SEEN Urine Bacteria 3+ Coarse Granular Casts 0-5 SEEN Urine Mucus 0 SEEN Blood Type B POSITIVE Antibody Screen NEGATIVE Crossmatch See Detail Radiography Diagnostic Testing: Clinical Impression(s) from Imaging Studies Chest X-Ray 02/27/25 14:57 IMPRESSION: Diffuse reticular opacities may reflect moderate pulmonary edema versus atypical pneumonia. Right lower lobe opacity may reflect atelectasis and/or pneumonia. Reading Location: [facility] Abdomen/Pelvis CT 02/27/25 16:05 IMPRESSION: No acute abnormality Reading Location: [facility] Chest CTA 02/27/25 16:05 IMPRESSION: Pulmonary embolus on the right without elevation of the RV to LV ratio. A r eading will be called. Reading Location: [facility] Management Discussion w/another healthcare provider: Radiologist Treatment and Re-Evaluation :: Care of the patient was turned over to me pending CTA of the chest. There is pulmonary embolism on the right. There is no elevation of the RV to LV ratio. This was interpreted by the radiologist. I also reviewed the images and noted the pulmonary embolism on the right. CT scan of the abdomen and pelvis was obtained. There is no acute abnormality. This was interpreted by the ra diologist. I also independently reviewed the images and did not see any evidence of bowel obstruction or perforation. Case was discussed with the hospitalist. She will admit the patient to PCU. Patient understood and was agreeable with the plan. All questions were answered. Discharge Plan Dx/Rx/DC Orders Clinical Impression: Hypoxia, Acute febrile illness, Elevated lactic acid level, Bilious emesis, Anemia requiring transfusions, Thrombocytopenia, Pulmonary embolism Disposition Disposition: Acute Care Hospital [facility] Discharge Date/Time: 02/27/25 19:32
[2025-02-27 15:52] LABS: AST(SGOT) 151 U/L (<=37); Alanine Aminotransfer ALT/SGPT 51 U/L (<=46); Albumin, Serum 4.3 g/dL (3.4-4.8); Alkaline Phosphatase 78 U/L (40-129); Anion Gap 16 (5-15); BUN 19 mg/dL (4-19); BUN/Creat Ratio 22.3 RATIO (10-20); Calcium,Total 8.9 mg/dL (7.6-11.0); Carbon Dioxide 19.5 mmol/L (21.0-32.0); Chloride 102 mmol/L (98-108); Estimated Creatinine Clearance 119.65 ml/min (50-250); Globulin 2.9 g/dL (2.2-4.2); Glucose 281 mg/dL (70-99); Potassium 4.1 mmol/L (3.3-5.1)
[2025-02-27 15:53] LABS: Prothrombin Time (Protime)PT. 14.5 SECONDS (11.7-14.9)
[2025-02-27 15:54] LABS: Partial Thromboplast Time < 24.0 Seconds (24.1-36.2)
[2025-02-27 16:00] LABS: Mucous, Urine 0 SEEN /hpf (<or=2+)
[2025-02-27 16:04] LABS: Color, Urine Yellow (Yellow); Glucose, Dipstick 1000 mg/dl (Normal); Ketone-Dipstick 15 mg/dl (Negative); Leukocyte Esterase-Dipstick Negative /ul (Negative); Nitrite-Dipstick Negative (Negative); Occult Blood-Urine 50 /ul (Negative); Protein-Dipstick 30 mg/dl (Negative); Specific Gravity, Urine 1.020 (1.002-1.030); Urine Bilirubin Dipstick Negative (Negative)
--- NOTE | 2025-02-27 16:05 | CT_ITS ---
PROCEDURE: CTA CHEST W/WO CONTRAST 02/27/2025 REASON FOR EXAM: DYSPNEA HYPOXIA TECHNIQUE: Procedure Code: [id number] Modality: CT Procedure: CTA CHEST W/WO CONTRAST Multiplanar Sagittal and Coronal images were obtained. 3D reconstructions CONTRAST: VOLUME: 80 mL One or more dose reduction techniques were used (e.g., Automated exposure control, adjustment of the mA and/or kV according to patient size, use of iterative reconstruction technique). RADIATION DOSE SUMMARY: CTDlvol: 47 mGy DLP: 3165 mGycm FINDINGS: Inspection of the lung parenchyma demonstrates no fibrosis. No mass. No edema. No consolidation. Normal thoracic vertebral body height and alignment. No thoracic aneurysm or dissection. No significant coronary calcification. The pulmonary arterial contrast bolus appears adequate. Nonobstructing pulmonary embolus noted in the 2nd order branches on the right. Definite additional emboli not definitively seen but could be present. The RV to LV ratio is not elevated. CT/CTA Chest W/WO Contrast IMPRESSION: Pulmonary embolus on the right without elevation of the RV to LV ratio. A read ing will be called. Reading [facility]
--- NOTE | 2025-02-27 16:05 | CT_ITS ---
PROCEDURE: ABDOMEN/PELVIS W IV CONT ONLY 02/27/2025 REASON FOR EXAM: VOMITING AND DIARRHEA TECHNIQUE: Procedure Code: [id number] Modality: CT Procedure: ABDOMEN/PELVIS W IV CONT ONLY Coronal and Sagittal reconstruction series were provided. CONTRAST: Isovue 370 VOLUME: 80 mL One or more dose reduction techniques were used (e.g., Automated exposure control, adjustment of the mA and/or kV according to patient size, use of iterative reconstruction technique. RADIATION DOSE SUMMARY: CTDlvol: 47 mGy DLP: 3165 mGycm COMPARISON: 03/05/2021 FINDINGS: The lung bases are clear. Normal lumbar vertebral body height and alignment. No liver masses. Gallbladder presumed surgically absent. Normal spleen. Normal pancreas. No renal calculus or hydronephrosis. No gastric dilatation. Negative for small bowel or large bowel obstruction. No findings of diverticulitis, appendicitis, colitis or abscess. CT/Abdomen/Pelvis W IV Cont ONLY IMPRESSION: No acute abnormality Reading [facility]
[2025-02-27 16:06] LABS: Troponin T High Sensitivity 8 ng/L (<=22)
[2025-02-27 16:25] LABS: Hematocrit 19.3 % (40-54); Hemoglobin 7.2 g/dL (13.0-16.5); Immature Granulocytes Count 0.070 X10^3/uL (0.0-0.0); Mean Corp Hgb Conc 37.3 g/dL (32-36); Mean Corpuscular Volume 121.4 fL (80-94); Mean Platelet Vol. 9.7 fl (6.2-12.0); NRBC Flagged by Analyzer 0.4 % (0-5); POSITIVE COUNT YES; POSITIVE DIFFERENTIAL YES; POSITIVE MORPHOLOGY YES; Platelet Count 86 K/mm3 (150-450); RBC Distribution Width CV 18.2 % (11.6-14.6); RBC Distribution Width SD 70.1 fl (35.1-43.9); Red Blood Count 1.59 M/mm3 (4.6-6.2); White Blood Count 5.5 K/mm3 (4.4-11.0)
[2025-02-27 16:38] LABS: Red Blood Cells-Urine 0-5 SEEN /hpf (0-5); Squamous Epithelial Cells - UA 0-5 SEEN /hpf (0-5)
[2025-02-27 16:56] LABS: Differential Indicated SCAN CRITERIA MET
[2025-02-27 16:57] LABS: Anisocytosis 1+; Hypochromasia 1+
[2025-02-27 16:58] LABS: Schistocytes 1+
[2025-02-27] MEDS: Piperacil/Tazobactam 4.5 GM in 0.9% Normal Saline (100mL MB+) 100 ML IV (17:00)
--- NOTE | 2025-02-27 17:33 | ED.RN ---
Per susana Ball to have water
[2025-02-27 18:07] LABS: Troponin T High Sens 2 HR 14 ng/L (<=22)
--- NOTE | 2025-02-27 18:09 | PCM.HP.STD ---
HPI - General General Date of Admission: 02/27/25 Date of Service: 02/27/25 Chief Complaint: Debility, weakness, N/V/D. HPI Narrative The patient is a 64 y/o M w/ PMHx: RAHEEM unable to previously tolerate PAP therapy, Diabetes mellitus type II not on medication, Hx DVT unfortunately not taking his anticoagulant therapy correctly secondary to cost prohibition taking it at a reduced dose to make it last longer, HTN who presents to [facility] ED on 02/27/2025 with history of nausea, emesis noted to be bilious with significant confusion progressively worsening diagnosed approximately 6 months previous as noted with a DVT however incorrectly taking his Eliquis secondary to cost prohibition with onset over the last 24 hours GI symptoms including also mildly loose stools with dyspnea that has been ongoing for several months but worsening more recently in addition to a cough reportedly appearing ashen and pale per his family prompting ED evaluation be cautious. Workup in the ED included T100.3, heart rate 113, BP 197/83, respiratory rate 25 noted initially to be 88% on room air with improvement to 94% on 2 L nasal cannula with most recent repeat vitals T102.2 oral, heart rate 121, BP 169/76, respiratory rate 43, 95% on 2 L nasal cannula, CBC with WC 5.5, hemoglobin 7.2, MCV 121.4, platelet 86 with increased immature granulocytes and lymphopenia, coags with PT less than 24 otherwise unremarkable, CMP with Comvax at 19.5, anion gap 16, BUN/creatinine 19/0.86, GFR 97, glucose 281, lactic acid 3.2, T. bili 2.18, AST/LT 151/51, lactic acid 3.2, initial troponin 8, urinalysis with specific gravity 1.020, protein 30, glucose of thousand, ketone 15, occult blood 50, nitrate negative, leukocyte esterase negative, no marked urine WBCs or RBCs with however 3+ urine bacteria noted, blood culture x 2 pending per ED, urine culture pending per ED, rapid SARS COVID/M blood/RSV PCR negative, chest x-ray with diffuse reticular opacities possibly credit and collections representative of moderate pulmonary edema versus atypical pneumonia, right lower lobe opacity possibly atelectasis versus pneumonia, chest CTA with pulmonary embolus on the right without any elevation of RV to LV ratio, CT abdomen and pelvis with no acute abnormality, EKG with sinus tachycardia with no acute evidence of ischemia. In the ED patient ministered 2 L normal saline as well as transition to maintenance IV fluids, Tylenol 1000 Guillaume p.o. x 1, Zofran 4 mg IV x 1, Zosyn 4.5 g IV x 1. ED physician also of note ordered 1 unit PRBC to be administered, being started in the ED but did talk with ED nurse and requested iron study labs be obtained prior to this being started. [facility] Medical History RAHEEM (obstructive sleep apnea) Morbid obesity Diabetes mellitus, type 2 DVT (deep venous thrombosis) Hypertension Home Medications ?Medication ?Instructions ?Recorded ?Last Taken ?Type apixaban 5 mg tablet 5 mg PO BID #74 tabs 01/18/20 Unknown Rx aspirin 81 mg chewable tablet 81 mg PO DAILY@0800 01/18/20 Unknown History lisinopril 10 1 ea PO DAILY #30 tabs 01/18/20 Unknown Rx mg-hydrochlorothiazide 12.5 mg tablet Allergy/AdvReac Type Severity Reaction Status Date / Time No Known Allergies Allergy Verified 02/27/25 15:13 Family History (Updated 02/27/25 @ 18:[address] Noemy Griggs MD) Mother , in her 30s secondary to trauma/MVA. No medical history. MVA (motor vehicle accident) other (Patient does not know his father or his maternal family history.) Surgical History (Updated 02/27/25 @ 18:[address] Noemy Griggs MD) Status post cholecystectomy History of tonsillectomy and adenoidectomy History of back surgery Social History (Updated 02/27/25 @ 18:[address] Noemy Griggs MD) household members: family Smoking Status: Never smoker alcohol intake: never substance use type: does not use ROS ROS Narrative Admission Review of Systems: CONSTITUTIONAL: No weight loss, + fever, chills, weakness or fatigue. HEENT: + Headache. Eyes: No visual loss, blurred vision, double vision or yellow sclerae. Ears, Nose, Throat: No hearing loss, sneezing, congestion, runny nose or sore throat. SKIN: No rash or itching, lesions, wounds. CARDIOVASCULAR: + Bilateral lower extremity edema. No chest pain, chest pressure or chest discomfort, palpitations, orthopnea, syncopal events. RESPIRATORY:+ Dyspnea, not markedly productive cough, worsening recently. No wheezing, hemoptysis. GASTROINTESTINAL:+ Anorexia, nausea, vomiting, loose stools. No abdominal pain, melena, BRBPR. GENITOURINARY: No dysuria, frequency, urgency or retention. NEUROLOGICAL: + Headach, confusion. No dizziness, syncope, paralysis, ataxia, numbness or tingling in the extremities, focal weakness, change in bowel or bladder control, seizure. MUSCULOSKELETAL: + muscle, back pain, joint pain or stiffness. HEMATOLOGIC: + Current evidence of acute anemia, no specific reported history of easy bleeding/bruising. LYMPHATICS: No enlarged nodes. No history of splenectomy. PSYCHIATRIC: No history of depression or anxiety. ENDOCRINOLOGIC: No reports of sweating, cold or heat intolerance. No polyuria or polydipsia. ALLERGIES: No history of asthma, hives, eczema or rhinitis. Vital Signs Vital Signs Vital Signs: 02/27/25 14:19 02/27/25 14:23 02/27/25 14:29 Temperature 100.3 F H 100.3 F H Temperature Source Oral Oral Pulse Rate 113 H 112 H Respiratory Rate 25 H 28 H Blood Pressure 197/83 H 197/83 H Blood Pressure Mean 121 121 Pulse Ox 88 94 Oxygen Delivery Method Room Air Room Air Nasal Cannula Oxygen Flow Rate (L/min) 2 02/27/25 14:31 02/27/25 14:45 02/27/25 15:00 Temperature Temperature Source Pulse Rate 112 H 121 H Respiratory Rate 17 19 H Blood Pressure 189/80 H Blood Pressure Mean 108 Pulse Ox 97 96 97 Oxygen Delivery Method Oxygen Flow Rate (L/min) 02/27/25 15:09 02/27/25 15:11 02/27/25 15:15 Temperature Temperature Source Pulse Rate Respiratory Rate Blood Pressure 200/85 H Blood Pressure Mean 117 Pulse Ox 98 98 96 Oxygen Delivery Method Nasal Cannula Oxygen Flow Rate (L/min) 2 02/27/25 15:30 02/27/25 15:30 02/27/25 15:45 Temperature 103 F H Temperature Source Oral Pulse Rate 122 H 125 H 132 H Respiratory Rate 26 H 26 H 19 H Blood Pressure 200/83 H Blood Pressure Mean 122 Pulse Ox 99 98 93 Oxygen Delivery Method Nasal Cannula Oxygen Flow Rate (L/min) 2 02/27/25 16:00 02/27/25 16:15 02/27/25 16:30 Temperature 102.2 F H Temperature Source Oral Pulse Rate 119 H 128 H Respiratory Rate 28 H 53 H Blood Pressure Blood Pressure Mean Pulse Ox 95 95 Oxygen Delivery Method Oxygen Flow Rate (L/min) 02/27/25 16:30 02/27/25 16:45 02/27/25 17:00 Temperature Temperature Source Pulse Rate 119 H 121 H Respiratory Rate 30 H 43 H Blood Pressure 169/76 H 169/76 H 170/76 H Blood Pressure Mean 100 102 102 Pulse Ox 97 95 Oxygen Delivery Method Oxygen Flow Rate (L/min) 02/27/25 17:15 02/27/25 17:30 02/27/25 17:39 Temperature 100.6 F H Temperature Source Oral Pulse Rate 120 H Respiratory Rate 38 H Blood Pressure 179/77 H 155/71 H Blood Pressure Mean 106 95 Pulse Ox 97 Oxygen Delivery Method Oxygen Flow Rate (L/min) Weight Weight: 311 lb 1.156 oz Body Mass Index (BMI) 47.2 Physical Exam Narrative Physical Examination: General: Awake, alert, oriented x 3 and cooperative, seated upright in the ED bed, fatigued but no acute distress, no evidence of respiratory distress. Skin: Normal color, normal turgor, no icterus, no cyanosis except occasional stage ecchymoses, abrasions as well as bilateral lower extremity mild venous stasis skin changes. HEENT: AT/NC, EOMI, PERRLA, dry MM, no carotid bruits, difficult to discern JVD given thick neck. Lungs: Diminished, greater bases, distant likely secondary to habitus, mildly increased respiratory rate with some accessory muscle usage but speaking in full sentences and no evidence of any distress, no marked rales, rhonchi or wheezing. Abdomen: Soft, morbidly obese, NTTP, mildly hyperactive BS, difficult to discern distention and HSM given habitus. Extremities: No cyanosis, no clubbing, mild ankle nonpitting edema. Neurological: Patient awake, alert, oriented as noted, cognitive function intact; pupils equally reactive to light and accommodation, cranial nerves grossly normal, moving all 4 extremities, no focal deficits, strength moderately to severely globally decreased secondary to acute presentation. Psychiatric: Affect appears mildly flat, fatigued, no acute evidence of depressive or anxiety feelings. Results Lab / Micro Data 02/27/25 15:55 02/27/25 15:16 Labs: Laboratory Results - last 24 hr 02/27/25 15:16: PT 14.5, INR 1.1, APTT < 24.0 L, Sodium 137, Potassium 4.1, Chloride 102, Carbon Dioxide 19.5 L, Anion Gap 16 H, BUN 19, Creatinine 0.86, Estim Creat Clear Calc 119.65, Est GFR (MDRD) Non-Af 97, BUN/Creatinine Ratio 22.3 H, Glucose 281 H, Lactic Acid 3.2 H*, Calcium 8.9, Total Bilirubin 2.18 H, AST 151 H, ALT 51 H, Alkaline Phosphatase 78, Troponin T High Sens 8, Total Protein 7.2, Albumin 4.3, Globulin 2.9, Albumin/Globulin Ratio 1.5 02/27/25 15:55: WBC 5.5, RBC 1.59 L, Hgb 7.2 L, Hct 19.3 L, MCV 121.4 H, MCH 45.3 H, MCHC 37.3 H, RDW Std Deviation 70.1 H, RDW Coeff of Ryan 18.2 H, Plt Count 86 L, MPV 9.7, Immature Gran % (Auto) 1.300 H, Neut % (Auto) 86.5 H, Lymph % (Auto) 9.2 L, [place] % (Auto) 2.4, Eos % (Auto) 0.4, Baso % (Auto) 0.2, Absolute Neuts (auto) 4.7, Absolute Lymphs (auto) 0.50 L, Nucleated RBC % 0.4, Platelet Estimate MOD DEC, Hypochromasia 1+, Anisocytosis 1+, Schistocytes 1+, Urine Color Yellow, Urine Clarity Clear, Urine pH 6.0, Ur Specific [place] 1.020, Urine Protein 30 H, Urine Glucose (UA) 1000 H, Urine Ketones 15 H, Urine Occult Blood 50 H, Urine Nitrite Negative, Urine Bilirubin Negative, Urine Urobilinogen 4 H, Ur Leukocyte Esterase Negative, Urine RBC 0-5 SEEN, Urine WBC 0-5 SEEN, Ur Squamous Epith Cells 0-5 SEEN, Urine Bacteria 3+, Coarse Granular Casts 0-5 SEEN, Urine Mucus 0 SEEN 02/27/25 17:22: Troponin T Hi Sens 2 Hr 14, Blood Type B POSITIVE, Crossmatch See Detail Micro: Microbiology 02/27/25 15:30 Mucosa - Nose SARS-CoV-2, Influenza & RSV (PCR) - Final Imaging Radiology Impression Chest X-Ray 02/27/25 14:57 IMPRESSION: Diffuse reticular opacities may reflect moderate pulmonary edema versus atypical pneumonia. Right lower lobe opacity may reflect atelectasis and/or pneumonia. Reading Location: [facility] Abdomen/Pelvis CT 02/27/25 16:05 IMPRESSION: No acute abnormality Reading Location: [facility] Chest CTA 02/27/25 16:05 IMPRESSION: Pulmonary embolus on the right without elevation of the RV to LV ratio. A reading will be called. Reading Location: [facility] Assessment & Plan Assessment/Plan (1) Acute febrile illness: (2) Hypoxia: PLAN: Plan The patient is a 64 y/o M w/ PMHx: RAHEEM unable to previously tolerate PAP therapy, Diabetes mellitus type II not on medication, Hx DVT unfortunately not taking his anticoagulant therapy correctly secondary to cost prohibition taking it at a reduced dose to make it last longer, HTN who presents to [facility] ED on 02/27/2025 with history of nausea, emesis noted to be bilious with significant confusion progressively worsening diagnosed approximately 6 months previous as noted with a DVT however incorrectly taking his Eliquis secondary to cost prohibition with onset over the last 24 hours GI symptoms including also mildly loose stools with dyspnea that has been ongoing for several months but worsening more recently in addition to a cough reportedly appearing ashen and pale per his family prompting ED evaluation be cautious. #1. Acute febrile illness versus acute gastroenteritis with intractable nausea, emesis, loose stool and lactic acidosis possibly secondary to dehydration/GI losses: Will admit to PCU given #2 concurrently, will continue hydration given no obvious significant overload findings or effusions on CTA of the chest, will obtain full viral panel, will obtain stool enteric and C. difficile to be cautious concurrently, maintain n.p.o. given intractable nausea and emesis but advance to clears once improving, beta-hydroxybutyrate acid level requested to assure no evidence of DKA as certainly this could be a combination of things, will maintain on IV PPI in the interim, will continue evaluation of anemia as noted, will initiate on heparin drip and continue cautiously monitor hemoglobin level as noted, blood culture x 2 pending per ED, urine with 3+ bacteria however no marked nitrite, leukocyte esterase or urine WBCs with urine culture pending. Patient has been dose x 1 with Zosyn therapy given concern initially for intra-abdominal process, procalcitonin requested and if this is elevated we will continue broad-spectrum coverage until is sure this is purely viral. PT/OT/case management consulted for discharge planning. Talked at length with patient and family and they are interested in setting up care at discharge at [facility] to be able to more readily afford care and have assistance with medications. #2. Acute Hypoxia, possible contribution from #1 however in addition secondary to Acute pulmonary Embolism with recent history of DVT, incorrectly taking NOAC therapy secondary to cost: EKG without acute findings with sinus tachycardia, troponin 8. Will admit to PCU, maintain on cardiac telemetry, will obtain ABG, will obtain BNP, will obtain ECHO, given significant anemia as noted will place on heparin drip and continue to monitor with case management/social worker assistant consult for investigation of cost of NOAC versus Coumadin if clinically becomes appropriate pending further evaluation of #3. #3. Acute macrocytic anemia of unclear etiology: Admission hemoglobin 7.2, MCV 121.4, last noted 16.8 in 2020, will obtain guaiac, iron panel, ferritin and continue to trend H&H to be cautious, type and screen initiated per ED and possibly contributing to current presentation, complicates presentation given VTE history with DVT, PE, will closely monitor on heparin drip as noted. Vitamin B12 and folic acid requested also. As noted patient being ministered 1 unit PRBC however iron study labs were discussed with nursing staff in the ED and these were obtained prior to PRBC being initiated. Depending on evaluation and results may need to consider consultation with gastroenterology. #4. Hyperglycemia with patient/family reported diabetes mellitus type II but not on any medication possibly secondary to compliance/[place] prohibition: Admission glucose 281, similarly elevated in the past, no HgbA1c in the system, will obtain HgBA1c, maintain NPO status and Accu-Cheks with insulin sliding scale, given elevated anion gap although mild with urine with a low amount of ketones to be cautious will obtain beta hydroxybutyrate level to assure not in DKA, pending beta hydroxybutyrate level will initiate on low-dose twice daily long-acting insulin with hold parameters as needed, nutrition will be consulted for education and teaching and will need aggressive outpatient early follow-up. Mag, Phos pending. #5. Acute thrombocytopenia, possibly reactive secondary to current presentation, normal range in the past: Admission platelets 86, previously 210-250 range, suspect related with acute presentation, continue to closely trend, cautiously maintaining on a heparin drip. #6. Acute hyperbilirubinemia, transaminitis of unclear etiology: Potentially related with acute viral syndrome presentation, potentially chronic as not a significant out of comparison labs, CT abdomen and pelvis with no acute findings, will repeat CMP in the a.m. and if further elevated may need to consider further evaluation. #7. Hypertension: Given presentation will temporally hold hydrochlorothiazide combination regimen, add back once appropriate, in the interim we will have PRN hydralazine. #8. RAHEEM: Patient notes he has been unable to tolerate PAP therapy, given underlying history as noted above encourage strongly that patient reattempt usage which will need to be set up outpatient. If amenable we will initiate inpatient. #9. DVT prophylaxis: Will continue heparin drip while closely monitoring hemoglobin as noted. #10. CODE status: Patient health-care power of prosecuting attorney and living will not in place but he notes his son and [id number] who are present would be his medical decision makers if necessary. He currently lives with them. Discussed CODE status at length including difference between FULL code, DNR-CCA and DNR-CC status. Following discussions about the differences in these status, requested Full Code status. Advanced Care Planning Face to Face Time: 16 minutes. Charges/Coding Visit Charges Inpatient E&M: 86864 Init Hosp L3 Procedures Hospitalists Procedures: 46225 Advncd Care Plan 30 Min
[2025-02-27] MEDS: 0.9% Normal Saline (1000mL) 1,000 ML 150 ML IV (18:15)
--- OUTSIDE RECORDS SUMMARY | 2025-02-27 18:47 | XMS RPT_ITS | CCD ---
Author Organization [facility] Care Team Providers Care Screen Printing Machine Operator Name Role Phone Dashawn Eid MD Primary Care Provider Dashawn Eid MD Primary Care Provider Tannhof CONSTRUCTION PROJECT ENGINEER.Chelo CALLAHAN Unavailable Malcom CONSTRUCTION PROJECT ENGINEER.Go CALLAHAN Unavailable [phone] Medications Current Medications Medication Drug Class(es) Dates [...] Start: 08-08-2020 take 2 tablets by mo [facility] twice daily at mealtime metFORMIN ER (GLUCOPHAGE XR) 500 mg 24 hr tablet Indications: Controlled type 2 diabetes mellitus without complication, without long-term current use of insulin (HCC) Take 2 tablets by mouth twice daily with meals. 120 tablet 2 08/08/2020 Active Comment on above: Take 2 tablets by [facility] twice daily with meals. Take 2 tablets by mo [facility] two times a day with meals. Completed/Discontinued [...] aftercare (2 sources) Patient encounter status; Translations: [senior living (current) use of antithrombotics/an tiplatelets] Episodic Other [...] sources) Long-term current use of anticoagulant; Translations: [senior living (current) use of anticoagulants] Onset: 05-26-2020 05-29-2020 Episodic Results Test Name Value Interpretation Reference Range Facil itute Higginbotham 04-22-2024 CNPN Telephone (4CQ) MITCH IRVIN ([id number]) 1960 M Date Time Provider Department 04/22/24 DASHAWN EID 4CQ During your visit today, we recorded the following information about you: Helen aRndle 04/22/2024 11:04 AM Signed Pt called back [...] Encounter Status:Closed by GO COWART [facility] PAOLA Telephone (BECKIE) MITCH IRVIN ([id number]) 1960 M Date Time Provider Department 04/13/24 [...] AM Signed Left message to return call Lilliam Chávez MA 04/16/2024 12:54 PM Signed POPULATION [...] LILLIAM CHÁVEZ on 04/19/24 Normal [facility] ERCPon 08-30-2021 [facility] GLUCOSE, BLOOD (POC)on 08-30 Glucose [Mass/Vol] 123 mg/dL Abnormal 74 - 99 mg/dL [facility] No Panel Informationon 08-16 [facility] ANES POSTPROC EVALon 022 ANES POSTPROC EVAL HNO ID: [id number] Author: Olamide Amaro MD Service: Anesthesiology Author Type: Anesthesiologist Type: Anesthesia Postprocedure Evaluation Filed: 07/18/2021 11:13 AM Note Text: POST ANESTHESIA EVALUATION NOTE : 1960 Procedure Summary Date: 07/18/21 Room / Location: [place] [address] / [place] OR Anesthesia Start: 822 Anesthesia Stop: 951 [...] July 18, 2021 TIME: 11:13 AM CSN: [id number] [facility] ANES PRE-OPon 07-18-2021 ANES PRE-OP HNO ID: [id number] Author: Olamide Amaro MD Service: Anesthesiology Author Type: Anesthesiologist Type: Anesthesia Preprocedure Evaluation Filed: 07/18/2021 8:00 AM Note Text: ANESTHESIOLOGY DAY OF SURGERY NOTE : 1960 Procedure Information Date/Time: 07/18/2130 Procedure: LAPAROSCOPIC CHOLECYSTECTOMY (N/A ) Location: [address] OR Surgeons: César Sal MD Estimated [...] July 18, 2021 TIME: 8:00 AM CSN: [id number] Normal [facility] HISTORY PHYSICALon 2 HISTORY PHYSICAL HNO ID: [id number] Author: César Sal MD Service: General Surgery [...] a few days later. He presented to [facility] ED (03/04/2021) - he was found [...] skin caleb (more content not included)... Normal [facility] OPERATIVE NOon 07-18-2021 OPERATIVE NO HNO ID: [id number] Author: César Sal MD Service: General Surgery Author Type: Physician Type: Operative Report Filed: 07/18/2021 9:41 AM Note Text: OPERATIVE/PROCEDURE REPORT LOG ID: [id number] SURGERY/PROCEDURE DATE: 07/18/2021 INCISION/PROCEDURE START TIME: 8:48 AM INCISION CLOSE/PROCEDURE END TIME: SURGEON(S)/PROCEDURALI ST(S) AND BANQUET COOK(S): Surgeon(s) and Role: * César Sal MD - Primary Nurse Practitioner: Marcie Owens APRN.WARDROBE TECHNICIAN SURGERY/PROCEDURE(S): Laparoscopic cholecystectomy ANESTHESIA: General SURGERY/PROCEDURE DETAILS: [...] the umbilical port was closed with a lophhu-ic-jmsly stitch of 0 Vicryl. Skin incisions were closed with a combination of 3-0 Vicryl in the subcu and then deep dermal stitches of 4-0 Monocryl. Steri-Strips were applied sterile dressings were applied and the patient tolerated the procedure well. Marcie Owens was my assistant housekeeping manager. She assisted with retraction, visualization and performed [...] DATE: July 18, 2021 TIME: 9:37 AM [facility] SURGICAL PATHOLOGYon 022 CASE REPORT [facility] Comment on above: Order Comment: Hao stephens Type: TISSUE SPECIMEN Ordering Facility: [facility] Address: [address] [place], [place] [id number] Result Comment: Surg ica Pathology Report Case: [id number] Authorizing Provider: César Sal MD Collected: 07/18/2021 08:56 AM Ordering Location: [facility] Received: 07/18/2021 12:15 PM Pathologist: Len Barclay MD Specimen: GALLBLADDER Performed By: #### S #### [facility] CLIA [id number] [address] [place] [address] OF [facility] FINAL DIAGNOSIS [facility] Comment on above: Order Comment: Speci kat Type: TISSUE SPECIMEN Ordering Facility: [facility] Address: [address] [place], [place] [id number] Result Comment: A. G allbladder, cholecystectomy: -Cholelithiasis with chronic cholecystitis. Performed By: #### S #### [facility] CLIA [id number] [address] [place] [address] [place] FINAL PERFORMING LAB Normal [facility] Comment on above: Order Comment: Speci men Type: TISSUE SPECIMEN Ordering Facility: [facility] Address: [address] [place] [address] Result Comment: Diag nostic interpretation performed at [facility], [address] [place] [address] CLIA# [id number] Caustic Strength Inspector: El Pedro M.D. Performed By: #### S #### [facility] CLIA [id number] [address] [place] [address] [place] GROSS DESCRIPTION A. GALLBLADDER. Normal [facility] Comment on above: Order Comment: Speci men Type: TISSUE SPECIMEN Ordering Facility: [facility] Address: [address] [place] [address] Result Comment: Rece ived in formalin labeled [...] areas of bright yellow stippling grossly present. 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 sections of the body, neck, and fundus to include the cystic bile duct resection margin are submitted in formalin in cassette A1. JLEONOR/jackie 07/18/2021 Gross examination performed at [facility], [address] [place] [address] Performed By: #### S #### [facility] CLIA [id number] [address] [place] [address] [place] Abdomen/Pelvis W IV Cont ONL Yon 03-05-2021 Abdomen/Pelvis W IV Cont ONLY [facility] Imaging Services [address] [place] [address] Abdomen/Pelvis W IV Cont ONLY MR#: [id number] Acct: [id number] Name: MITCH IRVIN Rep #: [id number] : 1960 M 60 From: Rojas Mejia DO PCP: Dashawn Eid MD Status: REG ER Study: Abdomen/Pelvis W IV Cont ONLY Date of Exam: Exam# [id number] Ordering Dr: Pal Ribera MD STUDY: CT [...] Dr. Pal Ribera MD; Dashawn Eid MD [employer]: Signed Normal [facility] CBC W/Diff, Automatedon 12-0 -2020 Absolute Lymph 2.24 X10 3/uL Normal 0.83-4.51 [facility] Comment on above: Performed By: #### L 501.2450, L500.4050, L100.0100 #### [facility] Laboratory [address] [place], [address] Absolute Neut 5.1 X10 3/uL Normal 2.0-7.7 [facility] Comment on above: Performed By: #### L 501.2450, L500.4050, L100.0100 #### [facility] Laboratory [address] [place], [address] Basophils/100 WBC (Bld) 0.3 % Normal 0-1 [facility] Comment on above: Performed By: #### L 501.2450, L500.4050, L100.0100 #### [facility] Laboratory [address] [place], [address] Eosinophils/100 WBC (Bld) 0.9 % Normal 0-5 [facility] Comment on above: Performed By: #### L 501.2450, L500.4050, L100.0100 #### [facility] Laboratory [address] [place], [address] Erythrocyte distribution width (RBC) [Ratio] 12.0 % Normal 11.6-14.6 [facility] Comment on above: Performed By: #### L 501.2450, L500.4050, L100.0100 #### [facility] Laboratory [address] [place], [address] Hematocrit (Bld) [Volume fraction] 47.1 % Normal 40-54 [facility] Comment on above: Performed By: #### L 501.2450, L500.4050, L100.0100 #### [facility] Laboratory [address] [place], [address] Hemoglobin (Bld) [Mass/Vol] 16.8 g/dL High 13.0-16.5 [facility] Comment on above: Performed By: #### L 501.2450, L500.4050, L100.0100 #### [facility] Laboratory [address] [place], [address] IG% 0.300 Normal 0.0-0.9 [facility] Comment on above: Result Comment: IG% - Immature Granulocytes (promyelocytes, myelocytes and metamyelocytes) > 1% indicates that a LEFT SHIFT is Present. Performed By: #### L 501.2450, L500.4050, L100.0100 #### [facility] [address] [place], [address] Lymphocytes/100 WBC (Bld) 28.1 % Normal 19-41 [facility] Comment on above: Performed By: #### L 501.2450, L500.4050, L100.0100 #### [facility] [address] [place], [address] MCH (RBC) [Entitic mass] 34.6 pg High 27.0-32.0 [facility] Comment on above: Performed By: #### L 501.2450, L500.4050, L100.0100 #### [facility] [address] [place], [address] MCHC (RBC) [Mass/Vol] 35.7 g/dL Normal 32-36 [facility] Comment on above: Performed By: #### L 501.2450, L500.4050, L100.0100 #### [facility] [address] [place], [address] MCV (RBC) [Entitic vol] 97.1 fL High 80-94 [facility] Comment on above: Performed By: #### L 501.2450, L500.4050, L100.0100 #### [facility] [address] [place], [address] Monocytes/100 WBC (Bld) 6.3 % Normal 0-10 [facility] Comment on above: Performed By: #### L 501.2450, L500.4050, L100.0100 #### [facility] [address] [place], [address] Neutrophils/100 WBC (Bld) 64.1 % Normal 47-70 [facility] Comment on above: Performed By: #### L 501.2450, L500.4050, L100.0100 #### [facility] [address] [place], [address] Nucleated RBC (Bld) [#/Vol] 0 10*3/uL Normal 0-5 [facility] Comment on above: Performed By: #### L 501.2450, L500.4050, L100.0100 #### [facility] [address] [place], [address] Platelet mean volume (Bld) [Entitic vol] 10.9 fL Normal 6.2-12.0 [facility] Comment on above: Performed By: #### L 501.2450, L500.4050, L100.0100 #### [facility] [address] [place], [address] Platelets (Bld) [#/Vol] 214 10*3/uL Normal 150-450 [facility] Comment on above: Performed By: #### L 501.2450, L500.4050, L100.0100 #### [facility] [address] [place], [address] RBC (Bld) [#/Vol] 4.85 10*6/uL Normal 4.6-6.2 [facility] Comment on above: Performed By: #### L 501.2450, L500.4050, L100.0100 #### [facility] [address] [place], [address] RDW SD 43.3 fl Normal 35.1-43.9 [facility] Comment on above: Performed By: #### L 501.2450, L500.4050, L100.0100 #### [facility] [address] [place], [address] WBC (Bld) [#/Vol] 8.0 10*3/uL Normal 4.4-11.[address] [facility] Comment on above: Performed By: #### L 501.2450, L500.4050, L100.0100 #### [facility] [address] [place], [address] Comprehensive Metabolic Prof ilon 03-05-2021 Albumin [Mass/Vol] 3.5 g/dL Normal 3.2-5.[address] [facility] Comment on above: Performed By: #### L 501.2450, L500.4050, L100.0100 #### [facility] [address] [place], [address] Albumin/Globulin [Mass ratio] 0.8 {ratio} Low 0.9-2.4 [facility] Comment on above: Performed By: #### L 501.2450, L500.4050, L100.0100 #### [facility] [address] [place], [address] ALK P 192 U/L High 45-117 [facility] Comment on above: Performed By: #### L 501.2450, L500.4050, L100.0100 #### [facility] [address] [place], [address] ALT [Catalytic activity/Vol] 503 U/L High 16-61 [facility] Comment on above: Performed By: #### L 501.2450, L500.4050, L100.0100 #### [facility] [address] [place], [address] AST [Catalytic activity/Vol] 388 U/L High 15-37 [facility] Comment on above: Performed By: #### L 501.2450, L500.4050, L100.0100 #### [facility] [address] [place], [address] Bilirubin [Mass/Vol] 3.20 mg/dL High 0.20-1.00 [facility] Comment on above: Result Comment: For patients on eltrombopag therapy, use of Dimension [place] TBIL is not recommended. Performed By: #### L 501.2450, L500.4050, L100.0100 #### [facility] [address] [place], [address] BUN/CRE 13.6 RATIO Normal 10-20 [facility] Comment on above: Performed By: #### L 501.2450, L500.4050, L100.0100 #### [facility] [address] [place], [address] CA,Total 9.4 mg/dL Normal 8.5-10.1 [facility] Comment on above: Performed By: #### L 501.2450, L500.4050, L100.0100 #### [facility] [address] [place], [address] Chloride [Moles/Vol] 99 mmol/L Normal 98-107 [facility] Comment on above: Performed By: #### L 501.2450, L500.4050, L100.0100 #### [facility] [address] [place], [address] CO2 [Moles/Vol] 23.0 mmol/L Normal 21.0-32.0 [facility] Comment on above: Performed By: #### L 501.2450, L500.4050, L100.0100 #### [facility] [address] [place], [address] Creatinine [Mass/Vol] 1.25 mg/dL Normal 0.70-1.30 [facility] Comment on above: Result Comment: The validity of the calculated GFR GFRAA in patients over 70 years has not been determined. Clinical correlation is essential. Performed By: #### L 501.2450, L500.4050, L100.0100 #### [facility] [address] [place], [address] ECRCL 60.80 ml/min Normal [facility] Comment on above: Performed By: #### L 501.2450, L500.4050, L100.0100 #### [facility] [address] [place], [address] EST GFR - AA 76 mL/min Normal >60 [facility] Comment on above: Result Comment: Afri can Haitian GFR Calc Performed By: #### L 501.2450, L500.4050, L100.0100 #### [facility] [address] [place], [address] GAP 11 Normal 5-15 [facility] Comment on above: Performed By: #### L 501.2450, L500.4050, L100.0100 #### [facility] [address] [place], [address] GFR/1.73 sq M.predicted among non-blacks MDRD (S/P/Bld) [Vol rate/Area] 63 mL/min/{1.73_m2} Normal >60 [facility] Comment on above: Result Comment: Non- GFR Calc Performed By: #### L 501.2450, L500.4050, L100.0100 #### [facility] [address] [place], [address] Globulin (S) [Mass/Vol] 4.3 g/dL High 2.2-4.2 [facility] Comment on above: Performed By: #### L 501.2450, L500.4050, L100.0100 #### [facility] [address] [place], [address] Glucose [Mass/Vol] 307 mg/dL High 74-[address] [facility] Comment on above: Result Comment: Gluc ose result greater than or equal to 200 mg/dL suggests DIABETES MELLITUS per A.D.A. criteria. Please note revised GLUCOSE reference range effective 2017. Performed By: #### L 501.2450, L500.4050, L100.0100 #### [facility] [address] [place], [address] Potassium [Moles/Vol] 3.5 mmol/L Normal 3.5-5.1 [facility] Comment on above: Performed By: #### L 501.2450, L500.4050, L100.0100 #### [facility] [address] [place], [address] Sodium [Moles/Vol] 133 mmol/L Low 136-[address] [facility] Comment on above: Performed By: #### L 501.2450, L500.4050, L100.0100 #### [facility] [address] [place], [address] T PROT 7.8 g/dL Normal 6.4-8.2 [facility] Comment on above: Performed By: #### L 501.2450, L500.4050, L100.0100 #### [facility] [address] [place], [address] Urea nitrogen [Mass/Vol] 17 mg/dL Normal 7-18 [facility] Comment on above: Performed By: #### L 501.2450, L500.4050, L100.0100 #### [facility] [address] [place], [address] Emergency Department Summary on 03-05-2021 Emergency Department Summary [facility] Medical Records Department [address] [place] [address] Emergency Department Summary 03/04/21 MR#: [id number] Acct: [id number] Name: MITCH IRVIN Rep #: [id number] : 1960 60 From: Pal Ribera MD [...] Narrative Narrative: 60-year-old male past medical history vzq-gfrlzrs-udprxeexa diabetic. Said around 9 PM the night [...] included)... Normal [facility] Lipaseon 03-05-2021 Lipase [Catalytic activity/Vol] 388 U/L Normal 73-393 [facility] Comment on above: Performed By: #### L 501.2450, L500.4050, L100.0100 #### [facility] [address] [place], [address] No Panel Information [facility] Vital Signs Date Time Vital Sign Value Performing Clinician Jayi ludy 10-21-2022 07:12-0400 Body temperature 98.1 [degF] Go Cowart APRN.CNP Work Phone: [facility] 10-21-2022 07:12-0400 Body weight 135.19 kg Go Cowart APRN.WARDROBE TECHNICIAN Work Phone: [facility] 10-21-2022 07:12-0400 Diastolic blood pressure 108 mm[Hg] Go Cowart APRN.WARDROBE TECHNICIAN Work Phone: [facility] 10-21-2022 07:12-0400 Heart rate 68 /min Go Cowart APRN.WARDROBE TECHNICIAN Work Phone: [facility] 10-21-2022 07:12-0400 Respiratory rate 16 /min Go Cowart APRN.WARDROBE TECHNICIAN Work Phone: [facility] 10-21-2022 07:12-0400 SaO2% (BldA) [Mass fraction] 98 % Go Cowart APRN.WARDROBE TECHNICIAN Work Phone: [facility] 10-21-2022 07:12-0400 Systolic blood pressure 172 mm[Hg] Go Cowart APRN.WARDROBE TECHNICIAN Work Phone: [facility] 08-30-2021 15:10-0400 Diastolic blood pressure 70 mm[Hg] Giacomo Gonzales MD Work Phone: [facility] 08-30-2021 15:10-0400 Heart rate 64 /min Giacomo Gonzales M D Work Phone: [facility] 08-30-2021 15:10-0400 Respiratory rate 16 /min Giacomo Gonzales M D Work Phone: [facility] 08-30-2021 15:10-0400 SaO2% (BldA) [Mass fraction] 98 % Giacomo Gonzales MD Work Phone: [facility] 08-30-2021 15:10-0400 Systolic blood pressure 137 mm[Hg] Giacomo Gonzales MD Work Phone: [facility] 08-30-2021 15:00-0400 Body temperature 96.8 [degF] Giacomo Chapinaka M D Work Phone: [facility] 08-30-2021 13:34-0400 Body height 172.7 cm Giacomo Gonzales M D Work Phone: [facility] 08-30-2021 13:34-0400 Body weight 124.74 kg Giacomo Gonzales M D Work Phone: [facility] 08-15-2021 09:05-0400 Body height 172.7 cm Giacomo Gonzales M D Work Phone: [facility] 08-15-2021 09:05-0400 Body temperature 97.5 [degF] Giacomo Chapinaka M D Work Phone: [facility] 08-15-2021 09:05-0400 Body weight 125.01 kg Giacomo Gonzales M D Work Phone: [facility] 08-15-2021 09:05-0400 Diastolic blood pressure 86 mm[Hg] Giacomo Gonzales MD Work Phone: [facility] 08-15-2021 09:05-0400 Heart rate 83 /min Giacomo Del Angel Work Phone: [facility] 08-15-2021 09:05-0400 SaO2% (BldA) [Mass fraction] 98 % Giacomo Gonzales MD Work Phone: [facility] 08-15-2021 09:05-0400 Systolic blood pressure 146 mm[Hg] Giacomo Gonzales MD Work Phone: [facility] 08-08-2021 11:07-0400 Body temperature 98.4 [degF] Annelise Haagen CONSTRUCTION PROJECT ENGINEER.WARDROBE TECHNICIAN Work Phone: [facility] 08-08-2021 11:07-0400 Diastolic blood pressure 88 mm[Hg] Annelise Haagen CONSTRUCTION PROJECT ENGINEER.WARDROBE TECHNICIAN Work Phone: [facility] 08-08-2021 11:07-0400 Heart rate 81 /min Annelise Haagen CONSTRUCTION PROJECT ENGINEER.WARDROBE TECHNICIAN Work Phone: [facility] 08-08-2021 11:07-0400 Respiratory rate 18 /min Annelise Haagen CONSTRUCTION PROJECT ENGINEER.WARDROBE TECHNICIAN Work Phone: [facility] 08-08-2021 11:07-0400 SaO2% (BldA) [Mass fraction] 97 % Annelise Haagen CONSTRUCTION PROJECT ENGINEER.WARDROBE TECHNICIAN Work Phone: [facility] 08-08-2021 11:07-0400 Systolic blood pressure 132 mm[Hg] Annelise Haagen CONSTRUCTION PROJECT ENGINEER.WARDROBE TECHNICIAN Work Phone: [facility] 07-10-2021 08:02-0400 Body height 172.7 cm César Sal MD Work Phone: [facility] 07-10-2021 08:02-0400 Body temperature 98.1 [degF] César Sal MD Work Phone: [facility] 07-10-2021 08:02-0400 Body weight 129.55 kg César Sal MD Work Phone: [facility] 07-10-2021 08:02-0400 Diastolic blood pressure 82 mm[Hg] César Sal MD Work Phone: [facility] 07-10-2021 08:02-0400 Heart rate 100 /min César Sal MD Work Phone: [facility] 07-10-2021 08:02-0400 SaO2% (BldA) [Mass fraction] 98 % César Sal MD Work Phone: [facility] 07-10-2021 08:02-0400 Systolic blood pressure 144 mm[Hg] César Sal MD Work Phone: [facility] Encounters Encounter Date Encounter Type Care Provider Facility Start: 08-25-2024 End: 09-16-2024 ambulatory Dashawn Eid MD Work Phone: [address] [place] [address] Comment on above: Diabetes Start: 04-22-2024 End: 04-22-2024 Telephone encounter Dashawn Eid MD Work Phone: [address] [place] [address] Comment on above: Patient Update Start: 04-13-2024 End: 04-19-2024 Telephone encounter Go Cowart APRN.WARDROBE TECHNICIAN Work Phone: [facility] Comment on above: Appointment Start: 10-17-2023 Refill Dashawn fry MD Work Phone: [facility] [place] Comment on above: Refill Request Start: 09-26-2023 Refill Go Cowart APRN.WARDROBE TECHNICIAN Work Phone: [facility] Comment on above: Refill Request Start: 07-11-2023 Telephone encounter Go gonzalez CONSTRUCTION PROJECT ENGINEER.WARDROBE TECHNICIAN Work Phone: [facility] Comment on above: Results Start: 05-29-2023 End: [...] 25 minutes Go Cowart APRN.CNP Work Phone: [facility] [place] Comment on above: Hypertension, essent ial (Primary Dx); Type 2 diabetes (HCC); Anticoagulant long-term use; Hyperlipidemia, unspecified hyperlipidemia type; 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); Screening for diabetic retinopathy Start: 10-10-2022 Refill Dashawn fry MD Work Phone: [facility] Comment on above: Refill Request Start: 04-12-2022 Refill Dashawn fry MD Work Phone: [facility] Comment on above: Refill Request Start: 08-30-2021 End: 08-30-2021 Subsequent hospital visit by physician Giacomo Gonzales MD Work Phone: Gastroenterology Comment on above: S/P cholecystectomy [Z90.49] Start: 08-23-2021 Telephone encounter Deepa Florence RNtrain brake operator Comment on above: Appointment Confirma tion Start: 08-16-2021 End: 08-16-2021 Subsequent hospital visit by [place] [facility] Work Phone: Radiology Comment on above: S/P cholecystectomy [Z90.49] Start: 08-15-2021 End: 08-15-2021 Patient encounter procedure Giacomo Gonzales MD Work Phone: Gastroenterology Comment on above: Elevated LFTs (Prima ry Dx); S/P cholecystectomy; History of jaundice; Elevated bilirubin Start: 08-08-2021 End: 08-08-2021 Office outpatient visit 15 minutes Annelise Robert APRN.WARDROBE TECHNICIAN Work Phone: [facility] [place] Comment on above: Acute non-recurrent sinusitis, unspecified location (Primary Dx) Start: 07-16-2021 ambulatory Go Cowart APRN.WARDROBE TECHNICIAN Work Phone: [facility] [place] Start: 07-12-2021 Telephone encounter César chan MD Work Phone: Pre Anesthesia Comment on above: Pre-op Instructions Start: 07-10-2021 Telephone encounter Brandon (Universal Grinder Set Up Operator rd) [facility] Comment on above: Medical Clearance Start: 07-10-2021 End: 07-10-2021 Patient encounter procedure César Sal MD Work Phone: General Surgery Comment on above: Calculus of gallblad beverly without cholecystitis without obstruction (Primary Dx); 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; watermaster (current) use of antithrombotics/antiplatelets Procedures Date Procedure Procedure Detail Performing Clinician Start: 05-29-2023 End: 05-29-2023 Cmptr ophthalmic dx img ant segmt w/i&r uni/bi Saumya Rodney OD Work Phone: Start: 05-08-2023 Computerized ophthalmic imaging optic nerve Saumya Rodney OD Work Phone: Start: 04-28-2023 Adult depression screening assessment Go Cowart APRN.WARDROBE TECHNICIAN Work Phone: Start: 08-30-2021 Ercp dx collection specimen brushing/washing Giacomo Gonzales MD Work Phone: Start: 08-30-2021 Gluc bld gluc mntr dev cleared fda spec home use Nano Brooke APRN.PROFESSIONAL PROGRAMMER ANALYST Work Phone: Start: 08-16-2021 Us abdominal real [...] 07-02-2026 Screening for malignant neoplasm of colon [facility] Start: 05-26-2025 PROSTATE CANCER SCREENING DISCUSSION PROSTATE CANCER SCREENING DISCUSSION [facility] Start: 05-26-2025 Prostate specific antigen measurement Prostate Cancer Screening Discussion [facility] Start: 11-29-2024 Influenza vaccination Influenz a Vaccine (Season Ended) [facility] Start: 05-31-2024 End: 05-31-2024 Patient encounter procedure 05/31/2024 8:00 AM EST Office Visit [facility] [address] [place], [place] [id number] Saumya Rodney, OD [address] [place], [place] [id number] 1 yr for diabetic eye exam with OCT nerve Ophthalmology Comment on above: 1 yr for diabetic ey e exam with OCT nerve Start: 05-08-2024 Glaucoma screening Dilated Retinal E xam [facility] Start: 04-28-2024 Annual PCP Team Chronic Disease Visit Annual PCP Team Chronic Disease Visit [facility] Start: 04-28-2024 Anxiety Screening Anxiety Screening [facility] Start: 04-28-2024 Covid-19 Vaccine ( season) Covid-19 Vaccine () [facility] Comment on above: Postponed from 11/29 (Declined at this time) Start: 04-28-2024 Depression Screening Depression Scre ening [facility] Start: 04-28-2024 Hepatitis B screening Urine Al bumin:Creatinine Ratio [facility] Start: 04-28-2024 Hepatitis B surface antibody level LDL Cholesterol [facility] Start: 11-30-2023 Covid-19 Vaccine ( season) Covid-19 Vaccine () [facility] Start: 11-30-2023 Influenza vaccination [facility] Start: 10-22-2023 ANNUAL PCP TEAM CHRONIC DISEASE VISIT ANNUAL PCP TEAM CHRONIC DISEASE VISIT [facility] Start: 10-20-2023 End: 10-20-2023 Patient encounter procedure 10/20/2023 8:20 AM EDT Office Visit [facility] [place] [address] [place] [address] Go Cowart APRN.WARDROBE TECHNICIAN [address] [place] [address] 6 month follow up [facility] [place] Comment on above: 6 month follow up Start: 09-28-2023 Influenza vaccination Influenza Vacc ine (#1) [facility] Comment on above: Postponed from 11/29 (Declined at this time) Start: 07-28-2023 Hemoglobin A1c measurement HbA1C [facility] Start: 06-26-2023 COLOGUARD (FIT-DNA) COLOGUARD (FIT-D NA) [facility] Start: 06-26-2023 COLORECTAL CANCER SCREENING COLORECTAL CANCER SCREENING [facility] Start: 06-26-2023 Screening for malignant neoplasm of colon [facility] Start: 03-31-2023 Behavioral Health Screening Behavioral Health Screening [facility] Start: 11-29-2022 Influenza vaccination INFLUENZA (#1) [facility] Start: 10-10-2022 End: 12-10-2022 ALBUMIN/CREAT RATIO RND UR ALBUMIN/CREAT RATIO RND UR Lab Routine Hypertension, essential Type 2 diabetes (HCC) Expected: 10/10/2022 (Approximate), Expires: 12/10/2022 [facility] Work Phone: Comment on above: Expected: 10/10/2022 (Approximate), Expires: 12/10/2022 Start: 10-10-2022 End: 12-10-2022 CBC panel - Blood by Automated count CBC Lab Routine Anticoagulant long-term use Hypertension, essential Expected: 10/10/2022 (Approximate), Expires: 12/10/2022 [facility] Work Phone: Comment on above: Expected: 10/10/2022 (Approximate), Expires: 12/10/2022 Start: 10-10-2022 End: 12-10-2022 Comprehensive metabolic 2000 panel - Serum or Plasma COMP METABOLIC PANEL Lab Routine Type 2 diabetes (HCC) Hyperlipidemia, unspecified hyperlipidemia type Expected: 10/10/2022 (Approximate), Expires: 12/10/2022 [facility] Work Phone: Comment on above: Expected: 10/10/2022 (Approximate), Expires: 12/10/2022 Start: 10-10-2022 End: 12-10-2022 Hemoglobin A1c in Blood HGB A1C Lab Routine Type 2 diabetes (HCC) Expected: 10/10/2022 (Approximate), Expires: 12/10/2022 [facility] Work Phone: Comment on above: Expected: 10/10/2022 (Approximate), Expires: 12/10/2022 Start: 10-10-2022 End: 12-10-2022 Lipid 1996 panel - Serum or Plasma LIPID PANEL BASIC Lab Routine Type 2 diabetes (HCC) Hyperlipidemia, unspecified hyperlipidemia type Expected: 10/10/2022 (Approximate), Expires: 12/10/2022 [facility] Work Phone: Comment on above: Expected: 10/10/2022 (Approximate), Expires: 12/10/2022 Start: 08-08-2022 ANNUAL PCP TEAM CHRONIC DISEASE VISIT ANNUAL PCP TEAM CHRONIC DISEASE VISIT [facility] Start: 03-31-2022 DEPRESSION ASSESSMENT DEPRESSION ASS ESSMENT [facility] Start: 03-08-2022 ANNUAL PCP TEAM CHRONIC DISEASE VISIT ANNUAL PCP TEAM CHRONIC DISEASE VISIT [facility] Start: 11-29-2021 Influenza vaccination [facility] Start: 11-28-2021 Hepatitis B surface antibody level LDL CHOLESTEROL [facility] Start: 11-27-2021 Adult depression screening assessment DEPRESSION SCREENING [facility] Start: 08-15-2021 End: 10-15-2021 HEPATIC FUNCTION PNL [facility] Work Phone: Comment on above: Expected: 08/15/2021 , Expires: 10/15/2021 Start: 07-16-2021 End: 09-15-2021 ALBUMIN/CREAT RATIO RND UR ALBUMIN/CREAT RATIO RND UR Lab Routine Controlled type 2 diabetes mellitus without complication, without long-term current use of insulin (HCC) Expected: 07/16/2021, Expires: 09/15/2021 [facility] Work Phone: Comment on above: Expected: 07/16/2021 , Expires: 09/15/2021 Start: 05-29-2021 3 comp foot exam completed DIABETIC FOOT EXAM [facility] Start: 05-29-2021 Diabetic foot examination Diabetic Foot Exam [facility] Start: 05-26-2021 Hepatitis B screening URINE AL BUMIN:CREATININE RATIO [facility] Start: 04-30-2021 COVID-19 VACCINE (3 - Booster for Pfizer series) COVID-19 VACCINE (3 - Booster for Pfizer series) [facility] Start: 02-27-2021 Hemoglobin A1c/Hemoglobin.total in Blood HBA1C [facility] Start: 01-23-2021 COVID-19 VACCINE (3 - Booster for Pfizer series) COVID-19 VACCINE (3 - Booster for Pfizer series) [facility] Start: 01-23-2021 COVID-19 VACCINE (3 - Pfizer series) COVID-19 VACCINE (3 - Pfizer series) [facility] Start: 2020 RSV Vaccine (1 - 1-dose 60+ series) RSV Vaccine (1 - 1-dose 60+ series) [facility] Start: 2020 RSV Vaccine (1 - Ris k 60-74 years 1-dose series) RSV Vaccine (1 - Risk 60-74 years 1-dose series) [facility] Start: 2010 SHINGRIX VACCINE (1 of 2) SHINGRIX VACCINE (1 of 2) [facility] Start: 2005 Colonoscopy COLONOSCOPY [facility] Start: [address] COLONOGRAPHY [facility] Start: 2005 FECAL OCCULT BLOOD FECAL OCCULT BLOO D [facility] Start: 2005 Screening for malignant neoplasm of colon [facility] Start: 2005 SIGMOIDOSCOPY SIGMOIDOSCOPY [facility] Start: 12-13-1979 Pneumococcal Vaccine : 50+ (1 of 2 - PCV) Pneumococcal Vaccine: 50+ (1 of 2 - PCV) [facility] Start: 12-13-1979 Urine microalbumin profile [facility] Start: 1978 Anxiety Screening Anxiety Screening [facility] Start: 1978 BP CONTROLLED (<130/80) BP CONTROLLED (<130/80) [facility] Start: 1978 Depression Screening Depression Scre ening [facility] Start: 1976 ONE PNEUMOVAX PRIOR TO AGE 65 ONE PNEUMOVAX PRIOR TO AGE 65 [facility] Start: 1970 Hepatitis C antibody , confirmatory test DILATED RETINAL EXAM [facility] Start: 1966 PNEUMOCOCCAL (1 - PCV) PNEUMOCOCCAL (1 - PCV) [facility] Start: 1966 Pneumococcal vaccination Pneumococcal Vaccine (1 of 2 - PCV) [facility] End: 08-15-2022 ERCP ERCP Endoscopy Routine S/P cholecystectomy History of jaundice Elevated bilirubin Elevated LFTs 1 Occurrences starting 08/15/2021 until 08/15/2022 [facility] Work Phone: Comment on above: 1 Occurrences starti ng 08/15/2021 until 08/15/2022 End: 09-14-2022 Us abdominal real time w/image limited US ABD RT UPPER QUADRANT Radiology Routine S/P cholecystectomy History of jaundice Elevated bilirubin Elevated LFTs 1 Occurrences starting 08/15/2021 until 09/14/2022 [facility] Work Phone: Comment on above: 1 Occurrences starti ng 08/15/2021 until 09/14/2022 [facility] Immunizations Immunization Date Immunization Notes [facility]2020 COVID-19 vaccine, ag e 12+ yr (KONUX-BIONTLiterably - PURPLE TOP) César Sal MD Work Phone: [facility] Payers Date Payer Category Payer Medicaid [employer] Member [place] bscriber Plan / Payer (Effective 2022-2024) Name: Mitch Irvin Relation to Subscriber: Self Name: Mitch Irvin Payer ID: [id number] (NAIC) Group ID: Not on file Type: Medicaid Address: [place] [address] [id number] 2019 Private Health Insurance [employer] PPO [id number] 2019-Present [phone] [address] [address] [place] [address] PPO [id number] 2019 Private Health Insurance [id number] Social History Date Type Detail Facility Start: 01-18-2020 End: 10-21-2022 Tobacco smoking status NHIS Never smoked tobacco [facility] Start: 01-18-2020 End: 10-21-2022 Tobacco use and exposure Smokeless tobacco non-user [facility] Start: 07-10-2021 End: 05-29-2023 Alcohol intake Ex-drinker (finding) [facility] Start: 11-27-2020 History SDOH Physica l Activity DPW 0 [facility] Start: 11-27-2020 History SDOH Stress 1 [facility] Start: 03-08-2021 History SDOH Housing Unable to Pay 3 [facility] Start: 1960 Sex Assigned At Not on file [facility] Start: 06-29-2021 End: 08-15-2021 Exposure to SARS-CoV-2 (event) Not sure [facility] Work Phone: Start: 11-27-2020 End: 10-21-2022 Gender identity Not on file [facility] Start: 11-27-2020 End: 10-21-2022 History of Social function [facility] In a typical week, h ow many times do you talk on the telephone with family, friends, or neighbors? Patient refused [facility] Are you now , , , , never or living with a partner? Refused [facility] Do you feel stress - tense, restless, nervous, or anxious, or unable to sleep at night because your mind is troubled all the time - these days [OSQ] Not at all [facility] (I/We) worried willie er (my/our) food would run out before (I/we) got money to buy more. DK or Refused [facility] Medical Equipment Procedure Code Equipment Code Equipment Origin al Text Equipment Identifier Dates Test blood sugar(s) 1 times daily. Dx: Type 2 DM - Controlled E11.9 Insulin: Yes Start: 05-29-2020 Comment on above: Test blood sugar(s) 1 times daily. Dx: Type 2 DM - Controlled E11.9 Insulin: Yes Clinical Notes 07-10-2021 to 08-25-2024 Harinder Clemente Rosalva - 08/25/2024 8:46 AM EDTTelephone Encounter - [facility] - 04/22/2024 11:03 AM ESTTelephone Encounter - [facility] - 04/22/2024 11:03 AM ESTPatient Instructions Note Date & Type Note Facility 08-25-2024 Note HNO ID: [id number] Author: ?, ?, ? Service: ? Author [...] provider, please update their chart. [facility] 08-25-2024 History of Presen t illness [...] update their chart. documented in this encounter [facility] 08-25-2024 Note Patient Outreach (4C Q) MITCH IRVIN ([id number]) 1960 M Date Time Provider Department 08/25/24 DASHAWN EID 4CQ During your visit today, we recorded the following information about you: Rosalva Cameron 09/16/2024 1:13 PM Signed Diabetes Outreach Mitch Irvin has been identified for clinical review due to having diabetes without a Hemoglobin A1c in the past 1 year. PSS Team - Please contact the patient with the following script: Dashawn iEd MD has identified that you are in [...] by ROSALVA CAMERON on 09/16/24 [facility] 04-22-2024 Telephone encounter Note Pt called back regarding letter he received in mail. Patient stated that he can not make an appt at this time as he does not have medical insurance. Once he figures this out he will call to schedule . [facility] 04-22-2024 Miscellaneous Notes Pt called back regarding letter he received in mail. Patient stated that he can not make an appt at this time as he does not have medical insurance. Once he figures this out he will call to schedule . documented in this encounter [facility] 04-19-2024 Telephone encounter Note Letter mailed to pt home to call office to schedule appt. Lilliam Chávez MA [facility] 04-19-2024 Miscellaneous Notes Letter mailed to pt [...] Go Cowart APRN.CNP documented in this encounter [facility] 04-16-2024 Telephone encounter Note POPULATION HEALTH NAVIGATION OUTREACH Action/FYI Message left for pt to call back. Due for appt. Reason for Outreach Care Gap/HCC or Scheduling Wellness Visits Care Gaps due: Follow-up Appointment Patient Contacted: Unable or unnecessary to reach patient: Left message Navigation Signature: Lilliam Chávez MA April 16, 2024 12:52 PM [facility] 04-13-2024 Telephone encounter Note Left message to return call [facility] 04-13-2024 Telephone encounter Note STAMP Please reach out to patient for overdue appointment for chronic disease management with myself. This patient is due for a yearly exam Go Cowart APRN.WARDROBE TECHNICIAN [facility] 10-17-2023 Telephone encounter Note The following approved medication requests have been transmitted electronically. Requested Prescriptions Pending Prescriptions Disp Refills lisinopril-hydroCHLOROthiazide (ZESTORETIC) 20-25 mg per tablet 90 tablet 3 Sig: Take 1 tablet by mouth every morning. Go Cowart APRN.CNP [facility] 10-17-2023 Miscellaneous Notes The following approved medication [...] 2023 2:07 PM documented in this encounter [facility] 10-17-2023 Telephone encounter Note Prescription Refill Information [...] Sherie Clemente October 17, 2023 2:07 PM [facility] 07-11-2023 Miscellaneous Notes Letter mailed to pt home of results. Lilliam Chávez MA Please let the patient know that his cologuard was normal. It does not appear that he uses or checks his mychart. Go Cowart APRN.SINDY documented in this encounter [facility] 05-29-2023 History of Presen t illness Narrative [...] 2023 9:47 AM documented in this encounter [facility] 05-08-2023 History of Presen t illness Narrative 1. Type 2 diabetes mellitus without retinopathy (HCC) Risk of diabetic changes and vision loss can be minimized by tight control of blood sugar, blood pressure, and cholesterol levels. Educated patient to continue care with primary care doctor and/or hvac tech to maintain optimum levels as they are [...] 2023 9:51 AM documented in this encounter [facility] 10-21-2022 Instructions Go Cowart APRN.SINDY - 10/21/2022 7:42 AM EDT Get blood work Schedule eye appointment Take meds routinely and follow up in 1 month. Go Cowart APRN.WARDROBE TECHNICIAN documented in this encounter [facility] 10-21-2022 History of Presen t illness Narrative [...] denies gi upset: No He is on senior care anti-coag for history of PE. Depression Screening [...] needed. This note was partly generated using Mixers voice recognition dictation and may contain some misspelled or inaccurate words missed on review. documented in this encounter [facility] 10-10-2022 Miscellaneous Notes Pt notified. He is [...] advise. Barby Spicer documented in this encounter [facility] 04-12-2022 Miscellaneous Notes The following approved medication [...] Blanka Ramirez Pss documented in this encounter [facility] 08-30-2021 Nurse Note AMBULATORY PATIENT EDUCATION NOTE [...] REFERRAL (RECOMMENDATION): None documented in this encounter [facility] 08-23-2021 Miscellaneous Notes GI Pre-Procedure Spoke with [...] have family/friend present for procedure transport home:Patient/patient outbound telemarketing representative was told that if they do [...] area. Any barriers to Patient learning: Patient/Patient 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 responded appropriately on phone. Type of instruction given: Verbal by telephone contact. Deepa Florence RN documented in this encounter [facility] 08-16-2021 History of Presen t illness Narrative [...] 2021 10:25 AM documented in this encounter [facility] 08-15-2021 History of Presen t illness Narrative [...] to have the laparoscopic cholecystectomy performed at [facility]. IMPRESSION: status post laparoscopic cholecystectomy. Cholecystitis with [...] Past Histories independently gathered by the clinical director of operations support and the remaining scribed note accurately describes my personal service to the patient. Giacomo Gonzales MD August 15, 2021 8:37 AM documented in this encounter [facility] 08-08-2021 Instructions Annelise Robert APRN.CNP - 08/08/2021 11:36 AM EDT 1. Start the augmentin 2. Hold the lipitor (atorvastatin) until liver enzymes improved. 3. Start mucinex. 4. Get us a status update after the ERCP. documented in this encounter [facility] 08-08-2021 History of Presen t illness Narrative [...] APRN.SINDY This note was partially generated using Mixers voice recognition system. Note was reviewed for accuracy. There may be minor misspellings or grammar miscues with Mixers voice recognition. documented in this encounter [facility] 07-18-2021 History of Past i llness Narrative Problem Noted Date Resolved Date Calculus of gallbladder and bile duct without cholecystitis, with obstruction 07/18/2021 07/18/2021 documented as of this encounter (statuses as of 07/20/2021) [facility]04-20-2022 History of Past illness Narrative* Problem Noted Date Resolved Date Calculus of gallbladder and bile duct without cholecystitis, with obstruction 07/18/2021 07/18/2021 documented as of this encounter (statuses as of 08/08/2021) [address]20-2022 History of Past illness Narrative* Problem Noted Date Resolved Date Calculus of gallbladder and bile duct without cholecystitis, with obstruction 07/18/2021 07/18/2021 documented as of this encounter (statuses as of 08/15/2021) [address]20-2022 History of Past illness Narrative* Problem Noted Date Resolved Date Calculus of gallbladder and bile duct without cholecystitis, with obstruction 07/18/2021 07/18/2021 documented as of this encounter (statuses as of 08/17/2021) [address]20-2022 History of Past illness Narrative* Problem Noted Date Resolved Date Calculus of gallbladder and bile duct without cholecystitis, with obstruction 07/18/2021 07/18/2021 documented as of this encounter (statuses as of 08/23/2021) [address]20-2022 History of Past illness Narrative* Problem Noted Date Resolved Date Calculus of gallbladder and bile duct without cholecystitis, with obstruction 07/18/2021 07/18/2021 documented as of this encounter (statuses as of 08/31/2021) [facility]04-20-2022 History of Past illness Narrative* Problem Noted Date Resolved Date Calculus of gallbladder and bile duct without cholecystitis, with obstruction 07/18/2021 07/18/2021 documented as of this encounter (statuses as of 04/12/2022) [address]20-2022 History of Past illness Narrative* Problem Noted Date Diagnosed Date Resolved Date Calculus of gallbladder and bile duct without cholecystitis, with obstruction 07/18/2021 07/19/19 documented as of this encounter (statuses as of 10/11/2022) [address]20-2022 History of Past illness Narrative* Problem Noted Date Diagnosed Date Resolved Date Calculus of gallbladder and bile duct without cholecystitis, with obstruction 07/18/2021 07/19/19 documented as of this encounter (statuses as of 10/21/2022) [address]20-2022 History of Past illness Narrative* Problem Noted Date Diagnosed Date Resolved Date Calculus of gallbladder and bile duct without cholecystitis, with obstruction 07/18/2021 07/19/19 documented as of this encounter (statuses as of 05/08/2023) [facility]04-20-20[facility] History of Past illness Narrative* Problem Noted Date Diagnosed Date Resolved Date Calculus of gallbladder and bile duct without cholecystitis, with obstruction 07/18/2021 07/19/19 documented as of this encounter (statuses as of 05/29/2023) [facility]04-20-2022 History of Past illness Narrative* Problem Noted Date Diagnosed Date Resolved Date Calculus of gallbladder and bile duct without cholecystitis, with obstruction 07/18/2021 07/19/19 documented as of this encounter (statuses as of 07/11/2023) [facility]04-20-2022 NoteHNO ID: [id number] Author: Jacqueline Garza APRN.CRNA Service: Anesthesiology Author Type: Nurse Pastry Cook Type: Anesthesia Procedure Notes Filed: 07/18/2021 8:47 AM Note Text: ANESTHESIOLOGY PROCEDURE NOTE Airway General Information Procedure Start Time/Medication Administration: 07/18/2021 8:31 AM Patient location during procedure: OR Timeout Performed Pre-procedure: timeout performed Consent Obtained: Yes 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 Go Cowart APRN.SINDY [facility] Miscellaneous Notes* Telephone Encounter - Radha Marx RN - 07/12/2021 12:34 PM EDT Pre-op instructions and Eliquis instructions were given to patient and sent in my chart. Radha Marx RN [facility] Miscellaneous Notes* Telephone Encounter - Radha Marx [...] to PCP Brandon Aragon [facility] History of Present illness Narrative* César Sal [...] a few days later. He presented to 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 Calculus of gallbladder without cholecystitis without obstruction- Primary Calculus of gallbladder without mention of cholecystitis or obstruction 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 Other dyspnea and respiratory abnormality senior living (current) use of antithrombotics/antiplatelets Calculus of gallbladder and bile duct without cholecystitis, with obstruction 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 Other dyspnea and respiratory abnormality Encounter for long-term (current) use of antiplatelets/antithrombotics [facility] Diagnosis Controlled type 2 diabetes mellitus without complication, without long-term current use of insulin (HCC)- Primary [facility]* Diagnosis Acute non-recurrent sinusitis, unspecified location- Primary documented [facility]* Diagnosis Elevated LFTs- Primary Other abnormal blood chemistry S/P cholecystectomy Other acquired absence of organ History of jaundice Personal history of other endocrine, metabolic, and immunity disorders Elevated bilirubin Jaundice, unspecified, not of [facility]* Diagnosis S/P cholecystectomy Other acquired absence of organ History of jaundice Personal history of other endocrine, metabolic, and immunity disorders Elevated bilirubin Jaundice, unspecified, not of Elevated LFTs Other abnormal blood chemistry [facility]* Diagnosis S/P cholecystectomy Other acquired absence of organ History of jaundice Personal history of other endocrine, metabolic, and immunity disorders Elevated bilirubin Jaundice, unspecified, not of Elevated LFTs Other abnormal blood chemistry documented [facility]* Diagnosis Hypertension, essential Unspecified essential hypertension documented [facility]* Diagnosis Anticoagulant long-term use- Primary Long-term (current) use of anticoagulants Hypertension, essential Unspecified essential hypertension Type 2 diabetes (HCC) Hyperlipidemia, unspecified hyperlipidemia type documented [facility] this 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* Diagnosis Type 2 diabetes mellitus [...] of both eyes documented [facility]* Diagnosis Glaucoma suspect of both [...] of both eyes documented [facility] this [facility]* Diagnosis Hypertension, essential Unspecified essential hypertension documented [facility]* Diagnosis Hypertension, essential Unspecified essential hypertension documented in this encounter [facility] for referral (narrative)* Outpatient Procedure (Routine) - Authorized Specialty Diagnoses / Procedures Referred By Contac t Referred To Contact [facility] Diagnoses S/P cholecystectomy History of jaundice Elevated bilirubin Elevated LFTs Procedures ERCP ERCP DX COLLECTION SPECIMEN BRUSHING/WASHING Giacomo Gonzales MD [address] [place] [address] [facility] [address] [place] [address] Referral ID Status Reason Start Date Expiration Date Visits Requested Visits Authorized [id number] Authorized Auto-Generat ed Referral 08/15/2021 08/15/2022 1 1 * Diagnostic Procedure Only (Routine) - Authorized Specialty Diagnoses / Procedures Referred By Elda t Referred To Contact US IMAGING Diagnoses S/P cholecystectomy History of jaundice Elevated bilirubin Elevated LFTs Procedures US ABD RT UPPER QUADRANT US ABDOMINAL REAL TIME W/IMAGE LIMITED Giacomo Gonzales MD [address] [place] [address] Us Imaging Referral ID Status Reason Start Date Expiration Date Visits Requested Visits Authorized [id number] Authorized Auto-Generat ed Referral 08/15/2021 09/14/2022 1 1 [facility] for referral (narrative)* Diagnostic Procedure Only (Routine) - Closed Specialty Diagnoses / Procedures Referred By Elda duenas Referred To Contact US IMAGING Diagnoses S/P cholecystectomy History of jaundice Elevated bilirubin Elevated LFTs Procedures US ABD RT UPPER QUADRANT US ABDOMINAL REAL TIME W/IMAGE LIMITED Giacomo Gonzales MD [address] [place] [address] Us Imaging Referral ID Status Reason Start Date Expiration Date V isits Requested Visits Authorized [id number] Closed Auto-Generate d Referral 08/15/2021 09/14/2022 1 1 [facility] for referral (narrative)* Outpatient Procedure (Routine) - Closed Specialty Diagnoses / Procedures Referred By Contac t Referred To Contact [facility] Diagnoses S/P cholecystectomy History of jaundice Elevated bilirubin Elevated LFTs Procedures ERCP ERCP DX COLLECTION SPECIMEN BRUSHING/WASHING Giacomo Gonzales MD [address] [place] [address] [facility] [address] [place] [address] Referral ID Status Reason Start Date Expiration Date V isits Requested Visits Authorized [id number] Closed Auto-Generate d Referral 08/15/2021 08/15/2022 1 1 [facility] for visit Narrative* Outpatient Procedure (Routine) - Closed Specialty Diagnoses / Procedures Referred By Elda duenas Referred To Contact [facility] [place] Diagnoses S/P cholecystectomy History of jaundice Elevated bilirubin Elevated LFTs Procedures ERCP ERCP DX COLLECTION SPECIMEN BRUSHING/WASHING Giacomo Gonzales MD [address] [place] [address] [facility] Disease [place] [address] [place] [address] Referral ID Status Reason Start Date Expiration Date V isits Requested Visits Authorized [id number] Closed Auto-Generate d Referral 08/15/2021 08/15/2022 1 1 [facility] Summary Purpose Family History No Family History Records FoundNo Family History Records FoundNo Family History Records Found Advance Directives No Advanced Directives Records FoundDocuments on File Type Date Recorded Patient 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 Expl anation Advance Directive(s) 07/18/2021 7:35 AM Advance Directive(s) 07/14/2021 5:14 PM Documents on File Type Date Recorded Patient 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 Expl anation Advance Directive(s) 07/18/2021 7:35 AM [...] NEW HIGH MDM 60-74 MINUTES Go Cowart, CONSTRUCTION PROJECT ENGINEER.WARDROBE TECHNICIAN [address] [place] [address] Referral ID Status Reason Start Date Expiration Date Visits Requested Visits Authorized [id number] Authorized PCP Requested Referral 10/21/2022 10/21/2023 1 1 Additional Source Comments (unrecognized sect ion and content) No Status Records FoundNo Status Records FoundNo Status Records Found INFORMATION SOURCE (unrecogn ized section and content) DATE CREATED AUTHOR 05/15/[address] [facility] DATE CREATED AUTHOR AUTHOR'S ORGANIZ ATION 07/21/2021 [facility] DATE CREATED AUTHOR AUTHOR'S ORGANIZ ATION 09/19/2024 [facility] Source Comments (unrecognize d section and content) In the event this informatio n is protected by the Federal Confidentiality of Alcohol and Drug Abuse Patient Records regulations: The Federal rules restrict any use of the information to criminally investigate or prosecute any alcohol or drug abuse patient.[facility] the event this information is protected by the Federal Confidentiality of Alcohol and Drug Abuse Patient Records regulations: The Federal rules restrict any use of the information to criminally investigate or prosecute any alcohol or drug abuse patient.[facility] the event this information is protected by the Federal Confidentiality of Alcohol and Drug Abuse Patient Records regulations: The Federal rules restrict any use of the information to criminally investigate or prosecute any alcohol or drug abuse patient.[facility] the event this information is protected by the Federal Confidentiality of Alcohol and Drug Abuse Patient Records regulations: The Federal rules restrict any use of the information to criminally investigate or prosecute any alcohol or drug abuse patient.[facility] the event this information is protected by the Federal Confidentiality of Alcohol and Drug Abuse Patient Records regulations: The Federal rules restrict any use of the information to criminally investigate or prosecute any alcohol or drug abuse patient.[facility] the event this information is protected by the Federal Confidentiality of Alcohol and Drug Abuse Patient Records regulations: The Federal rules restrict any use of the information to criminally investigate or prosecute any alcohol or drug abuse patient.[facility] the event this information is protected by the Federal Confidentiality of Alcohol and Drug Abuse Patient Records regulations: The Federal rules restrict any use of the information to criminally investigate or prosecute any alcohol or drug abuse patient.[facility] the event this information is protected by the Federal Confidentiality of Alcohol and Drug Abuse Patient Records regulations: The Federal rules restrict any use of the information to criminally investigate or prosecute any alcohol or drug abuse patient.[facility] the event this information is protected by the Federal Confidentiality of Alcohol and Drug Abuse Patient Records regulations: The Federal rules restrict any use of the information to criminally investigate or prosecute any alcohol or drug abuse patient.[facility] the event this information is protected by the Federal Confidentiality of Alcohol and Drug Abuse Patient Records regulations: The Federal rules restrict any use of the information to criminally investigate or prosecute any alcohol or drug abuse patient.[facility] the event this information is protected by the Federal Confidentiality of Alcohol and Drug Abuse Patient Records regulations: The Federal rules restrict any use of the information to criminally investigate or prosecute any alcohol or drug abuse patient.[facility] the event this information is protected by the Federal Confidentiality of Alcohol and Drug Abuse Patient Records regulations: The Federal rules restrict any use of the information to criminally investigate or prosecute any alcohol or drug abuse patient.[facility]In the event this information is protected by the Federal Confidentiality of Alcohol and Drug Abuse Patient Records regulations: The Federal rules restrict any use of the information to criminally investigate or prosecute any alcohol or drug abuse patient.[facility] NorthIn the event this information is protected by the Federal Confidentiality of Alcohol and Drug Abuse Patient Records regulations: The Federal rules restrict any use of the information to criminally investigate or prosecute any alcohol or drug abuse patient.[facility] the event this information is protected by the Federal Confidentiality of Alcohol and Drug Abuse Patient Records regulations: The Federal rules restrict any use of the information to criminally investigate or prosecute any alcohol or drug abuse patient.[facility] the event this information is protected by the Federal Confidentiality of Alcohol and Drug Abuse Patient Records regulations: The Federal rules restrict any use of the information to criminally investigate or prosecute any alcohol or drug abuse patient.[facility] NorthIn the event this information is protected by the Federal Confidentiality of Alcohol and Drug Abuse Patient Records regulations: The Federal rules restrict any use of the information to criminally investigate or prosecute any alcohol or drug abuse patient.[facility] NorthIn the event this information is protected by the Federal Confidentiality of Alcohol and Drug Abuse Patient Records regulations: The Federal rules restrict any use of the information to criminally investigate or prosecute any alcohol or drug abuse patient.[facility] NorthIn the event this information is protected by the Federal Confidentiality of Alcohol and Drug Abuse Patient Records regulations: The Federal rules restrict any use of the information to criminally investigate or prosecute any alcohol or drug abuse patient.[facility] NorthIn the event this information is protected by the Federal Confidentiality of Alcohol and Drug Abuse Patient Records regulations: The Federal rules restrict any use of the information to criminally investigate or prosecute any alcohol or drug abuse patient.[facility] NorthIn the event this information is protected by the Federal Confidentiality of Alcohol and Drug Abuse Patient Records regulations: The Federal rules restrict any use of the information to criminally investigate or prosecute any alcohol or drug abuse patient.[facility] Reason for Visit (unrecogniz ed section and [...] MDM 60-74 MINUTES Starr Hernandez PA-C [address] [place] [address] Referral ID Status Reason Start Date Expiration Date V isits Requested Visits Authorized [id number] Closed PCP Requested Referral 08/17/2021 08/03/2022 1 1 Reason Comments Radiology US Specialty Diagnoses / Procedures Referred By Contac t Referred To Contact US IMAGING Diagnoses S/P cholecystectomy History of jaundice Elevated bilirubin Elevated LFTs Procedures US ABD RT UPPER QUADRANT US ABDOMINAL REAL TIME W/IMAGE LIMITED Giacomo Gonzales MD [address] [place] [address] Us Imaging Referral ID Status Reason Start Date Expiration Date V isits Requested Visits Authorized [id number] Closed Auto-Generate d Referral 08/15/2021 09/14/2022 1 [...] diabetic retinopathy Procedures CONSULT TO OPHTHALMOLOGY OFFICE/OUTPATIENT [facility] 60 MINUTES Go Cowart APRN.WARDROBE TECHNICIAN [address] [place] [address] Referral ID Status Reason Start Date Expiration Date V isits Requested Visits Authorized [id number] Closed PCP Requested Referral 04/28/2023 04/27/2024 1 1 Reason Comments Glaucoma Suspect Follow Up Reason Comments Results Reason Comments Refill Request Reason Onset Date Comments Refill Request 10/17/2023 Reason Comments Appointment Reason Comments Patient Update Reason Onset Date Comments Diabetes 08/25/2024 Care Teams (unrecognized sec tion and content) Screen Printing Machine Operator Relationship Specialty Start Date End Date Dashawn Eid MD [address] [place] [address] PCP - General Family Practice 11/28/20 Screen Printing Machine Operator Relationship Specialty Start Date End Date Dashawn Eid MD [address] [place] [address] PCP - General Family Practice 11/28/20 Screen Printing Machine Operator Relationship Specialty Start Date End Date Dashawn Eid MD [address] [place] [address] PCP - General Family Practice 11/28/20 Screen Printing Machine Operator Relationship Specialty Start Date End Date Dashawn Eid MD [address] [place] [address] PCP - General Family Practice 11/28/20 Screen Printing Machine Operator Relationship Specialty Start Date End Date Dashawn Eid MD [address] [place] [address] PCP - General Family Practice 11/28/20 Screen Printing Machine Operator Relationship Specialty Start Date End Date Dashawn Eid MD [address] [place] [address] PCP - General Family Practice 11/28/20 Screen Printing Machine Operator Relationship Specialty Start Date End Date Dashawn Eid MD [address] [place] [address] PCP - General Family Practice 11/28/20 Screen Printing Machine Operator Relationship Specialty Start Date End Date Dashawn Eid MD [address] [place] [address] PCP - General Family Practice 11/28/20 Screen Printing Machine Operator Relationship Specialty Start Date End Date Dashawn Eid MD [address] [place] [address] PCP - General Family Medicine 11/28/20 Screen Printing Machine Operator Relationship Specialty Start Date End Date Dashawn Eid MD [address] [place] [address] PCP - General Family Medicine 11/28/20 Screen Printing Machine Operator Relationship Specialty Start Date End Date Dashawn Eid MD [address] [place] [address] PCP - General Family Medicine 11/28/20 Screen Printing Machine Operator Relationship Specialty Start Date End Date Dashawn Eid MD [address] [place] [address] PCP - General Family Medicine 11/28/20 Screen Printing Machine Operator Relationship Specialty Start Date End Date Dashawn Eid MD [address] [place] [address] PCP - General Family Medicine 11/28/20 Screen Printing Machine Operator Relationship Specialty Start Date End Date Dashawn Eid MD [address] [place] [address] PCP - General Family Medicine 11/28/20 Screen Printing Machine Operator Relationship Specialty Start Date End Date Dashawn Eid MD [address] [place] [address] PCP - General Family Medicine 11/28/20 Screen Printing Machine Operator Relationship Specialty Start Date End Date Dashawn Eid MD [address] [place] [address] PCP - General Family Medicine 11/28/20 Chelo Salazar, CONSTRUCTION PROJECT ENGINEER.WARDROBE TECHNICIAN [address] [place] [address] Septic Tank Setter Family Medicine 03/07/24 Go Cowart APRN.WARDROBE TECHNICIAN [address] [place] [address] Septic Tank Setter Family Medicine 03/16/24 Screen Printing Machine Operator Relationship Specialty Start Date End Date Dashawn Eid MD [address] [place], [place] [address] PCP - General Family Medicine 11/28/20 Chelo Salazar APRN.WARDROBE TECHNICIAN [address] [place], [place] [address] Septic Tank Setter [facility] 03/07/24 Go Cowart APRN.WARDROBE TECHNICIAN [address] [place], [place] [address] [facility] Screen Printing Machine Operator Relationship Specialty Start Date End Date Dashawn Eid MD [address] [place], [place] [id number] PCP - General Family Medicine 11/28/20 Go Cowart APRN.WARDROBE TECHNICIAN [address] [place], [place] [id number] Formerly [facility] 03/16/24 Inactive Administered Medications - up to [...] BE BASED ON THE PRIMARY CLINICAL RECORDS. [facility]. provides no warranty or guarantee of the accuracy or completeness of information in this document.
[2025-02-27 18:55] LABS: Ferritin 1124 ng/mL (37-417); Iron 21 ug/dL (65-175); Iron Binding Capacity,Unsat 186 ug/dL (228-428); Magnesium 1.7 mg/dL (1.5-2.2); Pro- Brain NATRIURETIC PEPTIDE 245 pg/mL (<=900)
[2025-02-27 19:03] LABS: Allen Test Positive; Base Excess -3 mmol/L (-2 to +2); FI02 2.0; PO2 80 mmHG (75-100); SITE L Radial; SO2 96 % (94-98)
[2025-02-27 19:12] LABS: Reflex Lactate? Y
--- NOTE | 2025-02-27 19:15 | ED.RN ---
This RN spoke to Dr. Gonzalez regarding pt increase in temperature after 15 minutes of blood transfusion. Dr. Gonzalez states ok to resume transfusion. Blood restarted at 150ml/hr
[2025-02-27 19:23] LABS: BETA-HYDROXYBUTYRATE 0.3 mmol/L (0.0-0.3)
--- OUTSIDE RECORDS SUMMARY | 2025-02-27 19:30 | XMS RPT_ITS | CCD ---
Author Organization [facility] Care Team Providers Care Consular Officer Name Role Phone Dashawn Eid MD Primary Care Provider Dashawn Eid MD Primary Care Provider Tannhof CLINICAL SCIENCE CONSULTANT.Chelo CALLAHAN Unavailable Malcom CLINICAL SCIENCE CONSULTANT.Go CALLAHAN Unavailable [phone] Medications Current Medications Medication Drug Class(es) Dates [...] Start: 08-08-2020 take 2 tablets by mo [facility] twice daily at mealtime metFORMIN ER (GLUCOPHAGE XR) 500 mg 24 hr tablet Indications: Controlled type 2 diabetes mellitus without complication, without long-term current use of insulin (HCC) Take 2 tablets by mouth twice daily with meals. 120 tablet 2 08/08/2020 Active Comment on above: Take 2 tablets by [facility] twice daily with meals. Take 2 tablets by mo [facility] two times a day with meals. [...] aftercare (2 sources) Patient encounter status; Translations: [nursing home (current) use of antithrombotics/an tiplatelets] Episodic Other [...] sources) Long-term current use of anticoagulant; Translations: [nursing home (current) use of anticoagulants] Onset: 05-26-2020 05-29-2020 Episodic Results Test Name Value Interpretation Reference Range Facil itute Higginbotham 04-22-2024 CNPN Telephone (4CQ) MITCH IRVIN ([id number]) 1960 M Date Time Provider Department 04/22/24 [...] Encounter Status:Closed by GO COWART [facility] [place] Telephone (BECKIE) MITCH IRVIN ([id number]) 1960 M Date Time Provider Department 04/13/24 [...] Status:Closed by LILLIAM CHÁVEZ on 04/19/24 Normal [facility] ERCPon 08-30-2021 [facility] GLUCOSE, BLOOD (POC)on 08-30 Glucose [Mass/Vol] 123 mg/dL Abnormal 74 - 99 mg/dL [facility] No Panel Informationon 08-16 [facility] ANES POSTPROC EVALon 022 ANES POSTPROC EVAL HNO ID: [id number] Author: Olamide Amaro MD Service: Anesthesiology Author Type: Anesthesiologist Type: Anesthesia Postprocedure Evaluation Filed: 07/18/2021 11:13 AM Note Text: POST ANESTHESIA EVALUATION NOTE : 1960 Procedure Summary Date: 07/18/21 Room / Location: [place] [address] / [place] OR Anesthesia Start: 822 Anesthesia Stop: 951 [...] July 18, 2021 TIME: 11:13 AM CSN: [id number] [facility] ANES PRE-OPon 07-18-2021 ANES PRE-OP HNO ID: [id number] Author: Olamide Amaro MD Service: Anesthesiology Author Type: Anesthesiologist Type: Anesthesia Preprocedure Evaluation Filed: 07/18/2021 8:00 AM Note Text: ANESTHESIOLOGY DAY OF SURGERY NOTE : 1960 Procedure Information Date/Time: 07/18/2130 Procedure: LAPAROSCOPIC CHOLECYSTECTOMY (N/A ) Location: [address] OR Surgeons: César Sal MD Estimated [...] July 18, 2021 TIME: 8:00 AM CSN: [id number] [facility] HISTORY PHYSICALon 2 HISTORY PHYSICAL HNO ID: [id number] Author: César Sal MD Service: General Surgery [...] a few days later. He presented to [facility] ED (03/04/2021) - he was found [...] skin caleb (more content not included)... [facility] OPERATIVE NOon 07-18-2021 OPERATIVE NO HNO ID: [id number] Author: César Sal MD Service: General Surgery Author Type: Physician Type: Operative Report Filed: 07/18/2021 9:41 AM Note Text: OPERATIVE/PROCEDURE REPORT LOG ID: [id number] SURGERY/PROCEDURE DATE: 07/18/2021 INCISION/PROCEDURE START TIME: 8:48 AM INCISION CLOSE/PROCEDURE END TIME: SURGEON(S)/PROCEDURALI ST(S) AND FERRYBOAT OPERATOR(S): Surgeon(s) and Role: * César Sal MD - Primary Nurse Practitioner: Marcie Owens APRN.WASTE DISPOSAL ATTENDANT SURGERY/PROCEDURE(S): Laparoscopic cholecystectomy ANESTHESIA: General SURGERY/PROCEDURE DETAILS: [...] the umbilical port was closed with a jmbmfu-na-dagqj stitch of 0 Vicryl. Skin incisions were closed with a combination of 3-0 Vicryl in the subcu and then deep dermal stitches of 4-0 Monocryl. Steri-Strips were applied sterile dressings were applied and the patient tolerated the procedure well. Marcie Owens was my engineer second assistant. She assisted with retraction, visualization and [...] DATE: July 18, 2021 TIME: 9:37 AM [facility] SURGICAL PATHOLOGYon 022 CASE REPORT [facility] Comment on above: Order Comment: Hao stephens Type: TISSUE SPECIMEN Ordering Facility: [facility] Address: [address] [place], [place] [id number] Result Comment: Surg ica Pathology Report Case: [id number] Authorizing Provider: César Sal MD Collected: 07/18/2021 08:56 AM Ordering Location: [facility] Surgery Received: 07/18/2021 12:15 PM Pathologist: Len Barclay MD Specimen: GALLBLADDER Performed By: #### S #### [facility] CLIA [id number] [address] [place] [address] OF [facility] FINAL DIAGNOSIS [facility] Comment on above: Order Comment: Speci kat Type: TISSUE SPECIMEN Ordering Facility: [facility] Address: [address] [place], [place] [id number] Result Comment: A. G allbladder, cholecystectomy: -Cholelithiasis with chronic cholecystitis. Performed By: #### S #### [facility] CLIA [id number] [address] [place] [address] [place] FINAL PERFORMING LAB [facility] Comment on above: Order Comment: Speci men Type: TISSUE SPECIMEN Ordering Facility: [facility] Address: [address] [place] [address] Result Comment: Diag nostic interpretation performed at [facility], [address] [place] [address] CLIA# [id number] Hammer Setter: El Pedro M.D. Performed By: #### S #### [facility] CLIA [id number] [address] [place] [address] [place] GROSS DESCRIPTION A. GALLBLADDER. Normal [facility] Comment on above: Order Comment: Speci men Type: TISSUE SPECIMEN Ordering Facility: [facility] Address: [address] [place] [address] Result Comment: Rece ived in formalin labeled [...] areas of bright yellow stippling grossly present. Senior Manager [employer] sections of the body, neck, and fundus to include the cystic bile duct resection margin are submitted in formalin in cassette A1. JLEONOR/jackie 07/18/2021 Gross examination performed at [facility], [address] [place] [address] Performed By: #### S #### [facility] CLIA [id number] [address] [place] [address] [place] Abdomen/Pelvis W IV Cont ONL Yon 03-05-2021 Abdomen/Pelvis W IV Cont ONLY [facility] Imaging Services [address] [place] [address] Abdomen/Pelvis W IV Cont ONLY MR#: [id number] Acct: [id number] Name: MITCH IRVIN Rep #: [id number] : 1960 M 60 From: Rojas Mejia DO PCP: Dashawn Eid MD Status: REG ER Study: Abdomen/Pelvis W IV Cont ONLY Date of Exam: Exam# [id number] Ordering Dr: Pal Ribera MD STUDY: CT [...] Dr. Pal Ribera MD; Dashawn Eid MD Lead Shop Operator: Signed Normal [facility] CBC W/Diff, Automatedon 12-0 -2020 Absolute Lymph 2.24 X10 3/uL Normal 0.83-4.51 [facility] Comment on above: Performed By: #### L 501.2450, L500.4050, L100.0100 #### [facility] [address] [place], [address] Absolute Neut 5.1 X10 3/uL Normal 2.0-7.7 [facility] Comment on above: Performed By: #### L 501.2450, L500.4050, L100.0100 #### [facility] [address] [place], [address] Basophils/100 WBC (Bld) 0.3 % Normal 0-1 [facility] Comment on above: Performed By: #### L 501.2450, L500.4050, L100.0100 #### [facility] [address] [place], [address] Eosinophils/100 WBC (Bld) 0.9 % Normal 0-5 [facility] Comment on above: Performed By: #### L 501.2450, L500.4050, L100.0100 #### [facility] [address] [place], [address] Erythrocyte distribution width (RBC) [Ratio] 12.0 % Normal 11.6-14.6 [facility] Comment on above: Performed By: #### L 501.2450, L500.4050, L100.0100 #### [facility] [address] [place], [address] Hematocrit (Bld) [Volume fraction] 47.1 % Normal 40-54 [facility] Comment on above: Performed By: #### L 501.2450, L500.4050, L100.0100 #### [facility] [address] [place], [address] Hemoglobin (Bld) [Mass/Vol] 16.8 g/dL High 13.0-16.5 [facility] Comment on above: Performed By: #### L 501.2450, L500.4050, L100.0100 #### [facility] [address] [place], [address] IG% 0.300 Normal 0.0-0.9 [facility] Comment on above: Result Comment: IG% - Immature Granulocytes (promyelocytes, myelocytes and metamyelocytes) > 1% indicates that a LEFT SHIFT is Present. Performed By: #### L 501.2450, L500.4050, L100.0100 #### [facility] [address] [place], [address] Lymphocytes/100 WBC (Bld) 28.1 % Normal 19-41 [facility] Comment on above: Performed By: #### L 501.2450, L500.4050, L100.0100 #### [facility] [address] [place], [address] MCH (RBC) [Entitic mass] 34.6 pg High 27.0-32.0 [facility] Comment on above: Performed By: #### L 501.2450, L500.4050, L100.0100 #### [facility] [address] [place], [address] MCHC (RBC) [Mass/Vol] 35.7 g/dL Normal 32-36 [facility] Comment on above: Performed By: #### L 501.2450, L500.4050, L100.0100 #### [facility] [address] [place], [address] MCV (RBC) [Entitic vol] 97.1 fL High 80-94 [facility] Comment on above: Performed By: #### L 501.2450, L500.4050, L100.0100 #### [facility] [address] [place], [address] Monocytes/100 WBC (Bld) 6.3 % Normal 0-10 [facility] Comment on above: Performed By: #### L 501.2450, L500.4050, L100.0100 #### [facility] [address] [place], [address] Neutrophils/100 WBC (Bld) 64.1 % Normal 47-70 [facility] Comment on above: Performed By: #### L 501.2450, L500.4050, L100.0100 #### [facility] [address] [place], [address] Nucleated RBC (Bld) [#/Vol] 0 10*3/uL Normal 0-5 [facility] Comment on above: Performed By: #### L 501.2450, L500.4050, L100.0100 #### [facility] [address] [place], [address] Platelet mean volume (Bld) [Entitic vol] 10.9 fL Normal 6.2-12.0 [facility] Comment on above: Performed By: #### L 501.2450, L500.4050, L100.0100 #### [facility] [address] [place], [address] Platelets (Bld) [#/Vol] 214 10*3/uL Normal 150-450 [facility] Comment on above: Performed By: #### L 501.2450, L500.4050, L100.0100 #### [facility] [address] [place], [address] RBC (Bld) [#/Vol] 4.85 10*6/uL Normal 4.6-6.2 [facility] Comment on above: Performed By: #### L 501.2450, L500.4050, L100.0100 #### [facility] [address] [place], [address] RDW SD 43.3 fl Normal 35.1-43.9 [facility] Comment on above: Performed By: #### L 501.2450, L500.4050, L100.0100 #### [facility] [address] [place], [address] WBC (Bld) [#/Vol] 8.0 10*3/uL Normal 4.4-11.0 [facility] Comment on above: Performed By: #### L 501.2450, L500.4050, L100.0100 #### [facility] [address] [place], [address] Comprehensive Metabolic Prof ilon 03-05-2021 Albumin [Mass/Vol] 3.5 g/dL Normal 3.2-5.0 [facility] Comment on above: Performed By: #### L 501.2450, L500.4050, L100.0100 #### [facility] [address] [place], [address] Albumin/Globulin [Mass ratio] 0.8 {ratio} Low 0.9-2.4 [facility] Comment on above: Performed By: #### L 501.2450, L500.4050, L100.0100 #### [facility] [address] [place], [address] ALK P 192 U/L High 45-117 [facility] Comment on above: Performed By: #### L 501.2450, L500.4050, L100.0100 #### [facility] [address] [place], [address] ALT [Catalytic activity/Vol] 503 U/L High 16-61 [facility] Comment on above: Performed By: #### L 501.2450, L500.4050, L100.0100 #### [facility] [address] [place], [address] AST [Catalytic activity/Vol] 388 U/L High 15-37 [facility] Comment on above: Performed By: #### L 501.2450, L500.4050, L100.0100 #### [facility] [address] [place], [address] Bilirubin [Mass/Vol] 3.20 mg/dL High 0.20-1.00 [facility] Comment on above: Result Comment: For patients on eltrombopag therapy, use of Dimension [place] TBIL is not recommended. Performed By: #### L 501.2450, L500.4050, L100.0100 #### [facility] [address] [place], [address] BUN/CRE 13.6 RATIO Normal 10-20 [facility] Comment on above: Performed By: #### L 501.2450, L500.4050, L100.0100 #### [facility] [address] [place], [address] CA,Total 9.4 mg/dL Normal 8.5-10.1 [facility] Comment on above: Performed By: #### L 501.2450, L500.4050, L100.0100 #### [facility] [address] [place], [address] Chloride [Moles/Vol] 99 mmol/L Normal 98-107 [facility] Comment on above: Performed By: #### L 501.2450, L500.4050, L100.0100 #### [facility] [address] [place], [address] CO2 [Moles/Vol] 23.0 mmol/L Normal 21.0-32.0 [facility] Comment on above: Performed By: #### L 501.2450, L500.4050, L100.0100 #### [facility] [address] [place], [address] Creatinine [Mass/Vol] 1.25 mg/dL Normal 0.70-1.30 [facility] Comment on above: Result Comment: The validity of the calculated GFR GFRAA in patients over 70 years has not been determined. Clinical correlation is essential. Performed By: #### L 501.2450, L500.4050, L100.0100 #### [facility] [address] [place], [address] ECRCL 60.80 ml/min Normal [facility] Comment on above: Performed By: #### L 501.2450, L500.4050, L100.0100 #### [facility] [address] [place], [address] EST GFR - AA 76 mL/min Normal >60 [facility] Comment on above: Result Comment: Afri can Latvian GFR Calc Performed By: #### L 501.2450, L500.4050, L100.0100 #### [facility] [address] [place], [address] GAP 11 Normal 5-15 [facility] Comment on above: Performed By: #### L 501.2450, L500.4050, L100.0100 #### [facility] [address] [place], [address] GFR/1.73 sq M.predicted among non-blacks MDRD (S/P/Bld) [Vol rate/Area] 63 mL/min/{1.73_m2} Normal >60 [facility] Comment on above: Result Comment: Non- GFR Calc Performed By: #### L 501.2450, L500.4050, L100.0100 #### [facility] [address] [place], [address] Globulin (S) [Mass/Vol] 4.3 g/dL High 2.2-4.2 [facility] Comment on above: Performed By: #### L 501.2450, L500.4050, L100.0100 #### [facility] [address] [place], [address] Glucose [Mass/Vol] 307 mg/dL High 74-106 [facility] Comment on above: Result Comment: Gluc ose result greater than or equal to 200 mg/dL suggests DIABETES MELLITUS per A.D.A. criteria. Please note revised GLUCOSE reference range effective 2017. Performed By: #### L 501.2450, L500.4050, L100.0100 #### [facility] [address] [place], [address] Potassium [Moles/Vol] 3.5 mmol/L Normal 3.5-5.1 [facility] Comment on above: Performed By: #### L 501.2450, L500.4050, L100.0100 #### [facility] [address] [place], [address] Sodium [Moles/Vol] 133 mmol/L Low 136-145 [facility] Comment on above: Performed By: #### L 501.2450, L500.4050, L100.0100 #### [facility] [address] [place], [address] T PROT 7.8 g/dL Normal 6.4-8.2 [facility] Comment on above: Performed By: #### L 501.2450, L500.4050, L100.0100 #### [facility] [address] [place], [address] Urea nitrogen [Mass/Vol] 17 mg/dL Normal 7-18 [facility] Comment on above: Performed By: #### L 501.2450, L500.4050, L100.0100 #### [facility] [address] [place], [address] Emergency Department Summary on 03-05-2021 Emergency Department Summary [facility] Medical Records Department [address] [place] [address] Emergency Department Summary 03/04/21 MR#: [id number] Acct: [id number] Name: MITCH IRVIN Rep #: [id number] : 1960 60 From: Pal Ribera MD [...] Narrative Narrative: 60-year-old male past medical history uig-ndyztsm-voumziyyb diabetic. Said around 9 PM the night [...] Auscultation: normoa (more content not included)... Normal [facility] Lipaseon 03-05-2021 Lipase [Catalytic activity/Vol] 388 U/L Normal 73-393 [facility] Comment on above: Performed By: #### L 501.2450, L500.4050, L100.0100 #### [facility] [address] [place], [address] [facility] Vital Signs Date Time Vital Sign Value Performing Clinician Jayi ludy 10-21-2022 07:12-0400 Body temperature 98.1 [degF] Go Cowart APRN.CNP Work Phone: [facility] 10-21-2022 07:12-0400 Body weight 135.19 kg Go Cowart APRN.WASTE DISPOSAL ATTENDANT Work Phone: [facility] 10-21-2022 07:12-0400 Diastolic blood pressure 108 mm[Hg] Go Cowart APRN.WASTE DISPOSAL ATTENDANT Work Phone: [facility] 10-21-2022 07:12-0400 Heart rate 68 /min Go Cowart APRN.WASTE DISPOSAL ATTENDANT Work Phone: [facility] 10-21-2022 07:12-0400 Respiratory rate 16 /min Go Cowart APRN.WASTE DISPOSAL ATTENDANT Work Phone: [facility] 10-21-2022 07:12-0400 SaO2% (BldA) [Mass fraction] 98 % Go Cowart APRN.WASTE DISPOSAL ATTENDANT Work Phone: [facility] 10-21-2022 07:12-0400 Systolic blood pressure 172 mm[Hg] Go Cowart APRN.WASTE DISPOSAL ATTENDANT Work Phone: [facility] 08-30-2021 15:10-0400 Diastolic blood pressure 70 mm[Hg] Giacomo Gonzales MD Work Phone: [facility] 08-30-2021 15:10-0400 Heart rate 64 /min Giacomo Gonzales M D Work Phone: [facility] 08-30-2021 15:10-0400 Respiratory rate 16 /min Giacomo Gonzales M D Work Phone: [facility] 08-30-2021 15:10-0400 SaO2% (BldA) [Mass fraction] 98 % Giacomo Gonzales MD Work Phone: [facility] 08-30-2021 15:10-0400 Systolic blood pressure 137 mm[Hg] Giacomo Gonzales MD Work Phone: [facility] 08-30-2021 15:00-0400 Body temperature 96.8 [degF] Giacomo Chapinaka M D Work Phone: [facility] 08-30-2021 13:34-0400 Body height 172.7 cm Giacomo Gonzales M D Work Phone: [facility] 08-30-2021 13:34-0400 Body weight 124.74 kg Giacomo Gonzales M D Work Phone: [facility] 08-15-2021 09:05-0400 Body height 172.7 cm Giacomo Gonzales M D Work Phone: [facility] 08-15-2021 09:05-0400 Body temperature 97.5 [degF] Giacomo Chapinaka M D Work Phone: [facility] 08-15-2021 09:05-0400 Body weight 125.01 kg Giacomo Gonzales M D Work Phone: [facility] 08-15-2021 09:05-0400 Diastolic blood pressure 86 mm[Hg] Giacomo Gonzales MD Work Phone: [facility] 08-15-2021 09:05-0400 Heart rate 83 /min Giacomo Del Angel Work Phone: [facility] 08-15-2021 09:05-0400 SaO2% (BldA) [Mass fraction] 98 % Giacomo Gonzales MD Work Phone: [facility] 08-15-2021 09:05-0400 Systolic blood pressure 146 mm[Hg] Giacomo Gonzales MD Work Phone: [facility] 08-08-2021 11:07-0400 Body temperature 98.4 [degF] Annelise Haagen CLINICAL SCIENCE CONSULTANT.WASTE DISPOSAL ATTENDANT Work Phone: [facility] 08-08-2021 11:07-0400 Diastolic blood pressure 88 mm[Hg] Annelise Haagen CLINICAL SCIENCE CONSULTANT.WASTE DISPOSAL ATTENDANT Work Phone: [facility] 08-08-2021 11:07-0400 Heart rate 81 /min Annelise Haagen CLINICAL SCIENCE CONSULTANT.WASTE DISPOSAL ATTENDANT Work Phone: [facility] 08-08-2021 11:07-0400 Respiratory rate 18 /min Annelise Haagen CLINICAL SCIENCE CONSULTANT.WASTE DISPOSAL ATTENDANT Work Phone: [facility] 08-08-2021 11:07-0400 SaO2% (BldA) [Mass fraction] 97 % Annelise Haagen CLINICAL SCIENCE CONSULTANT.WASTE DISPOSAL ATTENDANT Work Phone: [facility] 08-08-2021 11:07-0400 Systolic blood pressure 132 mm[Hg] Annelise Haagen CLINICAL SCIENCE CONSULTANT.WASTE DISPOSAL ATTENDANT Work Phone: [facility] 07-10-2021 08:02-0400 Body height 172.7 cm César Sal MD Work Phone: [facility] 07-10-2021 08:02-0400 Body temperature 98.1 [degF] César Sal MD Work Phone: [facility] 07-10-2021 08:02-0400 Body weight 129.55 kg César Sal MD Work Phone: [facility] 07-10-2021 08:02-0400 Diastolic blood pressure 82 mm[Hg] César Sal MD Work Phone: [facility] 07-10-2021 08:02-0400 Heart rate 100 /min César Sal MD Work Phone: [facility] 07-10-2021 08:02-0400 SaO2% (BldA) [Mass fraction] 98 % César Sal MD Work Phone: [facility] 07-10-2021 08:02-0400 Systolic blood pressure 144 mm[Hg] César Sal MD Work Phone: [facility] Encounters Encounter Date Encounter Type Care Provider Facility Start: 08-25-2024 End: 09-16-2024 ambulatory Dashawn Eid MD Work Phone: [address] [place] [address] Comment on above: Diabetes Start: 04-22-2024 End: 04-22-2024 Telephone encounter Dashawn Eid MD Work Phone: [address] [place] [address] Comment on above: Patient Update Start: 04-13-2024 End: 04-19-2024 Telephone encounter Go Cowart APRN.WASTE DISPOSAL ATTENDANT Work Phone: [facility] Comment on above: Appointment Start: 10-17-2023 Refill Dashawn fry MD Work Phone: [facility] [place] Comment on above: Refill Request Start: 09-26-2023 Refill Go Cowart APRN.WASTE DISPOSAL ATTENDANT Work Phone: [facility] Comment on above: Refill Request Start: 07-11-2023 Telephone encounter Go gonzalez CLINICAL SCIENCE CONSULTANT.WASTE DISPOSAL ATTENDANT Work Phone: [facility] [...] 25 minutes Go Cowart APRN.CNP Work Phone: [facility] [place] Comment on above: Hypertension, essent ial [...] [Z90.49] Start: 08-23-2021 Telephone encounter Deepa Florence RNsolar sales representative and assessor Comment on above: Appointment Confirma tion Start: 08-16-2021 End: 08-16-2021 Subsequent hospital visit by physician [facility] Work Phone: Radiology Comment on above: S/P cholecystectomy [Z90.49] Start: 08-15-2021 End: 08-15-2021 Patient encounter procedure Giacomo Gonzales MD Work Phone: Gastroenterology Comment on above: Elevated LFTs (Prima ry Dx); S/P cholecystectomy; History of jaundice; Elevated bilirubin Start: 08-08-2021 End: 08-08-2021 Office outpatient visit 15 minutes Annelise Robert APRN.WASTE DISPOSAL ATTENDANT Work Phone: [facility] [place] Comment on above: Acute non-recurrent sinusitis, unspecified location (Primary Dx) Start: 07-16-2021 ambulatory Go Cowart APRN.WASTE DISPOSAL ATTENDANT Work Phone: [facility] [place] Start: 07-12-2021 Telephone encounter César chan MD Work Phone: Pre Anesthesia Comment on above: Pre-op Instructions Start: 07-10-2021 Telephone encounter Brandon ([address] [facility] Comment on above: Medical Clearance Start: 07-10-2021 End: 07-10-2021 Patient encounter procedure César Sal MD Work Phone: General Surgery Comment on above: Calculus of gallblad beverly without cholecystitis without obstruction (Primary Dx); 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; terminal carman (current) use of antithrombotics/antiplatelets Procedures Date Procedure Procedure Detail Performing Clinician Start: 05-29-2023 End: 05-29-2023 Cmptr ophthalmic dx img ant segmt w/i&r uni/bi Saumya Rodney OD Work Phone: Start: 05-08-2023 Computerized ophthalmic imaging optic nerve Saumya Rodney OD Work Phone: Start: 04-28-2023 Adult depression screening assessment Go Cowart APRN.WASTE DISPOSAL ATTENDANT Work Phone: Start: 08-30-2021 Ercp dx collection specimen brushing/washing Giacomo Gonzales MD Work Phone: Start: 08-30-2021 Gluc bld gluc mntr dev cleared fda spec home use Nano [place] APRN.ACCOUNT SUPPORT REP Work Phone: Start: 08-16-2021 Us abdominal real [...] 07-02-2026 Screening for malignant neoplasm of colon [facility] Start: 05-26-2025 PROSTATE CANCER SCREENING DISCUSSION PROSTATE CANCER SCREENING DISCUSSION [facility] Start: 05-26-2025 Prostate specific antigen measurement Prostate Cancer Screening Discussion [facility] Start: 11-29-2024 Influenza vaccination Influenz a Vaccine (Season Ended) [facility] Start: 05-31-2024 End: 05-31-2024 Patient encounter procedure 05/31/2024 8:00 AM EST Office Visit [facility] [address] [place], [place] [id number] Saumya Rodney, OD [address] [place], [place] [id number] 1 yr for diabetic eye exam with OCT nerve Ophthalmology Comment on above: 1 yr for diabetic ey e exam with OCT nerve Start: 05-08-2024 Glaucoma screening Dilated Retinal E xam [facility] Start: 04-28-2024 Annual PCP Team Chronic Disease Visit Annual PCP Team Chronic Disease Visit [facility] Start: 04-28-2024 Anxiety Screening Anxiety Screening [facility] Start: 04-28-2024 Covid-19 Vaccine ( season) Covid-19 Vaccine () [facility] Comment on above: Postponed from 11/29 (Declined at this time) Start: 04-28-2024 Depression Screening Depression Scre ening [facility] Start: 04-28-2024 Hepatitis B screening Urine Al bumin:Creatinine Ratio [facility] Start: 04-28-2024 Hepatitis B surface antibody level LDL Cholesterol [facility] Start: 11-30-2023 Covid-19 Vaccine ( season) Covid-19 Vaccine () [facility] Start: 11-30-2023 Influenza vaccination C [facility] Start: 10-22-2023 ANNUAL PCP TEAM CHRONIC DISEASE VISIT ANNUAL PCP TEAM CHRONIC DISEASE VISIT [facility] Start: 10-20-2023 End: 10-20-2023 Patient encounter procedure 10/20/2023 8:20 AM EDT Office Visit Family [facility] [place] [address] [place] [address] Go Cowart APRN.WASTE DISPOSAL ATTENDANT [address] [place] [address] 6 month follow up [facility] Comment on above: 6 month follow up Start: 09-28-2023 Influenza vaccination Influenza Vacc ine (#1) [facility] Comment on above: Postponed from 11/29 (Declined at this time) Start: 07-28-2023 Hemoglobin A1c measurement HbA1C [facility] Start: 06-26-2023 COLOGUARD (FIT-DNA) COLOGUARD (FIT-D NA) [facility] Start: 06-26-2023 COLORECTAL CANCER SCREENING COLORECTAL CANCER SCREENING [facility] Start: 06-26-2023 Screening for malignant neoplasm of colon [facility] Start: 03-31-2023 Behavioral Health Screening Behavioral Health Screening [facility] Start: 11-29-2022 Influenza vaccination INFLUENZA (#1) [facility] Start: 10-10-2022 End: 12-10-2022 ALBUMIN/CREAT RATIO RND UR ALBUMIN/CREAT RATIO RND UR Lab Routine Hypertension, essential Type 2 diabetes (HCC) Expected: 10/10/2022 (Approximate), Expires: 12/10/2022 [facility] Work Phone: Comment on above: Expected: 10/10/2022 (Approximate), Expires: 12/10/2022 Start: 10-10-2022 End: 12-10-2022 CBC panel - Blood by Automated count CBC Lab Routine Anticoagulant long-term use Hypertension, essential Expected: 10/10/2022 (Approximate), Expires: 12/10/2022 [facility] Work Phone: Comment on above: Expected: 10/10/2022 (Approximate), Expires: 12/10/2022 Start: 10-10-2022 End: 12-10-2022 Comprehensive metabolic 2000 panel - Serum or Plasma COMP METABOLIC PANEL Lab Routine Type 2 diabetes (HCC) Hyperlipidemia, unspecified hyperlipidemia type Expected: 10/10/2022 (Approximate), Expires: 12/10/2022 [facility] Work Phone: Comment on above: Expected: 10/10/2022 (Approximate), Expires: 12/10/2022 Start: 10-10-2022 End: 12-10-2022 Hemoglobin A1c in Blood HGB A1C Lab Routine Type 2 diabetes (HCC) Expected: 10/10/2022 (Approximate), Expires: 12/10/2022 [facility] Work Phone: Comment on above: Expected: 10/10/2022 (Approximate), Expires: 12/10/2022 Start: 10-10-2022 End: 12-10-2022 Lipid 1996 panel - Serum or Plasma LIPID PANEL BASIC Lab Routine Type 2 diabetes (HCC) Hyperlipidemia, unspecified hyperlipidemia type Expected: 10/10/2022 (Approximate), Expires: 12/10/2022 [facility] Work Phone: Comment on above: Expected: 10/10/2022 (Approximate), Expires: 12/10/2022 Start: 08-08-2022 ANNUAL PCP TEAM CHRONIC DISEASE VISIT ANNUAL PCP TEAM CHRONIC DISEASE VISIT [facility] Start: 03-31-2022 DEPRESSION ASSESSMENT DEPRESSION ASS ESSMENT [facility] Start: 03-08-2022 ANNUAL PCP TEAM CHRONIC DISEASE VISIT ANNUAL PCP TEAM CHRONIC DISEASE VISIT [facility] Start: 11-29-2021 Influenza vaccination C [facility] Start: 11-28-2021 Hepatitis B surface antibody level LDL CHOLESTEROL [facility] Start: 11-27-2021 Adult depression screening assessment DEPRESSION SCREENING [facility] Start: 08-15-2021 End: 10-15-2021 HEPATIC FUNCTION PNL [facility] Work Phone: Comment on above: Expected: 08/15/2021 , Expires: 10/15/2021 Start: 07-16-2021 End: 09-15-2021 ALBUMIN/CREAT RATIO RND UR ALBUMIN/CREAT RATIO RND UR Lab Routine Controlled type 2 diabetes mellitus without complication, without long-term current use of insulin (HCC) Expected: 07/16/2021, Expires: 09/15/2021 [facility] Work Phone: Comment on above: Expected: 07/16/2021 , Expires: 09/15/2021 Start: 05-29-2021 3 comp foot exam completed DIABETIC FOOT EXAM [facility] Start: 05-29-2021 Diabetic foot examination Diabetic Foot Exam [facility] Start: 05-26-2021 Hepatitis B screening URINE AL BUMIN:CREATININE RATIO [facility] Start: 04-30-2021 COVID-19 VACCINE (3 - Booster for Pfizer series) COVID-19 VACCINE (3 - Booster for Pfizer series) [facility] Start: 02-27-2021 Hemoglobin A1c/Hemoglobin.total in Blood HBA1C [facility] Start: 01-23-2021 COVID-19 VACCINE (3 - Booster for Pfizer series) COVID-19 VACCINE (3 - Booster for Pfizer series) [facility] Start: 01-23-2021 COVID-19 VACCINE (3 - Pfizer series) COVID-19 VACCINE (3 - Pfizer series) [facility] Start: 2020 RSV Vaccine (1 - 1-dose 60+ series) RSV Vaccine (1 - 1-dose 60+ series) [facility] Start: 2020 RSV Vaccine (1 - Ris k 60-74 years 1-dose series) RSV Vaccine (1 - Risk 60-74 years 1-dose series) [facility] Start: 2010 SHINGRIX VACCINE (1 of 2) SHINGRIX VACCINE (1 of 2) [facility] Start: [address] [facility] Start: [address] COLONOGRAPHY [facility] Start: 2005 FECAL OCCULT BLOOD FECAL OCCULT BLOO D [facility] Start: 2005 Screening for malignant neoplasm of colon [facility] Start: 2005 SIGMOIDOSCOPY SIGMOIDOSCOPY [facility] Start: 12-13-1979 Pneumococcal Vaccine : 50+ (1 of 2 - PCV) Pneumococcal Vaccine: 50+ (1 of 2 - PCV) [facility] Start: 12-13-[address] [facility] Start: 1978 Anxiety Screening Anxiety Screening [facility] Start: 1978 BP CONTROLLED (<130/80) BP CONTROLLED (<130/80) [facility] Start: 1978 Depression Screening Depression Scre ening [facility] Start: 1976 ONE PNEUMOVAX PRIOR TO AGE 65 ONE PNEUMOVAX PRIOR TO AGE 65 [facility] Start: 1970 Hepatitis C antibody , confirmatory test DILATED RETINAL EXAM [facility] Start: 1966 PNEUMOCOCCAL (1 - PCV) PNEUMOCOCCAL (1 - PCV) [facility] Start: 1966 Pneumococcal vaccination Pneumococcal Vaccine (1 of 2 - PCV) [facility] End: 08-15-2022 ERCP ERCP Endoscopy Routine S/P cholecystectomy History of jaundice Elevated bilirubin Elevated LFTs 1 Occurrences starting 08/15/2021 until 08/15/2022 [facility] Work Phone: Comment on above: 1 Occurrences starti ng 08/15/2021 until 08/15/2022 End: 09-14-2022 Us abdominal real time w/image limited US ABD RT UPPER QUADRANT Radiology Routine S/P cholecystectomy History of jaundice Elevated bilirubin Elevated LFTs 1 Occurrences starting 08/15/2021 until 09/14/2022 [facility] Work Phone: Comment on above: 1 Occurrences starti ng 08/15/2021 until 09/14/[address] [facility] Immunizations Immunization Date Immunization Notes [facility] COVID-19 vaccine, ag e 12+ yr (DearJane-BIONTBiomeasure - PURPLE TOP) César Sal MD Work Phone: [facility] Payers Date Payer Category Payer Medicaid [employer] Member [employer] bscriber Plan / Payer (Effective 2022-2024) Name: Mitch Irvin Relation to Subscriber: Self Name: Mitch Irvin Payer ID: [id number] (NAIC) Group ID: Not on file Type: Medicaid Address: [place] [address] [id number] 2019 Private Health Insurance [employer] PPO [id number] 2019-Present [phone] [address] [address] [place] [address] PPO [id number] 2019 Private Health Insurance [id number] Social History Date Type Detail Facility Start: 01-18-2020 End: 10-21-2022 Tobacco smoking status NHIS Never smoked tobacco [facility] Start: 01-18-2020 End: 10-21-2022 Tobacco use and exposure Smokeless tobacco non-user [facility] Start: 07-10-2021 End: 05-29-2023 Alcohol intake Ex-drinker (finding) [facility] Start: 11-27-2020 History SDOH Physica l Activity DPW [address] [facility] Start: 11-27-2020 History SDOH Stress [address] [facility] Start: 03-08-2021 History SDOH Housing Unable to Pay [address] [facility] Start: 1960 Sex Assigned At Not on file [facility] Start: 06-29-2021 End: 08-15-2021 Exposure to SARS-CoV-2 (event) Not sure [facility] Work Phone: Start: 11-27-2020 End: 10-21-2022 Gender identity Not on file [facility] Start: 11-27-2020 End: 10-21-[address] [facility] In a typical week, h ow many times do you talk on the telephone with family, friends, or neighbors? Patient refused [facility] Are you now , , , , never or living with a partner? Refused [facility] Do you feel stress - tense, restless, nervous, or anxious, or unable to sleep at night because your mind is troubled all the time - these days [OSQ] Not at all [facility] (I/We) worried willie er (my/our) food would run out before (I/we) got money to buy more. DK or Refused [facility] Medical Equipment Procedure Code Equipment Code Equipment Origin al Text Equipment Identifier Dates Test blood sugar(s) 1 times daily. Dx: Type 2 DM - Controlled E11.9 Insulin: Yes Start: 05-29-2020 Comment on above: Test blood sugar(s) 1 times daily. Dx: Type 2 DM - Controlled E11.9 Insulin: Yes Clinical Notes 07-10-2021 to 08-25-2024 Harinder Clemente Rosalva - 08/25/2024 8:46 AM EDTTelephone Encounter - [facility] - 04/22/2024 11:03 AM ESTTelephone Encounter - [facility] - 04/22/2024 11:03 AM ESTPatient Instructions Note Date & Type Note Facility 08-25-2024 Note HNO ID: [id number] Author: ?, ?, ? Service: ? Author [...] see another provider, please update their chart. [facility] 08-25-2024 History of Presen t illness [...] update their chart. documented in this encounter [facility] 08-25-2024 Note Patient Outreach (4C Q) MITCH IRVIN ([id number]) 1960 M Date Time Provider Department 08/25/24 [...] Encounter Status:Closed by ROSALVA CAMERON on 09/16/24 [facility] 04-22-2024 Telephone encounter Note Pt called back regarding letter he received in mail. Patient stated that he can not make an appt at this time as he does not have medical insurance. Once he figures this out he will call to schedule . [facility] 04-22-2024 Miscellaneous Notes Pt called back regarding letter he received in mail. Patient stated that he can not make an appt at this time as he does not have medical insurance. Once he figures this out he will call to schedule . documented in this encounter [facility] 04-19-2024 Telephone encounter Note Letter mailed to pt home to call office to schedule appt. Lilliam Chávez MA [facility] 04-19-2024 Miscellaneous Notes Letter mailed to pt [...] Go Cowart APRN.CNP documented in this encounter [facility] 04-16-2024 Telephone encounter Note POPULATION HEALTH NAVIGATION OUTREACH Action/FYI Message left for pt to call back. Due for appt. Reason for Outreach Care Gap/HCC or Scheduling Wellness Visits Care Gaps due: Follow-up Appointment Patient Contacted: Unable or unnecessary to reach patient: Left message Navigation Signature: Lilliam Chávez MA April 16, 2024 12:[address] [facility] 04-13-2024 Telephone encounter Note Left message to return call [facility] 04-13-2024 Telephone encounter Note STAMP Please reach out to patient for overdue appointment for chronic disease management with myself. This patient is due for a yearly exam Go Cowart APRN.WASTE DISPOSAL ATTENDANT [facility] 10-17-2023 Telephone encounter Note The following approved medication requests have been transmitted electronically. Requested Prescriptions Pending Prescriptions Disp Refills lisinopril-hydroCHLOROthiazide (ZESTORETIC) 20-25 mg per tablet 90 tablet 3 Sig: Take 1 tablet by mouth every morning. Go Cowart APRN.CNP [facility] 10-17-2023 Miscellaneous Notes The following approved medication [...] 2023 2:07 PM documented in this encounter [facility] 10-17-2023 Telephone encounter Note Prescription Refill Information [...] Sherie Clemente October 17, 2023 2:[address] [facility] 07-11-2023 Miscellaneous Notes Letter mailed to pt home of results. Lilliam Chávez MA Please let the patient know that his cologuard was normal. It does not appear that he uses or checks his mychart. Go Cowart APRN.SINDY documented in this encounter [facility] 05-29-2023 History of Presen t illness Narrative [...] 2023 9:47 AM documented in this encounter [facility] 05-08-2023 History of Presen t illness Narrative 1. Type 2 diabetes mellitus without retinopathy (HCC) Risk of diabetic changes and vision loss can be minimized by tight control of blood sugar, blood pressure, and cholesterol levels. Educated patient to continue care with primary care doctor and/or customs compliance analyst to maintain optimum levels as they are [...] 2023 9:51 AM documented in this encounter [facility] 10-21-2022 Instructions Go Cowart APRN.SINDY - 10/21/2022 7:42 AM EDT Get blood work Schedule eye appointment Take meds routinely and follow up in 1 month. Go Cowart APRN.WASTE DISPOSAL ATTENDANT documented in this encounter 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 Depression Screening [...] needed. This note was partly generated using Unire[employer]istry voice recognition dictation and may contain some misspelled or inaccurate words missed on review. documented in this encounter [facility] 10-10-2022 Miscellaneous Notes Pt notified. He is [...] advise. Barby Spicer documented in this encounter [facility] 04-12-2022 Miscellaneous Notes The following approved medication [...] Blanka Ramirez Pss documented in this encounter [facility] 08-30-2021 Nurse Note AMBULATORY PATIENT EDUCATION NOTE [...] REFERRAL (RECOMMENDATION): None documented in this encounter [facility] 08-23-2021 Miscellaneous Notes GI Pre-Procedure Spoke with [...] have family/friend present for procedure transport home:Patient/patient sales representative publications was told that if they do not [...] area. 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 Type of instruction given: Verbal by telephone contact. Deepa Florence RN documented in this encounter [facility] 08-16-2021 History of Presen t illness Narrative [...] 2021 10:25 AM documented in this encounter [facility] 08-15-2021 History of Presen t illness Narrative [...] to have the laparoscopic cholecystectomy performed at [facility]. IMPRESSION: status post laparoscopic cholecystectomy. Cholecystitis [...] Past Histories independently gathered by the clinical academic support center director and the remaining scribed note accurately describes my personal service to the patient. Giacomo Gonzales MD August 15, 2021 8:37 AM documented in this encounter [facility] 08-08-2021 Instructions Annelise Robert APRN.CNP - 08/08/2021 11:36 AM EDT 1. Start the augmentin 2. Hold the lipitor (atorvastatin) until liver enzymes improved. 3. Start mucinex. 4. Get us a status update after the ERCP. documented in this encounter [facility] 08-08-2021 History of Presen t illness Narrative [...] APRN.SINDY This note was partially generated using Uniregistry voice recognition system. Note was reviewed for accuracy. There may be minor misspellings or grammar miscues with Un[employer] voice recognition. documented in this encounter [facility] 07-18-2021 History of Past i llness Narrative Problem Noted Date Resolved Date Calculus of gallbladder and bile duct without cholecystitis, with obstruction 07/18/2021 07/18/2021 documented as of this encounter (statuses as of 07/20/2021) [facility] History of Past illness Narrative* Problem Noted Date Resolved Date Calculus of gallbladder and bile duct without cholecystitis, with obstruction 07/18/2021 07/18/2021 documented as of this encounter (statuses as of 08/08/2021) [address]20-2022 History of Past illness Narrative* Problem Noted Date Resolved Date Calculus of gallbladder and bile duct without cholecystitis, with obstruction 07/18/2021 07/18/2021 documented as of this encounter (statuses as of 08/15/2021) [address]20-2022 History of Past illness Narrative* Problem Noted Date Resolved Date Calculus of gallbladder and bile duct without cholecystitis, with obstruction 07/18/2021 07/18/2021 documented as of this encounter (statuses as of 08/17/2021) [address]20-2022 History of Past illness Narrative* Problem Noted Date Resolved Date Calculus of gallbladder and bile duct without cholecystitis, with obstruction 07/18/2021 07/18/2021 documented as of this encounter (statuses as of 08/23/2021) [address]20-2022 History of Past illness Narrative* Problem Noted Date Resolved Date Calculus of gallbladder and bile duct without cholecystitis, with obstruction 07/18/2021 07/18/2021 documented as of this encounter (statuses as of 08/31/2021) [facility] History of Past illness Narrative* Problem Noted Date Resolved Date Calculus of gallbladder and bile duct without cholecystitis, with obstruction 07/18/2021 07/18/2021 documented as of this encounter (statuses as of 04/12/2022) [address]20-2022 History of Past illness Narrative* Problem Noted Date Diagnosed Date Resolved Date Calculus of gallbladder and bile duct without cholecystitis, with obstruction 07/18/2021 07/19/19 documented as of this encounter (statuses as of 10/11/2022) [address]20-2022 History of Past illness Narrative* Problem Noted Date Diagnosed Date Resolved Date Calculus of gallbladder and bile duct without cholecystitis, with obstruction 07/18/2021 07/19/19 documented as of this encounter (statuses as of 10/21/2022) [address]20-[address]22 History of Past illness Narrative* Problem Noted Date Diagnosed Date Resolved Date Calculus of gallbladder and bile duct without cholecystitis, with obstruction 07/18/2021 07/19/19 documented as of this encounter (statuses as of 05/08/2023) [facility] History of Past illness Narrative* Problem Noted Date Diagnosed Date Resolved Date Calculus of gallbladder and bile duct without cholecystitis, with obstruction 07/18/2021 07/19/19 documented as of this encounter (statuses as of 05/29/2023) [facility] History of Past illness Narrative* Problem Noted Date Diagnosed Date Resolved Date Calculus of gallbladder and bile duct without cholecystitis, with obstruction 07/18/2021 07/19/19 documented as of this encounter (statuses as of 07/11/2023) 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 oG Cowart APRN.SINDY [facility] Miscellaneous Notes* Telephone Encounter - Radha Marx RN - 07/12/2021 12:34 PM EDT Pre-op instructions and Eliquis instructions were given to patient and sent in my chart. Radha Marx RN [facility] Miscellaneous Notes* Telephone Encounter - Radha Marx [...] to PCP Brandon Aragon [facility] History of Present illness Narrative* César Sal [...] a few days later. He presented to [facility] ED (03/04/2021) - he was found [...] obstruction (primary encounter diagnosis) 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 terminal carman (current) use of antithrombotics/antiplatelets PLAN: My plan [...] Procedure: LAPAROSCOPIC CHOLECYSTECTOMY WITHOUT INTRAOPERATIVE CHOLEANGIOGRAM - [id number] Planned antibiotic: Ancef 3gm IVPB senior sales operations analyst to OR SCDs needed - Yes [employer]isher [employer] Needed - Yes Diagnoses: (K80.20) Calculus of gallbladder without cholecystitis without obstruction (primary encounter diagnosis) (R06.00) 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 (Z79.02) nursing home (current) use of antithrombotics/antiplatelets COVID (Procedure Consent) [...] César Sal III, MD [facility] Nurse Note* Adriana Casanova RN - 07/10/2021 [...] Unknown [facility]ana Casanova [facility] Diagnosis Calculus of gallbladder without cholecystitis without obstruction- Primary Calculus of gallbladder without mention of cholecystitis or obstruction 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 Other dyspnea and respiratory abnormality nursing home (current) use of antithrombotics/antiplatelets Calculus of gallbladder and bile duct without cholecystitis, with obstruction 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 Other dyspnea and respiratory abnormality Encounter for long-term (current) use of antiplatelets/antithrombotics [facility] Diagnosis Controlled type 2 diabetes mellitus without complication, without long-term current use of insulin (HCC)- Primary [facility] Diagnosis Acute non-recurrent sinusitis, unspecified location- Primary documented in this encounter [facility]* Diagnosis Elevated LFTs- Primary Other abnormal blood chemistry S/P cholecystectomy Other acquired absence of organ History of jaundice Personal history of other endocrine, metabolic, and immunity disorders Elevated bilirubin Jaundice, unspecified, not of [facility] Diagnosis S/P cholecystectomy Other acquired absence of organ History of jaundice Personal history of other endocrine, metabolic, and immunity disorders Elevated bilirubin Jaundice, unspecified, not of Elevated LFTs Other abnormal blood chemistry [facility] Diagnosis S/P cholecystectomy Other acquired absence of organ History of jaundice Personal history of other endocrine, metabolic, and immunity disorders Elevated bilirubin Jaundice, unspecified, not of Elevated LFTs Other abnormal blood chemistry documented in this encounter [facility]* Diagnosis Hypertension, essential Unspecified essential hypertension documented in this encounter [facility] note* Diagnosis Anticoagulant long-term use- Primary Long-term (current) use of anticoagulants Hypertension, essential Unspecified essential hypertension Type 2 diabetes (HCC) Hyperlipidemia, unspecified hyperlipidemia type documented in this encounter [facility] note* Diagnosis Hypertension, essential- Primary Unspecified essential hypertension Type 2 diabetes (HCC) Anticoagulant long-term use Long-term (current) use of anticoagulants Hyperlipidemia, unspecified hyperlipidemia type 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) Screening for diabetic retinopathy Screening for other eye conditions documented in this encounter [facility] note* Diagnosis Type 2 diabetes mellitus [...] of both eyes documented in this encounter [facility] note* Diagnosis Glaucoma suspect of both [...] of both eyes documented in this encounter [facility] note* Diagnosis Hypertension, essential Unspecified essential hypertension documented in this encounter [facility] note* Diagnosis Hypertension, essential Unspecified essential hypertension documented in this encounter [facility] for referral (narrative)* Outpatient Procedure (Routine) - Authorized Specialty Diagnoses / Procedures Referred By Contac t Referred To Contact [facility] Diagnoses S/P cholecystectomy History of jaundice Elevated bilirubin Elevated LFTs Procedures ERCP ERCP DX COLLECTION SPECIMEN BRUSHING/WASHING Giacomo Gonzales MD [address] [place] [address] [facility] Disease [place] [address] [place] [address] Referral ID Status Reason Start Date Expiration Date Visits Requested Visits Authorized [id number] Authorized Auto-Generat ed Referral 08/15/2021 08/15/2022 1 1 * Diagnostic Procedure Only (Routine) - Authorized Specialty Diagnoses / Procedures Referred By Elda t Referred To Contact US IMAGING Diagnoses S/P cholecystectomy History of jaundice Elevated bilirubin Elevated LFTs Procedures US ABD RT UPPER QUADRANT US ABDOMINAL REAL TIME W/IMAGE LIMITED Giacomo Gonzales MD [address] [place] [address] Us Imaging Referral ID Status Reason Start Date Expiration Date Visits Requested Visits Authorized [id number] Authorized Auto-Generat ed Referral 08/15/2021 09/14/2022 1 1 [facility] for referral (narrative)* Diagnostic Procedure Only (Routine) - Closed Specialty Diagnoses / Procedures Referred By Elda duenas Referred To Contact US IMAGING Diagnoses S/P cholecystectomy History of jaundice Elevated bilirubin Elevated LFTs Procedures US ABD RT UPPER QUADRANT US ABDOMINAL REAL TIME W/IMAGE LIMITED Giacomo Gonzales MD [address] [place] [address] Us Imaging Referral ID Status Reason Start Date Expiration Date V isits Requested Visits Authorized [id number] Closed Auto-Generate d Referral 08/15/2021 09/14/2022 1 1 [facility] for referral (narrative)* Outpatient Procedure (Routine) - Closed Specialty Diagnoses / Procedures Referred By Contac t Referred To Contact [facility] Diagnoses S/P cholecystectomy History of jaundice Elevated bilirubin Elevated LFTs Procedures ERCP ERCP DX COLLECTION SPECIMEN BRUSHING/WASHING Giacomo Gonzales MD [address] [place] [address] [facility] [place] [address] [place] [address] Referral ID Status Reason Start Date Expiration Date V isits Requested Visits Authorized [id number] Closed Auto-Generate d Referral 08/15/2021 08/15/2022 1 1 [facility] for visit Narrative* Outpatient Procedure (Routine) - Closed Specialty Diagnoses / Procedures Referred By Elda duenas Referred To Contact [facility] Diagnoses S/P cholecystectomy History of jaundice Elevated bilirubin Elevated LFTs Procedures ERCP ERCP DX COLLECTION SPECIMEN BRUSHING/WASHING Giacomo Gonzales MD [address] [place] [address] [facility] Disease [place] [address] [place] [address] Referral ID Status Reason Start Date Expiration Date V isits Requested Visits Authorized [id number] Closed Auto-Generate d Referral 08/15/2021 08/15/[address] 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 DATE CREATED AUTHOR AUTHOR'S ORGANIZ ATION 07/21/2021 [facility] DATE CREATED AUTHOR AUTHOR'S ORGANIZ ATION 09/19/2024 [facility] Source Comments (unrecognize d section and content) In the event this informatio n is protected by the Federal Confidentiality of Alcohol and Drug Abuse Patient Records regulations: The Federal rules restrict any use of the information to criminally investigate or prosecute any alcohol or drug abuse patient.[facility] event this information is protected by the Federal Confidentiality of Alcohol and Drug Abuse Patient Records regulations: The Federal rules restrict any use of the information to criminally investigate or prosecute any alcohol or drug abuse patient.[facility] the event this information is protected by the Federal Confidentiality of Alcohol and Drug Abuse Patient Records regulations: The Federal rules restrict any use of the information to criminally investigate or prosecute any alcohol or drug abuse patient.[facility] the event this information is protected by the Federal Confidentiality of Alcohol and Drug Abuse Patient Records regulations: The Federal rules restrict any use of the information to criminally investigate or prosecute any alcohol or drug abuse patient.[facility] the event this information is protected by the Federal Confidentiality of Alcohol and Drug Abuse Patient Records regulations: The Federal rules restrict any use of the information to criminally investigate or prosecute any alcohol or drug abuse patient.[facility] the event this information is protected by the Federal Confidentiality of Alcohol and Drug Abuse Patient Records regulations: The Federal rules restrict any use of the information to criminally investigate or prosecute any alcohol or drug abuse patient.[facility] the event this information is protected by the Federal Confidentiality of Alcohol and Drug Abuse Patient Records regulations: The Federal rules restrict any use of the information to criminally investigate or prosecute any alcohol or drug abuse patient.[facility] the event this information is protected by the Federal Confidentiality of Alcohol and Drug Abuse Patient Records regulations: The Federal rules restrict any use of the information to criminally investigate or prosecute any alcohol or drug abuse patient.[facility] the event this information is protected by the Federal Confidentiality of Alcohol and Drug Abuse Patient Records regulations: The Federal rules restrict any use of the information to criminally investigate or prosecute any alcohol or drug abuse patient.[facility] the event this information is protected by the Federal Confidentiality of Alcohol and Drug Abuse Patient Records regulations: The Federal rules restrict any use of the information to criminally investigate or prosecute any alcohol or drug abuse patient.[facility] the event this information is protected by the Federal Confidentiality of Alcohol and Drug Abuse Patient Records regulations: The Federal rules restrict any use of the information to criminally investigate or prosecute any alcohol or drug abuse patient.[facility] the event this information is protected by the Federal Confidentiality of Alcohol and Drug Abuse Patient Records regulations: The Federal rules restrict any use of the information to criminally investigate or prosecute any alcohol or drug abuse patient.[facility] the event this information is protected by the Federal Confidentiality of Alcohol and Drug Abuse Patient Records regulations: The Federal rules restrict any use of the information to criminally investigate or prosecute any alcohol or drug abuse patient.[facility] the event this information is protected by the Federal Confidentiality of Alcohol and Drug Abuse Patient Records regulations: The Federal rules restrict any use of the information to criminally investigate or prosecute any alcohol or drug abuse patient.[facility] the event this information is protected by the Federal Confidentiality of Alcohol and Drug Abuse Patient Records regulations: The Federal rules restrict any use of the information to criminally investigate or prosecute any alcohol or drug abuse patient.[facility] the event this information is protected by the Federal Confidentiality of Alcohol and Drug Abuse Patient Records regulations: The Federal rules restrict any use of the information to criminally investigate or prosecute any alcohol or drug abuse patient.[facility] the event this information is protected by the Federal Confidentiality of Alcohol and Drug Abuse Patient Records regulations: The Federal rules restrict any use of the information to criminally investigate or prosecute any alcohol or drug abuse patient.[facility] the event this information is protected by the Federal Confidentiality of Alcohol and Drug Abuse Patient Records regulations: The Federal rules restrict any use of the information to criminally investigate or prosecute any alcohol or drug abuse patient.[facility] the event this information is protected by the Federal Confidentiality of Alcohol and Drug Abuse Patient Records regulations: The Federal rules restrict any use of the information to criminally investigate or prosecute any alcohol or drug abuse patient.[facility] the event this information is protected by the Federal Confidentiality of Alcohol and Drug Abuse Patient Records regulations: The Federal rules restrict any use of the information to criminally investigate or prosecute any alcohol or drug abuse patient.[facility] the event this information is protected by the Federal Confidentiality of Alcohol and Drug Abuse Patient Records regulations: The Federal rules restrict any use of the information to criminally investigate or prosecute any alcohol or drug abuse patient.[facility] Reason for Visit (unrecogniz ed section and [...] MDM 60-74 MINUTES Starr Hernandez PA-C [address] [place] [address] Referral ID Status Reason Start Date Expiration Date V isits Requested Visits Authorized [id number] Closed PCP Requested Referral 08/17/2021 08/03/2022 1 1 Reason Comments Radiology US Specialty Diagnoses / Procedures Referred By Contac t Referred To Contact US IMAGING Diagnoses S/P cholecystectomy History of jaundice Elevated bilirubin Elevated LFTs Procedures US ABD RT UPPER QUADRANT US ABDOMINAL REAL TIME W/IMAGE LIMITED Giacomo Gonzales MD [address] [place] [address] Us Imaging Referral ID Status Reason Start Date Expiration Date V isits Requested Visits Authorized [id number] Closed Auto-Generate d Referral 08/15/2021 09/14/2022 1 [...] diabetic retinopathy Procedures CONSULT TO OPHTHALMOLOGY OFFICE/OUTPATIENT [facility] 60 MINUTES Go Cowart APRN.WASTE DISPOSAL ATTENDANT [address] [place] [address] Referral ID Status Reason Start Date Expiration Date V isits Requested Visits Authorized [id number] Closed PCP Requested Referral 04/28/2023 04/27/2024 1 1 Reason Comments Glaucoma Suspect Follow Up Reason Comments Results Reason Comments Refill Request Reason Onset Date Comments Refill Request 10/17/2023 Reason Comments Appointment Reason Comments Patient Update Reason Onset Date Comments Diabetes 08/25/2024 Care Teams (unrecognized sec tion and content) Consular Officer Relationship Specialty Start Date End Date Dashawn Eid MD [address] [place] [address] PCP - General Family Practice 11/28/20 Consular Officer Relationship Specialty Start Date End Date Dashawn Eid MD [address] [place] [address] PCP - General Family Practice 11/28/20 Consular Officer Relationship Specialty Start Date End Date Dashawn Eid MD [address] [facility] [place] [address] PCP - General Family Practice 11/28/20 Consular Officer Relationship Specialty Start Date End Date Dashawn Eid MD [address] [facility] [place] [address] PCP - General Family Practice 11/28/20 Consular Officer Relationship Specialty Start Date End Date Dashawn Eid MD [address] [facility] [place] [address] PCP - General Family Practice 11/28/20 Consular Officer Relationship Specialty Start Date End Date Dashawn Eid MD [address] [facility] [place] [address] PCP - General Family Practice 11/28/20 Consular Officer Relationship Specialty Start Date End Date Dashawn Eid MD [address] [facility] [place] [address] PCP - General Family Practice 11/28/20 Consular Officer Relationship Specialty Start Date End Date Dashawn Eid MD [address] [facility] [place] [address] PCP - General Family Practice 11/28/20 Consular Officer Relationship Specialty Start Date End Date Dashawn Eid MD [address] [facility] [place] [address] PCP - General Family Medicine 11/28/20 Consular Officer Relationship Specialty Start Date End Date Dashawn Eid MD [address] [facility] [place] [address] PCP - General Family Medicine 11/28/20 Consular Officer Relationship Specialty Start Date End Date Dashawn Eid MD [address] [facility] [place] [address] PCP - General Family Medicine 11/28/20 Consular Officer Relationship Specialty Start Date End Date Dashawn Eid MD [address] [facility] [place] [address] PCP - General Family Medicine 11/28/20 Consular Officer Relationship Specialty Start Date End Date Dashawn Eid MD [address] [facility] [place] [address] PCP - General Family Medicine 11/28/20 Consular Officer Relationship Specialty Start Date End Date Dashawn Eid MD [address] [place] [address] PCP - General Family Medicine 11/28/20 Consular Officer Relationship Specialty Start Date End Date Dashawn Eid MD [address] [facility] [place] [address] PCP - General Family Medicine 11/28/20 Consular Officer Relationship Specialty Start Date End Date Dashawn Eid MD [address] [facility] [place] [address] PCP - General Family Medicine 11/28/20 Chelo Salazar, CLINICAL SCIENCE CONSULTANT.WASTE DISPOSAL ATTENDANT [address] [facility] [place] [address] Slitter Scorer Cut Off Operator Family Medicine 03/07/24 Go Cowart APRN.WASTE DISPOSAL ATTENDANT [address] [facility] [place] [address] Slitter Scorer Cut Off Operator [facility] 03/16/24 Consular Officer Relationship Specialty Start Date End Date Dashawn Eid MD [address] [place], [place] [address] PCP - General Family Medicine 11/28/20 Chelo Salazar APRN.WASTE DISPOSAL ATTENDANT [address] [place], [place] [address] Slitter Scorer Cut Off Operator [facility] 03/07/24 Go Cowart APRN.WASTE DISPOSAL ATTENDANT [address] [place], [place] [address] Slitter Scorer [facility] 03/16/24 Consular Officer Relationship Specialty Start Date End Date Dashawn Eid MD [address] [place], [place] [id number] PCP - General Family Medicine 11/28/20 Go Cowart APRN.WASTE DISPOSAL ATTENDANT [address] [place], [place] [address] [facility] 03/16/24 Inactive Administered Medications - [...] BE BASED ON THE PRIMARY CLINICAL RECORDS. [facility] [employer] [facility]. provides no warranty or guarantee of the accuracy or completeness of information in this document.
[2025-02-27 19:32] LABS: Iron Binding Capacity,Total 207 ug/dL (250-450)
--- NOTE | 2025-02-27 19:56 | ECHOCS_ITS ---
Reason For Study Reason For Study: Dyspnea/SOB Procedure This was a 2D Doppler, Color Flow transthoracic echocardiogram. The study was technically difficult. Contrast injection was performed. Technically difficult study due to patient body habitus and positioning. Patient scanned sitting upright due to SOB and Pressure. Exam performed portable in patient room. Left Ventricle Normal LV size. Mild concentric left ventricular hypertrophy. The left ventricular ejection fraction is 65 %. Stage 1 diastolic dysfunction. Right Ventricle Normal right ventricle. Atria The left and right atria are normal. Mitral Valve Normal mitral valve. Tricuspid Valve Normal tricuspid valve. Aortic Valve Trisinus/trileaflet aortic valve. Pulmonic Valve Trivial pulmonic valve insufficiency. Great Vessels Normal sized aortic root. Pericardium/Pleural No pericardial effusion. Medication Diluted definity 1.5ml given slow IV push to enhance endocardial definition. MMode/2D Measurements & Calculations LVIDd: 4.8 cm IVSd: 1.4 cm Ao root diam: 3.7 cm LVIDs: 3.3 cm LVPWd: 1.2 cm FS: 30.2 % LAV(MOD-sp4): 39.8 ml LVAd ap4: 32.4 cm2 SV(MOD-sp4): 51.4 ml LVLd ap4: 9.0 cm SI(MOD-sp4): 23.4 ml/m2 EDV(MOD-sp4): 94.7 ml EDV(sp4-el): 99.5 ml LVAs ap4: 20.2 cm2 LVLs ap4: 7.6 cm ESV(MOD-sp4): 43.3 ml ESV(sp4-el): 45.7 ml EF(MOD-sp4): 54.3 % EF(sp4-el): 54.0 % SV(sp4-el): 53.8 ml LA A4 area: 15.3 cm2 LA dimension(2D): 3.5 cm TAPSE: 2.5 cm Time Measurements MV dec time: 0.26 sec Doppler Measurements & Calculations MV E max angel: 106.6 cm/sec Lat Peak E' Angel: 15.8 cm/sec Med Peak E' Angel: 10.5 cm/sec MV A max angel: 107.5 cm/sec E/E' lat: 6.7 E/E' med: 10.1 MV E/A: 0.99 MV V2 max: 153.6 cm/sec MV P1/2t max angel: 153.6 cm/sec Ao V2 max: 178.8 cm/sec MV max P.4 mmHg MV P1/2t: 70.6 msec Ao max P.8 mmHg MV V2 mean: 99.4 cm/sec MV mean P.5 mmHg MV dec slope: 637.5 cm/sec2 MV V2 VTI: 31.8 cm MVA(P1/2t): 3.1 cm2 LV V1 max: 126.8 cm/sec PA V2 max: 117.3 cm/sec LV V1 max P.4 mmHg ECHO/Echo Complete W/ Contrast Interpretation Summary Mild concentric left ventricular hypertrophy. The left ventricular ejection fraction is 65 %. Stage 1 diastolic dysfunction. The study was technically difficult. Ordering Physician: Noemy Griggs Performed By: German Mojica RCS
[2025-02-27] MEDS: Heparin Injection (Vial) 5,000 UNIT/ML VIAL 5000 UNIT IV (20:48)
[2025-02-27 20:54] LABS: Troponin T High Sens 4 HR 14 ng/L (<=22)
[2025-02-27 21:08] LABS: FOLATES,SERUM (FOLIC ACID) 15.90 ng/mL (4.60-34.80)
[2025-02-27 21:09] LABS: Procalcitonin 11.50 ng/mL (<=0.10)
[2025-02-27] MEDS: HEPARIN/D5w 25,000 UNITS 25,000 UNITS/250 ML IV.SOLN. 20.7 UNITS CONT INF (21:40)
[2025-02-27 21:48] LABS: Vitamin B12 < 150 pg/mL (180-914)
[2025-02-27] MEDS: Pantoprazole Sodium 40 MG in 0.9% Normal Saline (100mL MB+) 100 ML 330 MG IV (21:53)
[2025-02-27] MEDS: 0.9% Normal Saline (1000mL) 1,000 ML 100 ML IV (21:53)
[2025-02-27] MEDS: 0.9% Saline Lock 10 ML Syringe IV (21:54)
[2025-02-27] MEDS: Sodium Phosphate/Na Biphos 21 MMOL in 0.9% Normal Saline (250mL Bag) 250 ML 84 MMOL IV (22:44)
[2025-02-27 23:08] LABS: Hematocrit 20.8 % (40-54); Hemoglobin 7.6 g/dL (13.0-16.5)
[2025-02-28] VITALS (7 sets, daily range): BP systolic 144–164; BP diastolic 65–84; PULSE 90–109; RESP 20–29; TEMP 36.8–37.2; O2SAT 97–100; BMI 46.3
[2025-02-28 03:16] LABS: Hematocrit 20.4 % (40-54); Hemoglobin 7.2 g/dL (13.0-16.5); Immature Granulocytes Count 0.060 X10^3/uL (0.0-0.0); Mean Corp Hgb Conc 35.3 g/dL (32-36); Mean Corpuscular Volume 114.6 fL (80-94); Mean Platelet Vol. 11.9 fl (6.2-12.0); NRBC Flagged by Analyzer 0.5 % (0-5); POSITIVE COUNT YES; POSITIVE DIFFERENTIAL YES; POSITIVE MORPHOLOGY YES; Platelet Count 72 K/mm3 (150-450); Red Blood Count 1.78 M/mm3 (4.6-6.2); White Blood Count 5.9 K/mm3 (4.4-11.0)
[2025-02-28 04:30] LABS: Differential Indicated SCAN CRITERIA MET
[2025-02-28 04:33] LABS: AST(SGOT) 87 U/L (<=37); Alanine Aminotransfer ALT/SGPT 36 U/L (<=46); Albumin, Serum 3.8 g/dL (3.4-4.8); Alkaline Phosphatase 56 U/L (40-129); Anion Gap 11 (5-15); BUN 19 mg/dL (4-19); BUN/Creat Ratio 22.4 RATIO (10-20); Calcium,Total 8.1 mg/dL (7.6-11.0); Carbon Dioxide 21.8 mmol/L (21.0-32.0); Chloride 108 mmol/L (98-108); Estimated Creatinine Clearance 118.22 ml/min (50-250); Globulin 2.5 g/dL (2.2-4.2); Glucose 159 mg/dL (70-99); Partial Thromboplast Time 218.7 Seconds (24.1-36.2); Potassium 3.8 mmol/L (3.3-5.1)
[2025-02-28 05:15] LABS: Differential Comment SCANNED
[2025-02-28 05:16] LABS: Anisocytosis 2+; Macrocytosis 1+; Polychromasia RARE
[2025-02-28] MEDS: 0.9% Saline Lock 10 ML Syringe IV ×2 (06:30→19:39)
[2025-02-28 07:39] LABS: Hematocrit 21.4 % (40-54); Hemoglobin 7.5 g/dL (13.0-16.5)
[2025-02-28] MEDS: HEPARIN/D5w 25,000 UNITS 25,000 UNITS/250 ML IV.SOLN. 17.7 UNITS CONT INF (12:01)
[2025-02-28] MEDS: Pantoprazole Sodium 40 MG in 0.9% Normal Saline (100mL MB+) 100 ML 330 MG IV ×2 (12:03→19:41)
[2025-02-28] MEDS: 0.9% Normal Saline (1000mL) 1,000 ML 100 ML IV (12:07)
--- NOTE | 2025-02-28 12:30 | CASEMGMT ---
JAVED DUGAN Face to Face with patient for initial transition planning/care coordination assessment. RN CM introduced self and role at [facility]. Patient lying in bed, alert and oriented, son at bedside. Patient willing to participate in assessment and is able to answer all questions appropriately. Care providers, pharmacy, and demographics verified. Strata: 2 PCP: Stacie Specialists: none Preferred Pharmacy: [facility] Insurance: selfpay Prescription Benefit: none Living Will/HPOA: none, patient would like to complete, SW notified LNOK: sons Living Arrangements: Patient lives with son in a 2 story home. Patient is able to slowly ambulate stairs and is independent at home. Transportation: son DME/HHC: Patient has grab bars and walking staff at home. No previous HHC or SNF. Will monitor for home oxygen, prefers [employer]. Patient wishes to discharge home, denies need for home health at this time. Patient states he has no further needs or concerns at this time. CM to follow for discharge planning needs that may arise. Disposition Plan: Patient to discharge home with family support and follow-up plans in place. Will monitor for home oxygen at discharge. Mima FORD, RN, CM
--- NOTE | 2025-02-28 13:14 | CASEMGMT ---
Social Work SW spoke with the patient and provided resources such as- [facility], [employer], [facility] financial assistance, prescription assistance resources, and [employer]. RAMSES Bhatia
[2025-02-28 13:32] LABS: Partial Thromboplast Time 143.0 Seconds (24.1-36.2)
--- NOTE | 2025-02-28 13:56 | PN_ITS ---
Subjective Subjective Patient seen and examined with his nurse by his bedside. He had no active complaints. He was admitted with a complaint of shortness of breath and is now being treated for acute PE. He also has acute anemia and received a unit of packed red blood cells. He also has UTI and is on antibiotics. Review of systems otherwise negative. Objective Data Objective Data Vital Signs: Vital Signs Temp Pulse Resp BP Pulse Ox O2 Del Method O2 Flow Rate 98.3 F 96 28 H 164/84 H 100 Nasal Cannula 2 02/28/25 04:35 02/28/25 08:00 02/28/25 08:00 02/28/25 08:00 02/28/25 08:02 02/28/25 09:48 02/28/25 12:55 Oxygen Flow Rate (L/min) 2 Oxygen Delivery Method Nasal Cannula Weight: 304 lb 10.861 oz Body Mass Index (BMI) 46.3 Intake & Output: Intake and Output for Last 24 Hours 02/26/25 02/27/25 02/28/25 23:59 23:59 23:59 Intake Total 3100 / 3100 1623.79 / 1623.79 Output Total 300 / 300 375 / 375 Balance 2800 / 2800 1248.79 / 1248.79 Lab / Micro Data 02/28/25 07:27 02/28/25 03:42 Labs: Laboratory Results - last 24 hr 02/27/25 15:16: PT 14.5, INR 1.1, APTT < 24.0 L, Sodium 137, Potassium 4.1, Chloride 102, Carbon Dioxide 19.5 L, Anion Gap 16 H, BUN 19, Creatinine 0.86, Estim Creat Clear Calc 119.65, Est GFR (MDRD) Non-Af 97, BUN/Creatinine Ratio 22.3 H, Glucose 281 H, Lactic Acid 3.2 H*, Calcium 8.9, Total Bilirubin 2.18 H, AST 151 H, ALT 51 H, Alkaline Phosphatase 78, Troponin T High Sens 8, Total Protein 7.2, Albumin 4.3, Globulin 2.9, Albumin/Globulin Ratio 1.5 02/27/25 15:55: WBC 5.5, RBC 1.59 L, Hgb 7.2 L, Hct 19.3 L, MCV 121.4 H, MCH 45.3 H, MCHC 37.3 H, RDW Std Deviation 70.1 H, RDW Coeff of Ryan 18.2 H, Plt Count 86 L, MPV 9.7, Immature Gran % (Auto) 1.300 H, Neut % (Auto) 86.5 H, Lymph % (Auto) 9.2 L, Cannon % (Auto) 2.4, Eos % (Auto) 0.4, Baso % (Auto) 0.2, Absolute Neuts (auto) 4.7, Absolute Lymphs (auto) 0.50 L, Nucleated RBC % 0.4, Platelet Estimate MOD DEC, Hypochromasia 1+, Anisocytosis 1+, Schistocytes 1+, Urine Color Yellow, Urine Clarity Clear, Urine pH 6.0, Ur Specific Wentworth 1.020, U rine Protein 30 H, Urine Glucose (UA) 1000 H, Urine Ketones 15 H, Urine Occult Blood 50 H, Urine Nitrite Negative, Urine Bilirubin Negative, Urine Urobilinogen 4 H, Ur Leukocyte Esterase Negative, Urine RBC 0-5 SEEN, Urine WBC 0-5 SEEN, Ur Squamous Epith Cells 0-5 SEEN, Urine Bacteria 3+, Coarse Granular Casts 0-5 SEEN, Urine Mucus 0 SEEN 02/27/25 17:22: Phosphorus 2.0 L, Magnesium 1.7, Iron 21 L, TIBC 207 L, Iron Saturation 10.1, Unsaturated IBC 186 L, Ferritin 1124 H, Troponin T Hi Sens 2 Hr 14, NT pro BNP II 245, b-Hydroxybutyric mmol/L 0.3, Blood Type B POSITIVE, Antibody Screen NEGATIVE, Crossmatch See Detail 02/27/25 20:09: POC Glucose 226 H 02/27/25 20:11: Lactic Acid 2.6 H*, Troponin T Hi Sens 4Hr 14, Vitamin B12 < 150 L, Serum Folate 15.90, Procalcitonin 11.50 H 02/27/25 22:57: Hgb 7.6 L, Hct 20.8 L 02/28/25 02:06: POC Glucose 160 H 02/28/25 02:58: WBC 5.9, RBC 1.78 L, Hgb 7.2 L, Hct 20.4 L, MCV 114.6 H D, MCH 40.4 H, MCHC 35.3 D, RDW Std Deviation TNP, RDW Coeff of Ryan TNP, Plt Count 72 L, MPV 11.9, Immature Gran % (Auto) 1.000 H, Neut % (Auto) 88.9 H, Lymph % (Auto) 8.2 L, Cannon % (Auto) 1.7, Eos % (Auto) 0.0, Baso % (Auto) 0.2, Absolute Neuts (auto) 5.2, Absolute Lymphs (auto) 0.48 L, Nucleated RBC % 0.5, Differential Comment SCANNED, Polychromasia RARE, Anisocytosis 2+, Macrocytosis 1+ 02/28/25 03:42: APTT 218.7 H*, Sodium 140, Potassium 3.8, Chloride 108, Carbon Dioxide 21.8, Anion Gap 11, BUN 19, Creatinine 0.86, Estim Creat Clear Calc 118.22, Est GFR (MDRD) Non-Af 97, BUN/Creatinine Ratio 22.4 H, Glucose 159 H, H emoglobin A1c 7.5 H, Calcium 8.1, Phosphorus 4.0, Total Bilirubin 1.96 H, AST 87 H, ALT 36, Alkaline Phosphatase 56, Total Protein 6.3, Albumin 3.8, Globulin 2.5, Albumin/Globulin Ratio 1.5 02/28/25 07:27: Hgb 7.5 L, Hct 21.4 L 02/28/25 07:56: POC Glucose 124 H 02/28/25 13:07: APTT 143.0 H* Micro: Microbiology 02/28/25 07:20 Sputum, Expectorated/Coughed Gram Stain - Final 02/28/25 07:20 Sputum, Expectorated/Coughed Respiratory Culture - Final 02/28/25 07:44 Stool Clostridioides difficile (PCR) - Final 02/28/25 07:44 Stool Stool Occult Blood (MARYBEL) - Final Occult Blood Positive 02/27/25 20:45 Nasal Secretion MRSA (PCR) - Final 02/27/25 20:15 Mucosa - Nasopharyngeal Respiratory Panel (PCR) - Final 02/27/25 15:55 Urine, Clean Catch Legionella Antigen - Final 02/27/25 15:55 Urine, Clean Catch Streptococcus pneumoniae Antigen (M - Final 02/27/25 15:30 Mucosa - Nose SARS-CoV-2, Influenza & RSV (PCR) - Final ABG Data ABG results: ABG 02/27/25 19:00 Specimen Type ART Sample Site L Radial pH 7.43 Bicarbonate Actual 21.5 L Total CO2 23 Base Excess -3 L O2 Saturation 96 O2 % 2.0 ABG pCO2 32.2 L ABG pO2 80 Casey Test Positive O2 Delivery Device Cannula Vent Mode Not entered Radiography Diagnostic Testing: Radiology Impression Chest X-Ray 02/27/25 14:57 IMPRESSION: Diffuse reticular opacities may reflect moderate pulmonary edema versus atypical pneumonia. Right lower lobe opacity may reflect atelectasis and/or pneumonia. Reading Location: [id number] Abdomen/Pelvis CT 02/27/25 16:05 IMPRESSION: No acute abnormality Reading [facility] Chest CTA 02/27/25 16:05 IMPRESSION: Pulmonary embolus on the right without elevation of the RV to LV ratio. A reading will be called. Reading [facility] Physical Exam Const alert, oriented x3 and no apparent distress Constitutional Narrative: Class III obesity General Appearance: cooperative HEENT normocephalic, moist oral mucous membranes and oropharynx normal Eyes EOMs intact bilaterally Neck supple and no JVD Lymph Lymphatic: no lymphedema noted Resp Resp Narrative: Mildly diminished breath sounds bibasilarly. No wheezes or crackles. On 2L of oxygen by nasal canula Cardio regular rate, regular rhythm, S1 normal heart sound, S2 normal heart sound and no murmurs Palpation: normal PMI GI normal to inspection, nondistended, normoactive bowel sounds and soft to palpation Extremity normal capillary refill, no clubbing, cyanosis or edema and no calf tenderness General Extremity: no tenderness to palpation of joints or extremities Skin General Skin Exam: no breakdown Neuro no focal motor deficits Motor Exam: general weakness Psych thought process normal and cooperative Appearance: appropriate Assessment & Plan Assessment/Plan (1) Pulmonary embolism: (2) Anemia requiring transfusions: (3) UTI (urinary tract infection): PLAN: Plan #Acute gastroenteritis * Admitted with a complaint of intractable nausea and vomiting * Procalcitonin was elevated. Urine also showed 3+ bacteria. Urine cultures pending. Currently on IV Zosyn. * Stool panel also pending. Hydrate gently with IV fluids. #Acute hypoxia due to acute pulmonary embolism * Patient has a history of recent DVT and at that been taking his anticoagulants as he showed. * He is on Eliquis and due to the self-pay cost of $1500 a month he had been rationing it to extend the duration. * found to have PE on admission * on heparin drip. * Will need discharge on Coumadin to the course prohibitive nurse of the direct oral anticoagulants * #Acute anemia: * Hemoglobin is 7.2. He did receive 1 unit of packed red blood cells. Iron panel showed iron deficiency anemia but ferritin was markedly elevated making it more of an anemia of chronic disease picture. The ferritin may also be an acute phase reactant. Stool for occult blood is positive so we will consult gastroenterology. * In Light of the PE will continue the heparin drip for now and hold it about 8 to 12 hours prior to him having EGD or colonoscopy. * Keep NPO past midnight * * #UTI: Urine cultures pending. On IV Zosyn. #Hyperglycemia * Patient reported to be diabetic but not on any medication. A1c is 7.5. Will monitor. Started On Lantus 10 units twice daily. * #Thrombocytopenia: * Platelets are 72 today. Platelets were 86 1 day ago. * Previous numbers are from 2020 and was normal then. Also on blood thinners now so at a higher risk of bleeding. Will monitor closely * * DVT prophylaxis: Not indicated as patient currently on heparin drip. Charges/Coding Visit Charges Inpatient E&M: 10986 [facility] Hosp L3
[2025-02-28] MEDS: Piperacil/Tazobactam 3.375 GM in 0.9% Normal Saline (50mL MB+) 50 ML IV ×2 (14:06→20:21)
--- NOTE | 2025-02-28 14:21 | CASEMGMT ---
Social Work SW assisted the patient in completing a POA and LW. A copy was put in the patients chart. RAMSES Bhatia
--- NOTE | 2025-02-28 15:56 | CHAPLAIN ---
Type of Pastoral Visit _x__ Initial Visit ___ Follow-up Visit ___ On-call Visit ___ General Patient Visit ___ Spiritual Assessment ___ Family Conference ___ Bereavement ___ Rapid Response ___ Code Blue ___ Other (describe below) Pastoral Care Referral From _x__ Patient ___ Family ___ Nurse ___ Physician ___ Freight Elevator Operator ___ District Manager Primary Care Sales ___ Other (describe below) Sacrament/Intervention _x__ Active listening ___ Anointing ___ Buddhism ___ Bereavement ___ Communion _x__ Quiana exploration ___ _x__ Life review _x__ Prayer ___ Reconciliation ___ Sacrament of Sick _x__ Supportive presence ___ Wedding ___ Other (describe below) Pastoral Comments patient is welcoming and talkative; pt asks questions of the transport rn; pt gives some life review, his perspective on being 'there for the grandchildren' and his personal spiritual beliefs; pt welcomes prayer and presence; pt expresses appreciation for the time given and spiritual care support
--- NOTE | 2025-02-28 18:05 | EX.PCM.CON.G ---
HPI Consult Data Date of Consult: 02/28/25 HPI Narrative Reason for Consultation: Anemia HPI Narrative: MITCH OLMOS, is a 64-year-old male with PMHx of RAHEEM (PAP intolerant), DM II (not on meds), Hx DVT/PE (non-compliant with Eliquis due to cost, taking reduced dose), HTN, presents to [facility] ED on 02/27/2025 with 24-hour onset of nausea, bilious emesis, mildly loose stools, and progressively worsening confusion. Reports dyspnea for months, acutely worse, and a cough. Family reports patient appeared ashen and pale, prompting ED visit. Lactic acidosis noted. Sinus tachycardia on EKG. Troponin 8. Admission Hemoglobin 7.2, MCV 121.4 (last Hgb 16.8 in 2020). Urine 3+ bacteria (no nitrites/LE/WBCs). Labs/Diagnostics: Labs ordered: Full viral panel, stool enteric/C. diff, beta-hydroxybutyrate, procalcitonin, iron panel, ferritin, Vitamin B12, folic acid, PT/INR/aPTT (implied with heparin initiation). Imaging/Procedures: CTA chest (no significant overload/effusions), blood cultures x 2 pending, urine culture pending, type and screen initiated, 1 unit PRBC administered. Medications/Therapies Initiated:?IV hydration, NPO (advance to clears when stable), IV PPI, Zosyn (dose x1 pending procalcitonin), Heparin drip, 1 unit PRBC. [facility] Medical History RAHEEM (obstructive sleep apnea) Morbid obesity Diabetes mellitus, type 2 DVT (deep venous thrombosis) Hypertension Home Medications ?Medication ?Instructions ?Recorded ?Last Taken ?Type apixaban 5 mg tablet 5 mg PO BID #74 tabs 01/18/20 02/26/25 15:00 Rx 10 mg aspirin 81 mg chewable tablet 81 mg PO DAILY@0800 blood thinner 01/18/20 Unknown History lisinopril 10 1 ea PO DAILY #30 tabs 01/18/20 Unknown Rx mg-hydrochlorothiazide 12.5 mg tablet Allergy/AdvReac Type Severity Reaction Status Date / Time No Known Allergies Allergy Verified 02/27/25 15:13 Family History Mother , in her 30s secondary to trauma/MVA. No medical history. MVA (motor vehicle accident) Family History other Surgical History Status post cholecystectomy History of tonsillectomy and adenoidectomy History of back surgery Social History household members: family Smoking Status: Never smoker alcohol intake: never substance use type: does not use ROS Constitutional Constitutional: Denies fatigue, fever(s), poor appetite, weight gain or weight loss Gastrointestinal Gastrointestinal: Denies belching, bloating, change in bowel habits, change in stool character, chewing difficulty, coffee ground emesis, constipation, cramping, diarrhea, dyspepsia, dysphagia, early satiety, excessive flatus, fecal incontinence, heartburn, hematemesis, hematochezia, hemorrhoids, loose stools, melena, nausea, odynophagia, rectal bleeding, tenesmus, vomiting or weight changes Physical Exam Const alert, oriented x3, no apparent distress and healthy appearing General Appearance: cooperative GI normal to inspection, nondistended, normoactive bowel sounds, soft to palpation, non-tender and non-distended Percussion: normal to percussion Rectal Exam: deferred Lab / Micro Data 02/28/25 07:27 02/28/25 03:42 Labs: Laboratory Results - last 24 hr 02/27/25 17:22: Phosphorus 2.0 L, Magnesium 1.7, Iron 21 L, TIBC 207 L, Iron Saturation 10.1, Unsaturated IBC 186 L, Ferritin 1124 H, Troponin T Hi Sens 2 Hr 14, NT pro BNP II 245, b-Hydroxybutyric mmol/L 0.3, Blood Type B POSITIVE, Antibody Screen NEGATIVE, Crossmatch See Detail 02/27/25 20:09: POC Glucose 226 H 02/27/25 20:11: Lactic Acid 2.6 H*, Troponin T Hi Sens 4Hr 14, Vitamin B12 < 150 L, Serum Folate 15.90, Procalcitonin 11.50 H 02/27/25 22:57: Hgb 7.6 L, Hct 20.8 L 02/28/25 02:06: POC Glucose 160 H 12/01/25 02:58: WBC 5.9, RBC 1.78 L, Hgb 7.2 L, Hct 20.4 L, MCV 114.6 H D, MCH 40.4 H, MCHC 35.3 D, RDW Std Deviation TNP, RDW Coeff of Ryan TNP, Plt Count 72 L, MPV 11.9, Immature Gran % (Auto) 1.000 H, Neut % (Auto) 88.9 H, Lymph % (Auto) 8.2 L, [place] % (Auto) 1.7, Eos % (Auto) 0.0, Baso % (Auto) 0.2, Absolute Neuts (auto) 5.2, Absolute Lymphs (auto) 0.48 L, Nucleated RBC % 0.5, Differential Comment SCANNED, Polychromasia RARE, Anisocytosis 2+, Macrocytosis 1+ 02/28/25 03:42: APTT 218.7 H*, Sodium 140, Potassium 3.8, Chloride 108, Carbon Dioxide 21.8, Anion Gap 11, BUN 19, Creatinine 0.86, Estim Creat Clear Calc 118.22, Est GFR (MDRD) Non-Af 97, BUN/Creatinine Ratio 22.4 H, Glucose 159 H, Hemoglobin A1c 7.5 H, Calcium 8.1, Phosphorus 4.0, Total Bilirubin 1.96 H, AST 87 H, ALT 36, Alkaline Phosphatase 56, Total Protein 6.3, Albumin 3.8, Globulin 2.5, Albumin/Globulin Ratio 1.5 02/28/25 07:27: Hgb 7.5 L, Hct 21.4 L 02/28/25 07:56: POC Glucose 124 H 02/28/25 13:07: APTT 143.0 H* 02/28/25 13:51: POC Glucose 158 H Micro: Microbiology 02/28/25 07:20 Sputum, Expectorated/Coughed Gram Stain - Final 02/28/25 07:20 Sputum, Expectorated/Coughed Respiratory Culture - Final 02/28/25 07:44 Stool Clostridioides difficile (PCR) - Final 02/28/25 07:44 Stool Stool Occult Blood (MARYBEL) - Final Occult Blood Positive 02/27/25 20:45 Nasal Secretion MRSA (PCR) - Final 02/27/25 20:15 Mucosa - Nasopharyngeal Respiratory Panel (PCR) - Final 02/27/25 15:55 Urine, Clean Catch Legionella Antigen - Final 02/27/25 15:55 Urine, Clean Catch Streptococcus pneumoniae Antigen (M - Final 02/27/25 15:30 Mucosa - Nose SARS-CoV-2, Influenza & RSV (PCR) - Final ABG Data ABG results: ABG 02/27/25 19:00 Specimen Type ART Sample Site L Radial pH 7.43 Bicarbonate Actual 21.5 L Total CO2 23 Base Excess -3 L O2 Saturation 96 O2 % 2.0 ABG pCO2 32.2 L ABG pO2 80 Casey Test Positive O2 Delivery Device Cannula Vent Mode Not entered Imaging Radiology Impression Echocardiogram 02/27/25 19:56 Interpretation Summary Mild concentric left ventricular hypertrophy. The left ventricular ejection fraction is 65 %. Stage 1 diastolic dysfunction. The study was technically difficult. Ordering Physician: Noemy Griggs Performed By: German Mojica RCS Assessment & Plan Assessment/Plan (1) Vomiting and diarrhea: (2) UTI (urinary tract infection): (3) Pulmonary embolism: (4) Thrombocytopenia: (5) Anemia requiring transfusions: PLAN: Acute febrile illness vs. acute gastroenteritis?with intractable nausea, emesis, loose stool, and lactic acidosis (likely secondary to dehydration/GI losses): Etiology unclear (infectious vs. other). Acute Hypoxia secondary to acute pulmonary embolism (PE)?(highly suspected given Hx DVT, non-compliance with Eliquis, worsening dyspnea, elevated troponin, and anemia contributing): PE not yet confirmed but strongly suspected. Acute macrocytic anemia of unclear etiology (Hgb 7.2, MCV 121.4):?Likely multifactorial (GI bleed suspected, nutritional deficiency possible). Complicates VTE management. Plan: GI/Infection (Dx/Tx): Continue IV hydration; maintain NPO status for now, advance as tolerated. Obtain full viral panel, stool enteric/C. difficile cultures. Continue Zosyn if procalcitonin is elevated; otherwise, hold pending further results. Continue IV PPI. Plan is for upper endoscopy tomorrow Cardio/Pulm/VTE (Dx/Tx): Consider initiate/continue heparin drip cautiously due to significant anemia (Hgb 7.2); closely monitor H&H. Anemia (Dx/Tx): Continue PRBC transfusion (1 unit initiated). Obtain guaiac, iron panel, ferritin, B12, folic acid levels. Trend H&H ( for monitoring during heparin/transfusion). Plan is for upper endoscopy tomorrow Portions of this note were generated using voice recognition software ([email or web address]). I have reviewed the contents and every effort has been made to ensure accuracy; however, inadvertent errors in grammar, spelling, punctuation, or word choice may occur, that were not noted before signing the document and should not alter the intended clinical meaning. Charges/Coding Visit Charges Inpatient E&M: 41313 Init Hosp L3
[2025-02-28] MEDS: Insulin Glargine-YFGN 100 UNIT/ML Pen 10 UNIT SC (20:20)
[2025-02-28 22:00] LABS: Partial Thromboplast Time 113.7 Seconds (24.1-36.2)
[2025-03-01] VITALS (15 sets, daily range): BP systolic 120–164; BP diastolic 63–83; PULSE 89–102; RESP 16–34; TEMP 36.1–37.1; O2SAT 93–100; BMI 46.9
[2025-03-01] MEDS: Piperacil/Tazobactam 3.375 GM in 0.9% Normal Saline (50mL MB+) 50 ML IV ×3 (05:19→20:50)
[2025-03-01 06:17] LABS: Hematocrit 17.7 % (40-54); Hemoglobin 6.2 g/dL (13.0-16.5); Immature Granulocytes Count 0.070 X10^3/uL (0.0-0.0); Mean Corp Hgb Conc 35.0 g/dL (32-36); Mean Corpuscular Volume 114.2 fL (80-94); Mean Platelet Vol. 10.1 fl (6.2-12.0); NRBC Flagged by Analyzer 0.6 % (0-5); POSITIVE COUNT YES; POSITIVE MORPHOLOGY YES; Platelet Count 71 K/mm3 (150-450); Red Blood Count 1.55 M/mm3 (4.6-6.2); White Blood Count 4.6 K/mm3 (4.4-11.0)
[2025-03-01 06:27] LABS: Partial Thromboplast Time 84.6 Seconds (24.1-36.2)
[2025-03-01 06:35] LABS: Prothrombin Time (Protime)PT. 15.6 SECONDS (11.7-14.9)
[2025-03-01 06:37] LABS: Anion Gap 9 (5-15); BUN 19 mg/dL (4-19); BUN/Creat Ratio 22.9 RATIO (10-20); Calcium,Total 8.2 mg/dL (7.6-11.0); Carbon Dioxide 22.8 mmol/L (21.0-32.0); Chloride 106 mmol/L (98-108); Estimated Creatinine Clearance 123.41 ml/min (50-250); Glucose 142 mg/dL (70-99); Potassium 3.5 mmol/L (3.3-5.1)
[2025-03-01 06:59] LABS: Differential Indicated SCAN CRITERIA MET
[2025-03-01 07:05] LABS: Anisocytosis 1+
[2025-03-01 07:06] LABS: Hypochromasia RARE
[2025-03-01] MEDS: Pantoprazole Sodium 40 MG in 0.9% Normal Saline (100mL MB+) 100 ML 330 MG IV ×2 (10:10→20:06)
--- NOTE | 2025-03-01 12:50 | PN_ITS ---
Subjective Subjective Patient seen and examined with his nurse by his bedside. He had no active complaints this morning. He is hemoglobin has dropped to 6.2 today. Stool for occult blood is positive. He has been transfused units of packed red blood cells this morning and heparin drip is on hold. He has been hemodynamically stable. Gastroenterology on board and for EGD today. Objective Data Objective Data Vital Signs: Vital Signs Temp Pulse Resp BP Pulse Ox O2 Del Method O2 Flow Rate 98.7 F 94 25 H 144/81 H 99 Nasal Cannula 2 03/01/25 11:35 03/01/25 11:35 03/01/25 11:35 03/01/25 11:35 03/01/25 11:35 03/01/25 11:35 03/01/25 11:35 Oxygen Flow Rate (L/min) 2 Oxygen Delivery Method Nasal Cannula Weight: 308 lb 10.354 oz Body Mass Index (BMI) 46.9 Intake & Output: Intake and Output for Last 24 Hours 02/27/25 02/28/25 03/01/25 23:59 23:59 23:59 Intake Total 3100 / 3100 3003.36 / 3003.36 288.88 / 288.88 Output Total 300 / 300 875 / 875 Balance 2800 / 2800 2128.36 / 2128.36 288.88 / 288.88 Lab / Micro Data 03/01/25 06:04 03/01/25 06:04 Labs: Laboratory Results - last 24 hr 02/27/25 17:22: Crossmatch See Detail 02/28/25 13:07: APTT 143.0 H* 02/28/25 13:51: POC Glucose 158 H 02/28/25 20:18: POC Glucose 152 H 02/28/25 21:25: APTT 113.7 H* 03/01/25 01:56: POC Glucose 142 H 03/01/25 06:04: WBC 4.6, RBC 1.55 L, Hgb 6.2 L, Hct 17.7 L, MCV 114.2 H, MCH 40.0 H, MCHC 35.0, RDW Std Deviation TNP, RDW Coeff of Ryan TNP, Plt Count 71 L, MPV 10.1, Immature Gran % (Auto) 1.500 H, Neut % (Auto) 78.2 H, Lymph % (Auto) 17.5 L, [place] % (Auto) 1.7, Eos % (Auto) 0.9, Baso % (Auto) 0.2, Absolute Neuts (auto) 3.6, Absolute Lymphs (auto) 0.81 L, Nucleated RBC % 0.6, Platelet Estimate MOD DEC, Hypochromasia RARE, Anisocytosis 1+, PT 15.6 H, INR 1.2, APTT 84.6 H, Sodium 138, Potassium 3.5, Chloride 106, Carbon Dioxide 22.8, Anion Gap 9, BUN 19, Creatinine 0.83, Estim Creat Clear Calc 123.41, Est GFR (MDRD) Non-Af 98, BUN/Creatinine Ratio 22.9 H, Glucose 142 H, Calcium 8.2 03/01/25 06:38: POC Glucose 134 H Micro: Microbiology 02/27/25 15:55 Urine, Clean Catch Urine Culture - Preliminary Culture exhibits no growth. 02/28/25 07:44 Stool Enteric Bacteriology - Final 02/28/25 07:44 Stool Stool Occult Blood (MARYBEL) - Final Occult Blood Positive 02/28/25 07:20 Sputum, Expectorated/Coughed Gram Stain - Final 02/28/25 07:20 Sputum, Expectorated/Coughed Respiratory Culture - Final 02/28/25 07:44 Stool Clostridioides difficile (PCR) - Final 02/27/25 20:45 Nasal Secretion MRSA (PCR) - Final 02/27/25 20:15 Mucosa - Nasopharyngeal Respiratory Panel (PCR) - Final 02/27/25 15:55 Urine, Clean Catch Legionella Antigen - Final 02/27/25 15:55 Urine, Clean Catch Streptococcus pneumoniae Antigen (M - Final 02/27/25 15:30 Mucosa - Nose SARS-CoV-2, Influenza & RSV (PCR) - Final Radiography Diagnostic Testing: Radiology Impression Echocardiogram 02/27/25 19:56 Interpretation Summary Mild concentric left ventricular hypertrophy. The left ventricular ejection fraction is 65 %. Stage 1 diastolic dysfunction. The study was technically difficult. Ordering Physician: Noemy Griggs Performed By: German Mojica RCS Physical Exam Const alert, oriented x3 and no apparent distress Constitutional Narrative: Class III obesity General Appearance: cooperative HEENT normocephalic, head/scalp atraumatic, moist oral mucous membranes and oropharynx normal Eyes EOMs intact bilaterally Neck supple and no JVD Lymph Lymphatic: no lymphedema noted Resp Resp Narrative: Mildly diminished breath sounds bibasilarly. No wheezes or crackles. On 2L of oxygen by nasal canula Cardio regular rate, regular rhythm, S1 normal heart sound, S2 normal heart sound and no murmurs Palpation: normal PMI GI normal to inspection, nondistended, normoactive bowel sounds and soft to palpation Extremity normal capillary refill, no clubbing, cyanosis or edema and no calf tenderness General Extremity: no tenderness to palpation of joints or extremities Skin General Skin Exam: no breakdown Neuro no focal motor deficits and no sensory deficits noted Motor Exam: general weakness Psych thought process normal and cooperative Appearance: appropriate Assessment & Plan Assessment/Plan (1) Pulmonary embolism: (2) Anemia requiring transfusions: (3) UTI (urinary tract infection): PLAN: Plan #Acute gastroenteritis * Admitted with a complaint of intractable nausea and vomiting * Procalcitonin was elevated. Urine also showed 3+ bacteria. Urine cultures pending. Currently on IV Zosyn. * Stool panel negative * #Acute hypoxia due to acute pulmonary embolism * Patient has a history of recent DVT and at that been taking his anticoagulants as he showed. * He is on Eliquis and due to the self-pay cost of $1500 a month he had been rationing it to extend the duration. * found to have PE on admission * on heparin drip. * Will need discharge on Coumadin to the course prohibitive nurse of the direct oral anticoagulants * Heparin drip held due to hemoglobin drop at 6.2 and patient having positive FOBT. He does need to be on blood thinners long-term. * #Acute anemia: * Hemoglobin is down to 6.2 toay. He did receive 1 unit of packed red blood cells. Iron panel showed iron deficiency anemia but ferritin was markedly elevated making it more of an anemia of chronic disease picture. The ferritin may also be an acute phase reactant. Stool for occult blood is positive so we will consult gastroenterology. * Heparin drip therefore held this morning and patient been transfused 2 units of packed red blood cells. On IV pantoprazole 40 mg twice daily. GI on board and for EGD today. * #UTI: . On IV Zosyn. Urine cultures negative. Will switch to oral antibiotics. #Hyperglycemia * Patient reported to be diabetic but not on any medication. A1c is 7.5. Will monitor. Started On Lantus 10 units twice daily. * #Thrombocytopenia: * Platelets are 71 today. * Previous numbers are from 2020 and was normal then. Also on blood thinners now so at a higher risk of bleeding. Will monitor closely * * DVT prophylaxis:heparin drip on hold. SCDs Charges/Coding Visit Charges Inpatient E&M: 37094 Subs Hosp L3
[2025-03-01 16:59] LABS: Hematocrit 23.7 % (40-54); Hemoglobin 8.2 g/dL (13.0-16.5)
[2025-03-01] MEDS: Lactated Ringers 1,000 ML 15 ML IV (17:19)
--- NOTE | 2025-03-01 17:33 | PRE.ANES_ITS ---
ASA Classification* ASA Classification ASA Classification: 3 and E Assessment & Plan Anesthesia* Anesthesia Assessment Anesthesia Assessment: Discussed sedation and/or anesthesia options, risks, benefits, and alternatives with patient/parents/legal guardian/POA. Questions invited. The patient/parents/legal guardian/POA seems to understand and agrees to proceed with anesthesia plan. Reviewed the physical assessment, medical history, allergy history and patient home medications list prior to surgery/procedure/anesthetic and documented any changes. Performed airway and anesthesia risk assessments. Anesthesia Type Anesthesia Type: MAC History Source History Obtained from:: Patient and Chart Anesthesia Focused Assessment* Temperature: 97.7 F Pulse Rate: 90 Blood Pressure: 145/77 Respiratory Rate: 28 Pulse Ox: 99 Oxygen Delivery Method: Nasal Cannula Oxygen Flow Rate (L/min): 2 Airway Assessment Mouth opens: >3 cm Mallampati Score: IV Teeth Condition: Chipped/Broken (Multiple chipped and broken.), Loose (Patient has a couple loose teeth.) and Missing (Multiple missing.) Neck Range of motion (ROM): Limited ROM (Somewhat Decreased) Labs Anesthesia Preop lab: CBC WBC, (4.4-11.0) 4.6 K/mm3 Today, 06:04 RBC, (4.6-6.2) 1.55 M/mm3 L Today, 06:04 Hgb, (13.0-16.5) 8.2 g/dL L Today, 16:45 Hct, (40-54) 23.7 % L Today, 16:45 Plt Count, (150-450) 71 K/mm3 L Today, 06:04 CHEMISTRY Potassium, (3.3-5.1) 3.5 mmol/L Today, 06:04 Sodium, (133-145) 138 mmol/L Today, 06:04 Magnesium, (1.5-2.2) 1.7 mg/dL 02/27/25, 17:22 Phosphorus, (2.7-4.5) 4.0 mg/dL 02/28/25, 03:42 BUN, (4-19) 19 mg/dL Today, 06:04 Creatinine, (0.70-1.20) 0.83 mg/dL Today, 06:04 Glucose, (70-99) 142 mg/dL H Today, 06:04 POC Glucose, (74-106) 146 mg/dL H Today, 14:09 COAG PT, (11.7-14.9) 15.6 SECONDS H Today, 06:04 Pre-Assessment Diagnosis/Proposed Procedure Planned Operative Procedure(s): Esophagogastroduodenoscopy with biopsy Anesthesia History Anesthesia History - sales account leader: Anesthesia History - sales account leader Hx Hospitalization Any Problems With Anesthesia Cholinesterase deficiency You/Your Family Experience fever (hyperthermia) with Relationship Recent Exposure to Contagious Disease Does patient have nerve stimulator Patient instructed to have device shut off --Does patient have Pacemaker or ICD? When Was Last Pacemaker Check QUESTION #4 FULL TEXT: You/Your Family Experience fever (hyperthermia) with Anesthesia Last Oral Intake Last Oral intake: Last Oral Intake NPO since 00:01 03/01/25 15:21 Meds taken in AM with sips of water? Meds patient instructed to take am of surgery PONV PONV - sales account leader: PONV - sales account leader Female HX of Motion Sickness HX of N/V After Surgery Non-Smoker Duration of Surgery greater than 60 minutes Number of Risk Factors PONV Score Height & Weight Height & Weight: Anesthesia: Height & Weight Height 5 ft 8 in 03/01/25 15:21 Weight: 140 kg 03/01/25 15:21 Body Mass Index (BMI) 46.9 03/01/25 15:21 Respiratory Assessment Respiratory Assessment - sales account leader: Respiratory Tract Infection Hx - sales account leader Hx Respiratory Tract Infection Any additional information?: Yes Hx Respiratory Tract Infection: No History of Anesthesia Respiratory Infection details: Patient was admitted with a pulmonary embolus. STOP Sleep Apnea STOP Sleep Apnea - sales account leader: STOP Sleep Apnea - sales account leader Hx Hypertension Yes 02/28/25 12:55 Hx Sleep Apnea No: undiagnosed 02/27/25 20:10 CPAP No 02/27/25 20:10 BIPAP No 02/27/25 20:10 Do you snore loudly (louder Yes 02/27/25 20:10 than talking or can be heard Do you often feel tired/ Yes 02/27/25 20:10 fatigued/ sleepy during daytime? Has anyone observed you stop Yes 02/27/25 20:10 breathing during sleep? STOP Results Positive 02/27/25 20:10 QUESTION #5 FULL TEXT : Do you snore loudly (louder than talking or can be heard through closed doors)? Tobacco Use History Tobacco Use History - sales account leader: Tobacco Use History - sales account leader Tobacco Use Smoking Status Never smoker 02/27/25 20:10 Hx Tobacco Use No 02/27/25 20:10 Years Smoking Packs Smoked per Day Smoking Cessation Date was within the last 15 years Hx Smoking Cessation Date Hx Smoking Cessation Counseling Hematologic Medial History Hematologic Hx - sales account leader: Hematologic Medical Hx - documentation spec Hx of Blood Transfusion No 02/27/25 20:10 Hx of Transfusion in last 3 No 02/27/25 20:10 Months Date of Last Transfusion (if within last 3 months) Ever experience any problems No 02/27/25 20:10 with transfusion(s)? Specify any problems Hx of Preganancy in last 3 N/A 02/27/25 20:10 Months Nurse Filling Out Transfusion RMAIBACH 02/27/25 20:10 & Questions: Date: 02/27/25 02/27/25 20:10 Time: 20:12 02/27/25 20:10 Patient unable to answer at Yes 02/27/25 20:10 this time (ie. confused, unrespo /Reproduction History /Reproductive History - sales account leader: /Reproductive Hx- sales account leader Hx Now Gestational Age (in weeks): EDC: Hx Hx Para Hx Section SAB Does the father of the baby or his family experience fever w Father of the baby Malignant Hypertension history comment Active Medications Active Medications: Current Medications Generic Name Dose Route Start Last Admin Trade Name Freq PRN Reason Stop Dose Admin Acetaminophen 650 mg 02/27/25 19:56 03/01/25 01:57 Acetaminophen 325 Mg Tablet PO 650 mg Q4H PRN PRN Administration Fever, pain 1-01/07 Al Hydroxide/Mg Hydroxide 30 ml 02/27/25 19:56 Mag Hydrox/Al Hydrox/Simeth 30 Ml Udc PO Q6H PRN PRN Gastric Burning Albuterol Sulfate 2.5 mg 02/27/25 19:56 Albuterol 2.5 Mg/3 Ml Vial.Neb. INHALATION Q2H PRN PRN Dyspnea, wheezing Calamine/Phenol 1 applic 02/27/25 22:00 03/01/25 14:38 Menthol/Lanolin/Calamine/Znox 113 Gm Tube TOPICAL Not Given 4X/DAY JOEL Protocol Glucagon 1 mg 02/27/25 19:56 Glucagon 1 Mg/Ml Syringe IM X1 PRN HYPOGLYCEMIA Protocol Guaifenesin 20 ml 02/27/25 19:56 Guaifenesin 10 Ml Udc (200mg/10ml) PO Q4H PRN PRN COUGH Heparin Sodium (Porcine) 0 unit 02/27/25 19:56 Heparin Nomogram Adjustment 5,000 Unit/Ml Vial IV UD PRN Dose Adjustment Protocol Hydralazine HCl 10 mg 02/27/25 19:56 Hydralazine 20 Mg/Ml Vial IV Q4H PRN PRN SBP > 160 Protocol Heparin Sodium/Dextrose 25,000 units in 250 mls @ 20.73 mls/hr 02/27/25 19:56 03/01/25 09:14 CONT INF Not Given .Q12H4M JOEL Protocol 15 UNIT/KG/HR Dextrose 250 mls @ 0 mls/hr 02/27/25 19:56 Dextrose 10%-Water IV .Q0M PRN HYPOGLYCEMIA Protocol As Directed Pantoprazole Sodium 40 mg/ 100 mls @ 330 mls/hr 02/27/25 20:00 03/01/25 10:33 Sodium Chloride IV Infused Q12 JOEL Infusion Sodium Chloride 500 mls @ 15 mls/hr 02/27/25 19:58 IV PRN PRN Blood Transfusion Sodium Chloride 250 mls @ 15 mls/hr 02/27/25 19:58 IV .[id number] PRN Saline Flush Sodium Chloride 250 mls @ 15 mls/hr 02/27/25 19:58 IV .[id number] PRN Additional IVPB Infusion Piperacillin Sod/Tazobactam 50 mls @ 12.5 mls/hr 02/28/25 14:00 03/01/25 14:06 Sod 3.375 gm/ Sodium Chloride IV 12.5 mls/hr Q8 JOEL Administration Lactated Ringer's 1,000 mls @ 15 mls/hr 03/01/25 17:15 03/01/25 17:19 IV 15 mls/hr .Q48H JOEL Administration Insulin Glargine 10 unit 02/27/25 22:00 03/01/25 09:14 Insulin Glargine-Yfgn 100 Unit/Ml Pen SC Not Given BID JOEL Insulin Human Lispro 0 unit 02/27/25 19:56 03/01/25 14:38 Insulin Lispro 100 Unit/Ml Insuln.Pen SC Not Given Q6H JOEL Protocol Melatonin 3 mg 02/27/25 19:56 Melatonin 3 Mg Tablet PO QHS PRN PRN INSOMNIA Nitroglycerin 0.4 mg 02/27/25 19:56 Nitroglycerin (Inpatient Use) 0.4 Mg Tab.Subl SL Q5M PRN CARDIAC/CHEST PAIN Ondansetron HCl 4 mg 02/27/25 19:56 Ondansetron 4 Mg/2 Ml Vial IV Q8H PRN PRN NAUSEA/VOMITING Sodium Chloride 10 - 40 ml 02/27/25 19:58 02/28/25 19:39 0.9% Saline Lock 10 Ml Syringe IV 10 ml UD PRN Administration SALINE FLUSH PFSH Medical History RAHEEM (obstructive sleep apnea) Morbid obesity Diabetes mellitus, type 2 DVT (deep venous thrombosis) Hypertension Home Medications ?Medication ?Instructions ?Recorded ?Last Taken ?Type apixaban 5 mg tablet 5 mg PO BID #74 tabs 2 0 02/26/25 15:00 Rx 10 mg aspirin 81 mg chewable tablet 81 mg PO DAILY@0800 bloo d thinner 01/18/20 Unknown History lisinopril 10 1 ea PO DAILY #30 tabs 01/17 Unknown Rx mg-hydrochlorothiazide 12.5 mg tablet Allergy/AdvReac Type Severity Reaction Status Date / Time No Known Allergies Allergy Verified 02/27/25 15:13 Family History Mother , in her 30s secondary to trauma/MVA. No medical history. MVA (motor vehicle accident) Family History other Surgical History Status post cholecystectomy History of tonsillectomy and adenoidectomy History of back surgery Social History household members: family Smoking Status: Never smoker alcohol intake: never substance use type: does not use Review of Systems (Anesthesia) ROS Narrative System reviewed and no additional complaints, except as documented.
--- NOTE | 2025-03-01 17:43 | EKG12_ITS ---
Test Reason : P Blood Pressure : */* mmHG Vent. Rate : 97 BPM Atrial Rate : 97 BPM P-R Int : 138 ms QRS Dur : 88 ms QT Int : 370 ms P-R-T Axes : 42 31 40 degrees QTcB Int : 469 ms Normal sinus rhythm Nonspecific T wave abnormality Prolonged QT Abnormal ECG When compared with ECG of 27-Feb-2025 14:22, T wave inversion no longer evident in Lateral leads Reconfirmed by Wilfrido Verdin ([id number]), scientific publications editor BETO FARRELL ([id number]) on 03/09/2025 9:50:10 AM Referred By: DAMIAN Confirmed By: Wilfrido Verdin
--- NOTE | 2025-03-01 18:34 | PCM.POST.ANE ---
Anesthesia: Postop Eval I Current Vital Signs Temperature: 97.9 F Pulse Rate: 100 Blood Pressure: 137/68 Respiratory Rate: 16 Pulse Ox: 96 Oxygen Delivery Method: Nasal Cannula Oxygen Flow Rate (L/min): 2 Assessment Airway patent: Yes Spontaneous unlabored respirations: Yes Mental status: Awake and Calm nausea: No Vomiting: No Anesthesia Complication: No Fluid Hydration Crystalloid volume administer (ml): 300 Total IV fluid infused: 300 Progress Note Anesthesia document: Postop Eval 1 completed: Yes
--- NOTE | 2025-03-01 18:35 | OP.EGD_ITS ---
Patient Name: Robert Irvin Procedure Date: 03/01/2025 6:06 PM Date of : 1960 Age: 64 Procedure: Upper GI endoscopy Indications: Coffee-ground emesis, Cirrhosis with suspected esophageal varices, Suspected gastric varices Providers: Niranjan Parsons DO Medicines: Monitored Anesthesia Care Patient Profile: This is a 64 year old male. Refer to note in patient chart for documentation of history and physical. Patient has symptoms of acute vomiting. Complications: No immediate complications. Procedure: Pre-Anesthesia Assessment: - Prior to the procedure, a History and Physical was performed, and patient medications and allergies were reviewed. The patient is competent. The risks and benefits of the procedure and the sedation options and risks were discussed with the patient. All questions were answered and informed consent was obtained. Patient identification and proposed procedure were verified by the physician in the pre-procedure area. Mental Status Examination: alert and oriented. Airway Examination: normal oropharyngeal airway and neck mobility. Respiratory Examination: clear to auscultation. CV Examination: normal. Prophylactic Antibiotics: The patient does not require prophylactic antibiotics. Prior Anticoagulants: The patient has taken heparin, last dose was day of procedure. ASA Grade Assessment: III - A patient with severe systemic disease. After reviewing the risks and benefits, the patient was deemed in satisfactory condition to undergo the procedure. The anesthesia plan was to use monitored anesthesia care (MAC). Immediately prior to administration of medications, the patient was re-assessed for adequacy to receive sedatives. The heart rate, respiratory rate, oxygen saturations, blood pressure, adequacy of pulmonary ventilation, and response to care were monitored throughout the procedure. The physical status of the patient was re-assessed after the procedure. After obtaining informed consent, the endoscope was passed under direct vision. Throughout the procedure, the patient's blood pressure, pulse, and oxygen saturations were monitored continuously. The Endoscope was introduced through the mouth, and advanced to the third part of the duodenum. Small bowel enteroscopy was deemed necessary. The upper GI endoscopy was accomplished without difficulty. The patient tolerated the procedure well. Scope In: 6:17:37 PM Scope Out: 6:24:58 PM Total Procedure Duration Time 0 hours 7 minutes 21 seconds Findings: The examined esophagus was normal. Type 1 isolated gastric varices (IGV1, varices located in the fundus) with oozing blood were found in the gastric fundus. There were stigmata of recent bleeding. They were 5 mm in largest diameter. Coagulation for hemostasis using heater probe was successful. Estimated blood loss was minimal. No gross lesions were noted in the entire examined duodenum. Two 5 mm angiodysplastic lesions with no bleeding were found on the lesser curvature of the stomach. Coagulation for destruction of remaining portion of lesion using heater probe was successful. Estimated blood loss was minimal. Impression: - Normal esophagus. - Type 1 isolated gastric varices (IGV1, varices located in the fundus), oozing blood. Treated with a heater probe. - No gross lesions in the entire examined duodenum. - No specimens collected. Recommendation: - [facility]. - Full liquid diet. - Continue present medications. -Patient had very small gastric varices and small angiodysplastic lesions that cannot explain his anemia. He has a macrocytic anemia with thrombocytopenia small gastric varices along with hepatosplenomegaly on his CT scan abdomen pelvis. I suspect that he has portal hypertension. Could be preportal hypertension from blood clot around the portal system versus portal hypertension from intrinsic liver disease like cirrhosis. The other reason would be posthepatic portal hypertension from heart disease or lung disease. I would get a CT angiography of the abdomen pelvis and consider colonoscopy due to his history of thrombosis from unknown cause and he has never had a colonoscopy. Procedure Code(s): --- Professional --- 83140, Small intestinal endoscopy, enteroscopy beyond second portion of duodenum, not including ileum; with control of bleeding (eg, injection, bipolar cautery, unipolar cautery, laser, heater probe, stapler, plasma quality assurance lead) CPT copyright 2021 [employer]. All rights reserved. The codes documented in this report are preliminary and upon five piece expansion maker hand review may be revised to meet current compliance requirements. Niranjan Parsons DO 03/01/2025 6:35:17 PM This report has been signed electronically. Number of Addenda: 0 Note Initiated On: 03/01/2025 6:06 PM
--- NOTE | 2025-03-01 18:36 | OP.PROVAT_ITS ---
03/01/2025 Priyank Quinones [address] [place] [address] Re : Upper GI endoscopy procedure for Robert Irvin Dear Dr. Quinones This procedure was performed on Saturday, March 01, 2025. My impressions and recommendations are as follows: Impressions : - Normal esophagus. - Type 1 isolated gastric varices (IGV1, varices located in the fundus), oozing blood. Treated with a heater probe. - No gross lesions in the entire examined duodenum. - No specimens collected. Recommendations : - [facility]. - Full liquid diet. - Continue present medications. -Patient had very small gastric varices and small angiodysplastic lesions that cannot explain his anemia. He has a macrocytic anemia with thrombocytopenia small gastric varices along with hepatosplenomegaly on his CT scan abdomen pelvis. I suspect that he has portal hypertension. Could be preportal hypertension from blood clot around the portal system versus portal hypertension from intrinsic liver disease like cirrhosis. The other reason would be posthepatic portal hypertension from heart disease or lung disease. I would get a CT angiography of the abdomen pelvis and consider colonoscopy due to his history of thrombosis from unknown cause and he has never had a colonoscopy. My findings are described in the full procedure note, which is enclosed. If I can be of further assistance, please feel free to contact me at . Sincerely, Niranjan Friend, 03/01/2025 6:35:17 PM This report has been signed electronically.
--- NOTE | 2025-03-01 19:08 | PCM.POSTANE2 ---
Anesthesia Postop Eval I Sum Postop Eval Completion status Anesthesia document: Postop Eval 1 completed: Yes Anesthesia Postop Eval I Summary Anesthesia Postop Eval I Summary: Anesthesia Postop Eval I: Assessment Summary Airway patent Yes 03/01/25 18:37 Spontaneous unlabored Yes 03/01/25 18:37 respirations Mental status Awake,Calm 03/01/25 18:37 nausea No 03/01/25 18:37 Vomiting No 03/01/25 18:37 Anesthesia Postop Eval I: Fluid Summary Crystalloid volume administer 300 03/01/25 18:37 (ml) Colloids volume administered ( ml) Blood Product volume administered (ml) Total IV fluid infused 300 03/01/25 18:37 Anesthesia Postop Eval I: Summary Notes Anesthesia Complication No 03/01/25 18:37 Anesthesia Complication Comment: Post-operative progress note Anesthesia: Postop Eval II Evaluation Mental status: Awake and Calm Pain Level: 0 nausea: No Vomiting: No Complications Anesthesia Complication: No
[2025-03-01] MEDS: 0.9% Saline Lock 10 ML Syringe IV (20:06)
[2025-03-01] MEDS: HEPARIN/D5w 25,000 UNITS 25,000 UNITS/250 ML IV.SOLN. 10.7 UNITS CONT INF (23:13)
[2025-03-02 02:37] LABS: Anion Gap 9 (5-15); BUN 21 mg/dL (4-19); BUN/Creat Ratio 25.8 RATIO (10-20); Calcium,Total 8.6 mg/dL (7.6-11.0); Carbon Dioxide 24.1 mmol/L (21.0-32.0); Chloride 106 mmol/L (98-108); Estimated Creatinine Clearance 128.04 ml/min (50-250); Glucose 104 mg/dL (70-99); Potassium 3.5 mmol/L (3.3-5.1)
[2025-03-02 02:38] LABS: Partial Thromboplast Time 61.0 Seconds (24.1-36.2)
[2025-03-02 03:06] LABS: Hematocrit 23.1 % (40-54); Hemoglobin 7.9 g/dL (13.0-16.5); Immature Granulocytes Count 0.050 X10^3/uL (0.0-0.0); Mean Corp Hgb Conc 34.2 g/dL (32-36); Mean Corpuscular Volume 106.0 fL (80-94); Mean Platelet Vol. 11.7 fl (6.2-12.0); NRBC Flagged by Analyzer 0.5 % (0-5); POSITIVE COUNT YES; POSITIVE MORPHOLOGY YES; Platelet Count 66 K/mm3 (150-450); Red Blood Count 2.18 M/mm3 (4.6-6.2); White Blood Count 5.5 K/mm3 (4.4-11.0)
[2025-03-02 03:10] LABS: Differential Indicated SCAN CRITERIA MET
[2025-03-02 03:40] LABS: Differential Comment SCANNED; Reactive Lymphocyte RARE
[2025-03-02 03:45] VITALS: BMI 46.7
[2025-03-02 05:00] VITALS: BP 169/76; PULSE 89; RESP 17; TEMP 36.1; O2SAT 100
[2025-03-02] MEDS: Piperacil/Tazobactam 3.375 GM in 0.9% Normal Saline (50mL MB+) 50 ML IV ×3 (05:03→22:11)
[2025-03-02] MEDS: 0.9% Saline Lock 10 ML Syringe IV ×2 (05:04→21:20)
[2025-03-02 08:44] LABS: Partial Thromboplast Time 55.0 Seconds (24.1-36.2)
[2025-03-02] MEDS: Pantoprazole Sodium 40 MG in 0.9% Normal Saline (100mL MB+) 100 ML 330 MG IV ×2 (09:59→21:30)
[2025-03-02] MEDS: Insulin Glargine-YFGN 100 UNIT/ML Pen 10 UNIT SC (10:01)
--- NOTE | 2025-03-02 10:50 | CT_ITS ---
PROCEDURE: CTA ABD/PELVIS W/WO CONTRAST 03/02/2025 REASON FOR EXAM: , ANEMIA TECHNIQUE: Procedure Code: [id number] Modality: CT Procedure: CTA ABD/PELVIS W/WO CONTRAST Multiplanar Sagittal and Coronal images were obtained. CONTRAST: Isovue 370 VOLUME: 98 mL One or more dose reduction techniques were used (e.g., Automated exposure control, adjustment of the mA and/or kV according to patient size, use of iterative reconstruction technique). RADIATION DOSE SUMMARY: CTDlvol: 24.18 mGy DLP: 1501.59 mGycm COMPARISON: CT abdomen and pelvis February 27, 2025. FINDINGS: Aorta: No aneurysm. No dissection. Iliac Arteries: Unremarkable Celiac: Unremarkable SMA: Unremarkable. CYRUS : Unremarkable. Right Renal: Unremarkable. Left Renal: Unremarkable. Extravascular Findings: Liver steatosis. The spleen, adrenal glands, kidneys, gallbladder, pancreas are unremarkable. No free fluid or free air. No acute bony abnormalities. Colonic diverticulosis without evidence of acute diverticulitis. CT/CTA Abd/Pelvis W/WO Contrast IMPRESSION: Unremarkable CTA of the abdomen and pelvis without acute findings. Colonic diverticulosis with no evidence of acute diverticulitis. Reading Location: [facility]
--- NOTE | 2025-03-02 11:07 | PN_ITS ---
Subjective Subjective Patient seen and examined. His nurse was by his bedside. He had no complaints and had an uneventful night. He had a EGD yesterday which did not show any evidence of active bleeding. He has remained hemodynamically stable. Heparin drip was restarted last night. GI is planning for colonoscopy tomorrow. Objective Data Objective Data Vital Signs: Vital Signs Temp Pulse Resp BP Pulse Ox O2 Del Method O2 Flow Rate 96.9 F L 89 17 169/76 H 100 Nasal Cannula 2 03/02/25 05:00 03/02/25 05:00 03/02/25 05:00 03/02/25 05:00 03/02/25 05:00 03/02/25 10:00 03/02/25 10:00 Oxygen Flow Rate (L/min) 2 Oxygen Delivery Method Nasal Cannula Weight: 307 lb 12.245 oz Body Mass Index (BMI) 46.7 Intake & Output: Intake and Output for Last 24 Hours 02/28/25 03/01/25 03/02/25 23:59 23:59 23:59 Intake Total 3003.36 / 3003.36 2272.41 / 2272.41 303.97 / 303.97 Output Total 875 / 875 Balance 2128.36 / 2128.36 2272.41 / 2272.41 303.97 / 303.97 Lab / Micro Data 03/02/25 02:00 03/02/25 02:00 Labs: Laboratory Results - last 24 hr 02/27/25 17:22: Crossmatch See Detail 03/01/25 14:09: POC Glucose 146 H 03/01/25 16:45: Hgb 8.2 L, Hct 23.7 L 03/01/25 20:08: POC Glucose 129 H 03/02/25 02:00: WBC 5.5, RBC 2.18 L, Hgb 7.9 L, Hct 23.1 L, MCV 106.0 H D, MCH 36.2 H, MCHC 34.2, RDW Std Deviation TNP, RDW Coeff of Ryan TNP, Plt Count 66 L, MPV 11.7, Immature Gran % (Auto) 0.900, Neut % (Auto) 71.4 H, Lymph % (Auto) 23.3, [place] % (Auto) 1.8, Eos % (Auto) 2.2, Baso % (Auto) 0.4, Absolute Neuts (auto) 3.9, Absolute Lymphs (auto) 1.28, Nucleated RBC % 0.5, Differential Comment SCANNED, Reactive Lymphocytes RARE, APTT 61.0 H, Sodium 139, Potassium 3.5, Chloride 106, Carbon Dioxide 24.1, Anion Gap 9, BUN 21 H, Creatinine 0.80, Estim Creat Clear Calc 128.04, Est GFR (MDRD) Non-Af 99, BUN/Creatinine Ratio 25.8 H, Glucose 104 H, Calcium 8.6 03/02/25 06:22: POC Glucose 115 H 03/02/25 08:22: APTT 55.0 H Micro: Microbiology 02/27/25 15:55 Urine, Clean Catch Urine Culture - Final Culture exhibits no growth. 02/28/25 07:44 Stool Enteric Bacteriology - Final 02/28/25 07:44 Stool Stool Occult Blood (MARYBEL) - Final Occult Blood Positive 02/28/25 07:20 Sputum, Expectorated/Coughed Gram Stain - Final 02/28/25 07:20 Sputum, Expectorated/Coughed Respiratory Culture - Final 02/28/25 07:44 Stool Clostridioides difficile (PCR) - Final 02/27/25 20:45 Nasal Secretion MRSA (PCR) - Final 02/27/25 20:15 Mucosa - Nasopharyngeal Respiratory Panel (PCR) - Final 02/27/25 15:55 Urine, Clean Catch Legionella Antigen - Final 02/27/25 15:55 Urine, Clean Catch Streptococcus pneumoniae Antigen (M - Final 02/27/25 15:30 Mucosa - Nose SARS-CoV-2, Influenza & RSV (PCR) - Final Physical Exam Const alert, oriented x3 and no apparent distress Constitutional Narrative: Class III obesity General Appearance: cooperative HEENT normocephalic, head/scalp atraumatic, moist oral mucous membranes and oropharynx normal Eyes EOMs intact bilaterally Neck supple and no JVD Lymph Lymphatic: no lymphedema noted Resp Resp Narrative: Mildly diminished breath sounds bibasilarly. No wheezes or crackles. On 2L of oxygen by nasal canula Cardio regular rate, regular rhythm, S1 normal heart sound, S2 normal heart sound and no murmurs Palpation: normal PMI GI normal to inspection, nondistended, normoactive bowel sounds and soft to palpation Extremity normal capillary refill, no clubbing, cyanosis or edema and no calf tenderness General Extremity: no tenderness to palpation of joints or extremities Skin General Skin Exam: no breakdown Neuro no focal motor deficits and no sensory deficits noted Motor Exam: general weakness Psych thought process normal and cooperative Appearance: appropriate Assessment & Plan Assessment/Plan (1) Pulmonary embolism: (2) Anemia requiring transfusions: (3) UTI (urinary tract infection): PLAN: Plan #Acute gastroenteritis * Admitted with a complaint of intractable nausea and vomiting * Procalcitonin was elevated. Urine also showed 3+ bacteria. Urine cultures negative. Currently on IV Zosyn. * Stool panel negative * diarrhea has resovled. Complete a 5 day course of antibiotics. * #Acute hypoxia due to acute pulmonary embolism * Patient has a history of recent DVT and at that been taking his anticoagulants as he showed. * He is on Eliquis and due to the self-pay cost of $1500 a month he had been rationing it to extend the duration. * found to have PE on admission * on heparin drip. * Will need discharge on Coumadin to the course prohibitive nurse of the direct oral anticoagulants * Heparin drip held due to hemoglobin drop at 6.2 and patient having positive FOBT. He does need to be on blood thinners long-term. * #Acute anemia: * Hemoglobin is down to 6.2 toay. He did receive 1 unit of packed red blood cells. Iron panel showed iron deficiency anemia but ferritin was markedly elevated making it more of an anemia of chronic disease picture. The ferritin may also be an acute phase reactant. Stool for occult blood is positive so we will consult gastroenterology. * Heparin drip therefore held this morning and patient been transfused 2 units of packed red blood cells. On IV pantoprazole 40 mg twice daily. * GI on board; had EGD which showed type I isolated gastric varices which were oozing blood and treated with heater probe. * GI concerned about possible portal hypertension as he has small gastric varices. CTA abdomen/pelvis ordered. * #UTI: . On IV Zosyn. Urine cultures negative. complete 5 days of antibiotics #Hyperglycemia * Patient reported to be diabetic but not on any medication. A1c is 7.5. Will monitor. Started On Lantus 10 units twice daily. * #Thrombocytopenia: * Platelets are further down to 66 today. Aetiology for the low platelets is unclear. * Previous numbers are from 2020 and was normal then. Also on blood thinners now so at a higher risk of bleeding. Will monitor closely * wth him being on heparin, there is a concern for HASEEB. Will order heparin antibody screen. Platelets were 85 when he came in. * will order the heparin antibodies. Per the 4T score, patient has a low probability for HIT. His platelets were already low on admission at 85, and is currently 65. Therefore platelets havent fallen as low as 50%. He does not have any new thrombosis either and other causes of the thrombocytopenia could be the concern for liver disease. As such his 4T score is 0 * however will place him on bivalirudin drip, per discussion with pharmacy. Consider switch to oral coumadin after colonoscopy * * DVT prophylaxis:heparin drip dc'd due to low platelets. On bivalirudin Charges/Coding Visit Charges Inpatient E&M: 15555 Subs Hosp L2
[2025-03-02 12:00] VITALS: BP 140/92; PULSE 78; RESP 23; TEMP 36.3; O2SAT 100
--- NOTE | 2025-03-02 13:28 | EX.PCM.CON.S ---
Documented by User: [email or web address] Allan 03/02/25 17:02 Assessment & Plan Assessment/Plan (1) Pulmonary embolism: (2) Anemia requiring transfusions: (3) Thrombocytopenia: PLAN: Plan Discussed patient's case with GI; although he had some small gastric varices, these are not felt to be sufficient to explain his degree of anemia. He has thrombocytopenia of as yet undetermined origin which may be contributing. He has ongoing anemia and uncertain ability to tolerate anticoagulation. He also has a history significant for multiple recurrent unprovoked VTE and had identified acute PE this admission. For these reasons, IVC filter placement is recommended. Unfortunately, Dr. Devi is out of town this week and so IVC filter is unable to be placed at our facility and he will require transfer for this. I had a long, extensive discussion with the patient and his son Jj via phone regarding the above findings, the recommendation for IVC filter placement, IVC filter insertion procedure details including risks/benefits, alternatives. All of their questions/concerns were addressed to their apparent satisfaction. Ultimately, he was agreeable to transfer for IVC filter placement and continued further workup of his anemia. This was discussed with his hospitalist Dr. Torres and his nurse. Will continue to follow while he is here and be available for further questions/concerns as needed. HPI Consult Data Date of Consult: 03/02/25 HPI Narrative HPI Narrative: MITCH OLMOS, is a 64 M who presented to the [facility] ER on 02/27/25 with general malaise,confusion, ill-appearance with report of vomiting, diarrhea, and shortness of breath. Workup revealed significant anemia with Hgb 7.2, also notable thrombocytopenia with PLT 86 on admit, unremarkable WBC. He had CTA Chest secondary to SOB which did reveal small, distal R PE. He does have a history of recurrent unprovoked DVT for which he is supposed to be chronically anticoagulated with Eliquis; however, he admits that due to cost he has been taking the Eliquis only once daily at most to stretch his supply. He does not have a diagnosed hypercoagulable disorder by report. We are consulted for consideration of IVC filter placement given anemia requiring anticoagulation to be held, history of recurrent VTE, and acute PE. Through the course of his hospitalization so far, he has received 3 units PRBC. His Hgb this morning was 7.9. He did have endoscopy yesterday which demonstrated small gastric varices that were treated with heater probe. His PLT have continued to decrease, 66 today. Due to his anemia and low PLTs heparin has been discontinued; testing for HIIT is being performed, but platelets were low on admission as well prior to heparin administration. [facility] Medical History RAHEEM (obstructive sleep apnea) Morbid obesity Diabetes mellitus, type 2 DVT (deep venous thrombosis) Hypertension Home Medications ?Medication ?Instructions ?Recorded ?Last Taken ?Type apixaban 5 mg tablet 5 mg PO BID #74 tabs 01/18/20 02/26/25 15:00 Rx 10 mg aspirin 81 mg chewable tablet 81 mg PO DAILY@0800 blood thinner 01/18/20 Unknown History lisinopril 10 1 ea PO DAILY #30 tabs 01/18/20 Unknown Rx mg-hydrochlorothiazide 12.5 mg tablet Allergy/AdvReac Type Severity Reaction Status Date / Time No Known Allergies Allergy Verified 02/27/25 15:13 Family History Mother , in her 30s secondary to trauma/MVA. No medical history. MVA (motor vehicle accident) Family History other Surgical History Status post cholecystectomy History of tonsillectomy and adenoidectomy History of back surgery Social History household members: family Smoking Status: Never smoker alcohol intake: never substance use type: does not use Physical Exam Const alert, oriented x3 and no apparent distress HEENT head/scalp atraumatic, hearing grossly normal bilaterally, external ears normal and external nose normal Eyes General Eye: normal appearance of both eyes Neck General: normal visual inspection and trachea midline Resp Resp Narrative: on supplemental O2 via NC Effort and Inspection: able to speak in complete sentences Cardio regular rate Extremity General Extremity: edema bilateral lower extremity Details: mild Skin no rashes or lesions noted Trauma: no lacerations or abrasions Neuro oriented x3 and moves all extremities Speech: speech normal Psych mental status grossly normal Appearance: grossly normal Attitude: calm Speech: normal speech Lab / Micro Data 03/04/25 03:59 03/04/25 03:39 Labs: Laboratory Results - last 24 hr 02/27/25 17:22: Crossmatch See Detail 03/01/25 14:09: POC Glucose 146 H 03/01/25 16:45: Hgb 8.2 L, Hct 23.7 L 03/01/25 20:08: POC Glucose 129 H 03/02/25 02:00: WBC 5.5, RBC 2.18 L, Hgb 7.9 L, Hct 23.1 L, MCV 106.0 H D, MCH 36.2 H, MCHC 34.2, RDW Std Deviation TNP, RDW Coeff of Ryan TNP, Plt Count 66 L, MPV 11.7, Immature Gran % (Auto) 0.900, Neut % (Auto) 71.4 H, Lymph % (Auto) 23.3, [place] % (Auto) 1.8, Eos % (Auto) 2.2, Baso % (Auto) 0.4, Absolute Neuts (auto) 3.9, Absolute Lymphs (auto) 1.28, Nucleated RBC % 0.5, Differential Comment SCANNED, Reactive Lymphocytes RARE, APTT 61.0 H, Sodium 139, Potassium 3.5, Chloride 106, Carbon Dioxide 24.1, Anion Gap 9, BUN 21 H, Creatinine 0.80, Estim Creat Clear Calc 128.04, Est GFR (MDRD) Non-Af 99, BUN/Creatinine Ratio 25.8 H, Glucose 104 H, Calcium 8.6 03/02/25 06:22: POC Glucose 115 H 03/02/25 08:22: APTT 55.0 H 03/02/25 12:11: POC Glucose 118 H Micro: Microbiology 03/01/25 20:38 Sputum, Expectorated/Coughed Gram Stain - Final 02/27/25 15:55 Urine, Clean Catch Urine Culture - Final Culture exhibits no growth. Imaging Radiology Impression Abdomen/Pelvis CTA 03/02/25 10:50 IMPRESSION: Unremarkable CTA of the abdomen and pelvis without acute findings. Colonic diverticulosis with no evidence of acute diverticulitis. Reading Location: [id number] Charges/Coding Visit Charges Inpatient E&M: 71120 Init Hosp L1 Documented by User: Dr. Dm Devi MD 03/07/25 13:07 Assessment & Plan Assessment/Plan (1) Pulmonary embolism: (2) Anemia requiring transfusions: (3) Thrombocytopenia: HPI Consult Data Date of Consult: 03/07/25 [facility] Medical History RAHEEM (obstructive sleep apnea) Morbid obesity Diabetes mellitus, type 2 DVT (deep venous thrombosis) Hypertension Home Medications ?Medication ?Instructions ?Recorded ?Last Taken ?Type apixaban 5 mg tablet 5 mg PO BID #74 tabs 01/18/20 02/26/25 15:00 Rx 10 mg aspirin 81 mg chewable tablet 81 mg PO DAILY@0800 blood thinner 01/18/20 Unknown History lisinopril 10 1 ea PO DAILY #30 tabs 01/18/20 Unknown Rx mg-hydrochlorothiazide 12.5 mg tablet Allergy/AdvReac Type Severity Reaction Status Date / Time No Known Allergies Allergy Verified 02/27/25 15:13 Family History Mother , in her 30s secondary to trauma/MVA. No medical history. MVA (motor vehicle accident) Family History other Surgical History Status post cholecystectomy History of tonsillectomy and adenoidectomy History of back surgery Social History household members: family Smoking Status: Never smoker alcohol intake: never substance use type: does not use Lab / Micro Data 03/04/25 03:59 03/04/25 03:39
[2025-03-02 15:00] VITALS: PULSE 120
[2025-03-02] MEDS: BIVALIRUDIN IV (15:15)
[2025-03-02] MEDS: NORMAL SALINE 0.9% IV (15:15)
--- NOTE | 2025-03-02 17:17 | PN_ITS ---
Progress Note 64-year-old male with a past medical history of DVT, currently on a heparin drip for new bilateral pulmonary emboli (PE), presents with weakness, shortness of breath, vomiting, and hematemesis. Patient states he was previously prescribed Eliquis but discontinued due to cost. Patient has known anemia of unknown origin and has never had a colonoscopy. imaging/Procedures: * Diagnosed with new bilateral PEs. * Upper endoscopy performed yesterday showed small gastric varices, but no active bleeding or stigmata was noted in the upper GI tract? Physical Exam Const alert, oriented x3, no apparent distress and healthy appearing General Appearance: cooperative GI normal to inspection, nondistended, normoactive bowel sounds, soft to palpation, non-tender and non-distended Percussion: normal to percussion Rectal Exam: deferred Assessment & Plan Assessment/Plan (1) Pulmonary embolism: (2) Thrombocytopenia: (3) Anemia requiring transfusions: (4) Bilious emesis: PLAN: * Bilateral Pulmonary Emboli:?New diagnosis in a patient with a history of DVT and inability to afford prescribed Eliquis . Anticoagulation is currently halted due to bleeding. * Upper GI Bleed/Anemia:?Patient experiencing vomiting and hematemesis. Endoscopy did not reveal active bleeding from small gastric varices. Anemia of unknown origin is present . * Gastrointestinal Bleeding Risk:?High risk due to current bleeding symptoms, anemia, and need for anticoagulation for PEs. * Inability to Afford Medication:?Social/economic factor contributing to current PE recurrence. Plan: * Cardiology/Pulmonology: * Continue supportive care for bilateral PEs. * Transfer patient for IVC filter placement as planned by Vascular Surgery to prevent further embolization given current contraindication to anticoagulation . * Gastroenterology: * Monitor for further signs of GI bleeding (stool color, vital signs, serial hemoglobin checks). * Patient requires a colonoscopy to investigate the source of the anemia of unknown origin and potential lower GI bleed, to be scheduled once stable and bleeding risk is managed . * Portions of this note were generated using voice recognition software ([employer]). I have reviewed the contents and every effort has been made to ensure accuracy; however, inadvertent errors in grammar, spelling, punctuation, or word choice may occur, that were not noted before signing the document and should not alter the intended clinical meaning. Visit Charges Inpatient E&M: 90717 Subs Hosp L3
[2025-03-02 18:34] LABS: Partial Thromboplast Time 71.2 Seconds (24.1-36.2)
[2025-03-02] MEDS: Electrolyte Solution/Peg's 4000 ML PO (18:38)
[2025-03-02 22:05] VITALS: BP 137/68; PULSE 100; RESP 18; TEMP 36.3; O2SAT 99
[2025-03-02 22:31] VITALS: BMI 46.7
[2025-03-02 22:53] LABS: Partial Thromboplast Time 60.4 Seconds (24.1-36.2)
--- OUTSIDE RECORDS SUMMARY | 2025-03-02 23:11 | XMS RPT_ITS | CCD ---
Author Organization [facility] Care Team Providers Care Pediatric Geneticist Name Role Phone Dashawn Eid MD Primary Care Provider Dashawn Eid MD Primary Care Provider Tannhof ROOFER HELPER.Chelo CALLAHAN Unavailable Malcom ROOFER HELPER.Go CALLAHAN Unavailable [phone] Medications Current Medications Medication Drug Class(es) Dates [...] Start: 08-08-2020 take 2 tablets by mo [facility] twice daily at mealtime metFORMIN ER (GLUCOPHAGE XR) 500 mg 24 hr tablet Indications: Controlled type 2 diabetes mellitus without complication, without long-term current use of insulin (HCC) Take 2 tablets by mouth twice daily with meals. 120 tablet 2 08/08/2020 Active Comment on above: Take 2 tablets by [facility] twice daily with meals. Take 2 tablets by mo [facility] two times a day with meals. [...] aftercare (2 sources) Patient encounter status; Translations: [care home (current) use of antithrombotics/an tiplatelets] Episodic [...] sources) Long-term current use of anticoagulant; Translations: [care home (current) use of anticoagulants] Onset: 05-26-2020 05-29-2020 Episodic Results Test Name Value Interpretation Reference Range Facil itute Higginbotham 04-22-2024 CNPN Telephone (4CQ) MITCH IRVIN ([id number]) 1960 M Date Time Provider Department 04/22/24 [...] Known Allergies) Date Reviewed: 05/29/2023 Reviewed by: Saumay Rodney OD - Fully Assessed Reason for [...] Encounter Status:Closed [facility] Tele[facility] (BECKIE) MITCH IRVIN ([id number]) 1960 M Date Time Provider Department 04/13/24 [...] Status:Closed by LILLIAM CHÁVEZ on 04/19/24 Normal [facility] ERCPon 08-30-2021 [facility] GLUCOSE, BLOOD (POC)on 08-30 Glucose [Mass/Vol] 123 mg/dL Abnormal 74 - 99 mg/dL [facility] No Panel Informationon 08-16 [facility] ANES POSTPROC EVALon 022 ANES POSTPROC EVAL HNO ID: [id number] Author: Olamide Amaro MD Service: Anesthesiology Author Type: Anesthesiologist Type: Anesthesia Postprocedure Evaluation Filed: 07/18/2021 11:13 AM Note Text: POST ANESTHESIA EVALUATION NOTE : 1960 Procedure Summary Date: 07/18/21 Room / Location: [place] [address] / [place] Anesthesia Start: 822 Anesthesia Stop: 951 [...] July 18, 2021 TIME: 11:13 AM CSN: [id number] [facility] ANES PRE-OPon 07-18-2021 ANES PRE-OP HNO ID: [id number] Author: Olamide Amaro MD Service: Anesthesiology Author Type: Anesthesiologist Type: Anesthesia Preprocedure Evaluation Filed: 07/18/2021 8:00 AM Note Text: ANESTHESIOLOGY DAY OF SURGERY NOTE : 1960 Procedure Information Date/Time: 07/18/2130 Procedure: LAPAROSCOPIC CHOLECYSTECTOMY (N/A ) Location: [address] OR Surgeons: César Sal MD Estimated [...] July 18, 2021 TIME: 8:00 AM CSN: [id number] Normal [facility] HISTORY PHYSICALon 2 HISTORY PHYSICAL HNO ID: [id number] Author: César Sal MD Service: General Surgery [...] a few days later. He presented to [facility] ED (03/04/2021) - he was found [...] skin caleb (more content not included)... Normal [facility] OPERATIVE NOon 07-18-2021 OPERATIVE NO HNO ID: [id number] Author: César Sal MD Service: General Surgery Author Type: Physician Type: Operative Report Filed: 07/18/2021 9:41 AM Note Text: OPERATIVE/PROCEDURE REPORT LOG ID: [id number] SURGERY/PROCEDURE DATE: 07/18/2021 INCISION/PROCEDURE START TIME: 8:48 AM INCISION CLOSE/PROCEDURE END TIME: SURGEON(S)/PROCEDURALI ST(S) AND FACILITY ASSISTANT(S): Surgeon(s) and Role: * César Sal MD - Primary Nurse Practitioner: Marcie Owens APRN.JOINT CREASER SURGERY/PROCEDURE(S): Laparoscopic cholecystectomy ANESTHESIA: General SURGERY/PROCEDURE DETAILS: [...] the umbilical port was closed with a nmrgkb-ga-agzvd stitch of 0 Vicryl. Skin incisions were closed with a combination of 3-0 Vicryl in the subcu and then deep dermal stitches of 4-0 Monocryl. Steri-Strips were applied sterile dressings were applied and the patient tolerated the procedure well. Marcie Owens was my financial sales assistant. She assisted with retraction, visualization and [...] DATE: July 18, 2021 TIME: 9:37 AM [facility] SURGICAL PATHOLOGYon 022 CASE REPORT [facility] Comment on above: Order Comment: Hao stephens Type: TISSUE SPECIMEN Ordering Facility: [facility] Address: [address] [place], [place] [id number] Result Comment: Surg ica Pathology Report Case: [id number] Authorizing Provider: César Sal MD Collected: 07/18/2021 08:56 AM Ordering Location: [facility] Surgery Received: 07/18/2021 12:15 PM Pathologist: Len Barclay MD Specimen: GALLBLADDER Performed By: #### S #### [facility] CLIA [id number] [address] [place] [address] OF [facility] FINAL DIAGNOSIS [facility] Comment on above: Order Comment: Speci kat Type: TISSUE SPECIMEN Ordering Facility: [facility] Address: [address] [place], [place] [id number] Result Comment: A. G allbladder, cholecystectomy: -Cholelithiasis with chronic cholecystitis. Performed By: #### S #### [facility] CLIA [id number] [address] [place] [address] [place] FINAL PERFORMING LAB Normal [facility] Comment on above: Order Comment: Speci men Type: TISSUE SPECIMEN Ordering Facility: [facility] Address: [address] [place] [address] Result Comment: Diag nostic interpretation performed at [facility], [address] [place] [address] CLIA# [id number] Furniture Upholsterer Apprentice: El Pedro M.D. Performed By: #### S #### [facility] CLIA [id number] [address] [place] [address] [place] GROSS DESCRIPTION A. GALLBLADDER. Normal [facility] Comment on above: Order Comment: Speci men Type: TISSUE SPECIMEN Ordering Facility: [facility] Address: [address] [place] [address] Result Comment: Rece ived in formalin labeled [...] areas of bright yellow stippling grossly present. Automotive Service Director sections of the body, neck, and fundus to include the cystic bile duct resection margin are submitted in formalin in cassette A1. JLEONOR/jackie 07/18/2021 Gross examination performed at [facility], [address] [place] [address] Performed By: #### S #### [facility] CLIA [id number] [address] [place] [address] [place] Abdomen/Pelvis W IV Cont ONL Yon 03-05-2021 Abdomen/Pelvis W IV Cont ONLY [facility] Imaging Services [address] [place] [address] Abdomen/Pelvis W IV Cont ONLY MR#: [id number] Acct: [id number] Name: MITCH IRVIN Rep #: [id number] : 1960 M 60 From: Rojas Mejia DO PCP: Dashawn iEd MD Status: REG ER Study: Abdomen/Pelvis W IV Cont ONLY Date of Exam: Exam# [id number] Ordering Dr: Pal Ribera MD STUDY: CT [...] Dr. Pal Ribera MD; Dashawn Eid MD Quality Improvement Engineer: Signed Normal [facility] CBC W/Diff, Automatedon 12-0 -2020 Absolute Lymph 2.24 X10 3/uL Normal 0.83-4.51 [facility] Comment on above: Performed By: #### L 501.2450, L500.4050, L100.0100 #### [facility] [address] [place], [address] Absolute Neut 5.1 X10 3/uL Normal 2.0-7.7 [facility] Comment on above: Performed By: #### L 501.2450, L500.4050, L100.0100 #### [facility] [address] [place], [address] Basophils/100 WBC (Bld) 0.3 % Normal 0-1 [facility] Comment on above: Performed By: #### L 501.2450, L500.4050, L100.0100 #### [facility] [address] [place], [address] Eosinophils/100 WBC (Bld) 0.9 % Normal 0-5 [facility] Comment on above: Performed By: #### L 501.2450, L500.4050, L100.0100 #### [facility] [address] [place], [address] Erythrocyte distribution width (RBC) [Ratio] 12.0 % Normal 11.6-14.6 [facility] Comment on above: Performed By: #### L 501.2450, L500.4050, L100.0100 #### [facility] [address] [place], [address] Hematocrit (Bld) [Volume fraction] 47.1 % Normal 40-54 [facility] Comment on above: Performed By: #### L 501.2450, L500.4050, L100.0100 #### [facility] [address] [place], [address] Hemoglobin (Bld) [Mass/Vol] 16.8 g/dL High 13.0-16.5 [facility] Comment on above: Performed By: #### L 501.2450, L500.4050, L100.0100 #### [facility] [address] [place], [address] IG% 0.300 Normal 0.0-0.9 [facility] Comment on above: Result Comment: IG% - Immature Granulocytes (promyelocytes, myelocytes and metamyelocytes) > 1% indicates that a LEFT SHIFT is Present. Performed By: #### L 501.2450, L500.4050, L100.0100 #### [facility] [address] [place], [address] Lymphocytes/100 WBC (Bld) 28.1 % Normal 19-41 [facility] Comment on above: Performed By: #### L 501.2450, L500.4050, L100.0100 #### [facility] [address] [place], [address] MCH (RBC) [Entitic mass] 34.6 pg High 27.0-32.0 [facility] Comment on above: Performed By: #### L 501.2450, L500.4050, L100.0100 #### [facility] [address] [place], [address] MCHC (RBC) [Mass/Vol] 35.7 g/dL Normal 32-36 [facility] Comment on above: Performed By: #### L 501.2450, L500.4050, L100.0100 #### [facility] [address] [place], [address] MCV (RBC) [Entitic vol] 97.1 fL High 80-94 [facility] Comment on above: Performed By: #### L 501.2450, L500.4050, L100.0100 #### [facility] [address] [place], [address] Monocytes/100 WBC (Bld) 6.3 % Normal 0-10 [facility] Comment on above: Performed By: #### L 501.2450, L500.4050, L100.0100 #### [facility] [address] [place], [address] Neutrophils/100 WBC (Bld) 64.1 % Normal 47-70 [facility] Comment on above: Performed By: #### L 501.2450, L500.4050, L100.0100 #### [facility] [address] [place], [address] Nucleated RBC (Bld) [#/Vol] 0 10*3/uL Normal 0-5 [facility] Comment on above: Performed By: #### L 501.2450, L500.4050, L100.0100 #### [facility] [address] [place], [address] Platelet mean volume (Bld) [Entitic vol] 10.9 fL Normal 6.2-12.0 [facility] Comment on above: Performed By: #### L 501.2450, L500.4050, L100.0100 #### [facility] [address] [place], [address] Platelets (Bld) [#/Vol] 214 10*3/uL Normal 150-450 [facility] Comment on above: Performed By: #### L 501.2450, L500.4050, L100.0100 #### [facility] [address] [place], [address] RBC (Bld) [#/Vol] 4.85 10*6/uL Normal 4.6-6.2 [facility] Comment on above: Performed By: #### L 501.2450, L500.4050, L100.0100 #### [facility] [address] [place], [address] RDW SD 43.3 fl Normal 35.1-43.9 [facility] Comment on above: Performed By: #### L 501.2450, L500.4050, L100.0100 #### [facility] [address] [place], [address] WBC (Bld) [#/Vol] 8.0 10*3/uL Normal 4.4-11.0 [facility] Comment on above: Performed By: #### L 501.2450, L500.4050, L100.0100 #### [facility] [address] [place], [address] Comprehensive Metabolic Prof ilon 03-05-2021 Albumin [Mass/Vol] 3.5 g/dL Normal 3.2-5.0 [facility] Comment on above: Performed By: #### L 501.2450, L500.4050, L100.0100 #### [facility] [address] [place], [address] Albumin/Globulin [Mass ratio] 0.8 {ratio} Low 0.9-2.4 [facility] Comment on above: Performed By: #### L 501.2450, L500.4050, L100.0100 #### [facility] [address] [place], [address] ALK P 192 U/L High 45-117 [facility] Comment on above: Performed By: #### L 501.2450, L500.4050, L100.0100 #### [facility] [address] [place], [address] ALT [Catalytic activity/Vol] 503 U/L High 16-61 [facility] Comment on above: Performed By: #### L 501.2450, L500.4050, L100.0100 #### [facility] [address] [place], [address] AST [Catalytic activity/Vol] 388 U/L High 15-37 [facility] Comment on above: Performed By: #### L 501.2450, L500.4050, L100.0100 #### [facility] [address] [place], [address] Bilirubin [Mass/Vol] 3.20 mg/dL High 0.20-1.00 [facility] Comment on above: Result Comment: For patients on eltrombopag therapy, use of Dimension [place] TBIL is not recommended. Performed By: #### L 501.2450, L500.4050, L100.0100 #### [facility] [address] [place], [address] BUN/CRE 13.6 RATIO Normal 10-20 [facility] Comment on above: Performed By: #### L 501.2450, L500.4050, L100.0100 #### [facility] [address] [place], [address] CA,Total 9.4 mg/dL Normal 8.5-10.1 [facility] Comment on above: Performed By: #### L 501.2450, L500.4050, L100.0100 #### [facility] [address] [place], [address] Chloride [Moles/Vol] 99 mmol/L Normal 98-107 [facility] Comment on above: Performed By: #### L 501.2450, L500.4050, L100.0100 #### [facility] [address] [place], [address] CO2 [Moles/Vol] 23.0 mmol/L Normal 21.0-32.0 [facility] Comment on above: Performed By: #### L 501.2450, L500.4050, L100.0100 #### [facility] [address] [place], [address] Creatinine [Mass/Vol] 1.25 mg/dL Normal 0.70-1.30 [facility] Comment on above: Result Comment: The validity of the calculated GFR GFRAA in patients over 70 years has not been determined. Clinical correlation is essential. Performed By: #### L 501.2450, L500.4050, L100.0100 #### [facility] [address] [place], [address] ECRCL 60.80 ml/min Normal [facility] Comment on above: Performed By: #### L 501.2450, L500.4050, L100.0100 #### [facility] [address] [place], [address] EST GFR - AA 76 mL/min Normal >60 [facility] Comment on above: Result Comment: Afri can O[place]i GFR Calc Performed By: #### L 501.2450, L500.4050, L100.0100 #### [facility] [address] [place], [address] GAP 11 Normal 5-15 [facility] Comment on above: Performed By: #### L 501.2450, L500.4050, L100.0100 #### [facility] [address] [place], [address] GFR/1.73 sq M.predicted among non-blacks MDRD (S/P/Bld) [Vol rate/Area] 63 mL/min/{1.73_m2} Normal >60 [facility] Comment on above: Result Comment: Non- GFR Calc Performed By: #### L 501.2450, L500.4050, L100.0100 #### [facility] [address] [place], [address] Globulin (S) [Mass/Vol] 4.3 g/dL High 2.2-4.2 [facility] Comment on above: Performed By: #### L 501.2450, L500.4050, L100.0100 #### [facility] [address] [place], [address] Glucose [Mass/Vol] 307 mg/dL High 74-106 [facility] Comment on above: Result Comment: Gluc ose result greater than or equal to 200 mg/dL suggests DIABETES MELLITUS per A.D.A. criteria. Please note revised GLUCOSE reference range effective 2017. Performed By: #### L 501.2450, L500.4050, L100.0100 #### [facility] [address] [place], [address] Potassium [Moles/Vol] 3.5 mmol/L Normal 3.5-5.1 [facility] Comment on above: Performed By: #### L 501.2450, L500.4050, L100.0100 #### [facility] [address] [place], [address] Sodium [Moles/Vol] 133 mmol/L Low 136-145 [facility] Comment on above: Performed By: #### L 501.2450, L500.4050, L100.0100 #### [facility] [address] [place], [address] T PROT 7.8 g/dL Normal 6.4-8.2 [facility] Comment on above: Performed By: #### L 501.2450, L500.4050, L100.0100 #### [facility] [address] [place], [address] Urea nitrogen [Mass/Vol] 17 mg/dL Normal 7-18 [facility] Comment on above: Performed By: #### L 501.2450, L500.4050, L100.0100 #### [facility] [address] [place], [address] Emergency Department Summary on 03-05-2021 Emergency Department Summary [facility] Medical Records Department [address] [place] [address] Emergency Department Summary 03/04/21 MR#: [id number] Acct: [id number] Name: MITCH IRVIN Rep #: [id number] : 1960 60 From: Pal Ribera MD [...] Narrative Narrative: 60-year-old male past medical history irx-dchhzhw-uyitpiybd diabetic. Said around 9 PM the night [...] Auscultation: normoa (more content not included)... Normal [facility] Lipaseon 03-05-2021 Lipase [Catalytic activity/Vol] 388 U/L Normal 73-393 [facility] Comment on above: Performed By: #### L 501.2450, L500.4050, L100.0100 #### [facility] [address] [place], [address] No Panel Information [facility] Vital Signs Date Time Vital Sign Value Performing Clinician Jayi ludy 10-21-2022 07:12-0400 Body temperature 98.1 [degF] Go Cowart APRN.CNP Work Phone: [facility] 10-21-2022 07:12-0400 Body weight 135.19 kg Go Cowart APRN.JOINT CREASER Work Phone: [facility] 10-21-2022 07:12-0400 Diastolic blood pressure 108 mm[Hg] Go Cowart APRN.JOINT CREASER Work Phone: [facility] 10-21-2022 07:12-0400 Heart rate 68 /min Go Cowart APRN.JOINT CREASER Work Phone: [facility] 10-21-2022 07:12-0400 Respiratory rate 16 /min Go Cowart APRN.JOINT CREASER Work Phone: [facility] 10-21-2022 07:12-0400 SaO2% (BldA) [Mass fraction] 98 % Go Cowart APRN.JOINT CREASER Work Phone: [facility] 10-21-2022 07:12-0400 Systolic blood pressure 172 mm[Hg] Go Cowart APRN.JOINT CREASER Work Phone: [facility] 08-30-2021 15:10-0400 Diastolic blood pressure 70 mm[Hg] Giacomo Gonzales MD Work Phone: [facility] 08-30-2021 15:10-0400 Heart rate 64 /min Giacomo Gonzales M D Work Phone: [facility] 08-30-2021 15:10-0400 Respiratory rate 16 /min Giacomo Gonzales M D Work Phone: [facility] 08-30-2021 15:10-0400 SaO2% (BldA) [Mass fraction] 98 % Giacomo Gonzales MD Work Phone: [facility] 08-30-2021 15:10-0400 Systolic blood pressure 137 mm[Hg] Giacomo Gonzales MD Work Phone: [facility] 08-30-2021 15:00-0400 Body temperature 96.8 [degF] Giacomo Chapinaka M D Work Phone: [facility] 08-30-2021 13:34-0400 Body height 172.7 cm Giacomo Gonzales M D Work Phone: [facility] 08-30-2021 13:34-0400 Body weight 124.74 kg Giacomo Gonzales M D Work Phone: [facility] 08-15-2021 09:05-0400 Body height 172.7 cm Giacomo Gonzales M D Work Phone: [facility] 08-15-2021 09:05-0400 Body temperature 97.5 [degF] Giacomo Chapinaka M D Work Phone: [facility] 08-15-2021 09:05-0400 Body weight 125.01 kg Giacomo Gonzales M D Work Phone: [facility] 08-15-2021 09:05-0400 Diastolic blood pressure 86 mm[Hg] Giacomo Gonzales MD Work Phone: [facility] 08-15-2021 09:05-0400 Heart rate 83 /min Giacomo Del Angel Work Phone: [facility] 08-15-2021 09:05-0400 SaO2% (BldA) [Mass fraction] 98 % Giacomo Gonzales MD Work Phone: [facility] 08-15-2021 09:05-0400 Systolic blood pressure 146 mm[Hg] Giacomo Gonzales MD Work Phone: [facility] 08-08-2021 11:07-0400 Body temperature 98.4 [degF] Annelise Haagen ROOFER HELPER.JOINT CREASER Work Phone: [facility] 08-08-2021 11:07-0400 Diastolic blood pressure 88 mm[Hg] Annelise Haagen ROOFER HELPER.JOINT CREASER Work Phone: [facility] 08-08-2021 11:07-0400 Heart rate 81 /min Annelise Haagen ROOFER HELPER.JOINT CREASER Work Phone: [facility] 08-08-2021 11:07-0400 Respiratory rate 18 /min Annelise Haagen ROOFER HELPER.JOINT CREASER Work Phone: [facility] 08-08-2021 11:07-0400 SaO2% (BldA) [Mass fraction] 97 % Annelise Haagen ROOFER HELPER.JOINT CREASER Work Phone: [facility] 08-08-2021 11:07-0400 Systolic blood pressure 132 mm[Hg] Annelise Haagen ROOFER HELPER.JOINT CREASER Work Phone: [facility] 07-10-2021 08:02-0400 Body height 172.7 cm César Sal MD Work Phone: [facility] 07-10-2021 08:02-0400 Body temperature 98.1 [degF] César Sal MD Work Phone: [facility] 07-10-2021 08:02-0400 Body weight 129.55 kg César Sal MD Work Phone: [facility] 07-10-2021 08:02-0400 Diastolic blood pressure 82 mm[Hg] César Sal MD Work Phone: [facility] 07-10-2021 08:02-0400 Heart rate 100 /min César Sal MD Work Phone: [facility] 07-10-2021 08:02-0400 SaO2% (BldA) [Mass fraction] 98 % César Sal MD Work Phone: [facility] 07-10-2021 08:02-0400 Systolic blood pressure 144 mm[Hg] César Sal MD Work Phone: [facility] Encounters Encounter Date Encounter Type Care Provider Facility Start: 08-25-2024 End: 09-16-2024 ambulatory Dashawn Eid MD Work Phone: [address] [place] [address] Comment on above: Diabetes Start: 04-22-2024 End: 04-22-2024 Telephone encounter Dashawn Eid MD Work Phone: [address] [place] [address] Comment on above: Patient Update Start: 04-13-2024 End: 04-19-2024 Telephone encounter Go Cowart APRN.JOINT CREASER Work Phone: [facility] Comment on above: Appointment Start: 10-17-2023 Refill Dashawn fry MD Work Phone: [facility] [place] Comment on above: Refill Request Start: 09-26-2023 Refill Go Cowart APRN.JOINT CREASER Work Phone: [facility] Comment on above: Refill Request Start: 07-11-2023 Telephone encounter Go gonzalez ROOFER HELPER.JOINT CREASER Work Phone: [facility] Comment on above: Results Start: [...] minutes Go Cowart APRN.CNP Work Phone: [facility] [place] Comment on above: Hypertension, essent ial (Primary Dx); Type 2 diabetes (HCC); Anticoagulant long-term use; Hyperlipidemia, unspecified hyperlipidemia type; 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); Screening for diabetic retinopathy Start: 10-10-2022 Refill Dashawn fry MD Work Phone: [facility] Comment on above: Refill Request Start: 04-12-2022 Refill Dashawn fry MD Work Phone: [facility] Comment on above: Refill Request Start: 08-30-2021 End: 08-30-2021 Subsequent hospital visit by physician Giacomo Gonzales MD Work Phone: Gastroenterology Comment on above: S/P cholecystectomy [Z90.49] Start: 08-23-2021 Telephone encounter Deepa Florence RNmakeup editor Comment on above: Appointment Confirma tion Start: 08-16-2021 End: 08-16-2021 Subsequent hospital visit by physician [facility] Work Phone: Radiology Comment on above: S/P cholecystectomy [Z90.49] Start: 08-15-2021 End: 08-15-2021 Patient encounter procedure Giacomo Gonzales MD Work Phone: Gastroenterology Comment on above: Elevated LFTs (Prima ry Dx); S/P cholecystectomy; History of jaundice; Elevated bilirubin Start: 08-08-2021 End: 08-08-2021 Office outpatient visit 15 minutes Annelise Robert APRN.JOINT CREASER Work Phone: [facility] [place] Comment on above: Acute non-recurrent sinusitis, unspecified location (Primary Dx) Start: 07-16-2021 ambulatory Go Cowart APRN.JOINT CREASER Work Phone: [facility] [place] Start: 07-12-2021 Telephone encounter César chan MD Work Phone: Pre Anesthesia Comment on above: Pre-op Instructions Start: 07-10-2021 Telephone encounter Brandon ([address]) [facility] Comment on above: Medical Clearance Start: 07-10-2021 End: 07-10-2021 Patient encounter procedure César Sal MD Work Phone: General Surgery Comment on above: Calculus of gallblad beverly without cholecystitis without obstruction (Primary Dx); 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; 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 Procedures Date Procedure Procedure Detail Performing Clinician Start: 05-29-2023 End: 05-29-2023 Cmptr ophthalmic dx img ant segmt w/i&r uni/bi Saumya Rodney OD Work Phone: Start: 05-08-2023 Computerized ophthalmic imaging optic nerve Saumya Rodney OD Work Phone: Start: 04-28-2023 Adult depression screening assessment Go Cowart APRN.JOINT CREASER Work Phone: Start: 08-30-2021 Ercp dx collection specimen brushing/washing Giacomo Gonzales MD Work Phone: Start: 08-30-2021 Gluc bld gluc mntr dev cleared fda spec home use Nano Brooke APRN.GASOLINE LOCOMOTIVE CRANE OPERATOR Work Phone: Start: 08-16-2021 Us abdominal real [...] 07-02-2026 Screening for malignant neoplasm of colon [facility] Start: 05-26-2025 PROSTATE CANCER SCREENING DISCUSSION PROSTATE CANCER SCREENING DISCUSSION [facility] Start: 05-26-2025 Prostate specific antigen measurement Prostate Cancer Screening Discussion [facility] Start: 11-29-2024 Influenza vaccination Influenz a Vaccine (Season Ended) [facility] Start: 05-31-2024 End: 05-31-2024 Patient encounter procedure 05/31/2024 8:00 AM EST Office Visit [facility] [address] [place], [place] [id number] Saumya Rodney, OD [address] [place], [place] [id number] 1 yr for diabetic eye exam with OCT nerve Ophthalmology Comment on above: 1 yr for diabetic ey e exam with OCT nerve Start: 05-08-2024 Glaucoma screening Dilated Retinal E xam [facility] Start: 04-28-2024 Annual PCP Team Chronic Disease Visit Annual PCP Team Chronic Disease Visit [facility] Start: 04-28-2024 Anxiety Screening Anxiety Screening [facility] Start: 04-28-2024 Covid-19 Vaccine ( season) Covid-19 Vaccine () [facility] Comment on above: Postponed from 11/29 (Declined at this time) Start: 04-28-2024 Depression Screening Depression Scre ening [facility] Start: 04-28-2024 Hepatitis B screening Urine Al bumin:Creatinine Ratio [facility] Start: 04-28-2024 Hepatitis B surface antibody level LDL Cholesterol [facility] Start: 11-30-2023 Covid-19 Vaccine ( season) Covid-19 Vaccine () [facility] Start: 11-30-2023 Influenza vaccination [facility] Start: 10-22-2023 ANNUAL PCP TEAM CHRONIC DISEASE VISIT ANNUAL PCP TEAM CHRONIC DISEASE VISIT [facility] Start: 10-20-2023 End: 10-20-2023 Patient encounter procedure 10/20/2023 8:20 AM EDT Office Visit [facility] [place] [address] [place] [address] Go Cowart APRN.JOINT CREASER [address] [place] [id number] 6 month follow up [facility] [place] Comment on above: 6 month follow up Start: 09-28-2023 Influenza vaccination Influenza Vacc ine (#1) [facility] Comment on above: Postponed from 11/29 (Declined at this time) Start: 07-28-2023 Hemoglobin A1c measurement HbA1C [facility] Start: 06-26-2023 COLOGUARD (FIT-DNA) COLOGUARD (FIT-D NA) [facility] Start: 06-26-2023 COLORECTAL CANCER SCREENING COLORECTAL CANCER SCREENING [facility] Start: 06-26-2023 Screening for malignant neoplasm of colon [facility] Start: 03-31-2023 Behavioral Health Screening Behavioral Health Screening [facility] Start: 11-29-2022 Influenza vaccination INFLUENZA (#1) [facility] Start: 10-10-2022 End: 12-10-2022 ALBUMIN/CREAT RATIO RND UR ALBUMIN/CREAT RATIO RND UR Lab Routine Hypertension, essential Type 2 diabetes (HCC) Expected: 10/10/2022 (Approximate), Expires: 12/10/2022 [facility] Work Phone: Comment on above: Expected: 10/10/2022 (Approximate), Expires: 12/10/2022 Start: 10-10-2022 End: 12-10-2022 CBC panel - Blood by Automated count CBC Lab Routine Anticoagulant long-term use Hypertension, essential Expected: 10/10/2022 (Approximate), Expires: 12/10/2022 [facility] Work Phone: Comment on above: Expected: 10/10/2022 (Approximate), Expires: 12/10/2022 Start: 10-10-2022 End: 12-10-2022 Comprehensive metabolic 2000 panel - Serum or Plasma COMP METABOLIC PANEL Lab Routine Type 2 diabetes (HCC) Hyperlipidemia, unspecified hyperlipidemia type Expected: 10/10/2022 (Approximate), Expires: 12/10/2022 [facility] Work Phone: Comment on above: Expected: 10/10/2022 (Approximate), Expires: 12/10/2022 Start: 10-10-2022 End: 12-10-2022 Hemoglobin A1c in Blood HGB A1C Lab Routine Type 2 diabetes (HCC) Expected: 10/10/2022 (Approximate), Expires: 12/10/2022 [facility] Work Phone: Comment on above: Expected: 10/10/2022 (Approximate), Expires: 12/10/2022 Start: 10-10-2022 End: 12-10-2022 Lipid 1996 panel - Serum or Plasma LIPID PANEL BASIC Lab Routine Type 2 diabetes (HCC) Hyperlipidemia, unspecified hyperlipidemia type Expected: 10/10/2022 (Approximate), Expires: 12/10/2022 [facility] Work Phone: Comment on above: Expected: 10/10/2022 (Approximate), Expires: 12/10/2022 Start: 08-08-2022 ANNUAL PCP TEAM CHRONIC DISEASE VISIT ANNUAL PCP TEAM CHRONIC DISEASE VISIT [facility] Start: 03-31-2022 DEPRESSION ASSESSMENT DEPRESSION ASS ESSMENT [facility] Start: 03-08-2022 ANNUAL PCP TEAM CHRONIC DISEASE VISIT ANNUAL PCP TEAM CHRONIC DISEASE VISIT [facility] Start: 11-29-2021 Influenza vaccination [facility] Start: 11-28-2021 Hepatitis B surface antibody level LDL CHOLESTEROL [facility] Start: 11-27-2021 Adult depression screening assessment DEPRESSION SCREENING [facility] Start: 08-15-2021 End: 10-15-2021 HEPATIC FUNCTION PNL [facility] Work Phone: Comment on above: Expected: 08/15/2021 , Expires: 10/15/2021 Start: 07-16-2021 End: 09-15-2021 ALBUMIN/CREAT RATIO RND UR ALBUMIN/CREAT RATIO RND UR Lab Routine Controlled type 2 diabetes mellitus without complication, without long-term current use of insulin (HCC) Expected: 07/16/2021, Expires: 09/15/2021 [facility] Work Phone: Comment on above: Expected: 07/16/2021 , Expires: 09/15/2021 Start: 05-29-2021 3 comp foot exam completed DIABETIC FOOT EXAM [facility] Start: 05-29-2021 Diabetic foot examination Diabetic Foot Exam [facility] Start: 05-26-2021 Hepatitis B screening URINE AL BUMIN:CREATININE RATIO [facility] Start: 04-30-2021 COVID-19 VACCINE (3 - Booster for Pfizer series) COVID-19 VACCINE (3 - Booster for Pfizer series) [facility] Start: 02-27-2021 Hemoglobin A1c/Hemoglobin.total in Blood HBA1C [facility] Start: 01-23-2021 COVID-19 VACCINE (3 - Booster for Pfizer series) COVID-19 VACCINE (3 - Booster for Pfizer series) [facility] Start: 01-23-2021 COVID-19 VACCINE (3 - Pfizer series) COVID-19 VACCINE (3 - Pfizer series) [facility] Start: 2020 RSV Vaccine (1 - 1-dose 60+ series) RSV Vaccine (1 - 1-dose 60+ series) [facility] Start: 2020 RSV Vaccine (1 - Ris k 60-74 years 1-dose series) RSV Vaccine (1 - Risk 60-74 years 1-dose series) [facility] Start: 2010 SHINGRIX VACCINE (1 of 2) SHINGRIX VACCINE (1 of 2) [facility] Start: 2005 Colonoscopy COLONOSCOPY [facility] Start: [address] COLONOGRAPHY [facility] Start: 2005 FECAL OCCULT BLOOD FECAL OCCULT BLOO D [facility] Start: 2005 Screening for malignant neoplasm of colon [facility] Start: 2005 SIGMOIDOSCOPY SIGMOIDOSCOPY [facility] Start: 12-13-1979 Pneumococcal Vaccine : 50+ (1 of 2 - PCV) Pneumococcal Vaccine: 50+ (1 of 2 - PCV) [facility] Start: 12-13-1979 Urine microalbumin profile [facility] Start: 1978 Anxiety Screening Anxiety Screening [facility] Start: 1978 BP CONTROLLED (<130/80) BP CONTROLLED (<130/80) [facility] Start: 1978 Depression Screening Depression Scre ening [facility] Start: 1976 ONE PNEUMOVAX PRIOR TO AGE 65 ONE PNEUMOVAX PRIOR TO AGE 65 [facility] Start: 1970 Hepatitis C antibody , confirmatory test DILATED RETINAL EXAM [facility] Start: 1966 PNEUMOCOCCAL (1 - PCV) PNEUMOCOCCAL (1 - PCV) [facility] Start: 1966 Pneumococcal vaccination Pneumococcal Vaccine (1 of 2 - PCV) [facility] End: 08-15-2022 ERCP ERCP Endoscopy Routine S/P cholecystectomy History of jaundice Elevated bilirubin Elevated LFTs 1 Occurrences starting 08/15/2021 until 08/15/2022 [facility] Work Phone: Comment on above: 1 Occurrences starti ng 08/15/2021 until 08/15/2022 End: 09-14-2022 Us abdominal real time w/image limited US ABD RT UPPER QUADRANT Radiology Routine S/P cholecystectomy History of jaundice Elevated bilirubin Elevated LFTs 1 Occurrences starting 08/15/2021 until 09/14/2022 [facility] Work Phone: Comment on above: 1 Occurrences starti ng 08/15/2021 until 09/14/2022 [facility] Immunizations Immunization Date Immunization Notes [facility] COVID-19 vaccine, ag e 12+ yr (TiVUS-BIONTCastTV - PURPLE TOP) César Sal MD Work Phone: [facility] Payers Date Payer Category Payer Medicaid [employer] Member [place] bscriber Plan / Payer (Effective 2022-2024) Name: Mitch Irvin Relation to Subscriber: Self Name: Mitch Irvin Payer ID: [id number] (NAIC) Group ID: Not on file Type: Medicaid Address: [place] [address] [id number] 2019 Private Health Insurance [employer] PPO [id number] 2019-Present [phone] [address] [address] [place] [address] PPO [id number] 2019 Private Health Insurance [id number] Social History Date Type Detail Facility Start: 01-18-2020 End: 10-21-2022 Tobacco smoking status NHIS Never smoked tobacco [facility] Start: 01-18-2020 End: 10-21-2022 Tobacco use and exposure Smokeless tobacco non-user [facility] Start: 07-10-2021 End: 05-29-2023 Alcohol intake Ex-drinker (finding) [facility] Start: 11-27-2020 History SDOH Physica l Activity DPW 0 [facility] Start: 11-27-2020 History SDOH Stress 1 [facility] Start: 03-08-2021 History SDOH Housing Unable to Pay 3 [facility] Start: 1960 Sex Assigned At Not on file [facility] Start: 06-29-2021 End: 08-15-2021 Exposure to SARS-CoV-2 (event) Not sure [facility] Work Phone: Start: 11-27-2020 End: 10-21-2022 Gender identity Not on file [facility] Start: 11-27-2020 End: 10-21-2022 History of Social function [facility] In a typical week, h ow many times do you talk on the telephone with family, friends, or neighbors? Patient refused [facility] Are you now , , , , never or living with a partner? Refused [facility] Do you feel stress - tense, restless, nervous, or anxious, or unable to sleep at night because your mind is troubled all the time - these days [OSQ] Not at all [facility] (I/We) worried willie er (my/our) food would run out before (I/we) got money to buy more. DK or Refused [facility] Medical Equipment Procedure Code Equipment Code Equipment [...] EDTTelephone Encounter - [facility] - 04/22/2024 11:03 AM ESTTelephone Encounter - [facility] - 04/22/2024 11:03 AM ESTPatient Instructions Note Date & Type Note Facility 08-25-2024 Note HNO ID: [id number] Author: ?, ?, ? Service: ? Author [...] see another provider, please update their chart. [facility] 08-25-2024 History of Presen t illness [...] update their chart. documented in this encounter [facility] 08-25-2024 Note Patient Outreach (4C Q) MITCH IRVIN ([id number]) 1960 M Date Time Provider Department 08/25/24 [...] Encounter Status:Closed by ROSALVA CAMERON on 09/16/24 [facility] 04-22-2024 Telephone encounter Note Pt called back regarding letter he received in mail. Patient stated that he can not make an appt at this time as he does not have medical insurance. Once he figures this out he will call to schedule . [facility] 04-22-2024 Miscellaneous Notes Pt called back regarding letter he received in mail. Patient stated that he can not make an appt at this time as he does not have medical insurance. Once he figures this out he will call to schedule . documented in this encounter [facility] 04-19-2024 Telephone encounter Note Letter mailed to pt home to call office to schedule appt. Lilliam Chávez MA [facility] 04-19-2024 Miscellaneous Notes Letter mailed to pt [...] Go Cowart APRN.CNP documented in this encounter [facility] 04-16-2024 Telephone encounter Note POPULATION HEALTH NAVIGATION OUTREACH Action/FYI Message left for pt to call back. Due for appt. Reason for Outreach Care Gap/HCC or Scheduling Wellness Visits Care Gaps due: Follow-up Appointment Patient Contacted: Unable or unnecessary to reach patient: Left message Navigation Signature: Lilliam Chávez MA April 16, 2024 12:52 PM [facility] 04-13-2024 Telephone encounter Note Left message to return call [facility] 04-13-2024 Telephone encounter Note STAMP Please reach out to patient for overdue appointment for chronic disease management with myself. This patient is due for a yearly exam Go Cowart APRN.JOINT CREASER [facility] 10-17-2023 Telephone encounter Note The following approved medication requests have been transmitted electronically. Requested Prescriptions Pending Prescriptions Disp Refills lisinopril-hydroCHLOROthiazide (ZESTORETIC) 20-25 mg per tablet 90 tablet 3 Sig: Take 1 tablet by mouth every morning. Go Cowart APRN.CNP [facility] 10-17-2023 Miscellaneous Notes The following approved medication [...] 2023 2:07 PM documented in this encounter [facility] 10-17-2023 Telephone encounter Note Prescription Refill Information [...] Sherie Clemente October 17, 2023 2:07 PM [facility] 07-11-2023 Miscellaneous Notes Letter mailed to pt home of results. Lilliam Chávez MA Please let the patient know that his cologuard was normal. It does not appear that he uses or checks his mychart. Go Cowart APRN.SINDY documented in this encounter [facility] 05-29-2023 History of Presen t illness Narrative [...] 2023 9:47 AM documented in this encounter [facility] 05-08-2023 History of Presen t illness Narrative 1. Type 2 diabetes mellitus without retinopathy (HCC) Risk of diabetic changes and vision loss can be minimized by tight control of blood sugar, blood pressure, and cholesterol levels. Educated patient to continue care with primary care doctor and/or airborne weapons technical manager to maintain optimum levels as they are [...] 2023 9:51 AM documented in this encounter [facility] 10-21-2022 Instructions Go Cowart APRN.SINDY - 10/21/2022 7:42 AM EDT Get blood work Schedule eye appointment Take meds routinely and follow up in 1 month. 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 Depression Screening [...] needed. This note was partly generated using [employer] voice recognition dictation and may contain some misspelled or inaccurate words missed on review. documented in this encounter [facility] 10-10-2022 Miscellaneous Notes Pt notified. He is [...] advise. Barby Spicer documented in this encounter [facility] 04-12-2022 Miscellaneous Notes The following approved medication [...] Blanka Ramirez Pss documented in this encounter [facility] 08-30-2021 Nurse Note AMBULATORY PATIENT EDUCATION NOTE [...] REFERRAL (RECOMMENDATION): None documented in this encounter [facility] 08-23-2021 Miscellaneous Notes GI Pre-Procedure Spoke with [...] have family/friend present for procedure transport home:Patient/patient construction sales representative was told that if they do [...] area. Any barriers to Patient learning: Patient/Patient Automotive Service Director responded appropriately on phone. Type of instruction given: Verbal by telephone contact. Deepa Florence RN documented in this encounter [facility] 08-16-2021 History of Presen t illness Narrative [...] 2021 10:25 AM documented in this encounter [facility] 08-15-2021 History of Presen t illness Narrative [...] to have the laparoscopic cholecystectomy performed at [facility]. IMPRESSION: status post laparoscopic cholecystectomy. Cholecystitis [...] Past Histories independently gathered by the clinical desktop support specialist and the remaining scribed note accurately describes my personal service to the patient. Giacomo Gonzales MD August 15, 2021 8:37 AM documented in this encounter [facility] 08-08-2021 Instructions Annelise Robert APRN.CNP - 08/08/2021 11:36 AM EDT 1. Start the augmentin 2. Hold the lipitor (atorvastatin) until liver enzymes improved. 3. Start mucinex. 4. Get us a status update after the ERCP. documented in this encounter [facility] 08-08-2021 History of Presen t illness Narrative [...] APRN.SINDY This note was partially generated using [employer] voice recognition system. Note was reviewed for accuracy. There may be minor misspellings or grammar miscues with [employer] voice recognition. documented in this encounter [facility] 07-18-2021 History of Past i llness Narrative Problem Noted Date Resolved Date Calculus of gallbladder and bile duct without cholecystitis, with obstruction 07/18/2021 07/18/2021 documented as of this encounter (statuses as of 07/20/2021) [facility] History of Past illness Narrative* Problem Noted Date Resolved Date Calculus of gallbladder and bile duct without cholecystitis, with obstruction 07/18/2021 07/18/2021 documented as of this encounter (statuses as of 08/08/2021) [address]20-2022 History of Past illness Narrative* Problem Noted Date Resolved Date Calculus of gallbladder and bile duct without cholecystitis, with obstruction 07/18/2021 07/18/2021 documented as of this encounter (statuses as of 08/15/2021) [address]20-2022 History of Past illness Narrative* Problem Noted Date Resolved Date Calculus of gallbladder and bile duct without cholecystitis, with obstruction 07/18/2021 07/18/2021 documented as of this encounter (statuses as of 08/17/2021) [address]20-2022 History of Past illness Narrative* Problem Noted Date Resolved Date Calculus of gallbladder and bile duct without cholecystitis, with obstruction 07/18/2021 07/18/2021 documented as of this encounter (statuses as of 08/23/2021) [address]20-2022 History of Past illness Narrative* Problem Noted Date Resolved Date Calculus of gallbladder and bile duct without cholecystitis, with obstruction 07/18/2021 07/18/2021 documented as of this encounter (statuses as of 08/31/2021) [facility] History of Past illness Narrative* Problem Noted Date Resolved Date Calculus of gallbladder and bile duct without cholecystitis, with obstruction 07/18/2021 07/18/2021 documented as of this encounter (statuses as of 04/12/2022) [address]20-2022 History of Past illness Narrative* Problem Noted Date Diagnosed Date Resolved Date Calculus of gallbladder and bile duct without cholecystitis, with obstruction 07/18/2021 07/19/19 documented as of this encounter (statuses as of 10/11/2022) [address]20-[address]22 History of Past illness Narrative* Problem Noted Date Diagnosed Date Resolved Date Calculus of gallbladder and bile duct without cholecystitis, with obstruction 07/18/2021 07/19/19 documented as of this encounter (statuses as of 10/21/2022) [address]20-[address]22 History of Past illness Narrative* Problem Noted Date Diagnosed Date Resolved Date Calculus of gallbladder and bile duct without cholecystitis, with obstruction 07/18/2021 07/19/19 documented as of this encounter (statuses as of 05/08/2023) [facility] History of Past illness Narrative* Problem Noted Date Diagnosed Date Resolved Date Calculus of gallbladder and bile duct without cholecystitis, with obstruction 07/18/2021 07/19/19 documented as of this encounter (statuses as of 05/29/2023) [facility] History of Past illness Narrative* Problem Noted Date Diagnosed Date Resolved Date Calculus of gallbladder and bile duct without cholecystitis, with obstruction 07/18/2021 07/19/19 documented as of this encounter (statuses as of 07/11/2023) [facility] NoteHNO ID: [id number] Author: Jacqueline Garza APRN.CRNA Service: Anesthesiology Author Type: Nurse Manager Contact Type: Anesthesia Procedure Notes Filed: 07/18/2021 8:47 AM Note Text: ANESTHESIOLOGY PROCEDURE NOTE Airway General Information Procedure Start Time/Medication Administration: 07/18/2021 8:31 AM Patient location during procedure: OR Timeout Performed Pre-procedure: timeout performed Consent Obtained: Yes 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 Go Cowart APRN.SINDY [facility] Miscellaneous Notes* Telephone Encounter - Radha Marx RN - 07/12/2021 12:34 PM EDT Pre-op instructions and Eliquis instructions were given to patient and sent in my chart. Radha Marx RN [facility] Miscellaneous Notes* Telephone Encounter - Radha Marx [...] to PCP Brandon Aragon [facility] History of Present illness Narrative* César Sal [...] a few days later. 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 COVID (Procedure Consent) [...] César Sal III, MD [facility]* Adriana Casanova RN - 07/10/2021 [...] Unknown Adriana Casanova RN [facility] Diagnosis Calculus of gallbladder without cholecystitis without obstruction- Primary Calculus of gallbladder without mention of cholecystitis or obstruction 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 Other dyspnea and respiratory abnormality care home (current) use of antithrombotics/antiplatelets Calculus of gallbladder and bile duct without cholecystitis, with obstruction 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 Other dyspnea and respiratory abnormality Encounter for long-term (current) use of antiplatelets/antithrombotics [facility] Diagnosis Controlled type 2 diabetes mellitus without complication, without long-term current use of insulin (HCC)- Primary [facility] Diagnosis Acute non-recurrent sinusitis, unspecified location- Primary documented in this encounter [facility]* Diagnosis Elevated LFTs- Primary Other abnormal blood chemistry S/P cholecystectomy Other acquired absence of organ History of jaundice Personal history of other endocrine, metabolic, and immunity disorders Elevated bilirubin Jaundice, unspecified, not of documented in this [facility]* Diagnosis S/P cholecystectomy Other acquired absence of organ History of jaundice Personal history of other endocrine, metabolic, and immunity disorders Elevated bilirubin Jaundice, unspecified, not of Elevated LFTs Other abnormal blood chemistry [facility] Diagnosis S/P cholecystectomy Other acquired absence of organ History of jaundice Personal history of other endocrine, metabolic, and immunity disorders Elevated bilirubin Jaundice, unspecified, not of Elevated LFTs Other abnormal blood chemistry documented in this encounter [facility] note* Diagnosis Hypertension, essential Unspecified essential hypertension documented in this encounter [facility] note* Diagnosis Anticoagulant long-term use- Primary Long-term (current) use of anticoagulants Hypertension, essential Unspecified essential hypertension Type 2 diabetes (HCC) Hyperlipidemia, unspecified hyperlipidemia type documented in this encounter [facility] note* Diagnosis Hypertension, essential- Primary Unspecified essential hypertension Type 2 diabetes (HCC) Anticoagulant long-term use Long-term (current) use of anticoagulants Hyperlipidemia, unspecified hyperlipidemia type 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) Screening for diabetic retinopathy Screening for other eye conditions documented in this encounter [facility] note* Diagnosis Type 2 diabetes mellitus without [...] of both eyes documented in this encounter [facility]* Diagnosis Glaucoma suspect of both eyes- [...] of both eyes documented in this encounter [facility]* Diagnosis Hypertension, essential Unspecified essential hypertension documented in this encounter [facility] note* Diagnosis Hypertension, essential Unspecified essential hypertension documented in this encounter [facility] for referral (narrative)* Outpatient Procedure (Routine) - Authorized Specialty Diagnoses / Procedures Referred By Contac t Referred To Contact [facility] SOD Diagnoses S/P cholecystectomy History of jaundice Elevated bilirubin Elevated LFTs Procedures ERCP ERCP DX COLLECTION SPECIMEN BRUSHING/WASHING Giacomo Gonzales MD [address] [place] [address] [facility] Disease [place] [address] [place] [id number] Referral ID Status Reason Start Date Expiration Date Visits Requested Visits Authorized [id number] Authorized Auto-Generat ed Referral 08/15/2021 08/15/2022 1 1 * Diagnostic Procedure Only (Routine) - Authorized Specialty Diagnoses / Procedures Referred By Elda t Referred To Contact US IMAGING Diagnoses S/P cholecystectomy History of jaundice Elevated bilirubin Elevated LFTs Procedures US ABD RT UPPER QUADRANT US ABDOMINAL REAL TIME W/IMAGE LIMITED Giacomo Gonzales MD [address] [place] [address] Us Imaging Referral ID Status Reason Start Date Expiration Date Visits Requested Visits Authorized [id number] Authorized Auto-Generat ed Referral 08/15/2021 09/14/2022 1 1 [facility] for referral (narrative)* Diagnostic Procedure Only (Routine) - Closed Specialty Diagnoses / Procedures Referred By Elda duenas Referred To Contact US IMAGING Diagnoses S/P cholecystectomy History of jaundice Elevated bilirubin Elevated LFTs Procedures US ABD RT UPPER QUADRANT US ABDOMINAL REAL TIME W/IMAGE LIMITED Giacomo Gonzales MD [address] [place] [address] Us Imaging Referral ID Status Reason Start Date Expiration Date V isits Requested Visits Authorized [id number] Closed Auto-Generate d Referral 08/15/2021 09/14/2022 1 1 [facility] for referral (narrative)* Outpatient Procedure (Routine) - Closed Specialty Diagnoses / Procedures Referred By Contac t Referred To Contact [facility] Diagnoses S/P cholecystectomy History of jaundice Elevated bilirubin Elevated LFTs Procedures ERCP ERCP DX COLLECTION SPECIMEN BRUSHING/WASHING Giacomo Gonzales MD [address] [place] [address] [facility] [place] [address] [place] [address] Referral ID Status Reason Start Date Expiration Date V isits Requested Visits Authorized [id number] Closed Auto-Generate d Referral 08/15/2021 08/15/2022 1 1 [facility] for visit Narrative* Outpatient Procedure (Routine) - Closed Specialty Diagnoses / Procedures Referred By Elda duenas Referred To Contact DIGEST[facility] DISEASE SOD Diagnoses S/P cholecystectomy History of jaundice Elevated bilirubin Elevated LFTs Procedures ERCP ERCP DX COLLECTION SPECIMEN BRUSHING/WASHING Giacomo Gonzales MD [address] [place] [address] [facility] Disease [place] [address] [place] [address] Referral ID Status Reason Start Date Expiration Date V isits Requested Visits Authorized [id number] Closed Auto-Generate d Referral 08/15/2021 08/15/2022 1 1 [facility] Summary Purpose Family History No Family History Records FoundNo Family History Records FoundNo Family History Records Found Advance Directives No Advanced Directives Records FoundDocuments on File Type Date Recorded Patient Automotive Service Director Expl anation Advance Directive(s) 07/18/2021 7:35 AM Advance Directive(s) 07/14/2021 5:14 PM Documents on File Type Date Recorded Patient Automotive Service Director Expl anation Advance Directive(s) 07/18/2021 7:35 AM [...] NEW HIGH MDM 60-74 MINUTES Go Cowart, ROOFER HELPER.JOINT CREASER [address] [place] [address] Referral ID Status Reason Start Date Expiration Date Visits Requested Visits Authorized [id number] Authorized PCP Requested Referral 10/21/2022 10/21/2023 1 1 Additional Source Comments (unrecognized sect ion and content) No Status Records FoundNo Status Records FoundNo Status Records Found INFORMATION SOURCE (unrecogn ized section and content) DATE CREATED AUTHOR 05/15/2021 [facility] DATE CREATED AUTHOR AUTHOR'S ORGANIZ ATION 07/21/2021 [facility] DATE CREATED AUTHOR AUTHOR'S ORGANIZ ATION 09/19/2024 [facility] Source Comments (unrecognize d section and content) In the event this informatio n is protected by the Federal Confidentiality of Alcohol and Drug Abuse Patient Records regulations: The Federal rules restrict any use of the information to criminally investigate or prosecute any alcohol or drug abuse patient.[facility] CenterIn the event this information is protected by the Federal Confidentiality of Alcohol and Drug Abuse Patient Records regulations: The Federal rules restrict any use of the information to criminally investigate or prosecute any alcohol or drug abuse patient.[facility] CenterIn the event this information is protected by the Federal Confidentiality of Alcohol and Drug Abuse Patient Records regulations: The Federal rules restrict any use of the information to criminally investigate or prosecute any alcohol or drug abuse patient.[facility] CenterIn the event this information is protected by the Federal Confidentiality of Alcohol and Drug Abuse Patient Records regulations: The Federal rules restrict any use of the information to criminally investigate or prosecute any alcohol or drug abuse patient.[facility] CenterIn the event this information is protected by the Federal Confidentiality of Alcohol and Drug Abuse Patient Records regulations: The Federal rules restrict any use of the information to criminally investigate or prosecute any alcohol or drug abuse patient.[facility] CenterIn the event this information is protected by the Federal Confidentiality of Alcohol and Drug Abuse Patient Records regulations: The Federal rules restrict any use of the information to criminally investigate or prosecute any alcohol or drug abuse patient.[facility] CenterIn the event this information is protected by the Federal Confidentiality of Alcohol and Drug Abuse Patient Records regulations: The Federal rules restrict any use of the information to criminally investigate or prosecute any alcohol or drug abuse patient.[facility] CenterIn the event this information is protected by the Federal Confidentiality of Alcohol and Drug Abuse Patient Records regulations: The Federal rules restrict any use of the information to criminally investigate or prosecute any alcohol or drug abuse patient.[facility] CenterIn the event this information is protected by the Federal Confidentiality of Alcohol and Drug Abuse Patient Records regulations: The Federal rules restrict any use of the information to criminally investigate or prosecute any alcohol or drug abuse patient.[facility] CenterIn the event this information is protected by the Federal Confidentiality of Alcohol and Drug Abuse Patient Records regulations: The Federal rules restrict any use of the information to criminally investigate or prosecute any alcohol or drug abuse patient.[facility] CenterIn the event this information is protected by the Federal Confidentiality of Alcohol and Drug Abuse Patient Records regulations: The Federal rules restrict any use of the information to criminally investigate or prosecute any alcohol or drug abuse patient.[facility] CenterIn the event this information is protected by the Federal Confidentiality of Alcohol and Drug Abuse Patient Records regulations: The Federal rules restrict any use of the information to criminally investigate or prosecute any alcohol or drug abuse patient.[facility] CenterIn the event this information is protected by the Federal Confidentiality of Alcohol and Drug Abuse Patient Records regulations: The Federal rules restrict any use of the information to criminally investigate or prosecute any alcohol or drug abuse patient.[facility] CenterIn the event this information is protected by the Federal Confidentiality of Alcohol and Drug Abuse Patient Records regulations: The Federal rules restrict any use of the information to criminally investigate or prosecute any alcohol or drug abuse patient.[facility] CenterIn the event this information is protected by the Federal Confidentiality of Alcohol and Drug Abuse Patient Records regulations: The Federal rules restrict any use of the information to criminally investigate or prosecute any alcohol or drug abuse patient.[facility] CenterIn the event this information is protected by the Federal Confidentiality of Alcohol and Drug Abuse Patient Records regulations: The Federal rules restrict any use of the information to criminally investigate or prosecute any alcohol or drug abuse patient.[facility] CenterIn the event this information is protected by the Federal Confidentiality of Alcohol and Drug Abuse Patient Records regulations: The Federal rules restrict any use of the information to criminally investigate or prosecute any alcohol or drug abuse patient.[facility] CenterIn the event this information is protected by the Federal Confidentiality of Alcohol and Drug Abuse Patient Records regulations: The Federal rules restrict any use of the information to criminally investigate or prosecute any alcohol or drug abuse patient.[facility] CenterIn the event this information is protected by the Federal Confidentiality of Alcohol and Drug Abuse Patient Records regulations: The Federal rules restrict any use of the information to criminally investigate or prosecute any alcohol or drug abuse patient.[facility] CenterIn the event this information is protected by the Federal Confidentiality of Alcohol and Drug Abuse Patient Records regulations: The Federal rules restrict any use of the information to criminally investigate or prosecute any alcohol or drug abuse patient.[facility] CenterIn the event this information is protected by the Federal Confidentiality of Alcohol and Drug Abuse Patient Records regulations: The Federal rules restrict any use of the information to criminally investigate or prosecute any alcohol or drug abuse patient.[facility] Reason for Visit (unrecogniz ed section and [...] MDM 60-74 MINUTES Starr Hernandez PA-C [address] [place] [address] Referral ID Status Reason Start Date Expiration Date V isits Requested Visits Authorized [id number] Closed PCP Requested Referral 08/17/2021 08/03/2022 1 1 Reason Comments Radiology US Specialty Diagnoses / Procedures Referred By Contac t Referred To Contact US IMAGING Diagnoses S/P cholecystectomy History of jaundice Elevated bilirubin Elevated LFTs Procedures US ABD RT UPPER QUADRANT US ABDOMINAL REAL TIME W/IMAGE LIMITED Giacomo Gonzales MD [address] [place] [address] Us Imaging Referral ID Status Reason Start Date Expiration Date V isits Requested Visits Authorized [id number] Closed Auto-Generate d Referral 08/15/2021 09/14/2022 1 [...] diabetic retinopathy Procedures CONSULT TO OPHTHALMOLOGY OFFICE/OUTPATIENT [facility] 60 MINUTES Go Cowart APRN.JOINT CREASER [address] [place] [address] Referral ID Status Reason Start Date Expiration Date V isits Requested Visits Authorized [id number] Closed PCP Requested Referral 04/28/2023 04/27/2024 1 1 Reason Comments Glaucoma Suspect Follow Up Reason Comments Results Reason Comments Refill Request Reason Onset Date Comments Refill Request 10/17/2023 Reason Comments Appointment Reason Comments Patient Update Reason Onset Date Comments Diabetes 08/25/2024 Care Teams (unrecognized sec tion and content) Pediatric Geneticist Relationship Specialty Start Date End Date Dashawn Eid MD [address] [place] [address] PCP - General Family Practice 11/28/20 Pediatric Geneticist Relationship Specialty Start Date End Date Dashawn Eid MD [address] [place] [address] PCP - General Family Practice 11/28/20 Pediatric Geneticist Relationship Specialty Start Date End Date Dashawn Eid MD [address] [place] [address] PCP - General Family Practice 11/28/20 Pediatric Geneticist Relationship Specialty Start Date End Date Dashawn Eid MD [address] [place] [address] PCP - General Family Practice 11/28/20 Pediatric Geneticist Relationship Specialty Start Date End Date Dashawn Eid MD [address] [place] [address] PCP - General Family Practice 11/28/20 Pediatric Geneticist Relationship Specialty Start Date End Date Dashawn Eid MD [address] [place] [address] PCP - General Family Practice 11/28/20 Pediatric Geneticist Relationship Specialty Start Date End Date Dashawn Eid MD [address] [place] [address] PCP - General Family Practice 11/28/20 Pediatric Geneticist Relationship Specialty Start Date End Date Dashawn Eid MD [address] [place] [address] PCP - General Family Practice 11/28/20 Pediatric Geneticist Relationship Specialty Start Date End Date Dashawn Eid MD [address] [place] [address] PCP - General Family Medicine 11/28/20 Pediatric Geneticist Relationship Specialty Start Date End Date Dashawn Eid MD [address] [place] [address] PCP - General Family Medicine 11/28/20 Pediatric Geneticist Relationship Specialty Start Date End Date Dashawn Eid MD [address] [place] [address] PCP - General Family Medicine 11/28/20 Pediatric Geneticist Relationship Specialty Start Date End Date Dashawn Eid MD [address] [place] [address] PCP - General Family Medicine 11/28/20 Pediatric Geneticist Relationship Specialty Start Date End Date Dashawn Eid MD [address] [place] [address] PCP - General Family Medicine 11/28/20 Pediatric Geneticist Relationship Specialty Start Date End Date Dashawn Eid MD [address] [place] [address] PCP - General Family Medicine 11/28/20 Pediatric Geneticist Relationship Specialty Start Date End Date Dashawn Eid MD [address] [place] [address] PCP - General Family Medicine 11/28/20 Pediatric Geneticist Relationship Specialty Start Date End Date Dashawn Eid MD [address] [place] [address] PCP - General Family Medicine 11/28/20 Chelo Salazar, ROOFER HELPER.JOINT CREASER [address] [place] [address] [employer]namental Iron Worker Family Medicine 03/07/24 Go Cowart APRN.JOINT CREASER [address] [place] [address] Ornamental Iron Worker Family Medicine 03/16/24 Pediatric Geneticist Relationship Specialty Start Date End Date Dashawn Eid MD [address] [place], [place] [address] PCP - General Family Medicine 11/28/20 Chelo Salazar APRN.JOINT CREASER [address] [place], [place] [address] Ornamental Iron Worker [facility] 03/07/24 Go Cowart APRN.JOINT CREASER [address] [place], [place] [address] [facility]24 Pediatric Geneticist Relationship Specialty Start Date End Date Dashawn Eid MD [address] [place], [place] [id number] PCP - General Family Medicine 11/28/20 Go Cowrat APRN.JOINT CREASER [address] [place], [place] [id number] [facility] 03/16/24 Inactive Administered Medications - up [...] BE BASED ON THE PRIMARY CLINICAL RECORDS. [facility] [employer] [facility]. provides no warranty or guarantee of the accuracy or completeness of information in this document.
[2025-03-03] VITALS (13 sets, daily range): BP systolic 87–173; BP diastolic 42–79; PULSE 65–89; RESP 16–18; TEMP 36.3–37.1; O2SAT 93–100; BMI 46.9
[2025-03-03 02:43] LABS: Hematocrit 23.7 % (40-54); Hemoglobin 8.3 g/dL (13.0-16.5); Immature Granulocytes Count 0.030 X10^3/uL (0.0-0.0); Mean Corp Hgb Conc 35.0 g/dL (32-36); Mean Corpuscular Volume 104.4 fL (80-94); Mean Platelet Vol. 10.6 fl (6.2-12.0); NRBC Flagged by Analyzer 0.5 % (0-5); POSITIVE COUNT YES; POSITIVE MORPHOLOGY YES; Platelet Count 74 K/mm3 (150-450); Red Blood Count 2.27 M/mm3 (4.6-6.2); White Blood Count 4.2 K/mm3 (4.4-11.0)
[2025-03-03 02:51] LABS: Differential Indicated SCAN CRITERIA MET
[2025-03-03 03:14] LABS: Partial Thromboplast Time 42.6 Seconds (24.1-36.2)
[2025-03-03 03:17] LABS: Anion Gap 14 (5-15); BUN 19 mg/dL (4-19); BUN/Creat Ratio 22.7 RATIO (10-20); Calcium,Total 8.8 mg/dL (7.6-11.0); Carbon Dioxide 23.0 mmol/L (21.0-32.0); Chloride 102 mmol/L (98-108); Estimated Creatinine Clearance 124.71 ml/min (50-250); Glucose 116 mg/dL (70-99); Potassium 2.9 mmol/L (3.3-5.1)
[2025-03-03 05:40] LABS: Partial Thromboplast Time 51.4 Seconds (24.1-36.2)
[2025-03-03] MEDS: Piperacil/Tazobactam 3.375 GM in 0.9% Normal Saline (50mL MB+) 50 ML IV ×3 (05:41→23:01)
[2025-03-03] MEDS: 0.9% Saline Lock 10 ML Syringe IV ×4 (05:42→23:06)
[2025-03-03] MEDS: Potassium Chloride 10mEq/100mL 10 MEQ/100 ML IV.SOLN. 100 MEQ IV BOLUS ×4 (09:15→15:43)
[2025-03-03] MEDS: 0.9% Normal Saline (250mL Bag) 250 ML 15 ML IV (09:16)
[2025-03-03] MEDS: Pantoprazole Sodium 40 MG in 0.9% Normal Saline (100mL MB+) 100 ML 330 MG IV ×2 (09:55→23:03)
--- NOTE | 2025-03-03 10:55 | PN_ITS ---
Subjective Subjective Patient seen and examined With his nurse by his bedside. He had no active complaints and had an uneventful night. I am still awaiting a call from [facility] once they have a bed available. He is due for colonoscopy today. Review of systems otherwise negative. Blood pressure elevated at 173/71 today. Objective Data Objective Data Vital Signs: Vital Signs Temp Pulse Resp BP Pulse Ox O2 Del Method O2 Flow Rate 98.2 F 88 18 173/71 H 100 Room Air 2 03/03/25 10:05 03/03/25 10:05 03/03/25 10:05 03/03/25 10:05 03/03/25 10:05 03/03/25 10:05 03/02/25 10:00 Oxygen Flow Rate (L/min) 2 Oxygen Delivery Method Room Air Weight: 308 lb 10.354 oz Body Mass Index (BMI) 46.9 Intake & Output: Intake and Output for Last 24 Hours 03/01/25 03/02/25 03/03/25 23:59 23:59 23:59 Intake Total 2272.41 / 2272.41 1036.49 / 1036.49 55.32 / 55.32 Balance 2272.41 / 2272.41 1036.49 / 1036.49 55.32 / 55.32 Lab / Micro Data 03/03/25 02:23 03/03/25 02:23 Labs: Laboratory Results - last 24 hr 03/02/25 12:11: POC Glucose 118 H 03/02/25 16:15: POC Glucose 133 H 03/02/25 17:11: APTT 71.2 H 03/02/25 21:59: POC Glucose 115 H 03/02/25 22:29: APTT 60.4 H 03/03/25 02:23: WBC 4.2 L, RBC 2.27 L, Hgb 8.3 L, Hct 23.7 L, MCV 104.4 H, MCH 36.6 H, MCHC 35.0, RDW Std Deviation TNP, RDW Coeff of Ryan TNP, Plt Count 74 L, MPV 10.6, Immature Gran % (Auto) 0.700, Neut % (Auto) 61.8, Lymph % (Auto) 29.8, [place] % (Auto) 2.9, Eos % (Auto) 4.3, Baso % (Auto) 0.5, Absolute Neuts (auto) 2.6, Absolute Lymphs (auto) 1.25, Nucleated RBC % 0.5, Platelet Estimate MOD DEC, APTT 42.6 H, Sodium 140, Potassium 2.9 L, Chloride 102, Carbon Dioxide 23.0, Anion Gap 14, BUN 19, Creatinine 0.82, Estim Creat Clear Calc 124.71, Est GFR (MDRD) Non-Af 98, BUN/Creatinine Ratio 22.7 H, Glucose 116 H, Calcium 8.8 03/03/25 05:24: APTT 51.4 H 03/03/25 05:38: POC Glucose 95 03/03/25 09:58: POC Glucose 101 Micro: Microbiology 03/01/25 20:38 Sputum, Expectorated/Coughed Gram Stain - Final 03/01/25 20:38 Sputum, Expectorated/Coughed Respiratory Culture - Preliminary 02/27/25 15:55 Urine, Clean Catch Urine Culture - Final Culture exhibits no growth. 02/28/25 07:44 Stool Enteric Bacteriology - Final 02/28/25 07:44 Stool Stool Occult Blood (MARYBEL) - Final Occult Blood Positive 02/28/25 07:20 Sputum, Expectorated/Coughed Gram Stain - Final 02/28/25 07:20 Sputum, Expectorated/Coughed Respiratory Culture - Final 02/28/25 07:44 Stool Clostridioides difficile (PCR) - Final 02/27/25 20:45 Nasal Secretion MRSA (PCR) - Final 02/27/25 20:15 Mucosa - Nasopharyngeal Respiratory Panel (PCR) - Final 02/27/25 15:55 Urine, Clean Catch Legionella Antigen - Final 02/27/25 15:55 Urine, Clean Catch Streptococcus pneumoniae Antigen (M - Final 02/27/25 15:30 Mucosa - Nose SARS-CoV-2, Influenza & RSV (PCR) - Final Radiography Diagnostic Testing: Radiology Impression Abdomen/Pelvis CTA 03/02/25 10:50 IMPRESSION: Unremarkable CTA of the abdomen and pelvis without acute findings. Colonic diverticulosis with no evidence of acute diverticulitis. Reading Location: [facility] Physical Exam Const alert, oriented x3 and no apparent distress Constitutional Narrative: Class III obesity General Appearance: cooperative HEENT normocephalic, head/scalp atraumatic, moist oral mucous membranes and oropharynx normal Eyes EOMs intact bilaterally Neck supple and no JVD Lymph Lymphatic: no lymphedema noted Resp Resp Narrative: Mildly diminished breath sounds bibasilarly. No wheezes or crackles. On 2L of oxygen by nasal canula Cardio regular rate, regular rhythm, S1 normal heart sound, S2 normal heart sound and no murmurs Palpation: normal PMI GI normal to inspection, nondistended, normoactive bowel sounds and soft to palpation Extremity normal capillary refill, no clubbing, cyanosis or edema and no calf tenderness General Extremity: no tenderness to palpation of joints or extremities Skin General Skin Exam: no breakdown Neuro no focal motor deficits and no sensory deficits noted Motor Exam: general weakness Psych thought process normal and cooperative Appearance: appropriate Assessment & Plan Assessment/Plan (1) Pulmonary embolism: (2) Anemia requiring transfusions: (3) UTI (urinary tract infection): PLAN: Plan #Acute gastroenteritis * Admitted with a complaint of intractable nausea and vomiting * Procalcitonin was elevated. Urine also showed 3+ bacteria. Urine cultures negative. Currently on IV Zosyn. * Stool panel negative * diarrhea has resolved. Complete a 5 day course of antibiotics. * #Acute hypoxia due to acute pulmonary embolism * Patient has a history of recent DVT and at that been taking his anticoagulants as he showed. * He is on Eliquis and due to the self-pay cost of $1500 a month he had been rationing it to extend the duration. * found to have PE on admission * on heparin drip. * Will need discharge on Coumadin to the course prohibitive nurse of the direct oral anticoagulants * Heparin drip held due to hemoglobin drop at 6.2 and patient having positive FOBT. He does need to be on blood thinners long-term. * #Acute anemia: * H He did receive 1 unit of packed red blood cells. Iron panel showed iron deficiency anemia but ferritin was markedly elevated making it more of an anemia of chronic disease picture. The ferritin may also be an acute phase reactant. * Heparin drip therefore held this morning and patient been transfused 2 units of packed red blood cells. On IV pantoprazole 40 mg twice daily. * GI on board; had EGD which showed type I isolated gastric varices which were oozing blood and treated with heater probe. * GI concerned about possible portal hypertension as he has small gastric varices. CTA abdomen/pelvis ordered did not show any pathology * for colonoscopy today. Hb today is 8.3. * #UTI: . On IV Zosyn. Urine cultures negative. complete 5 days of antibiotics, which will end tomorrow #Hyperglycemia * Patient reported to be diabetic but not on any medication. A1c is 7.5. Will monitor. Started On Lantus 10 units twice daily. * #Hypertension: * Blood pressure is 173/71 today. Blood pressure has been elevated in the 130s to 170s systolic. * Not on any blood pressure medication. IV hydralazine as needed. Will start on p.o. amlodipine 10 mg daily. * Will monitor blood pressure and adjust medication dose as needed. * #Thrombocytopenia: * Platelets areup to 74 today from 66 yesterea. Aetiology for the low platelets is unclear. * Previous numbers are from 2020 and was normal then. Also on blood thinners now so at a higher risk of bleeding. Will monitor closely * wth him being on heparin, there is a concern for HASEEB. Will order heparin antibody screen. Platelets were 85 when he came in. * will order the heparin antibodies. Per the 4T score, patient has a low probability for HIT. His platelets were already low on admission at 85, and is currently 65. Therefore platelets havent fallen as low as 50%. He does not have any new thrombosis either and other causes of the thrombocytopenia could be the concern for liver disease. As such his 4T score is 0 * however will place him on bivalirudin drip, per discussion with pharmacy. Consider switch to oral coumadin after colonoscopy * bivalirudin drip on hold as he is going for colonoscopy today * #Hypokalemia: K is 2.9. Will replace and trend. DVT prophylaxis:heparin drip dc'd due to low platelets. Bivalirudin held today as he is going for colonoscopy today. Charges/Coding Visit Charges Inpatient E&M: 40788 Subs Hosp L2
--- NOTE | 2025-03-03 11:11 | PCM.PRE.AN2 ---
ASA Classification* ASA Classification ASA Classification: 3 and E Assessment & Plan Anesthesia* Anesthesia Assessment Anesthesia Assessment: Discussed sedation and/or anesthesia options, risks, benefits, and alternatives with patient/parents/legal guardian/POA. Questions invited. The patient/parents/legal guardian/POA seems to understand and agrees to proceed with anesthesia plan. Reviewed the physical assessment, medical history, allergy history and patient home medications list prior to surgery/procedure/anesthetic and documented any changes. Performed airway and anesthesia risk assessments. Anesthesia Type Anesthesia Type: MAC History Source History Obtained from:: Patient and Chart Anesthesia Focused Assessment* Temperature: 98.2 F Pulse Rate: 88 Blood Pressure: 173/71 Respiratory Rate: 18 Pulse Ox: 100 Oxygen Delivery Method: Room Air Oxygen Flow Rate (L/min): 2 Airway Assessment Mouth opens: >3 cm Mallampati Score: IV Teeth Condition: Loose (Multiple loose teeth. Teeth are in poor condition.) Neck Range of motion (ROM): Limited ROM (Severe Restriction) Labs Anesthesia Preop lab: CBC WBC, (4.4-11.0) 4.2 K/mm3 L Today, 02:23 RBC, (4.6-6.2) 2.27 M/mm3 L Today, 02:23 Hgb, (13.0-16.5) 8.3 g/dL L Today, 02:23 Hct, (40-54) 23.7 % L Today, 02:23 Plt Count, (150-450) 74 K/mm3 L Today, 02:23 CHEMISTRY Potassium, (3.3-5.1) 2.9 mmol/L L Today, 02:23 Sodium, (133-145) 140 mmol/L Today, 02:23 Magnesium, (1.5-2.2) 1.7 mg/dL 02/27/25, 17:22 Phosphorus, (2.7-4.5) 4.0 mg/dL 02/28/25, 03:42 BUN, (4-19) 19 mg/dL Today, 02:23 Creatinine, (0.70-1.20) 0.82 mg/dL Today, 02:23 Glucose, (70-99) 116 mg/dL H Today, 02:23 POC Glucose, (74-106) 101 mg/dL Today, 09:58 COAG PT, (11.7-14.9) 15.6 SECONDS H 03/01/25, 06:04 Pre-Assessment Diagnosis/Proposed Procedure Planned Operative Procedure(s): Colonoscopy Anesthesia History Anesthesia History - pharmacy services representative: Anesthesia History - pharmacy services representative Hx Hospitalization Any Problems With Anesthesia No 03/03/25 00:16 Cholinesterase deficiency No 03/03/25 00:16 You/Your Family Experience No 03/03/25 00:16 fever (hyperthermia) with Relationship Recent Exposure to Contagious No 03/03/25 00:16 Disease Does patient have nerve No 03/03/25 00:16 stimulator Patient instructed to have No 03/03/25 00:16 device shut off --Does patient have Pacemaker No 03/03/25 10:54 or ICD? When Was Last Pacemaker Check QUESTION #4 FULL TEXT: You/Your Family Experience fever (hyperthermia) with Anesthesia Last Oral Intake Last Oral intake: Last Oral Intake NPO since 00:01 03/03/25 10:54 Meds taken in AM with sips of water? Meds patient instructed to take am of surgery PONV PONV - pharmacy services representative: PONV - pharmacy services representative Female HX of Motion Sickness HX of N/V After Surgery Non-Smoker Duration of Surgery greater than 60 minutes Number of Risk Factors PONV Score Height & Weight Height & Weight: Anesthesia: Height & Weight Height 5 ft 8 in 03/03/25 10:54 Weight: 140 kg 03/03/25 10:54 Body Mass Index (BMI) 46.9 03/03/25 10:54 Respiratory Assessment Respiratory Assessment - pharmacy services representative: Respiratory Tract Infection Hx - pharmacy services representative Hx Respiratory Tract Infection No 03/03/25 00:16 STOP Sleep Apnea STOP Sleep Apnea - pharmacy services representative: STOP Sleep Apnea - pharmacy services representative Hx Hypertension Yes 02/28/25 12:55 Hx Sleep Apnea No: undiagnosed 02/27/25 20:10 CPAP No 03/01/25 18:33 BIPAP No 02/27/25 20:10 Do you snore loudly (louder Yes 02/27/25 20:10 than talking or can be heard Do you often feel tired/ Yes 02/27/25 20:10 fatigued/ sleepy during daytime? Has anyone observed you stop Yes 02/27/25 20:10 breathing during sleep? STOP Results Positive 03/01/25 18:33 QUESTION #5 FULL TEXT : Do you snore loudly (louder than talking or can be heard through closed doors)? 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 Specify any problems Hx of Preganancy in last 3 N/A 02/27/25 20:10 Months Nurse Filling Out Transfusion RMAIKEVIN 02/27/25 20:10 & Questions: Date: 02/27/25 02/27/25 20:10 Time: 20:12 02/27/25 20:10 Patient unable to answer at Yes 02/27/25 20:10 this time (ie. confused, unrespo /Reproduction History /Reproductive History - pharmacy services representative: /Reproductive Hx- pharmacy services representative Hx Now No 03/03/25 00:16 Gestational Age (in weeks): EDC: Hx Hx Para Hx Section SAB No 03/03/25 00:16 Does the father of the baby or his family experience fever w Father of the baby Malignant Hypertension history comment Active Medications Active Medications: Current Medications Generic Name Dose Route Start Last Admin Trade Name Freq PRN Reason Stop Dose Admin Acetaminophen 650 mg 02/27/25 19:56 03/01/25 20:21 Acetaminophen 325 Mg Tablet PO 650 mg Q4H PRN PRN Administration Fever, pain 1-01/07 Al Hydroxide/Mg Hydroxide 30 ml 02/27/25 19:56 Mag Hydrox/Al Hydrox/Simeth 30 Ml Udc PO Q6H PRN PRN Gastric Burning Albuterol Sulfate 2.5 mg 02/27/25 19:56 Albuterol 2.5 Mg/3 Ml Vial.Neb. INHALATION Q2H PRN PRN Dyspnea, wheezing Amlodipine Besylate 10 mg 03/03/25 11:10 Amlodipine 10 Mg Tablet PO DAILY [facility] Protocol Calamine/Phenol 1 applic 02/27/25 22:00 03/03/25 09:15 Menthol/Lanolin/Calamine/Znox 113 Gm Tube TOPICAL Not Given 4X/DAY [facility] Protocol Glucagon 1 mg 02/27/25 19:56 Glucagon 1 Mg/Ml Syringe IM X1 PRN HYPOGLYCEMIA Protocol Guaifenesin 20 ml 02/27/25 19:56 Guaifenesin 10 Ml Udc (200mg/10ml) PO Q4H PRN PRN COUGH Hydralazine HCl 10 mg 02/27/25 19:56 Hydralazine 20 Mg/Ml Vial IV Q4H PRN PRN SBP > 160 Protocol Dextrose 250 mls @ 0 mls/hr 02/27/25 19:56 Dextrose 10%-Water IV .Q0M PRN HYPOGLYCEMIA Protocol As Directed Pantoprazole Sodium 40 mg/ 100 mls @ 330 mls/hr 02/27/25 20:00 03/03/25 10:14 Sodium Chloride IV Infused Q12 JOEL Infusion Sodium Chloride 500 mls @ 15 mls/hr 02/27/25 19:58 IV PRN PRN Blood Transfusion Sodium Chloride 250 mls @ 15 mls/hr 02/27/25 19:58 03/03/25 10:30 IV 0 mls/hr .[id number] PRN Infusion Saline Flush Sodium Chloride 250 mls @ 15 mls/hr 02/27/25 19:58 IV .[id number] PRN Additional IVPB Infusion Piperacillin Sod/Tazobactam 50 mls @ 12.5 mls/hr 02/28/25 14:00 03/03/25 09:41 Sod 3.375 gm/ Sodium Chloride IV Infused Q8 JOEL Infusion Lactated Ringer's 1,000 mls @ 15 mls/hr 03/01/25 17:15 03/01/25 20:13 IV Infused .Q48H JOEL Infusion Bivalirudin 250 mg/ Sodium 50 mls @ 4.2 mls/hr 03/02/25 15:00 03/03/25 05:41 Chloride IV Not Given On Hold: 03/03/25 11:07 .[id number] JOEL Protocol Potassium Chloride 10 meq in 100 mls @ 100 mls/hr 03/03/25 09:00 03/03/25 10:15 IV BOLUS 03/03/25 12:59 Infused Q1H JOEL Infusion Insulin Glargine 10 unit 02/27/25 22:00 03/03/25 10:00 Insulin Glargine-Yfgn 100 Unit/Ml Pen SC Not Given BID JOEL Insulin Human Lispro 0 unit 03/02/25 07:00 03/03/25 10:59 Insulin Lispro 100 Unit/Ml Insuln.Pen SC Not Given ACHS [facility] Protocol Melatonin 3 mg 02/27/25 19:56 Melatonin 3 Mg Tablet PO QHS PRN PRN INSOMNIA Nitroglycerin 0.4 mg 02/27/25 19:56 Nitroglycerin (Inpatient Use) 0.4 Mg Tab.Subl SL Q5M PRN CARDIAC/CHEST PAIN Ondansetron HCl 4 mg 02/27/25 19:56 Ondansetron 4 Mg/2 Ml Vial IV Q8H PRN PRN NAUSEA/VOMITING Sodium Chloride 10 - 40 ml 02/27/25 19:58 03/03/25 09:16 0.9% Saline Lock 10 Ml Syringe IV 20 ml UD PRN Administration SALINE FLUSH PFSH Medical History RAHEEM (obstructive sleep apnea) Morbid obesity Diabetes mellitus, type 2 DVT (deep venous thrombosis) Hypertension Home Medications ?Medication ?Instructions ?Recorded ?Last Taken ?Type apixaban 5 mg tablet 5 mg PO BID #74 tabs 01/18/20 02/26/25 15:00 Rx 10 mg aspirin 81 mg chewable tablet 81 mg PO DAILY@0800 blood thinner 01/18/20 Unknown History lisinopril 10 1 ea PO DAILY #30 tabs 01/18/20 Unknown Rx mg-hydrochlorothiazide 12.5 mg tablet Allergy/AdvReac Type Severity Reaction Status Date / Time No Known Allergies Allergy Verified 02/27/25 15:13 Family History Mother , in her 30s secondary to trauma/MVA. No medical history. MVA (motor vehicle accident) Family History other Surgical History Status post cholecystectomy History of tonsillectomy and adenoidectomy History of back surgery Social History household members: family Smoking Status: Never smoker alcohol intake: never substance use type: does not use Review of Systems (Anesthesia) ROS Narrative System reviewed and no additional complaints, except as documented.
[2025-03-03 12:10] LABS: Magnesium 2.0 mg/dL (1.5-2.2)
--- NOTE | 2025-03-03 12:27 | OP.COLON_ITS ---
Patient Name: Robert Irvin Procedure Date: 03/03/2025 11:27 AM Date of : 1960 Age: 64 Procedure: Colonoscopy Indications: Iron deficiency anemia Providers: Niranjan Parsons DO Medicines: Monitored Anesthesia Care Patient Profile: This is a 64 year old male. Refer to note in patient chart for documentation of history and physical. Last Colonoscopy: none. The patient's first colonoscopy is today. Complications: No immediate complications. Procedure: Pre-Anesthesia Assessment: - Prior to the procedure, a History and Physical was performed, and patient medications and allergies were reviewed. The patient is competent. The risks and benefits of the procedure and the sedation options and risks were discussed with the patient. All questions were answered and informed consent was obtained. Patient identification and proposed procedure were verified by the physician in the pre-procedure area. Mental Status Examination: alert and oriented. Airway Examination: normal oropharyngeal airway and neck mobility. Respiratory Examination: clear to auscultation. CV Examination: normal. Prophylactic Antibiotics: The patient does not require prophylactic antibiotics. Prior Anticoagulants: The patient has taken no anticoagulant or antiplatelet agents except for NSAID medication. ASA Grade Assessment: III - A patient with severe systemic disease. After reviewing the risks and benefits, the patient was deemed in satisfactory condition to undergo the procedure. The anesthesia plan was to use monitored anesthesia care (MAC). Immediately prior to administration of medications, the patient was re-assessed for adequacy to receive sedatives. The heart rate, respiratory rate, oxygen saturations, blood pressure, adequacy of pulmonary ventilation, and response to care were monitored throughout the procedure. The physical status of the patient was re-assessed after the procedure. After I obtained informed consent, the scope was passed under direct vision. Throughout the procedure, the patient's blood pressure, pulse, and oxygen saturations were monitored continuously. The Colonoscope was introduced through the anus and advanced to the cecum, identified by appendiceal orifice and ileocecal valve. The colonoscopy was performed without difficulty. The patient tolerated the procedure well. The quality of the bowel preparation was adequate. The ileocecal valve, appendiceal orifice, and rectum were photographed. Scope In: 11:56:13 AM Scope Withdrawal Time 0 hours 12 minutes 46 seconds Scope Out: 12:19:08 PM Total Procedure Duration Time 0 hours 22 minutes 55 seconds Findings: The perianal and digital rectal examinations were normal. Many small and large-mouthed diverticula were found in the entire colon. Non-bleeding external and internal hemorrhoids were found during retroflexion. The hemorrhoids were Grade II (internal hemorrhoids that prolapse but reduce spontaneously). Impression: - Diverticulosis in the entire examined colon. - Non-bleeding external and internal hemorrhoids. - No specimens collected. Recommendation: - Repeat colonoscopy in 10 years for screening purposes. - Continue present medications. Procedure Code(s): --- Professional --- 46852, Colonoscopy, flexible; diagnostic, including collection of specimen(s) by brushing or washing, when performed (separate procedure) CPT copyright 2021 [employer]. All rights reserved. The codes documented in this report are preliminary and upon terra cotta mason review may be revised to meet current compliance requirements. Niranjan Parsons DO 03/03/2025 12:27:21 PM This report has been signed electronically. Number of Addenda: 0 Note Initiated On: 03/03/2025 11:27 AM
--- NOTE | 2025-03-03 12:27 | OP.PROVAT_ITS ---
03/03/2025 Priyank Quinones [address] [place] [address] Re : Colonoscopy procedure for Robert Irvin Dear Dr. Quinones This procedure was performed on February. My impressions and recommendations are as follows: Impressions : - Diverticulosis in the entire examined colon. - Non-bleeding external and internal hemorrhoids. - No specimens collected. Recommendations : - Repeat colonoscopy in 10 years for screening purposes. - Continue present medications. My findings are described in the full procedure note, which is enclosed. If I can be of further assistance, please feel free to contact me at . Sincerely, Niranjan Parsons, 03/03/2025 12:27:21 PM This report has been signed electronically.
--- NOTE | 2025-03-03 12:31 | PCM.POST.ANE ---
Anesthesia: Postop Eval I Current Vital Signs Temperature: 97.4 F Pulse Rate: 84 Blood Pressure: 88/42 Respiratory Rate: 16 Pulse Ox: 94 Oxygen Delivery Method: Room Air Assessment Airway patent: Yes Spontaneous unlabored respirations: Yes Mental status: Awake and Calm nausea: No Vomiting: No Anesthesia Complication: No Fluid Hydration Crystalloid volume administer (ml): 300 Total IV fluid infused: 300 Progress Note Anesthesia document: Postop Eval 1 completed: Yes
[2025-03-04 04:13] LABS: Hematocrit 21.3 % (40-54); Hemoglobin 7.5 g/dL (13.0-16.5); Immature Granulocytes Count 0.020 X10^3/uL (0.0-0.0); Mean Corp Hgb Conc 35.2 g/dL (32-36); Mean Corpuscular Volume 103.4 fL (80-94); Mean Platelet Vol. 10.5 fl (6.2-12.0); NRBC Flagged by Analyzer 0 % (0-5); POSITIVE COUNT YES; POSITIVE MORPHOLOGY YES; Platelet Count 67 K/mm3 (150-450); Red Blood Count 2.06 M/mm3 (4.6-6.2); White Blood Count 2.9 K/mm3 (4.4-11.0)
[2025-03-04 04:27] LABS: Differential Indicated SCAN CRITERIA MET
[2025-03-04 04:35] LABS: Anion Gap 10 (5-15); BUN 17 mg/dL (4-19); BUN/Creat Ratio 22.0 RATIO (10-20); Calcium,Total 8.5 mg/dL (7.6-11.0); Carbon Dioxide 23.5 mmol/L (21.0-32.0); Chloride 104 mmol/L (98-108); Estimated Creatinine Clearance 136.57 ml/min (50-250); Glucose 118 mg/dL (70-99); Potassium 3.2 mmol/L (3.3-5.1)
[2025-03-04] MEDS: Piperacil/Tazobactam 3.375 GM in 0.9% Normal Saline (50mL MB+) 50 ML IV (04:48)
[2025-03-04 04:50] VITALS: BP 130/68; PULSE 68; RESP 18; TEMP 36.3; O2SAT 99
[2025-03-04 05:08] LABS: Reactive Lymphocyte RARE
[2025-03-04 06:00] VITALS: BMI 47.5
[2025-03-04] MEDS: Potassium Chloride Oral Tablet 20 MEQ 40 MEQ PO (08:14)
[2025-03-04] MEDS: Pantoprazole Sodium 40 MG in 0.9% Normal Saline (100mL MB+) 100 ML 330 MG IV (10:29)
[2025-03-04] MEDS: 0.9% Saline Lock 10 ML Syringe IV (10:30)
[2025-03-04 10:35] VITALS: BP 131/68; PULSE 85; RESP 18; TEMP 36.7; O2SAT 100
--- NOTE | 2025-03-04 11:45 | PN_ITS ---
Subjective Subjective Patient seen and examined with his nurse by his bedside.He had no complaints. He had the colonoscopy yesterday which showed diverticulosis and nonbleeding internal and external hemorrhoids. He is still awaiting transfer to [facility] pending bed availability. Objective Data Objective Data Vital Signs: Vital Signs Temp Pulse Resp BP Pulse Ox O2 Del Method O2 Flow Rate 98.1 F 85 18 131/68 H 100 Room Air 2 03/04/25 10:35 03/04/25 10:35 03/04/25 10:35 03/04/25 10:35 03/04/25 10:35 03/04/25 10:35 03/03/25 12:40 Oxygen Flow Rate (L/min) 2 Oxygen Delivery Method Room Air Weight: 312 lb 2.793 oz Body Mass Index (BMI) 47.5 Intake & Output: Intake and Output for Last 24 Hours 03/02/25 03/03/25 03/04/25 23:59 23:59 23:59 Intake Total 1036.49 / 1036.49 1080.32 / 1080.32 200 / 200 Balance 1036.49 / 1036.49 1080.32 / 1080.32 200 / 200 Lab / Micro Data 03/04/25 03:59 03/04/25 03:39 Labs: Laboratory Results - last 24 hr 03/03/25 05:24: Magnesium 2.0 03/03/25 16:37: POC Glucose 128 H 03/03/25 22:58: POC Glucose 131 H 03/04/25 03:39: Sodium 137, Potassium 3.2 L, Chloride 104, Carbon Dioxide 23.5, Anion Gap 10, BUN 17, Creatinine 0.75, Estim Creat Clear Calc 136.57, Est GFR (MDRD) Non-Af 101, BUN/Creatinine Ratio 22.0 H, Glucose 118 H, Calcium 8.5 03/04/25 03:59: WBC 2.9 L, RBC 2.06 L, Hgb 7.5 L, Hct 21.3 L, MCV 103.4 H, MCH 36.4 H, MCHC 35.2, RDW Std Deviation TNP, RDW Coeff of Ryan TNP, Plt Count 67 L, MPV 10.5, Immature Gran % (Auto) 0.700, Neut % (Auto) 44.3 L, Lymph % (Auto) 45.5 H, [place] % (Auto) 4.1, Eos % (Auto) 5.1 H, Baso % (Auto) 0.3, Absolute Neuts (auto) 1.3 L, Absolute Lymphs (auto) 1.33, Nucleated RBC % 0, Reactive Lymphocytes RARE, Platelet Estimate MOD DEC 03/04/25 06:30: POC Glucose 100 03/04/25 11:25: POC Glucose 140 H Micro: Microbiology 03/01/25 20:38 Sputum, Expectorated/Coughed Gram Stain - Final 03/01/25 20:38 Sputum, Expectorated/Coughed Respiratory Culture - Final 02/27/25 15:55 Urine, Clean Catch Urine Culture - Final Culture exhibits no growth. 02/28/25 07:44 Stool Enteric Bacteriology - Final 02/28/25 07:44 Stool Stool Occult Blood (MARYBEL) - Final Occult Blood Positive 02/28/25 07:20 Sputum, Expectorated/Coughed Gram Stain - Final 02/28/25 07:20 Sputum, Expectorated/Coughed Respiratory Culture - Final 02/28/25 07:44 Stool Clostridioides difficile (PCR) - Final 02/27/25 20:45 Nasal Secretion MRSA (PCR) - Final 02/27/25 20:15 Mucosa - Nasopharyngeal Respiratory Panel (PCR) - Final 02/27/25 15:55 Urine, Clean Catch Legionella Antigen - Final 02/27/25 15:55 Urine, Clean Catch Streptococcus pneumoniae Antigen (M - Final 02/27/25 15:30 Mucosa - Nose SARS-CoV-2, Influenza & RSV (PCR) - Final Physical Exam Const alert, oriented x3 and no apparent distress Constitutional Narrative: Class III obesity General Appearance: cooperative HEENT normocephalic, head/scalp atraumatic, moist oral mucous membranes and oropharynx normal Eyes EOMs intact bilaterally Neck supple and no JVD Lymph Lymphatic: no lymphedema noted Resp Resp Narrative: Mildly diminished breath sounds bibasilarly. No wheezes or crackles. On 2L of oxygen by nasal canula Cardio regular rate, regular rhythm, S1 normal heart sound, S2 normal heart sound and no murmurs Palpation: normal PMI GI normal to inspection, nondistended, normoactive bowel sounds and soft to palpation Extremity normal capillary refill, no clubbing, cyanosis or edema and no calf tenderness General Extremity: no tenderness to palpation of joints or extremities Skin General Skin Exam: no breakdown Neuro no focal motor deficits and no sensory deficits noted Motor Exam: general weakness Psych thought process normal and cooperative Appearance: appropriate Assessment & Plan Assessment/Plan (1) Pulmonary embolism: (2) Anemia requiring transfusions: (3) UTI (urinary tract infection): PLAN: Plan #Acute gastroenteritis * Admitted with a complaint of intractable nausea and vomiting * Procalcitonin was elevated. Urine also showed 3+ bacteria. Urine cultures negative. Currently on IV Zosyn. * Stool panel negative * diarrhea has resolved. Complete a 5 day course of antibiotics. * #Acute hypoxia due to acute pulmonary embolism * Patient has a history of recent DVT and at that been taking his anticoagulants as he showed. * He is on Eliquis and due to the self-pay cost of $1500 a month he had been rationing it to extend the duration. * found to have PE on admission * Will need discharge on Coumadin to the course prohibitive nurse of the direct oral anticoagulants * Heparin drip held due to hemoglobin drop at 6.2 and patient having positive FOBT. He does need to be on blood thinners long-term. * #Acute anemia: * H He did receive 1 unit of packed red blood cells. Iron panel showed iron deficiency anemia but ferritin was markedly elevated making it more of an anemia of chronic disease picture. The ferritin may also be an acute phase reactant. * Heparin drip therefore held this morning and patient been transfused 2 units of packed red blood cells. On IV pantoprazole 40 mg twice daily. * GI on board; had EGD which showed type I isolated gastric varices which were oozing blood and treated with heater probe. * GI concerned about possible portal hypertension as he has small gastric varices. CTA abdomen/pelvis ordered did not show any pathology * colonoscopy showed diverticulosis and nonbleeding internal and external hemorrhoids. * Hb is down to 7.5 today. * He will need a capsule endoscopy on outpatient basis. * Continue PPI * #UTI: . On IV Zosyn. Urine cultures negative. complete 5 days of antibiotics, which will end tomorrow #Hyperglycemia * Patient reported to be diabetic but not on any medication. A1c is 7.5. Will monitor. Started On Lantus 10 units twice daily. * #Hypertension: * Blood pressure is 173/71 today. Blood pressure has been elevated in the 130s to 170s systolic. * Not on any blood pressure medication. IV hydralazine as needed. Will start on p.o. amlodipine 10 mg daily. * Will monitor blood pressure and adjust medication dose as needed. * #Thrombocytopenia: * Platelets are down to 67 today. * Previous numbers are from 2020 and was normal then. Also on blood thinners now so at a higher risk of bleeding. Will monitor closely * wth him being on heparin, there is a concern for HASEEB. Will order heparin antibody screen. Platelets were 85 when he came in. * will order the heparin antibodies. Per the 4T score, patient has a low probability for HIT. His platelets were already low on admission at 85, and is currently 65. Therefore platelets havent fallen as low as 50%. He does not have any new thrombosis either and other causes of the thrombocytopenia could be the concern for liver disease. As such his 4T score is 0 * however will place him on bivalirudin drip, per discussion with pharmacy. Consider switch to oral coumadin after colonoscopy * bivalirudin drip on hold as he went for colonoscopy * #Hypokalemia: K is 2.9. Will replace and trend. DVT prophylaxis:heparin drip dc'd due to low platelets. Bivalirudin held today as he is going for colonoscopy today. Disposition: Patient awaiting transfer to [facility] for IVC filter insertion. The time is not around. However since it is Friday he still has not gotten the bed I think it is reasonable that patient will stay here till Friday to get the filter. Charges/Coding Visit Charges Inpatient E&M: 90746 Subs Hosp L2
[2025-03-04 11:47] VITALS: O2SAT 95
[2025-03-04 14:08] LABS: Heparin-Induced Plt Ab 0.040 OD (0.000-0.400)
[2025-03-04 16:10] VITALS: BP 144/68; PULSE 81; RESP 16; TEMP 36.6; O2SAT 98
[2025-03-04] MEDS: Insulin Glargine-YFGN 100 UNIT/ML Pen 10 UNIT SC (20:56)
[2025-03-04 21:22] VITALS: BP 158/80; PULSE 90; RESP 18; TEMP 36.3; O2SAT 99
--- NOTE | 2025-03-05 08:07 | DS.PCM_ITS ---
Providers Date of Admission: 02/27/25 Date of Discharge: 03/04/25 Primary Care Physician: Dr. Priyank Quinones MD Consultations 02/28/25 14:12 Consult: Gastroenterology Routine Consulting Provider: [facility] Reason for Consult: acute anemia, positive FOBT, requiring anticoagulation EMERGENT Consult: No Notified: Yes Date Notified: 02/28/25 Time Notified: 14:12 Method of Notification: Text 03/02/25 12:35 Consult: Vascular Surgery Routine Consulting Provider: Dm Devi Reason for Consult: recurrent DVT and PE, GI bleed, may need IVC filter EMERGENT Consult: No Notified: Yes Date Notified: 03/02/25 Time Notified: 12:46 Method of Notification: Text Reason For Visit: SIRS,HYPOXIA, PE, ACUTE ANEMIA Diagnosis Discharge Diagnosis (1) Pulmonary embolism: Status: Acute Code(s): I26.99 - Other pulmonary embolism without acute cor pulmonale (2) Anemia requiring transfusions: Status: Acute Code(s): D64.9 - Anemia, unspecified (3) UTI (urinary tract infection): Status: Acute Code(s): N39.0 - Urinary tract infection, site not specified Plan #Acute gastroenteritis * Admitted with a complaint of intractable nausea and vomiting * Procalcitonin was elevated. Urine also showed 3+ bacteria. Urine cultures negative. Currently on IV Zosyn. * Stool panel negative * diarrhea has resolved. Complete a 5 day course of antibiotics. * #Acute hypoxia due to acute pulmonary embolism * Patient has a history of recent DVT and at that been taking his anticoagulants as he showed. * He is on Eliquis and due to the self-pay cost of $1500 a month he had been rationing it to extend the duration. * found to have PE on admission * Will need discharge on Coumadin to the course prohibitive nurse of the direct oral anticoagulants * Heparin drip held due to hemoglobin drop at 6.2 and patient having positive FOBT. He does need to be on blood thinners long-term. * #Acute anemia: * H He did receive 1 unit of packed red blood cells. Iron panel showed iron deficiency anemia but ferritin was markedly elevated making it more of an anemia of chronic disease picture. The ferritin may also be an acute phase reactant. * Heparin drip therefore held this morning and patient been transfused 2 units of packed red blood cells. On IV pantoprazole 40 mg twice daily. * GI on board; had EGD which showed type I isolated gastric varices which were oozing blood and treated with heater probe. * GI concerned about possible portal hypertension as he has small gastric varices. CTA abdomen/pelvis ordered did not show any pathology * colonoscopy showed diverticulosis and nonbleeding internal and external hemorrhoids. * Hb is down to 7.5 today. * He will need a capsule endoscopy on outpatient basis. * Continue PPI * #UTI: . On IV Zosyn. Urine cultures negative. complete 5 days of antibiotics, which will end tomorrow #Hyperglycemia * Patient reported to be diabetic but not on any medication. A1c is 7.5. Will monitor. Started On Lantus 10 units twice daily. * #Hypertension: * Blood pressure is 173/71 today. Blood pressure has been elevated in the 130s to 170s systolic. * Not on any blood pressure medication. IV hydralazine as needed. Will start on p.o. amlodipine 10 mg daily. * Will monitor blood pressure and adjust medication dose as needed. * #Thrombocytopenia: * Platelets are down to 67 today. * Previous numbers are from 2020 and was normal then. Also on blood thinners now so at a higher risk of bleeding. Will monitor closely * wth him being on heparin, there is a concern for HASEEB. Will order heparin antibody screen. Platelets were 85 when he came in. * will order the heparin antibodies. Per the 4T score, patient has a low probability for HIT. His platelets were already low on admission at 85, and is currently 65. Therefore platelets havent fallen as low as 50%. He does not have any new thrombosis either and other causes of the thrombocytopenia could be the concern for liver disease. As such his 4T score is 0 * however will place him on bivalirudin drip, per discussion with pharmacy. Consider switch to oral coumadin after colonoscopy * bivalirudin drip on hold as he went for colonoscopy * #Hypokalemia: K is 2.9. Will replace and trend. DVT prophylaxis:heparin drip dc'd due to low platelets. Bivalirudin held today as he is going for colonoscopy today. Disposition: Patient awaiting transfer to [facility] for IVC filter insertion. The time is not around. However since it is Friday he still has not gotten the bed I think it is reasonable that patient will stay here till Friday to get the filter. Medications at Discharge Home Medications apixaban 5 mg tablet 5 mg PO BID #74 tabs 01/18/20 aspirin 81 mg chewable tablet 81 mg PO DAILY@0800 blood thinner 01/18/20 lisinopril 10 mg-hydrochlorothiazide 12.5 mg tablet 1 ea PO DAILY #30 tabs 01/18/20 Hospital Course Operations None Procedures Colonoscopy and EGD Summary of Care Provided Minutes Spent on Discharge: 45 Hospital Course: Patient is a 64-year-old male with an extensive past medical history as outlined including a history of recurrent DVTs who was admitted via the ED on 03/05/2025 with a complaint of weakness and nausea as bilious emesis. He had not been taking his Eliquis as he should have been because he was paying [id number] and it was too expensive for him. He also complained of some loose stools and shortness of breath. CT of the chest showed PE on the right side without any elevation of the RV to LV ratio and CT of the abdomen and pelvis showed no acute pathology. EKG showed sinus tachycardia. Chest x-ray showed diffuse reticular opacities which may reflect moderate pulmonary edema versus occult pneumonia. He was admitted and managed for acute gastroenteritis as well as acute hypoxia due to the PE and anemia of unclear etiology. Hemoglobin was 7.2. He was placed on IV Zosyn. He was also started on heparin drip. Hospital course was complicated by acute on chronic anemia with hemoglobin dropping as low as 6.2 and requiring transfusion. Stool for occult blood was positive. Gastroenterology was consulted and patient had EGD which showed normal esophagus and type I isolated gastric varices which were oozing blood. He had a CTA of the abdomen and pelvis which did not show any evidence of cirrhosis or any bleeding. Per gastroenterology there was concern that his symptoms were likely due to portal hypertension and concern for cirrhosis. He also had a colonoscopy which showed diverticulosis in the entire examined colon with nonbleeding external and internal hemorrhoids. It was determined the patient would need an IVC filter due to his worsening anemia despite being transfused with packed red blood cells and no clear source of the bleeding. EGD and colonoscopy. Vascular surgeon was not available in house this weekend so patient was transferred to [facility] on 03/04/2025. Of note patient's blood cultures and urine cultures were negative so antibiotics were discontinued. As stated he was transferred to [facility] on 03/04/2025. Patient seen and examined on the day of transfer. He had no active complaints. Review of systems otherwise negative. Labs and vitals reviewed. Home medication reviewed and reconciled. Physical Exam Const alert, oriented x3 and no apparent distress Constitutional Narrative: Class III obesity General Appearance: cooperative and comfortable HEENT normocephalic, head/scalp atraumatic, moist oral mucous membranes and oropharynx normal Eyes EOMs intact bilaterally Neck supple and no JVD Lymph Lymphatic: no lymphedema noted Resp Resp Narrative: Mildly diminished breath sounds bibasilarly. No wheezes or crackles. On 2L of oxygen by nasal canula Cardio regular rate, regular rhythm, S1 normal heart sound, S2 normal heart sound and no murmurs Palpation: normal PMI GI normal to inspection, nondistended, normoactive bowel sounds and soft to palpation Extremity full ROM, normal capillary refill, no clubbing, cyanosis or edema and no calf tenderness General Extremity: no tenderness to palpation of joints or extremities Skin no rashes or lesions noted General Skin Exam: no breakdown Neuro oriented x3, moves all extremities, no focal motor deficits and no sensory deficits noted Sensorium / Orientation: awake Motor Exam: general weakness Psych thought process normal and cooperative Appearance: appropriate Weight / BMI Weight Weight: 312 lb 2.793 oz Body Mass Index (BMI) 47.5 ABG / Lab / Microbiology Data 03/04/25 03:59 03/04/25 03:39 Laboratory: Laboratory Results - last 24 hr 03/02/25 13:15: Heparin-induced Plt Ab 0.040 03/04/25 16:05: POC Glucose 149 H 03/04/25 20:53: POC Glucose 159 H Microbiology: Microbiology 02/27/25 15:18 Blood Culture (Wb) - Anticubital Right Blood Culture - Final No growth in 5 days. 02/27/25 15:16 Blood Culture (Wb) - Anticubital Left Blood Culture - Final No growth in 5 days. 03/01/25 20:38 Sputum, Expectorated/Coughed Gram Stain - Final 03/01/25 20:38 Sputum, Expectorated/Coughed Respiratory Culture - Final 02/27/25 15:55 Urine, Clean Catch Urine Culture - Final Culture exhibits no growth. 02/28/25 07:44 Stool Enteric Bacteriology - Final 02/28/25 07:44 Stool Stool Occult Blood (MARYBEL) - Final Occult Blood Positive 02/28/25 07:20 Sputum, Expectorated/Coughed Gram Stain - Final 02/28/25 07:20 Sputum, Expectorated/Coughed Respiratory Culture - Final 02/28/25 07:44 Stool Clostridioides difficile (PCR) - Final 02/27/25 20:45 Nasal Secretion MRSA (PCR) - Final 02/27/25 20:15 Mucosa - Nasopharyngeal Respiratory Panel (PCR) - Final 02/27/25 15:55 Urine, Clean Catch Legionella Antigen - Final 02/27/25 15:55 Urine, Clean Catch Streptococcus pneumoniae Antigen (M - Final 02/27/25 15:30 Mucosa - Nose SARS-CoV-2, Influenza & RSV (PCR) - Final D/C Instructions Discharge Activity: Return to Normal Activity Weight Bearing Status: Weight bearing as tolerated Call your doctor if you observe: Fever of 101 or Higher, Shortness of breath, Dizziness, Swelling in the ankles, Chest pain, Increased palpitations (irregular heartbeat) and Calf discomfort DC O2, CPAP, BIPAP Needs Home O2 Discharge instructions: No DC home with Oxygen: No Meaningful Use Info Meaningful Use Meaningful Use Diagnoses (Choose all that apply): VTE VTE Anticoag overlap given w/in hospital stay or rx'd at dc?: Yes Pt receive overlap for 5 days?: No Reason overlap not ordered, prescribed, or given for 5 days: Treatment Not Indicated Discharge Plan Admission Admit Date/Time: 02/27/25 18:11 Primary Reason for Your Visit: right PE Attending Provider: Joselny Torres Primary Care Provider: Priyank Quinones Consulting Providers: Noemy Griggs; Derrick Arreola; Niranjan Parsons; Helen Kemp; Blanka Zaman; Michaelle De La Torre; Dm Devi Discharge Orders/Prescriptions Prescriptions: No Action aspirin 81 MG tablet,chewable 81 mg PO DAILY@0800 Patient Comments: pt states he stopped this medication apixaban 5 MG tablet 5 mg PO BID Qty: 74 0RF Patient Comments: pt does not take this medication daily due to cost- pt rations med Rx Instructions: 10 mg twice a day for the first week. Then 5 mg twice a day. lisinopril-hydrochlorothiazide 1 EACH tablet 1 ea PO DAILY Qty: 30 0RF Patient Comments: pt does not take this medication daily; takes once every three days or so pt states that his neck and shoulders ache with this medication Referrals / Follow Up: Priyank Quinones MD [Primary Care Provider, [facility]] Disposition Disposition (needs filled in before D/C Order can be placed): Acute Care Hospital Charges/Coding Visit Charges Inpatient E&M: 73161 Disch Hosp >30min
== END 2025-03-04 21:24 | disposition short-term general hospital (02) | DRG 391 ==
LOC: ED 16:43 → PCU 19:28
PROVIDERS: Anesthesiology; Internal Medicine Gastroenterology; Admitting Provider Family Medicine; Emergency Provider Emergency Medicine; PCP Family Medicine; Visit Provider Student in an Organized Health Care Education/Training Program
PROC: 0DJ08ZZ Inspection of Upper Intestinal Tract, Via Natural or Artificial Opening Endoscopic (ICD-10-PCS; CPT 43235; principal; 2025-03-01 17:10)
PROC: 0DJD8ZZ Inspection of Lower Intestinal Tract, Via Natural or Artificial Opening Endoscopic (ICD-10-PCS; CPT 45378; principal; 2025-03-03 11:40)
DX: K52.9 Noninfective gastroenteritis and colitis, unspecified (principal); I26.99 Other pulmonary embolism without acute cor pulmonale; D68.32 Hemorrhagic disorder due to extrinsic circulating anticoagulants; E87.20 Acidosis, unspecified; Z68.42 Body mass index [BMI] 45.0-49.9, adult; N39.0 Urinary tract infection, site not specified; D69.6 Thrombocytopenia, unspecified; R16.2 Hepatomegaly with splenomegaly, not elsewhere classified; I10 Essential (primary) hypertension; D53.9 Nutritional anemia, unspecified; I86.4 Gastric varices; E66.01 Morbid (severe) obesity due to excess calories; R11.14 Bilious vomiting; K31.819 Angiodysplasia of stomach and duodenum without bleeding; K57.30 Diverticulosis of large intestine without perforation or abscess without bleeding; E87.6 Hypokalemia; K64.4 Residual hemorrhoidal skin tags; G47.33 Obstructive sleep apnea (adult) (pediatric); Z86.718 Personal history of other venous thrombosis and embolism; R50.9 Fever, unspecified; Z79.82 Long term (current) use of aspirin; Z79.01 Long term (current) use of anticoagulants; Z90.49 Acquired absence of other specified parts of digestive tract; R73.9 Hyperglycemia, unspecified
CPT/HCPCS: 36415; 36600; 71045; 71275; 74174; 74177; 80048; 80053; 81001; 82010; 82274; 82607; 82728; 82746; 82803; 82962; 83036; 83540; 83550; 83605; 83735; 83880; 84100; 84145; 84484; 85014; 85018; 85025; 85610; 85730; 86022; 86850; 86900; 86901; 87040; 87070; 87086; 87205; 87449; 87493; 87506; 87631; 87633; 87641; 93005; 93306; 94668; 97116; 97162; 97166; 97530; 97535; 97802; 97803; 99285; C1889; P9016; Q9957; Q9967; A4216; C8929; J0582; J2405